=== PATIENT | female | born 1955 | race Caucasian/White ===

== ENCOUNTER → 2020-06-09 09:55 | Outpatient (CLI) | payer MEDICARE, OTHER, SELFPAY ==
--- NOTE | ~2020-06-09 | MR_ITS ---
EXAMINATION: MR cervical spine wo con DATE: 06/09/2020 10:36 INDICATION: Neck pain. TECHNIQUE: Magnetic resonance imaging (MRI) of the cervical spine was performed without intravenous c ontrast. Sequences included sagittal T2-weighted FSE, sagittal STIR FSE, sagittal T1-weighted FSE, ax ial MERGE, and axial T2-weighted FSE. COMPARISON: None FINDINGS: There is 6 degrees dextrocurvature of cervical spine. There is kyphosis of cervical spine. There is 2 mm anterolisthesis of C4 on C5. Vertebral body heights are normal. There is mildly decreas ed disc height at C4-C5, moderately decreased disc height at C5-C6, and severely decreased disc heigh t at C6-C7. The spinal cord signal intensity is normal. The following disc levels are specifically di scussed: C2-C3: The disc does not extend beyond the endplate margin. There is no uncovertebral joint osteoarth ritis. There is mild right and severe left facet joint osteoarthritis. There is mild left neural fora keyshawn stenosis. There is no central canal stenosis. C3-C4: The disc is bulging. There is mild right and moderate left uncovertebral joint osteoarthritis. There is severe bilateral facet joint osteoarthritis. There is mild right and moderate left neural f oraminal stenosis. There is mild central canal stenosis. C4-C5: The disc does not extend beyond the endplate margin. There is mild right and moderate left unc overtebral joint osteoarthritis. There is moderate right and severe left facet joint osteoarthritis. There is mild left neural foraminal stenosis. There is no central canal stenosis. C5-C6: The disc is bulging. There is severe bilateral uncovertebral joint osteoarthritis. There is mo derate right and mild left facet joint osteoarthritis. There is moderate right and mild left neural f oraminal stenosis. There is mild central canal stenosis with ventral indentation of the spinal cord. C6-C7: The disc is bulging. There is moderate right and severe left uncovertebral joint osteoarthriti s. There is severe bilateral facet joint osteoarthritis. There is mild right and moderate left neural foraminal stenosis. There is mild central canal stenosis. C7-T1: The disc does not extend beyond the endplate margin. There is no uncovertebral joint osteoarth ritis. There is moderate right and severe left facet joint osteoarthritis. There is mild left neural foraminal stenosis. There is no central canal stenosis. IMPRESSION: 1. Severe cervical spondylosis. Reviewed, dictated and finalized at location B.
== END ==
PROVIDERS: PCP Family Medicine; Visit Provider Nurse Practitioner Family
DX: M54.2 Cervicalgia (principal); G89.29 Other chronic pain; M47.812 Spondylosis without myelopathy or radiculopathy, cervical region
CPT/HCPCS: 72141

== ENCOUNTER → 2020-12-29 10:10 | Outpatient (CLI) | payer MEDICARE, OTHER, SELFPAY ==
--- NOTE | ~2020-12-29 | DEXA_ITS ---
Bone Density Report Name: Cheyanne Hicks Age: 65 Sex: Female Ethnicity: White Date of : 1955 Indication: postmenopausal; screening for osteoporosis; height loss; Referring Provider: Ruth Torres Study: Bone densitometry was performed. Exam Date: December 29, 2020 Accession number: [id number] Bone Density: Region BMD T-score Z-score Classification AP Spine (L1-L4) 1.205 1.4 3.4 Normal Femoral Neck (Left) 0.706 -1.3 0.4 Osteopenia Total Hip (Left) 0.944 0.0 1.4 Normal Femoral Neck (Right) 1.010 1.5 3.1 Normal Total Hip (Right) 0.950 0.1 1.4 Normal Total Hip Mean 0.947 0.1 1.4 Normal World Health Organization criteria for BMD impression classify patients as: Normal (T-score at or above -1.0), Osteopenia (T-score between -1.0 and -2.5), or Osteoporosis (T-score at or below -2.5). 10-year Fracture Risk(1): Major Osteoporotic Fracture 8.3% Hip Fracture 0.8% Reported Risk Factors: [place] (), Neck BMD=0.706, BMI=36.3 (1) FRAX(R) Version 3.08. Fracture probability calculated for an untreated patient. Fracture probability may be lower if the patient has received treatment. Previous Exams: Region Exam Age BMD T-score BMD Change BMD Change Date g/cm2 vs Baseline vs Previous AP Spine(L1-L4) 12/29/2020 65 1.205 1.4 0.010 0.010 10/11/2018 63 1.195 1.3 Total Hip(Left) 12/29/2020 65 0.944 0.0 -0.001 -0.001 10/11/2018 63 0.945 0.0 Total Hip(Right) 12/29/2020 65 0.950 0.1 -0.010 -0.010 10/11/2018 63 0.960 0.1 *Denotes significance at 95% confidence level, LSC for AP Spine = 0.022 g/cm2, LSC for Total Hip = 0.027 g/cm2 Clinical Information Provided by Patient: Has used the following medications: Calcium, MTV, calcium included vit D Patient maximum height was 67 Menopause Age: 49 No regular weight bearing exercise Does not regularly consume dairy products Drinks caffeinated beverages Onset of menses at age 8 Number of children 3 Impression: The patient has low bone mass, based on the Left Femoral Neck T-score. The patient has an estimated ten-year risk of hip fracture of 0.8% and an estimated ten-year risk of major fracture of 8.3%, based on the WHO FRAX algorithm. No significant bone loss was observed. Discussion: BONE DENSITY IS LOW AT ONE OR MORE SKELETAL SITES. This patient's lowest T-score is low at one or more skeletal sites. I
--- NOTE | ~2020-12-29 | MM_ITS ---
EXAMINATION: MM screening victor hugo BI w steffany HISTORY: Screening TECHNIQUE: Craniocaudal and mediolateral oblique 3-D tomosynthesis images were obtained and synthetic 2-D images were generated. CAD analysis was submitted and interpreted. COMPARISON: Comparison to multiple prior studies sequentially, with oldest reviewed study dated 01/19. BREAST PARENCHYMAL COMPOSITION: There are scattered areas of fibroglandular density. FINDINGS: There is no evidence of suspicious mass, calcification, or architectural distortion to sugg est malignancy in either breast. There has been no suspicious interval change. IMPRESSION: 1. No mammographic evidence of malignancy. 2. Recommend routine screening mammography in one year. BI-RADS Category 1: Negative Reviewed, dictated and finalized at location A. R'S TENDER
== END ==
PROVIDERS: PCP Nurse Practitioner Family; Visit Provider Nurse Practitioner Family
DX: Z12.31 Encounter for screening mammogram for malignant neoplasm of breast (principal); Z78.0 Asymptomatic menopausal state; M85.852 Other specified disorders of bone density and structure, left thigh
CPT/HCPCS: 77063; 77067; 77080

== ENCOUNTER → 2021-09-30 11:41 | Outpatient (CLI) | payer MEDICARE, OTHER, SELFPAY ==
--- NOTE | ~2021-09-30 | XR_ITS ---
EXAMINATION: XR hip RT min 3V w AP pelvis DATE: 09/30/2021 12:14 INDICATION: Right hip pain. TECHNIQUE: An anteroposterior view of the pelvis and 2 views of right hip were obtained. COMPARISON: Right hip radiographs 10/24/2016 FINDINGS: There is lumbar levocurvature and moderate spondylosis. No fracture. There is severe right hip osteoarthritis and moderate left hip osteoarthritis. IMPRESSION: 1. Severe right hip osteoarthritis and moderate left hip osteoarthritis. Reviewed, dictated and finalized at location A. TER SERVICE AND SETTER
== END ==
PROVIDERS: PCP Family Medicine; Visit Provider Family Medicine
DX: M25.551 Pain in right hip (principal); M16.0 Bilateral primary osteoarthritis of hip
CPT/HCPCS: 73502

== ENCOUNTER → 2021-11-25 10:41 | Outpatient (CLI) | payer MEDICARE, OTHER, SELFPAY ==
--- NOTE | ~2021-11-25 | XR_ITS ---
EXAMINATION: XR chest 2V 11/25/2021 11:18 INDICATION: Shortness of breath PROCEDURE: 2 view chest COMPARISON: 11/07/2008 FINDINGS: The lungs are clear. The cardiomediastinal silhouette is within normal limits. There are no pleural effusions. There is no pneumothorax suspected. IMPRESSION: 1: NO ACUTE CARDIOPULMONARY DISEASE. Reviewed, dictated and finalized at location B. OPOLITAN EDITOR
== END ==
PROVIDERS: Visit Provider Family Medicine
DX: R06.02 Shortness of breath (principal)
CPT/HCPCS: 71046

== ENCOUNTER 2021-12-13 08:09 | Outpatient (CLI) | payer MEDICARE, OTHER, SELFPAY ==
--- NOTE | 2021-12-13 | EST_ITS ---
Patient Info Name: Cheyanne Hicks Age: 66 years : 1955 Gender: Female Ht: 65 in Wt: 200 lbs BSA: 2.07 m2 HR: 85 bpm BP: 123 / 73 mmHg Heart Rhythm: Sinus Rhythm Exam Date: 12/13/2021 9:29 AM Exam Location: [facility] Stress Patient Status: Outpatient Admit Date: 12/13/2021 Staff Ordering Physician: Javier Marroquin MD Attending Provider: Javier Marroquin MD Exercise Technologist: Allison Lala CT Exercise Physician: Willard Parra DO Exam Type: CA stress dipika w NM Study Info Indications R06.00 - Dyspnea, unspecified A regadenoson stress test was performed. Summary 1. 1. Negative Lexiscan stress test for ischemic ST changes by ECG criteria. 2. 2. Stable hemodynamics throughout the test. 3. 3. Nuclear scan to follow and will be reported separately. Please correlate with it. 4. 4. Patient informed of the above results. Protocol: Lexiscan Stress ECG Details Stage: REST Duration (min): 1 min : 1 sec HR (bpm): 79 SBP (mmHg): 123 DBP (mmHg): 73 Stage: REST Duration (min): 4 min : 59 sec HR (bpm): 82 SBP (mmHg): 123 DBP (mmHg): 73 Stage: STAGE 1 Duration (min): 1 min : 0 sec HR (bpm): 94 SBP (mmHg): 129 DBP (mmHg): 72 Stage: RECOVERY Duration (min): 1 min : 0 sec HR (bpm): 96 SBP (mmHg): 129 DBP (mmHg): 72 Stage: RECOVERY Duration (min): 2 min : 0 sec HR (bpm): 95 SBP (mmHg): 129 DBP (mmHg): 72 Stage: RECOVERY Duration (min): 3 min : 0 sec HR (bpm): 91 SBP (mmHg): 131 DBP (mmHg): 72 Stage: RECOVERY Duration (min): 3 min : 0 sec HR (bpm): 91 SBP (mmHg): 131 DBP (mmHg): 72 Rest HR: 82 bpm Peak HR: 104 bpm Rest Sys BP: 123 mmHg Peak Sys BP: 131 mmHg Max Pred HR: 152 bpm % Max Pred HR: 68 % Target HR: 129 bpm Max RPP: 13,624 bpm*mmHg Termination Reason: Completed protocol Cardiac Symptoms: Stomach discomfort Total Time: 1 min : 0 sec Rest Abraham BP: 73 mmHg Peak Abraham BP: 72 mmHg Total Dose: 0.4 mg Resting ECG Sinus rhythm, RBBB. Stress ECG No ST changes. Arrhythmias None. Report Signatures
--- NOTE | ~2021-12-13 | NM_ITS ---
EXAMINATION: NM dipika stress w perfusion DATE: 12/13/2021 11:16 INDICATION: Dyspnea on exertion. TECHNIQUE: Rest images were obtained following intravenous administration of 11.22 mCi Tc99m tetrofos min (Myoview). The patient was infused intravenously with Lexiscan (regadenoson). Then, 33.9 mCi Tc99 m tetrofosmin (Myoview) was administered intravenously, and stress images were obtained. Data was rec onstructed into short axis and horizontal and vertical long axis SPECT images. Gated SPECT images wer e also obtained. COMPARISON: None. FINDINGS: There is no definite reversible or fixed perfusion abnormality to suggest ischemia or infar ction. There is no segmental wall motion abnormality. Left ventricular ejection fraction measures > 70%. IMPRESSION: 1. No definite ischemia or infarct. 2. Normal left ventricular ejection fraction measuring >70%. Reviewed, dictated and finalized at location A. CHMENT TEACHER
== END 2021-12-13 08:10 | disposition home or self-care (01) ==
LOC: ANHCARD 08:14
PROVIDERS: PCP Family Medicine; Visit Provider Family Medicine
DX: R06.00 Dyspnea, unspecified (principal)
CPT/HCPCS: 78452; 93017; A9502; J2785

== ENCOUNTER 2022-01-10 18:20 | Emergency (ER) | payer MEDICARE, OTHER, SELFPAY ==
[2022-01-10] VITALS (8 sets, daily range): BP systolic 102–155; BP diastolic 63–92; PULSE 78–111; RESP 17–35; TEMP 36.1–36.7; O2SAT 97–100
--- NOTE | ~2022-01-10 | XR_ITS ---
XR chest 2V DATE: 01/10/2022 18:49 INDICATION: Chest pain, shortness of breath, fever since 01/07/2022. Chills. Weakness. TECHNIQUE: AP and lateral views COMPARISON: 11/25/2021 2 view chest FINDINGS: Normal heart size. Aortic calcification and mild unfolding. No hilar or mediastinal enlarge ment. No pulmonary infiltrate or consolidation, pleural effusion or pulmonary vascular congestion or pneumo thorax is detected. Diffuse osteopenia. Degenerative spurring and mild dextro scoliosis of the thoracic spine. IMPRESSION: No active cardiopulmonary disease Aortic atherosclerosis Osteopenia Reviewed, dictated and finalized at location A.
--- NOTE | 2022-01-10 18:22 | ECG_ITS ---
Measurements Intervals [place] Rate: 113 P: VT: 0 QRS: 39 QRSD: 138 T: 22 QT: 326 QTc: 447 Interpretive Statements PROBABLE ATRIAL FIBRILLATION WITH RAPID VENTRICULAR RESPONSE RIGHT BUNDLE BRANCH BLOCK [120+ ms QRS DURATION, UPRIGHT V1, 40+ ms S IN I/aVL/V4/V5/V6] BASELINE ARTIFACT NO PREVIOUS ECG AVAILABLE FOR COMPARISON Electronically Signed On 01-11-2022 12:00:49 CDT by Lana Lagos M.D.
[2022-01-10 18:37] LABS: Basophils Percent Auto 0.1 % (0.2-1.2); Hematocrit 35.9 % (37.0-47.0); Hemoglobin 12.5 g/dL (12.0-15.0); Immature Granulocyte Absolute 0.03 K/mm3 (0.00-0.031); Immature Granulocyte Percent A 0.3 % (0-0.5); Lymphocytes Absolute Auto 1.53 K/mm3 (0.9-3.2); Lymphocytes Percent Auto 15.3 % (18.3-44.2); Mean Corpuscular HGB Conc 34.8 g/dl (32-36); Mean Corpuscular Hemoglobin 29.3 pg (26-34); Mean Corpuscular Volume 84.1 fl (80-100); Mean Platelet Volume 10.1 fl (7.4-10.4); Monocytes Percent Auto 9.9 % (2.6-8.5); Neutrophils Absolute Auto 7.4 K/mm3 (1.3-6.7); Neutrophils Percent Auto 74.4 % (45.5-73.1); Platelet Count Result 161 k/mm3 (150-375); Red Blood Count 4.27 M/mm3 (4.2-5.4); Red Cell Distribution Width 13.5 % (11.5-14.5)
[2022-01-10 18:55] LABS: Alanine Aminotransferase 27 U/L (4-35); Albumin Level 4.7 g/dL (3.5-5.1); Alkaline Phosphatase 73 U/L (38-126); Anion Gap 14 mmol/L (8-16); Aspartate Amino Transferase 37 U/L (14-36); Bilirubin,Total 0.9 mg/dL (0.2-1.3); Blood Urea Nitrogen 15 mg/dL (7-17); Calcium 8.9 mg/dL (8.4-10.2); Carbon Dioxide 20 mmol/L (22-30); Chloride 90 mmol/L (98-107); Estimated CRCL calculation 85 ml/min; Estimated Glomerular Filt Rate > 60; Glucose 128 mg/dL (65-110); Sodium 124 mmol/L (137-145)
--- NOTE | 2022-01-10 19:23 | ED.SOB ---
HPI - SOB/Dyspnea General Chief Complaint: Shortness of Breath/Dyspnea Stated Complaint: sob Time Seen by Provider: 01/10/22 19:02 Source: patient and family History of Present Illness HPI Narrative: Patient presents with shortness of breath. Reports has had nausea and vomiting since Monday associated with fever with a T-max of 102. This afternoon she was feeling short of breath and appeared to be shaking with a family member check on her so they brought to the ER for evaluation. Reports she just does not feel well and feels like she cannot get enough air she denies any focal areas of pain such as chest pain or abdominal pain. Denies any diarrhea or urinary symptoms. There have been other family members that have had nausea vomiting and fevers recently in the home. Related Data Home Medications Medication Instructions Recorded Confirmed acetaminophen 500 mg tablet 1,000 mg PO Q6H PRN tablet 09/20/21 12/28/21 celecoxib 200 mg capsule 200 mg PO BID cap 09/20/21 12/28/21 folic acid 1 mg tablet 1 mg PO DAILY 09/20/21 12/28/21 guaifenesin 600 mg tablet, 600 mg PO ONCE PRN tablet 09/20/21 12/28/21 extended release 12 hr tramadol 50 mg tablet 50 mg PO Q6H PRN 09/20/21 12/28/21 magnesium oxide 420 mg tablet 420 mg PO DAILY 11/24/21 12/28/21 cetirizine 10 mg tablet 10 mg PO DAILY tablet 12/28/21 12/28/21 clonazepam 0.5 mg tablet 1 mg PO QHS PRN tablet 12/28/21 12/28/21 fluticasone propionate 50 1 spray INTRANASAL DAILY PRN units 12/28/21 12/28/21 mcg/actuation nasal spray,suspension gabapentin 300 mg capsule 600 mg PO QHS cap 12/28/21 12/28/21 omeprazole 20 mg capsule,delayed 20 mg PO DAILY PRN 12/28/21 12/28/21 release pravastatin 20 mg tablet 20 mg PO QHS tablet 12/28/21 12/28/21 Allergies Allergy/AdvReac Type Severity Reaction Status Date / Time hydrocodone Allergy Unknown ITCHING Verified 01/10/22 18:40 Review of Systems Review of Systems: CONSTITUTIONAL: Reports fevers. EYES: Denies visual changes, redness, or discharge. ENT: Denies rhinorrhea, congestion, sore throat, or otalgia. CARDIOVASCULAR: Denies chest pain, palpitations, or edema. RESPIRATORY: Reports shortness of breath GASTROINTESTINAL: Reports nausea and vomiting GENITOURINARY: Denies dysuria or hematuria. SKIN: Denies rash or itching. MUSCULOSKELETAL: Denies back pain, joint pain, or myalgia. NEUROLOGIC: Denies headache, numbness, dizziness, or weakness. PSYCHIATRIC: Denies anxiety or depression. All systems reviewed & are unremarkable except as noted in HPI and below PMFSH Past Medical History Medical History Anxiety Depression Environmental allergies Essential (primary) hypertension GERD without esophagitis Hearing loss History of anesthesia problem HTN (hypertension) Hyperlipidemia, unspecified Insomnia Osteopenia Polyosteoarthritis, unspecified Rheumatoid arthritis Seronegative arthritis Follows with Dr Ochoa Skin cancer Sleep apnea in adult Type 2 diabetes mellitus without complications Surgical History Surgical History H/O shoulder surgery per patient questionnaire History of carpal tunnel release (~2019) History of cholecystectomy per patient questionnaire History of knee replacement x2 per patient questionnaire Family History Family History Mother Hypertension Family history of type 2 diabetes mellitus Diabetes mellitus Father Family history of lung cancer Family history of primary malignant neoplasm of liver Other Arthritis Depression Family history of alcoholism Family history of hearing loss Family history of malignant neoplasm Neuropathy Social History Social History Social History: , retired. She lives with her son, [id number] and 2 granddaughters. She has several sis
[2022-01-10] MEDS: SODIUM CHLORIDE 0.9% IV 1,000 ML 999 ML IV CONT ×2 (19:25→20:44)
[2022-01-10] MEDS: POTASSIUM CHLORIDE 20 MEQ PACKET (FOR LIQUID) 40 MEQ PO (19:26)
[2022-01-10 19:38] LABS: D Dimer 0.51 ug/mL (<0.48)
--- NOTE | 2022-01-10 20:00 | PC.NURSE ---
pt unable to provide urine sample at this time. pt refusing straight urinary catheter at this time, stating I'll try to go again in a little bit.
[2022-01-10 22:05] LABS: Add Urine Microscopic? NO; Appearance Urine Clear (Clear); Bilirubin Urine Negative (Negative); Blood Urine Negative (Negative); Color Urine Yellow (Yellow); Glucose Urine UA Negative (Negative); Ketones Urine Negative (Negative); Leukocyte Esterase Ur Negative LEU/UL (Negative); Nitrate Urine Negative (Negative); Protein Urine Negative (Negative); Specific Grav Ur 1.009 (1.001-1.035); Urobilinogen Urine Negative mg/dL (<2.0)
== END 2022-01-10 22:38 | disposition home or self-care (01) ==
PROVIDERS: Emergency Medicine; Emergency Provider Emergency Medicine; PCP Family Medicine
DX: B34.9 Viral infection, unspecified (principal); E86.0 Dehydration; I10 Essential (primary) hypertension; K21.9 Gastro-esophageal reflux disease without esophagitis; E78.5 Hyperlipidemia, unspecified; M85.80 Other specified disorders of bone density and structure, unspecified site; E11.9 Type 2 diabetes mellitus without complications; M06.00 Rheumatoid arthritis without rheumatoid factor, unspecified site; F41.9 Anxiety disorder, unspecified; F32.A Depression, unspecified; Z85.828 Personal history of other malignant neoplasm of skin; Z96.653 Presence of artificial knee joint, bilateral; Z79.84 Long term (current) use of oral hypoglycemic drugs
CPT/HCPCS: 36415; 71046; 80053; 81003; 85025; 85380; 93005; 96360; 96361; 99284; A9270; J7030

== ENCOUNTER → 2022-01-17 16:20 | Outpatient (CLI) | payer MEDICARE, OTHER, SELFPAY ==
--- NOTE | ~2022-01-17 | XR_ITS ---
EXAMINATION: XR chest 2V 01/17/2022 16:34 INDICATION: Cough with shortness of breath PROCEDURE: 2 view chest COMPARISON: Comparison to multiple prior studies sequentially, with oldest reviewed study dated 06/2009. FINDINGS: The lungs are clear. The cardiomediastinal silhouette is within normal limits. There are no pleural effusions. There is no pneumothorax suspected. IMPRESSION: 1: NO ACUTE CARDIOPULMONARY DISEASE. Reviewed, dictated and finalized at location A.
== END ==
PROVIDERS: PCP Nurse Practitioner Family; Visit Provider Nurse Practitioner Family
DX: R05.9 Cough, unspecified (principal)
CPT/HCPCS: 71046

== ENCOUNTER 2022-02-02 07:59 | Outpatient (CLI) | payer MEDICARE, OTHER, SELFPAY ==
--- NOTE | 2022-02-02 08:56 | ECG_ITS ---
Measurements Intervals [place] Rate: 77 P: 37 CO: 173 QRS: -24 QRSD: 142 T: 1 QT: 394 QTc: 447 Interpretive Statements SINUS RHYTHM BORDERLINE LEFT AXIS DEVIATION [QRS AXIS < -20] INTRAVENTRICULAR CONDUCTION DELAY [130+ ms QRS DURATION] MODERATE VOLTAGE CRITERIA FOR LVH, CONSIDER NORMAL VARIANT [MEETS CRITERIA IN ONE OF: R(aVL), S(V1), R(V5), R(V5/V6)+S(V1)] COMPARED TO ECG 01/10/2022 18:32:12 ATRIAL FIBRILLATION HAS RESOLVED Electronically Signed On 02-02-2022 14:23:14 CDT by Lana Lagos M.D.
[2022-02-02 09:25] LABS: White Blood Count 6.8 K/mm3 (4.5-10.0)
[2022-02-02 09:32] LABS: Add Urine Microscopic? YES; Appearance Urine Cloudy (Clear); Bacteria Urine Trace /hpf; Bilirubin Urine Negative (Negative); Blood Urine Negative (Negative); Color Urine Amber (Yellow); Glucose Urine UA Negative (Negative); Ketones Urine Negative (Negative); Leukocyte Esterase Ur Negative LEU/UL (Negative); Mucus Urine Rare /lpf; Nitrate Urine Negative (Negative); Protein Urine Negative (Negative); RBC Urine 0-2 /hpf (0-2); Specific Grav Ur 1.023 (1.001-1.035); Squamous Epithelial Cell Urine Occasional /hpf (Few); Urobilinogen Urine Negative mg/dL (<2.0); WBC Urine 0-3 /hpf
[2022-02-02 09:35] LABS: Prothrombin Time 12.5 Seconds (11.1-14.7)
[2022-02-02 09:36] LABS: Partial Thromboplastin Time 29.6 SECONDS (22.3-36.8)
[2022-02-02 09:41] LABS: Urine Cotinine NEGATIVE
== END 2022-02-02 08:00 | disposition home or self-care (01) ==
LOC: ANHSURGERY 08:03
PROVIDERS: PCP Family Medicine; Visit Provider Orthopaedic Surgery
DX: Z01.818 Encounter for other preprocedural examination (principal); M16.11 Unilateral primary osteoarthritis, right hip; I45.9 Conduction disorder, unspecified; Z51.81 Encounter for therapeutic drug level monitoring; Z79.899 Other long term (current) drug therapy
CPT/HCPCS: 80307; 81001; 85048; 85610; 85730; 86850; 86900; 86901; 87081; 93005

== ENCOUNTER 2022-02-15 00:03 | Day surgery (SDC) | payer MEDICARE, OTHER, SELFPAY ==
[2022-02-02 08:10] VITALS: BMI 32.8
--- NOTE | 2022-02-02 08:38 | PC.NURSE ---
Report to the Outpatient Waiting Room, entrance under the green pavilion located off [facility], at time ___0600____ on date __02/15/22 . OR Time: __729 . - You and your visitor will be asked a series of questions to screen for COVID 19 for your protection. - A mask is required within the hospital. Preoperative COVID Testing Requirements: No COVID Test needed if: (proof is required; if not received patient will have Rapid Test prior to entry) - Patient has received COVID Vaccine at least 14 days prior to procedure date or - Patient has positive COVID test result within last 90 days of surgery date. COVID Test needed if above criteria is not met If not COVID vaccinated a COVID test must be conducted within 72 hours of surgery and patient is asked to isolate self from time of testing until procedure. You will go to the [facility] for your COVID testing. The [facility] is located at the corner of [address] [facility]. You will only be called if COVID results are positive and your surgeon may reschedule your elective surgery date. Patients may have clear liquids (water, carbonated beverages, clear teas, apple juice) until 3 hours prior to surgery with a maximum of 20 ounces. - No food from midnight until time of surgery - Infants may have breast milk until 4 hours before surgery, formula 6 hours prior to surgery. - Children will be allowed to drink immediately following surgery. If applicable, please bring a bottle or sippy cup to assist with drinking. Juice, water, soda, and popsicles are readily available. For infants on formula, please bring formula the day of surgery. Pacifiers are allowed. Take the following medications with a SIP of water the morning of surgery: ___SERTRALINE Medications to discontinue per physician __ASPIRIN/CELECOXIB PER DR MILTON. ALL VITAMINS AND SUPPLEMENTS 3 DAYS PRE OP Date to take last dose__VIT/SUPP 02/11/22 Please no make-up, nail slovak, hairspray, perfume, deodorant, or body powder the day of surgery. No jewelry (including any body piercings) or valuables the day of surgery, leave them at home. Please take a shower or bath the night before, or the morning of, surgery with an antibacterial soap. Wear comfortable, loose fitting clothing. Children are encouraged to wear pajamas. - Jewelry must be removed prior to entering the operating room. Rings and piercings that are not removed may be cut off. - The hospital will not accept responsibility for valuables. - Please leave all valuables, including medications, at home the day of surgery. If you are going home after surgery, a licensed national flatbed truck driver must drive you home. - NO public transportation without another adult. - We recommend that an adult stay with you for 24 hours following discharge. - We also recommend that you do not drive, make important decision, drink alcoholic beverages, or take any drugs that were not prescribed by your health care provider for at least 24 hours after your discharge time. For Pediatric surgeries, we recommend two adults accompany the child home (only one inside the building at this time). One visitor will be allowed to accompany the patient into the hospital. Patients visitor will be instructed to remain with patient at all times or leave the building. We will allow the visitor to come back to the postoperative area when patient is ready. Follow any additional instructions given to you from your surgeon. VERBAL AND WRITTEN instructions given to _PATIENT and asked if any additional questions and then verbalized understanding. Patient advised to call surgeon office or pre surgery nurse liaison [phone] if any additional questions.
[2022-02-02 08:55] VITALS: BP 132/81; PULSE 81; RESP 18; TEMP 36.7; O2SAT 98
--- NOTE | 2022-02-14 12:54 | WPDANESEPPF ---
Anes - Initial Pre Proc Eval Procedure: Operation Date: 02/15/22 07:30 Proposed Procedures p Right Total Hip Arthroplasty - Roc Sethi MD Date/Time: 02/14/22 12:54 Surgeon: Roc Sethi MD Pre Op Diagnosis: Rt Hip DJD Patient Data Age: 66 Gender: F Height: 1.66 m Weight: 91 kg Last Vital Signs Temp 98.0 F 02/02/22 08:55 Pulse 81 02/02/22 08:55 Resp 18 02/02/22 08:55 BP 132/81 02/02/22 08:55 Pulse Ox 98 02/02/22 08:55 Allergies Allergy/AdvReac Type Severity Reaction Status Date / Time hydrocodone Allergy Mild ITCHING Verified 02/15/22 06:20 Home Medications Medication Instructions Recorded Confirmed Type cholecalciferol (vitamin D3) 25 1,000 unit PO DAILY #90 cap 03/12/20 02/07/22 Rx mcg (1,000 unit) capsule aspirin 81 mg tablet,delayed 81 mg PO DAILY #90 tablet 09/17/21 02/07/22 Rx release lisinopril 20 mg tablet 20 mg PO DAILY #90 tablet 09/17/21 02/07/22 Rx metformin 500 mg tablet 500 mg PO DAILY #90 tablet 09/17/21 02/07/22 Rx acetaminophen 500 mg tablet 1,000 mg PO Q6H PRN tablet 09/20/21 02/07/22 History celecoxib 200 mg capsule 200 mg PO BID cap 09/20/21 02/07/22 History guaifenesin 600 mg tablet, 600 mg PO DAILY tablet 09/20/21 02/07/22 History extended release 12 hr hydrochlorothiazide 25 mg tablet 25 mg PO DAILY #90 tablet 09/20/21 02/07/22 Rx sertraline 100 mg tablet 100 mg PO DAILY #90 tablet 09/20/21 02/15/22 Rx tramadol 50 mg tablet 50 mg PO Q6H PRN 09/20/21 02/07/22 History blood sugar diagnostic #50 ea 11/22/21 02/07/22 Rx blood-glucose meter #1 ea 11/22/21 02/07/22 Rx lancets #200 ea 11/22/21 02/07/22 Rx magnesium oxide 420 mg tablet 420 mg PO DAILY 11/24/21 02/07/22 History cetirizine 10 mg tablet 10 mg PO DAILY tablet 12/28/21 02/07/22 History fluticasone propionate 50 1 spray INTRANASAL DAILY PRN units 12/28/21 02/07/22 History mcg/actuation nasal spray,suspension gabapentin 300 mg capsule 600 mg PO QHS cap 12/28/21 02/07/22 History pravastatin 20 mg tablet 20 mg PO QHS tablet 12/28/21 02/07/22 History inhalational spacing device #1 ea 01/17/22 02/07/22 Rx clonazepam 0.5 mg tablet 1 mg PO QHS PRN #60 tablet 01/24/22 02/07/22 Rx sertraline 50 mg tablet 50 mg PO DAILY #60 tablet 01/24/22 02/15/22 Rx chlorhexidine gluconate 4 % 1 applic TOPICAL ONCE #237 ml 02/07/22 02/07/22 Rx topical liquid Patient hx anesthesia problems: post op nausea/vomiting Family hx anesthesia problems: none Results Review: All pre-operative results and documents have been reviewed as part of the pre-operative evaluation. [facility] Past Medical History Medical History Anxiety Depression Environmental allergies Essential (primary) hypertension GERD without esophagitis Hearing loss History of anesthesia problem HTN (hypertension) Hyperlipidemia, unspecified Insomnia Osteopenia Polyosteoarthritis, unspecified Rheumatoid arthritis Seronegative arthritis Follows with Dr Ochoa Skin cancer Sleep apnea in adult Type 2 diabetes mellitus without complications Surgical History Surgical History H/O shoulder surgery per patient questionnaire History of carpal tunnel release (~2019) History of cholecystectomy per patient questionnaire History of knee replacement x2 per patient questionnaire Family History Family History Mother Hypertension Family history of type 2 diabetes mellitus Diabetes mellitus Father Family history of lung cancer Family history of primary malignant neoplasm of liver Other Arthritis Depression Family history of alcoholism Family history of hearing loss Family history of malignant neoplasm Neuropathy Social History Social History Social History: , retired. She lives with her son, [id number] and 2 granddau
[2022-02-15] VITALS (15 sets, daily range): BP systolic 115–153; BP diastolic 52–87; PULSE 56–97; RESP 13–20; TEMP 36.3–37.6; O2SAT 95–100; BMI 35.4
--- NOTE | ~2022-02-15 | XR_ITS ---
EXAMINATION: XR hip RT 1V DATE: 02/15/2022 10:29 INDICATION: Postoperative evaluation following right total hip arthroplasty TECHNIQUE: Anteroposterior view of the right hip were obtained. COMPARISON: 11/22/2021 FINDINGS: Interval placement of a right total hip arthroplasty which appears well seated in near anatomic align ment. Expected subcutaneous gas in the postoperative bed. No fractures identified. IMPRESSION: 1. Right total hip arthroplasty, negative for postoperative purposes. Reviewed, dictated and finalized at location A.
[2022-02-15] MEDS: ACETAMINOPHEN 500 MG TABLET 1000 MG PO (06:22)
[2022-02-15] MEDS: TRANEXAMIC ACID 1,000MG/ISO100 1,000 MG/100 ML BAG 200 MG IVPB (07:00)
[2022-02-15] MEDS: LACTATED RINGERS 1,000 ML 30 ML IV CONT ×2 (07:00→10:10)
[2022-02-15 07:05] LABS: Glucose Point of Care 133 mg/dl (65-105)
--- NOTE | 2022-02-15 07:11 | WPDHPUPDATE1 ---
History and Physical Update Update Date/Time: 02/15/22 07:11 History and Physical has been reviewed, including an updated exam of the patient. There are NO changes in the patient's condition. Risks, benefits, and alternatives have been discussed and questions answered. Patient agrees to proceed with procedure.
[2022-02-15] MEDS: SCOPOLAMINE 1.5 MG PATCH TRANSDERM (07:25)
[2022-02-15] MEDS: ceFAZolin 2 GM/D5W 50 ML 2 GM/50 ML BAG IVPB ×3 (07:29→23:00)
[2022-02-15] MEDS: TRANEXAMIC ACID 1,000 MG/10 ML AMPUL 1000 MG IV PUSH (09:52)
--- NOTE | 2022-02-15 10:00 | W.PM.PROC2 ---
Procedure Note - Detailed Date of Procedure 02/15/22 Pre-op Diagnosis Rt Hip DJD Post-op Diagnosis Same Procedure Performed R YAEL Surgeon Roc Sethi MD Anesthesia General Description of Procedure THE PATIENT WAS TAKEN TO THE OPERATING ROOM IN STABLE CONDITION AND WAS PLACED IN THE LATERAL DECUBITUS AND THE RIGHT LOWER EXTREMITY WAS PREPPED AND DRAPED IN THE STERILE FASHION. INCISION WAS MADE IN THE POSTERIOR LATERAL SIDE OF THE HIP, DOWN TO THE FASCIA LAYER. THE FASCIA WAS INCISED. THE HIP WAS EXPOSED. THE SHORT EXTERNAL ROTATORS WERE EXPOSED. THE SCIATIC NERVE WAS IDENTIFIED. THERE WAS A HIGH BIFURCATION OF THE NERVE. INCISION WAS MADE THROUGH THE SHORT EXTERNAL ROTATORS AND THE CAPSULE OF THE HIP JOINT. THE HIP WAS DISLOCATED. AN OSTEOTOMY WAS MADE TO THE FEMORAL NECK ABOUT 1 CM PROXIMAL TO THE LESSER TROCHANTER. THE ACETABULUM WAS EXPOSED. THERE WAS SEVERE DJD SEEN. BEGINNING WITH A 44 REAMER THE ACETABULUM WAS REAMED TO 53 MM. A 53 MM TRIAL WAS PLACED IN 35 DEG OF ABDUCTION AND ANTEVERSION WAS IN ALIGNMENT WITH THE TRANS ACETABULAR LIGAMENT. THE FIT WAS EXCELLENT. THE TRIAL WAS REMOVED. A 54 MM BIOMET G7 COMPONENT WAS THEN TAPPED IN TO PLACE IN 35 DEG OF ABDUCTION AND ANTEVERSION IN ALIGNMENT WITH THE TRANSVERSE ACETABULAR LIGAMENT. THE FIT WAS EXCELLENT. THE ACETABULAR LINER WAS PLACED AND CHECKED FOR STABILITY. NEXT THE FEMUR WAS PREPARED WITH INITIAL CANAL FINDER THEN SEQUENTIAL BROACHING WITH A TAPERLOC HIP SYSTEM, UNTIL A 8 BROACH FIT WELL IN 15 OF ANTEVERSION. A -3 STANDARD OFFSET NECK WITH 36 MM HEAD TRIAL WAS PLACED. THE SHUCK TEST WAS EXCELLENT AND THE STABILITY IN FLEXION AND ROTATION WAS EXCELLENT. LEG LENGTHS WERE GROSSLY EQUAL. TRIALS WERE REMOVED. A BIOMET TAPERLOC 8 STEM WAS PLACED WITH A HIGH OFFSET NECK THE FIT WAS EXCELLENT IN 15 DEG OF ANTEVERSION. A -3 CERAMIC 36 MM FEMORAL HEAD WAS PLACED. THE HIP WAS TRIALED AND THE STABILITY WAS EXCELLENT WERE THE LEG LENGTHS AND THE SHUCK TEST. THE WOUND WAS IRRIGATED WITH STERILE BETADINE AND WATER FOR 3 MIN. THEN WASHED AGAIN. THE CAPSULE AND THE EXTERNAL ROTATORS WERE APPROXIMATED WITH NUMBER 1 VICRYL. THE FASCIA WITH No 2 QUIL AND THE SUB CUTANEOUS LAYER WITH 2-0 ABSORBABLE SUTURE WITH A RUNNING 3-0 SUBCUTICULAR LAYER WELL. DERMABOND WAS PLACED AND STERILE DRESSING WAS APPLIED. PATIENT WAS PLACED BACK ON TO THE SUPINE POSITION AND WAS EXTUBATED Estimated Blood Loss 400 Complications No immediate complications Condition Stable Disposition PACU
[2022-02-15 10:23] LABS: Glucose Point of Care 215 mg/dl (65-105)
--- NOTE | 2022-02-15 12:00 | ADMGEN ---
This patient, Cheyanne Hicks, was admitted to Medical Room 252-01. Patient/family oriented to hospital policies and general routines including ID bracelet, bed and alarms, visiting hours, pain management, procedures, bathroom and other care routines, personal items, smoking policy, room service/diet, and visiting hours. Information on how to activate the Rapid Response Team has been discussed. Patient/Family are encouraged to report perceived risks to care and to ask questions if they do not understand what they are told or what they should do.
[2022-02-15 12:57] LABS: Glucose Point of Care 153 mg/dl (65-105)
[2022-02-15] MEDS: HYDROcodone/acetaminophen (*CRX) 7.5-325 MG TABLET 1 TAB PO ×2 (13:59→19:09)
[2022-02-15 16:21] LABS: Glucose Point of Care 173 mg/dl (65-105)
[2022-02-15] MEDS: SENNA/DOCUSATE SODIUM TABLET 2 TAB PO (17:03)
[2022-02-15] MEDS: CELECOXIB 200 MG CAPSULE PO (17:05)
[2022-02-15] MEDS: diazePAM (*CRX) 5 MG TABLET PO (19:13)
[2022-02-15] MEDS: ONDANSETRON INJ 4 MG/2 ML VIAL IV PUSH (20:38)
[2022-02-15 20:43] LABS: Glucose Point of Care 150 mg/dl (65-105)
[2022-02-15] MEDS: GABAPENTIN 300 MG CAPSULE 600 MG PO (21:13)
[2022-02-15] MEDS: MORPHINE SULFATE (*CRX) 4 MG/ML INJ 3 MG IV PUSH (21:14)
[2022-02-15] MEDS: FAMOTIDINE 20 MG TABLET PO (21:14)
[2022-02-15] MEDS: PRAVASTATIN SODIUM 20 MG TABLET PO (21:14)
[2022-02-15] MEDS: clonazePAM (*CRX) 0.5 MG TABLET 1 MG PO (23:00)
[2022-02-16 00:11] VITALS: BP 91/47; PULSE 98; RESP 20; TEMP 37.5; O2SAT 95
[2022-02-16 03:42] VITALS: BP 105/49; PULSE 96; RESP 20; TEMP 37.1; O2SAT 95
[2022-02-16 04:53] LABS: Basophils Percent Auto 0.2 % (0.2-1.2); Hematocrit 26.6 % (37.0-47.0); Hemoglobin 8.9 g/dL (12.0-15.0); Immature Granulocyte Absolute 0.07 K/mm3 (0.00-0.031); Immature Granulocyte Percent A 0.6 % (0-0.5); Lymphocytes Absolute Auto 2.02 K/mm3 (0.9-3.2); Lymphocytes Percent Auto 18.1 % (18.3-44.2); Mean Corpuscular HGB Conc 33.5 g/dl (32-36); Mean Corpuscular Hemoglobin 28.8 pg (26-34); Mean Corpuscular Volume 86.1 fl (80-100); Mean Platelet Volume 9.7 fl (7.4-10.4); Monocytes Absolute Auto 1.3 K/mm3 (0.1-0.6); Monocytes Percent Auto 11.2 % (2.6-8.5); Neutrophils Absolute Auto 7.8 K/mm3 (1.3-6.7); Neutrophils Percent Auto 69.9 % (45.5-73.1); Platelet Count Result 190 k/mm3 (150-375); Red Blood Count 3.09 M/mm3 (4.2-5.4); Red Cell Distribution Width 14.3 % (11.5-14.5); White Blood Count 11.2 K/mm3 (4.5-10.0)
[2022-02-16 05:09] LABS: Anion Gap 6 mmol/L (8-16); Blood Urea Nitrogen 10 mg/dL (7-17); Calcium 8.1 mg/dL (8.4-10.2); Carbon Dioxide 27 mmol/L (22-30); Chloride 99 mmol/L (98-107); Estimated CRCL calculation 105 ml/min; Estimated Glomerular Filt Rate > 60; Glucose 132 mg/dL (65-110); Potassium 3.3 mmol/L (3.4-5.0); Sodium 132 mmol/L (137-145)
[2022-02-16] MEDS: HYDROcodone/acetaminophen (*CRX) 7.5-325 MG TABLET 1 TAB PO ×3 (05:58→17:16)
[2022-02-16] MEDS: ceFAZolin 2 GM/D5W 50 ML 2 GM/50 ML BAG IVPB (05:59)
[2022-02-16 07:32] LABS: Glucose Point of Care 137 mg/dl (65-105)
[2022-02-16 08:00] VITALS: RESP 20; O2SAT 95
[2022-02-16] MEDS: SENNA/DOCUSATE SODIUM TABLET 2 TAB PO ×2 (09:09→17:13)
[2022-02-16] MEDS: MAGNESIUM OXIDE 400 MG TABLET PO (09:10)
[2022-02-16] MEDS: CELECOXIB 200 MG CAPSULE PO ×2 (09:10→17:13)
[2022-02-16] MEDS: ASPIRIN 325 MG ENTERIC TABLET 650 MG PO (09:10)
[2022-02-16] MEDS: polyethylene glycoL 3350 17 GM POWD.PACK PO (09:11)
[2022-02-16] MEDS: LORATADINE 10 MG TABLET PO (09:11)
[2022-02-16] MEDS: FAMOTIDINE 20 MG TABLET PO (09:11)
[2022-02-16] MEDS: guaiFENesin 12 HR 600 MG TABCR PO (09:11)
[2022-02-16] MEDS: metFORMIN HCL 500 MG TABLET PO (09:11)
[2022-02-16] MEDS: SERTRALINE HCL 50 MG TABLET 150 MG PO (09:11)
[2022-02-16] MEDS: lisinopriL 20 MG TABLET PO (09:11)
[2022-02-16] MEDS: hydroCHLOROthiazide 25 MG TABLET PO (09:11)
[2022-02-16 10:30] VITALS: BP 114/57; PULSE 95; RESP 14; TEMP 36.6; O2SAT 98
--- NOTE | 2022-02-16 11:17 | PCCCNOTE ---
On 02/16/22, the student, [Yanely Monroy ], provided care and completed [facility] documentation on this patient. I have reviewed the student's documentation and agree with the findings.
[2022-02-16 11:49] LABS: Glucose Point of Care 110 mg/dl (65-105)
[2022-02-16 14:20] VITALS: BP 130/82; PULSE 95; RESP 16; TEMP 36.7; O2SAT 100
[2022-02-16 16:14] LABS: Glucose Point of Care 136 mg/dl (65-105)
--- NOTE | 2022-02-16 17:13 | PM.PNORT ---
Progress Note: A&P Additional Plan POD 1 DOING WELL AND HAS PASED PT. OK TO DC HOME F/U IN 3 WEEKS. Subjective Subjective Date/Time Seen: 02/16/22 17:13 pod 1 DOING WELL. PAIN CONTROLLED. NO CALF PAIN Exam Extrem: Other: VSS AFEBRILE DRESSING DRY NV INTACT NEG HOMANS SIGN Objective Data Vital Signs Vital Signs: Vital Signs - 24 hr 02/15/22 17:35 02/15/22 20:00 02/15/22 20:28 Temperature 36.7 C 37.6 C H Pulse Rate 81 97 97 Respiratory Rate 20 20 Blood Pressure 138/58 L 121/54 L Pulse Oximetry 98 99 99 02/16/22 00:11 02/16/22 03:42 02/16/22 08:00 Temperature 37.5 C 37.1 C Pulse Rate 98 96 Respiratory Rate 20 20 20 Blood Pressure 91/47 L 105/49 L Pulse Oximetry 95 95 95 02/16/22 10:30 02/16/22 14:20 Temperature 36.6 C 36.7 C Pulse Rate 95 95 Respiratory Rate 14 16 Blood Pressure 114/57 L 130/82 Pulse Oximetry 98 100 Intake/Output Intake/Output: Intake & Output 02/13/22 02/14/22 02/15/22 02/16/22 23:59 23:59 23:59 23:59 Intake Total 450 1480 Output Total 300 Balance 450 1180 Meds/Results Medications: Active Medications Generic Name Dose Route Start Last Admin Trade Name Freq PRN Reason Stop Dose Admin Acetaminophen 650 mg 02/15/22 11:50 Acetaminophen 325 Mg Tablet PO Q6H PRN Mild Pain (1-3) or Fever Hydrocodone Bitart/Acetaminophen 1 tab 02/15/22 11:50 02/16/22 10:15 Hydrocodone/Acetaminophen (*Crx) 7.5-325 Mg Tablet PO 1 tab Q3H PRN Administration Pain Rated 4-6 Aspirin 650 mg 02/16/22 09:00 02/16/22 09:10 Aspirin 325 Mg Enteric Tablet PO 650 mg DAILY TANNA Administration Celecoxib 200 mg 02/15/22 17:00 02/16/22 17:13 Celecoxib 200 Mg Capsule PO 200 mg BID TANNA Administration Clonazepam 1 mg 02/15/22 11:50 02/15/22 23:00 Clonazepam (*Crx) 0.5 Mg Tablet PO 1 mg HS PRN Administration sleep Diazepam 5 mg 02/15/22 11:50 02/15/22 19:13 Diazepam (*Crx) 5 Mg Tablet PO 5 mg Q6H PRN Administration Anxiety/Muscle Spasm Famotidine 20 mg 02/15/22 21:00 02/16/22 09:11 Famotidine 20 Mg Tablet PO 20 mg Q12HR TANNA Administration Gabapentin 600 mg 02/15/22 21:00 02/15/22 21:13 Gabapentin 300 Mg Capsule PO 600 mg HS TANNA Administration Guaifenesin 600 mg 02/16/22 09:00 02/16/22 09:11 Guaifenesin 12 Hr 600 Mg Tabcr PO 600 mg DAILY TANNA Administration Hydrochlorothiazide 25 mg 02/16/22 09:00 02/16/22 09:11 Hydrochlorothiazide 25 Mg Tablet PO 25 mg DAILY TANNA Administration Lisinopril 20 mg 02/16/22 09:00 02/16/22 09:11 Lisinopril 20 Mg Tablet PO 20 mg DAILY TANNA Administration Loratadine 10 mg 02/16/22 09:00 02/16/22 09:11 Loratadine 10 Mg Tablet PO 10 mg QAM TANNA Administration Magnesium Oxide 400 mg 02/16/22 09:00 02/16/22 09:10 Magnesium Oxide 400 Mg Tablet PO 400 mg DAILY TANNA Administration Metformin HCl 500 mg 02/16/22 08:00 02/16/22 09:11 Metformin Hcl 500 Mg Tablet PO 500 mg DAILY@0800 TANNA Administration Morphine Sulfate 3 mg 02/15/22 11:50 02/15/22 21:14 Morphine Sulfate (*Crx) 4 Mg/Ml Inj IV PUSH 3 mg Q3H PRN Administration Pain Rated 7-10 Naloxone HCl 0.1 mg 02/15/22 11:50 Naloxone Hcl 0.4 Mg/Ml Vial IV PUSH Q2M PRN Opiate Reversal Ondansetron HCl 4 mg 02/15/22 11:50 02/15/22 20:38 Ondansetron Inj 4 Mg/2 Ml Vial IV PUSH 4 mg Q4H PRN Administration Nausea And Vomiting Polyethylene Glycol 17 gm 02/16/22 09:00 02/16/22 09:11 Polyethylene Glycol 3350 17 Gm Powd.Pack PO 17 gm QAM TANNA Administration Pravastatin Sodium 20 mg 02/15/22 21:00 02/15/22 21:14 Pravastatin Sodium 20 Mg Tablet PO 20 mg HS TANNA Administration Senna/Docusate Sodium 2 tab 02/15/22 17:00 02/16/22 17:13 Senna/Docusate Sodium Tablet PO 2 tab BID TANNA Administration Sertraline HCl 150 mg 02/16/22 09:00 02/16/22 09:11 Sertraline Hcl 50 Mg Tablet PO 1
--- NOTE | 2022-02-16 17:16 | PM.DS ---
DS: Admitting Diagnosis Discharge Date 02/16/22 Admitting Diagnosis RIGHT HIP DJD DS: Discharge Diagnosis Discharge Diagnosis (1) S/P total hip arthroplasty: Code(s): Z96.649 - Presence of unspecified artificial hip joint Status: Acute DS: Summary Hospital Course Reason for hospitalization: R YAEL Hospital Course: PATIENT WAS ADMITTED S/P RIGHT TOTAL HIP ARTHROPLASTY FOR POSTOPERATIVE MEDICAL MANAGEMENT, PAIN CONTROL AND MOBILIZATION WITH PHYSICAL AND OCCUPATIONAL THERAPY. THE PATIENT PROGRESSED WELL WITH PT/OT. LABS AND VITALS REMAINED STABLE AND PAIN WELL CONTROLLED. THE PATIENT HAS BEEN CLEARED TO BE DISCHARGED HOME. FOLLOW UP APPOINTMENT SCHEDULED. DISCHARGE INSTRUCTIONS DISCUSSED AT LENGTH WITH THE PATIENT. MEDICATIONS REVIEWED. Time spent discussing smoking cessation with patient: 3 to 10 minutes Status at Discharge Cognitive/behavioral status at discharge: STABLE Functional status at discharge: uses cane/walker Overall status at discharge: patient is progressing back to baseline Time Spent with Patient Time attestation: Total time spent providing and/or coordinating discharge services: DS: Data Data Completed and Pending Labs on day of discharge: Labs from last 24 hours 02/16/22 02/16/22 02/16/22 16:10 11:43 07:29 WBC RBC Hgb Hct MCV MCH MCHC RDW Plt Count MPV Immature Gran % (Auto) Neut % (Auto) Lymph % (Auto) Dixon % (Auto) Eos % (Auto) Baso % (Auto) Lymph # (Auto) Dixon # (Auto) Eos # (Auto) Baso # (Auto) Abs Immat Gran (auto) Absolute Neuts (auto) Absolute Nucleated RBC Nucleated RBC % Sodium Potassium Chloride Carbon Dioxide Anion Gap BUN Creatinine Estim Creat Clear Calc Estimated GFR Glucose POC Capillary Glucose 136 H 110 H 137 H Calcium 02/16/22 02/16/22 02/15/22 04:38 04:38 20:32 WBC 11.2 H RBC 3.09 L Hgb 8.9 L D Hct 26.6 L MCV 86.1 MCH 28.8 MCHC 33.5 RDW 14.3 Plt Count 190 MPV 9.7 Immature Gran % (Auto) 0.6 H Neut % (Auto) 69.9 Lymph % (Auto) 18.1 L Dixon % (Auto) 11.2 H Eos % (Auto) 0.0 Baso % (Auto) 0.2 Lymph # (Auto) 2.02 Dixon # (Auto) 1.3 H Eos # (Auto) 0.0 Baso # (Auto) 0.0 Abs Immat Gran (auto) 0.07 H Absolute Neuts (auto) 7.8 H Absolute Nucleated RBC 0.0 Nucleated RBC % 0.0 Sodium 132 L Potassium 3.3 L Chloride 99 Carbon Dioxide 27 Anion Gap 6 L BUN 10 D Creatinine 0.50 L Estim Creat Clear Calc 105 Estimated GFR > 60 Glucose 132 H POC Capillary Glucose 150 H Calcium 8.1 L Discharge Plan Discharge Patient Disposition: Home Health Service Discharge Instructions: Remove the Scopolamine patch that was placed behind your ear in 72 hours or less. Wash your hands after touching. Post Op Total Hip Replacement Instructions Dr. Roc Sethi [phone] ? Your dressing will be changed prior to your discharge. You will be sent home with one additional dressing to be changed on post op day 7 by the home health RN. You may remove the dressing on post op day 14. Your incision was closed with dermabond, allow the dermabond to fall off naturally once your dressing is removed. Do not pull at the dermabond or disrupt incision healing. ? You may shower with your dressing but do not submerge in a bath tub. ? Do not drive or operate machinery until you are released by Dr. Sethi. ? Do not walk without a walker for any reason until you are released by Dr. Sethi. ? Continue to apply ice to the hip intermittently for additional pain relief. Protect your skin with a towel or pillow case. ? Continue to follow strict total hip replacement precautions. ? Your first post op appointment was sent to you via mail preoperatively. If you have any questions or are unable to make your appointment, please contact our office for scheduling questions. ?
== END 2022-02-16 18:00 | disposition home health service (06) ==
LOC: ANHSURGERY 07:47 → ANH2MED 12:07
PROVIDERS: PCP Family Medicine; Visit Provider Orthopaedic Surgery
PROC: (CPT 27130; principal; 2022-02-15 07:30)
DX: M16.11 Unilateral primary osteoarthritis, right hip (principal); I10 Essential (primary) hypertension; K21.9 Gastro-esophageal reflux disease without esophagitis; E78.5 Hyperlipidemia, unspecified; F41.8 Other specified anxiety disorders; M06.00 Rheumatoid arthritis without rheumatoid factor, unspecified site; G47.30 Sleep apnea, unspecified; E11.9 Type 2 diabetes mellitus without complications; M85.80 Other specified disorders of bone density and structure, unspecified site; E66.9 Obesity, unspecified; Z68.35 Body mass index [BMI] 35.0-35.9, adult; Z79.82 Long term (current) use of aspirin; Z79.84 Long term (current) use of oral hypoglycemic drugs
CPT/HCPCS: 27130; 36415; 73501; 80048; 82948; 85025; 97110; 97116; 97161; 97165; 97530; 97535; A9270; C1776; J0171; J0690; J1100; J1170; J1885; J2250; J2270; J2405; J2704; J2710; J2795; J3010; J7120

== ENCOUNTER 2022-07-05 10:28 | Outpatient (CLI) | payer MEDICARE, OTHER, SELFPAY ==
[2022-07-05 18:49] LABS: Basophils Absolute Auto 0.1 K/mm3 (0.0-0.1); Basophils Percent Auto 0.6 % (0.2-1.2); Eosinophils Absolute Auto 0.2 K/mm3 (0-0.3); Eosinophils Percent Auto 2.5 % (0-4.4); Hemoglobin 12.1 g/dL (12.0-15.0); Immature Granulocyte Absolute 0.01 K/mm3 (0.00-0.031); Immature Granulocyte Percent A 0.1 % (0-0.5); Lymphocytes Absolute Auto 3.18 K/mm3 (0.9-3.2); Lymphocytes Percent Auto 37.7 % (18.3-44.2); Mean Corpuscular HGB Conc 32.7 g/dl (32-36); Mean Corpuscular Hemoglobin 27.6 pg (26-34); Mean Corpuscular Volume 84.5 fl (80-100); Mean Platelet Volume 10.7 fl (7.4-10.4); Monocytes Absolute Auto 0.6 K/mm3 (0.1-0.6); Monocytes Percent Auto 7.6 % (2.6-8.5); Neutrophils Absolute Auto 4.4 K/mm3 (1.3-6.7); Neutrophils Percent Auto 51.5 % (45.5-73.1); Platelet Count Result 233 k/mm3 (150-375); Red Blood Count 4.38 M/mm3 (4.2-5.4); White Blood Count 8.4 K/mm3 (4.5-10.0)
[2022-07-05 19:07] LABS: Alanine Aminotransferase 14 U/L (6-35); Albumin Level 4.9 g/dL (3.5-5.1); Alkaline Phosphatase 103 U/L (38-126); Anion Gap 18 mmol/L (8-16); Aspartate Amino Transferase 37 U/L (14-36); Bilirubin,Total 0.5 mg/dL (0.2-1.3); Blood Urea Nitrogen 20 mg/dL (7-17); Calcium 9.4 mg/dL (8.4-10.2); Carbon Dioxide 26 mmol/L (22-30); Chloride 94 mmol/L (98-107); Cholesterol 156 mg/dL (0-200); Estimated Glomerular Filt Rate > 60; Glucose 110 mg/dL (65-110); HDL Direct 40 mg/dL; Potassium 4.5 mmol/L (3.4-5.0); Sodium 138 mmol/L (137-145); Triglycerides 251 mg/dL (<150)
[2022-07-05 19:19] LABS: LDL Cholesterol Direct 69 mg/dL
[2022-07-05 19:21] LABS: Creatinine Urine 256.2 mg/dL
[2022-07-05 19:25] LABS: MALB Creatinine Ratio 8.8 mg/g (0-30); Microalbumin Urine Random 22.6 mg/L (0-16.7)
[2022-07-05 19:49] LABS: Hemoglobin A1C 5.7 % (<5.7)
== END 2022-07-05 10:29 | disposition home or self-care (01) ==
LOC: ANHGOSHLAB 10:30
PROVIDERS: PCP Family Medicine; Visit Provider Nurse Practitioner
DX: E78.5 Hyperlipidemia, unspecified (principal); E11.9 Type 2 diabetes mellitus without complications; I10 Essential (primary) hypertension
CPT/HCPCS: 36415; 80053; 80061; 82043; 83036; 85025

== ENCOUNTER → 2022-12-27 10:07 | Outpatient (CLI) | payer MEDICARE, OTHER, SELFPAY ==
--- NOTE | ~2022-12-27 | MM_ITS ---
EXAMINATION: MM screening victor hugo BI w steffany HISTORY: Screening mammogram TECHNIQUE: Craniocaudal and mediolateral oblique 3-D tomosynthesis images were obtained and synthetic 2-D images were generated. CAD analysis was submitted and interpreted. COMPARISON: 12/29/2020 bilateral screening mammogram 07/18/2019 diagnostic bilateral mammogram and Limited bilateral breast ultrasound examination BREAST PARENCHYMAL COMPOSITION: There are scattered areas of fibroglandular density. FINDINGS: There is development of a linear array of grouped granular appearing microcalcifications in the upper outer left breast. Diagnostic right mammogram and right breast ultrasound examination are recommended. Otherwise there is no evidence of suspicious mass, calcification, or architectural distortion to sugg est malignancy in either breast. There has been no other suspicious interval change. IMPRESSION: 1. Developing linear array of indeterminate microcalcifications in the upper outer right breast. 2. Diagnostic right mammogram and right breast ultrasound examination are recommended. BI-RADS Category 0: Incomplete: Needs additional imaging evaluation. Reviewed, dictated and finalized at location A. E ASSISTANT IMPRESSION: 1. Developing linear array of indeterminate microcalcifications in the upper ou ter right breast. 2. Diagnostic right mammogram and right breast ultrasound examination are recom mended. BI-RADS Category 0: Incomplete: Needs additional imaging evaluation.
== END ==
PROVIDERS: PCP Family Medicine; Visit Provider Family Medicine
DX: Z12.31 Encounter for screening mammogram for malignant neoplasm of breast (principal); R92.8 Other abnormal and inconclusive findings on diagnostic imaging of breast
CPT/HCPCS: 77063; 77067

== ENCOUNTER → 2023-01-18 08:01 | Outpatient (CLI) | payer MEDICARE, OTHER, SELFPAY ==
--- NOTE | ~2023-01-18 | MM_ITS ---
EXAMINATION: MM diagnostic mammo unilat RT HISTORY: Follow-up right breast calcifications TECHNIQUE: Additional 3-D tomosynthesis images of the right breast were performed and synthetic 2-D i mages were generated. CAD analysis was submitted and interpreted. COMPARISON: Comparison to multiple prior studies sequentially, with oldest reviewed study dated 12/2016. BREAST PARENCHYMAL COMPOSITION: Breast composed of scattered areas of fibroglandular density FINDINGS: There is a cluster of indeterminate calcifications in the upper outer quadrant of the right breast, middle depth. IMPRESSION: 1. Clustered indeterminate right breast calcifications upper outer quadrant. 2. Stereotactic right breast biopsy recommended. BI-RADS category 4, suspicious findings. Reviewed, dictated and finalized at location A.
== END ==
PROVIDERS: PCP Family Medicine; Visit Provider Nurse Practitioner
DX: R92.8 Other abnormal and inconclusive findings on diagnostic imaging of breast (principal)
CPT/HCPCS: 77065

== ENCOUNTER 2023-01-30 09:55 | Outpatient (CLI) | payer MEDICARE, OTHER, SELFPAY ==
--- NOTE | ~2023-01-30 | MM_ITS ---
EXAMINATION: MM stereotactic bx RT, MM post biopsy diagnostic RT, MM stereotactic specimen RT, Specim en Radiograph, Tissue Marker Clip Placement, Unilateral Mammogram DATE: 01/30/2023 12:05 INDICATION: Abnormal mammogram: Clustered indeterminate right upper outer quadrant breast microcalcif ications. TECHNIQUE AND FINDINGS: The risks and potential benefits of the procedure were discussed with the patient and written informe d consent was obtained. Timeout procedure was performed. The patient was placed in the prone position on the dedicated stereotactic table with the right breast in lateral medial compression, and the are a of interest was localized and targeted utilizing digital imaging with stereotaxis. After sterile preparation of the skin, 1% lidocaine was utilized for local anesthesia at the skin pun cture site and 1% lidocaine with epinephrine was utilized for deeper local anesthesia/is about the bi opsy site. A 9G [employer] vacuum assisted biopsy needle was advanced to the level of the calcification o f interest from a lateral approach utilizing stereotactic guidance and a total of 12 tissue core biop sies were obtained. A specimen radiograph demonstrates that the calcifications of interest are included within the tissue cores. A tissue marker clip was then placed at the biopsy site. A digital mammographic exposure co nfirmed the successful deployment of the biopsy marker. The needle was removed and hemostasis was ac hieved. A sterile bandage was applied. The patient tolerated the procedure well and there is no rich dence of significant immediate complication. The patient was given verbal as well as written postpro cedural instructions prior to discharge from the department. Tissue cores were submitted to surgical pathology for histologic analysis. A 2-view right unilateral digital mammogram was obtained post procedure, demonstrating the tissue mar ker clip in expected position. IMPRESSION: 1. Successful stereotactic biopsy of upper outer quadrant right breast microcalcifications, followe d by tissue marker clip placement. Please refer to pathology report for histologic analysis. Reviewed, dictated and finalized at Location A. Reviewed, dictated and finalized at location A. IMPRESSION: 1. Successful stereotactic biopsy of upper outer quadrant right breast microc alcifications, followed by tissue marker clip placement. Please refer to patho logy report for histologic analysis. IMPRESSION: 1. Successful stereotactic biopsy of upper outer quadrant right breast microc alcifications, followed by tissue marker clip placement. Please refer to patho logy report for histologic analysis.
== END 2023-01-30 09:56 | disposition home or self-care (01) ==
PROVIDERS: PCP Family Medicine; Visit Provider Nurse Practitioner Family
DX: C50.411 Malignant neoplasm of upper-outer quadrant of right female breast (principal); N60.91 Unspecified benign mammary dysplasia of right breast
CPT/HCPCS: 19081; 77065; 88305; 88342; 88360; 88365; A4648

== ENCOUNTER 2023-03-06 17:15 | Outpatient (CLI) | payer MEDICARE, OTHER, SELFPAY ==
--- NOTE | ~2023-03-06 | XR_ITS ---
AP and lateral views of the right hip Clinical history: Pain COMPARISON: 03/07/2022 Findings: No acute fracture or dislocation is seen. Right hip arthroplasty in place. No hardware comp lication seen. There is mild degenerative change of the right SI joint. Soft tissues are unremarkable . Impression: No acute abnormality. Right hip arthroplasty in place. Mild degenerative change of the right SI joint. Reviewed, dictated and finalized at location . Impression: No acute abnormality. Right hip arthroplasty in place. Mild degenerative change of the right SI joint.
--- NOTE | ~2023-03-06 | XR_ITS ---
Right Knee Technique: AP, lateral, and sunrise views were obtained. Clinical History: Pain Findings: No fracture or dislocation is seen. Right hip arthroplasty hardware is in place. No hardwar e complication seen. Soft tissues are unremarkable. No joint effusion is seen. Impression: No acute abnormality. Right hip arthroplasty in place. Reviewed, dictated and finalized at location . Impression: No acute abnormality. Right hip arthroplasty in place.
--- NOTE | ~2023-03-06 | XR_ITS ---
Clinical Indication: Shortness of breath AP and lateral views of the chest: Comparison: 01/17/2022 Findings: The lungs are clear, without evidence of focal consolidation or pleural effusion. Cardiome diastinal silhouette is within normal limits. Bones and soft tissues are unremarkable. Impression: Normal chest. Reviewed, dictated and finalized at location . Impression: Normal chest.
== END 2023-03-06 17:16 | disposition home or self-care (01) ==
PROVIDERS: PCP Family Medicine; Referring Provider Nurse Practitioner; Visit Provider Nurse Practitioner Family
DX: R06.02 Shortness of breath (principal); R10.9 Unspecified abdominal pain; W19.XXXA Unspecified fall, initial encounter; Z13.0 Encounter for screening for diseases of the blood and blood-forming organs and certain disorders involving the immune mechanism; Z96.651 Presence of right artificial knee joint; Z96.641 Presence of right artificial hip joint
CPT/HCPCS: 71046; 73502; 73562

== ENCOUNTER 2023-03-07 14:12 | Outpatient (CLI) | payer MEDICARE, OTHER, SELFPAY ==
[2023-03-07 14:56] LABS: Basophils Percent Auto 0.2 % (0.2-1.2); Eosinophils Percent Auto 0.1 % (0-4.4); Hematocrit 32.2 % (37.0-47.0); Hemoglobin 11.1 g/dL (12.0-15.0); Immature Granulocyte Absolute 0.25 K/mm3 (0.00-0.031); Immature Granulocyte Percent A 1.3 % (0-0.5); Lymphocytes Absolute Auto 0.74 K/mm3 (0.9-3.2); Lymphocytes Percent Auto 3.8 % (18.3-44.2); Mean Corpuscular HGB Conc 34.5 g/dl (32-36); Mean Corpuscular Hemoglobin 30.2 pg (26-34); Mean Corpuscular Volume 87.7 fl (80-100); Mean Platelet Volume 9.3 fl (7.4-10.4); Monocytes Absolute Auto 1.4 K/mm3 (0.1-0.6); Neutrophils Percent Auto 87.6 % (45.5-73.1); Platelet Count Result 295 k/mm3 (150-375); Red Blood Count 3.67 M/mm3 (4.2-5.4); Red Cell Distribution Width 13.2 % (11.5-14.5); White Blood Count 19.4 K/mm3 (4.5-10.0)
[2023-03-07 15:06] LABS: Alanine Aminotransferase 45 U/L (6-35); Albumin Level 4.1 g/dL (3.5-5.1); Alkaline Phosphatase 205 U/L (38-126); Anion Gap 11 mmol/L (8-16); Aspartate Amino Transferase 30 U/L (14-36); Bilirubin,Total 0.8 mg/dL (0.2-1.3); Blood Urea Nitrogen 14 mg/dL (7-17); Calcium 8.7 mg/dL (8.4-10.2); Carbon Dioxide 26 mmol/L (22-30); Chloride 87 mmol/L (98-107); Cholesterol 133 mg/dL (0-200); Estimated Glomerular Filt Rate > 60; Glucose 159 mg/dL (65-110); HDL Direct 25 mg/dL; Potassium 4.5 mmol/L (3.4-5.0); Sodium 124 mmol/L (137-145); Triglycerides 156 mg/dL (<150)
[2023-03-07 15:17] LABS: LDL Cholesterol Direct 64 mg/dL
[2023-03-07 15:34] LABS: Hemoglobin A1C 5.5 % (<5.7)
[2023-03-07 15:42] LABS: Creatinine Urine 190.6 mg/dL
[2023-03-07 15:44] LABS: MALB Creatinine Ratio 7.9 mg/g (0-30); Microalbumin Urine Random 15.1 mg/L (0-16.7)
[2023-03-07 16:57] LABS: Iron 13 ug/dL (37-170)
[2023-03-07 17:06] LABS: Percent Iron Saturation 5 % (20-50); Vitamin D 25 Hydroxy 62.3 ng/mL
== END 2023-03-07 14:13 | disposition home or self-care (01) ==
PROVIDERS: PCP Family Medicine; Referring Provider Nurse Practitioner Family; Visit Provider Nurse Practitioner
DX: I10 Essential (primary) hypertension (principal); E78.5 Hyperlipidemia, unspecified; E03.9 Hypothyroidism, unspecified; E55.9 Vitamin D deficiency, unspecified; E11.9 Type 2 diabetes mellitus without complications
CPT/HCPCS: 36415; 80053; 80061; 82043; 82306; 83036; 83540; 83550; 84443; 85025

== ENCOUNTER 2023-03-08 12:04 | Inpatient (IN) | payer MEDICARE, OTHER, SELFPAY ==
[2023-03-08] VITALS (26 sets, daily range): BP systolic 106–141; BP diastolic 43–79; PULSE 74–91; RESP 13–20; TEMP 36.6–36.8; O2SAT 94–100
--- NOTE | ~2023-03-08 | CT_ITS ---
Noncontrast CT scan of the right knee CLINICAL HISTORY: Pain, status post fall. History of knee arthroplasty. TECHNIQUE: Axial noncontrast imaging of the right knee was performed. Sagittal and coronal reformatte d images were constructed. Dose reduction technique was used on this scan by utilizing automated expo sure control and iterative reconstruction technique. The dose-length product (DLP) was 411.55 mGy-cm. Findings: Total right knee arthroplasty hardware is in place, with associated streak artifact. No acu te fracture identified. No hardware complication is evident. Probable small joint effusion present. No other gross soft tissue abnormality seen. IMPRESSION: No fracture or hardware complication identified. Probable small joint effusion. Reviewed, dictated and finalized at location .
--- NOTE | ~2023-03-08 | US_ITS ---
US abdomen limited INDICATION: Elevated liver function tests PROCEDURE: Realtime right upper abdominal ultrasound. COMPARISON: No prior studies for comparison. FINDINGS: The pancreas is normal without focal mass or pancreatic ductal dilation. Liver echotexture is normal without focal mass or intrahepatic biliary dilatation. There is normal directional flow i n the portal vein. There is a cystic structure adjacent to the expected location of the gallbladder fossa. Per patient h istory she is had a cholecystectomy. This may represent an exophytic liver cyst which measures 4.3 cm . Common bile duct measures 7.6 mm. IMPRESSION: 1: Cystic structure measuring 4.3 cm near the expected location of the gallbladder fossa which is rep ortedly surgically absent. This likely represents a exophytic liver cyst. Clinically correlate. Reviewed, dictated and finalized at location A. IMPRESSION: 1: Cystic structure measuring 4.3 cm near the expected location of the gallblad kady fossa which is reportedly surgically absent. This likely represents a exoph ytic liver cyst. Clinically correlate.
--- NOTE | ~2023-03-08 | CT_ITS ---
EXAMINATION: CT chest abdomen pelvis w con DATE: 03/12/2023 10:44 CDT INDICATION: Bacteremia TECHNIQUE: Computed tomography (CT) of the chest, abdomen, and pelvis was performed with 100 cc Omnip aque 350 intravenous contrast. The dose-length product was 1199.84 mGy-cm. Automated exposure control and iterative reconstruction technique were employed. COMPARISON: None FINDINGS: CHEST CT: Heart size normal. No thoracic lymphadenopathy. No significant pleural or pericardial effusion. There is atherosclerosis of the aorta without aneurysm or dissection. There is a 2 mm right upper lobe nod ule, likely benign. No endobronchial lesions. There is bilateral lower lobe atelectasis. Mild emphyse ma. No pneumothorax. There is a 3.6 x 2 cm right breast mass with adjacent tissue marker. This result s reportedly invasive ductal carcinoma on prior report dated 01/30/2023. ABDOMEN/PELVIS CT: Gallbladder is present. There is mild biliary dilatation. CBD measures 10 mm. The liver, spleen, panc reas, adrenal glands are unremarkable. There are multiple cysts of both kidneys. No significant hydro nephrosis. Nonobstructive bowel pattern. Moderate colonic fecal loading. Colonic diverticulosis witho ut evidence for diverticulitis. No free air or free fluid. There is a right hip arthroplasty. There i s moderate thoracic and lumbar spondylosis. There is scoliosis. IMPRESSION: 1. Mild biliary dilatation with CBD measuring 10 mm. No obstructing stone or mass identified. 2: Right breast mass measuring up to 3.6 cm, compatible with known breast cancer. Reviewed, dictated and finalized at location A. IMPRESSION: 1. Mild biliary dilatation with CBD measuring 10 mm. No obstructing stone or ma ss identified. 2: Right breast mass measuring up to 3.6 cm, compatible with known breast canc er.
--- NOTE | ~2023-03-08 | XR_ITS ---
Portable chest x-ray Comparison: 03/06/2023 Clinical History: Shortness of breath, leukocytosis Findings: COPD pattern of the lungs present. No consolidation or pleural effusion. Cardiomediastina l silhouette is stable. Bones and soft tissues are unremarkable. Impression: COPD. Clear lungs. Reviewed, dictated and finalized at location . Impression: COPD. Clear lungs.
[2023-03-08 12:43] LABS: Basophils Percent Auto 0.2 % (0.2-1.2); Hematocrit 31.2 % (37.0-47.0); Hemoglobin 10.8 g/dL (12.0-15.0); Immature Granulocyte Absolute 0.44 K/mm3 (0.00-0.031); Lymphocytes Absolute Auto 1.03 K/mm3 (0.9-3.2); Lymphocytes Percent Auto 4.7 % (18.3-44.2); Mean Corpuscular HGB Conc 34.6 g/dl (32-36); Mean Corpuscular Hemoglobin 30.4 pg (26-34); Mean Corpuscular Volume 87.9 fl (80-100); Mean Platelet Volume 9.1 fl (7.4-10.4); Monocytes Absolute Auto 1.7 K/mm3 (0.1-0.6); Monocytes Percent Auto 7.7 % (2.6-8.5); Neutrophils Absolute Auto 18.6 K/mm3 (1.3-6.7); Neutrophils Percent Auto 85.4 % (45.5-73.1); Platelet Count Result 357 k/mm3 (150-375); Red Blood Count 3.55 M/mm3 (4.2-5.4); Red Cell Distribution Width 13.3 % (11.5-14.5); White Blood Count 21.8 K/mm3 (4.5-10.0)
[2023-03-08 12:52] LABS: Lactic Acid Reflex 1.7 mmol/L (0.7-2.0)
[2023-03-08 12:58] LABS: INR 1.1; Prothrombin Time 14.5 Seconds (11.1-14.7)
[2023-03-08 12:59] LABS: Partial Thromboplastin Time 41.1 SECONDS (22.3-36.8)
[2023-03-08 13:01] LABS: Alanine Aminotransferase 42 U/L (6-35); Albumin Level 3.9 g/dL (3.5-5.1); Alkaline Phosphatase 213 U/L (38-126); Anion Gap 11 mmol/L (8-16); Aspartate Amino Transferase 26 U/L (14-36); Bilirubin,Total 0.7 mg/dL (0.2-1.3); Blood Urea Nitrogen 18 mg/dL (7-17); Calcium 8.6 mg/dL (8.4-10.2); Carbon Dioxide 25 mmol/L (22-30); Chloride 87 mmol/L (98-107); Estimated CRCL calculation 65 ml/min; Estimated Glomerular Filt Rate > 60; Glucose 137 mg/dL (65-110); Potassium 4.4 mmol/L (3.4-5.0); Sodium 123 mmol/L (137-145)
[2023-03-08 13:46] LABS: Appearance Urine Clear (Clear); Bilirubin Urine Negative (Negative); Blood Urine Negative (Negative); Color Urine Yellow (Yellow); Glucose Urine UA Negative (Negative); Ketones Urine Trace mg/dL (Negative); Leukocyte Esterase Ur Negative LEU/UL (Negative); Nitrate Urine Negative (Negative); Protein Urine Negative (Negative); Specific Grav Ur 1.026 (1.001-1.035)
[2023-03-08 13:50] LABS: Add Urine Microscopic? NO
[2023-03-08 13:52] LABS: CRP 33.5 mg/dL (<1.0)
--- NOTE | 2023-03-08 14:25 | ED.GENADULT ---
HPI - General Adult General Chief complaint: Recheck/Abnormal Lab/Rx Stated complaint: sick, abnormal labs Time Seen by Provider: 03/08/23 12:28 History of Present Illness HPI narrative: Patient is a 67-year-old female who presents ER after referral from her PCP Dr. Marroquin. Patient was seen at [facility] in [place] over the weekend after having a episode of weakness and fall. She is currently being worked up for breast cancer and that is why she went to that facility. They told her she was dehydrated and that she should increase her fluid intake. She has done just that since returning home. Patient had outpatient x-rays performed 2 days ago on her right hip and knee due to pain after the fall. She then had outpatient blood work drawn yesterday. Blood work showed a white blood cell count of 19,000 and hyponatremia with a sodium of 124 prompting her PCP to refer her here. Patient also reports she had a fever this morning of 100.4 ?F. She reports she had a breast biopsy approximately 3 weeks ago and some dental work performed 4 weeks ago and had prophylactic antibiotics at that time. Related Data Home Medications Medication Instructions Recorded Confirmed acetaminophen 500 mg tablet 1,000 mg PO Q6H PRN Pain 09/20/21 03/08/23 (Tylenol Extra Strength) magnesium oxide 420 mg tablet 420 mg PO DAILY 11/24/21 03/08/23 gabapentin 300 mg capsule 600 mg PO QHS 12/28/21 03/08/23 golimumab 12.5 mg/mL intravenous IV .[id number] 07/05/22 01/05/23 solution (Simponi ARIA) Allergies Allergy/AdvReac Type Severity Reaction Status Date / Time hydrocodone Allergy Mild ITCHING Verified 03/06/23 15:47 Review of Systems Review of Systems: All systems reviewed & are unremarkable except as noted in HPI and below Constitutional: Constitutional: Reports fatigue and Reports fever(s) ENT: Denies nasal congestion and Denies sore throat Cardiovascular: Cardiovascular: Denies chest pain, Denies rapid heart rate and Denies radiating jaw, neck or arm pain Respiratory: Respiratory: Denies cough and Denies dyspnea Gastrointestinal: Gastrointestinal: Denies abdominal pain, Denies nausea and Denies vomiting Musculoskeletal: Musculoskeletal: Reports arthralgias and Reports joint swelling Integumentary/Breasts: Skin/Breast: Denies erythema, Denies rash and Denies skin ulcer Neurologic: Denies focal weakness and Denies numbness [facility] Past Medical History Medical History (Updated 03/08/23 @ 18:53 by John Lloyd MD) Anxiety Breast cancer Depression Environmental allergies Essential (primary) hypertension GERD without esophagitis Hearing loss Hyperlipidemia, unspecified Insomnia Osteopenia Polyosteoarthritis, unspecified Rheumatoid arthritis Seronegative arthritis Follows with Dr Ochoa . Skin cancer Sleep apnea in adult Type 2 diabetes mellitus without complications Surgical History Surgical History (Updated 03/08/23 @ 18:31 by Ny Chase PA-C) History of bilateral cataract extraction History of bilateral knee replacement History of carpal tunnel release (2019) History of cholecystectomy History of repair of left rotator cuff History of sinus surgery History of total right hip arthroplasty (01/2022) Family History Family History Mother Hypertension Family history of type 2 diabetes mellitus Diabetes mellitus Father Family history of lung cancer Family history of primary malignant neoplasm of liver Other Arthritis Depression Family history of alcoholism Family history of hearing loss Family history of malignant neoplasm Neuropathy Social History Social History Social History: , retired. She lives with her son, [id number] and 2 granddaughters. She has several sisters and family members who live close-by. Smoking status: Never smoker Additional smoking assessment comments: DENIES AN
[2023-03-08 14:51] LABS: Erythrocyte Sedimentation Rate 87 mm/hr (0-20)
[2023-03-08] MEDS: CEFEPIME 2 GM/NS 50 ML 2 GM/50 ML BAG IVPB (17:00)
--- NOTE | 2023-03-08 18:26 | PM.IMHP ---
H&P: HPI History of Present Illness Date/Time: 03/08/23 17:45 Chief Complaint: Abnormal labs. Narrative: This is a pleasant 67-year-old female with recent diagnosis of stage I breast cancer, rheumatoid arthritis, osteoarthritis, type 2 diabetes mellitus, hypertension, hyperlipidemia, and other comorbidities who presented to the emergency department via private vehicle from home for evaluation of abnormal labs. The patient provides the following history and her daughter in-law Courtney provides additional information, with the patient's permission. She has not been feeling well for going on 2 weeks with vague symptoms initially including poor appetite, nausea, and left upper quadrant discomfort. On Monday night she was at a family function and she developed sudden chills and overall she was just feeling poorly. She was seen at [facility] on Monday morning at which time she was found to have a sodium of 129 which was attributed to dehydration. She was given some IV fluids and discharged home with instructions to follow-up with her doctor. A CT of the chest, abdomen, and pelvis done at that time showed a right ovarian cyst, mild intra and extrahepatic biliary dilatation with a common bile duct measured at 0.9 cm (bilirubin 0.7, alkaline phosphatase 210, AST 37, ALT 55), cardiomegaly, trace pleural effusions, and mild pulmonary edema. With further questioning she was a bit short of breath on Monday as well but she denies cough, orthopnea, pleuritic pain, chest pain, paroxysmal nocturnal dyspnea, and lower extremity edema. She rested on Monday and really push the fluids, drinking 8 bottles of water, 1 cup of coffee, and a half a can of soda. On Monday evening she got up to use the bathroom and reports that she got tripped up which caused her to fall onto her right knee and then back onto her buttocks. She had immediate, severe pain in the right knee and was unable to get herself up. Her son helped her to bed and she was seen the following day at her doctor's office. She was started on a prednisone taper and amoxicillin for suspected underlying infection with an unknown source. Right knee and hip x-rays yesterday did not show any acute findings, soft tissue swelling, or effusions. Chest x-ray was read as normal with a normal cardiomediastinal silhouette. Outpatient labs drawn yesterday showed a white blood cell count of 19,000 she was directed to the ED today for evaluation. Her knee continues to hurt pretty significantly even with minimal to no movement. It has gotten increasingly swollen and is a bit warm. She had not run a fever until this morning with a temperature of 100.4?. Appetite continues to be poor. She denies vomiting, diarrhea, and dysuria. No headache, neck ache, or sore throat. She denies sick contacts. She has no open wounds. She had a dental cleaning done 4 weeks ago. She had a right breast biopsy done 3 weeks ago. She is not having any issues at either of those sites. In the ED: She was afebrile on arrival with stable vital signs. Labs were significant for a WBC count of 21.8, hemoglobin 10.8, ESR 87, sodium 123, potassium 4.4, BUN 18, creatinine 0.80, lactic acid 1.7, AST 26, ALT 42, alkaline phosphatase 213, CRP 33.5. Imaging of the knee and chest x-ray were not repeated as they had been done less than [address] Sethi evaluated the patient at bedside given her significant right knee swelling. He is not convinced that the knee is infected but she has been started on broad-spectrum antibiotics to include cefepime and vancomycin pending further evaluation. She has been admitted to the floor in this setting. Review of Systems Review of Systems: Twelve systems were reviewed and are negative except for as per HPI. [facility] Past Medical History Medical History (Updated 03/09/23 @ 00:03 by Ny Chase PA-C) Anxiety Cancer of right breast Depression Environmental allergies Essential (primary) hypertension GERD without esophagitis He
[2023-03-08] MEDS: traMADol HCL (*CRX) 50 MG TABLET PO (18:41)
--- NOTE | 2023-03-08 18:50 | ADMGEN ---
This patient, Cheyanne Hicks, was admitted to [facility] Surg Room 325-02 at 1800. Report received from KENISHA Go. Patient/family oriented to hospital policies and general routines including ID bracelet, bed and alarms, visiting hours, pain management, procedures, bathroom and other care routines, personal items, smoking policy, room service/diet, and visiting hours. Information on how to activate the Rapid Response Team has been discussed. Patient/Family are encouraged to report perceived risks to care and to ask questions if they do not understand what they are told or what they should do.
[2023-03-08 20:44] LABS: Anion Gap 12 mmol/L (8-16); Blood Urea Nitrogen 17 mg/dL (7-17); Calcium 8.9 mg/dL (8.4-10.2); Carbon Dioxide 25 mmol/L (22-30); Chloride 87 mmol/L (98-107); Estimated CRCL calculation 85 ml/min; Estimated Glomerular Filt Rate > 60; Glucose 116 mg/dL (65-110); Magnesium 2.2 mg/dL (1.6-2.3); Potassium 4.6 mmol/L (3.4-5.0); Sodium 124 mmol/L (137-145)
[2023-03-08 20:53] LABS: NT Pro B Type Natriuretic Pept 992 pg/mL (19.9-100)
--- NOTE | 2023-03-08 20:55 | PC.NURSE ---
Salvatore RODRIGUEZ called pt inquiring about sometime stronger for pain, MICHAEL Chase to place orders.
[2023-03-08 21:20] LABS: Procalcitonin 0.4 ng/mL
[2023-03-08] MEDS: oxyCODONE/ACETAMINOPHEN (*CRX) 5-325 MG TABLET 1 TABLET PO (21:37)
--- NOTE | 2023-03-09 01:38 | PC.NURSE ---
urine samples collected and sent to lab
[2023-03-09 01:59] LABS: Creatinine Urine 88.1 mg/dL; Urea Random Urine 711 MG/DL
[2023-03-09 02:11] LABS: Sodium Urine Random 116 meq/L
[2023-03-09] MEDS: oxyCODONE/ACETAMINOPHEN (*CRX) 5-325 MG TABLET 1 TABLET PO ×4 (02:48→21:22)
[2023-03-09 05:17] VITALS: BP 138/72; PULSE 81; RESP 16; TEMP 36.4; O2SAT 96
[2023-03-09] MEDS: CEFEPIME 2 GM/NS 50 ML 2 GM/50 ML BAG IVPB ×2 (05:18→21:49)
[2023-03-09 07:26] LABS: Estimated CRCL calculation 100 ml/min; Estimated Glomerular Filt Rate > 60
[2023-03-09 08:21] LABS: Glucose Point of Care 109 mg/dl (65-105)
[2023-03-09] MEDS: CHOLECALCIFEROL 1,000 UNITS TABLET 1000 UNITS PO (09:09)
[2023-03-09] MEDS: MAGNESIUM OXIDE 400 MG TABLET PO (09:10)
[2023-03-09] MEDS: oxyBUTYnin CHLORIDE 5 MG TABLET PO (09:10)
[2023-03-09] MEDS: LORATADINE 10 MG TABLET PO (09:10)
[2023-03-09] MEDS: SERTRALINE HCL 50 MG TABLET 100 MG PO (09:10)
[2023-03-09] MEDS: lisinopriL 20 MG TABLET PO (09:10)
[2023-03-09] MEDS: CELECOXIB 200 MG CAPSULE PO ×2 (09:10→17:36)
[2023-03-09] MEDS: VANCOMYCIN HCL 1,250 MG in SODIUM CHLORIDE 0.9% IV 250 ML 166.67 MG IVPB (09:17)
--- NOTE | 2023-03-09 09:29 | PM.CNOR ---
Assessment and Plan Assessment and plan (1) Fall: Qualifiers: Encounter type: initial encounter Qualified Code(s): W19.XXXA - Unspecified fall, initial encounter Code(s): W19.XXXA - Unspecified fall, initial encounter Status: Acute Assessment and Plan: History, exam and radiographs reviewed with the patient. Patient had a fall on Monday directly onto the right knee. Radiographs of the right knee reveal right TKA in good position, no evidence of fracture or dislocation. Patient had been feeling generally unwell for 2 weeks prior to fall onto the knee. On exam, mild right knee warmth. No redness. No appreciable joint effusion. Patient does have difficulty with active and passive range of motion of the right knee due to pain and guarding. Per Dr. Sethi, patient was seen yesterday and examined by himself and he did not feel that the knee was infected however patient has been started on broad-spectrum antibiotics due to leukocytosis. No indication for arthrocentesis of the right knee at this time. No evidence for need for nonweightbearing or further imaging of the right knee. Recommend ice and elevation and pain control. Continue medical workup for source of infection at this time. No surgical indication at this time. We will continue to monitor. (2) Right knee pain: Qualifiers: Chronicity: acute Qualified Code(s): M25.561 - Pain in right knee Code(s): M25.561 - Pain in right knee Status: Acute (3) S/P total hip arthroplasty: Onset Date: 02/15/22 Qualifiers: Laterality: right Qualified Code(s): Z96.641 - Presence of right artificial hip joint Code(s): Z96.649 - Presence of unspecified artificial hip joint Status: Acute Assessment and Plan: No complaints of right hip pain. Radiographs without abnormalities. (4) Leukocytosis: Code(s): D72.829 - Elevated white blood cell count, unspecified Status: Acute (5) Hyponatremia: Code(s): E87.1 - Hypo-osmolality and hyponatremia Status: Acute (6) Cancer of right breast: Code(s): C50.911 - Malignant neoplasm of unspecified site of right female breast Status: Acute Assessment and Plan: Following with [facility] (7) Ovarian cyst: Code(s): N83.209 - Unspecified ovarian cyst, unspecified side Status: Acute Assessment and Plan: Awaiting transvaginal US at [facility] per patient/family. (8) Ductal carcinoma of right breast: Code(s): C50.911 - Malignant neoplasm of unspecified site of right female breast Status: Acute Assessment and Plan: Surgery planned for 03/23 Plan Reviewed history, exam, radiographs and patient complaints/concerns with attending physician and patient's previous surgeon, Dr. Sethi. Dr. Sethi reports that he has evaluated the patient on 03/08. No further recommendations for further imaging or workup at this time. Agrees with current plan as indicated above. We will continue to monitor. History of Present Illness HPI Consult date: 03/09/23 Chief complaint: knee effusion,leukocytosis,hypnatremia Narrative: 67 year old female with a history of right YAEL and right TKA by Dr. Sethi admission for leukocytosis and fever with an unknown etiology of infection. Per patient, she is currently being treated for breast cancer, stage 1, at [facility] in [place] where she has surgery scheduled for a lumpectomy on 03/23. She will then start radiation and oral medications s/p surgery. She has been feeling generally unwell for the last week. Per the family and medical records, she was see at [facility] last Monday and found to be dehydrated. A CT of the chest, abdomen, and pelvis done at that time showed a right ovarian cyst, mild intra and extrahepatic biliary dilatation with a common bile duct measured at 0.9 cm (bilirubin 0.7, alkaline phosphatase 210, AST 37, ALT 55), cardiomegaly, trace ple
[2023-03-09 10:25] LABS: Basophils Percent Auto 0.2 % (0.2-1.2); Eosinophils Percent Auto 0.1 % (0-4.4); Hematocrit 30.8 % (37.0-47.0); Hemoglobin 10.4 g/dL (12.0-15.0); Immature Granulocyte Absolute 0.22 K/mm3 (0.00-0.031); Immature Granulocyte Percent A 1.2 % (0-0.5); Lymphocytes Absolute Auto 1.67 K/mm3 (0.9-3.2); Lymphocytes Percent Auto 8.8 % (18.3-44.2); Mean Corpuscular HGB Conc 33.8 g/dl (32-36); Mean Corpuscular Hemoglobin 30.1 pg (26-34); Mean Platelet Volume 9.6 fl (7.4-10.4); Monocytes Absolute Auto 1.8 K/mm3 (0.1-0.6); Monocytes Percent Auto 9.4 % (2.6-8.5); Neutrophils Absolute Auto 15.2 K/mm3 (1.3-6.7); Neutrophils Percent Auto 80.3 % (45.5-73.1); Platelet Count Result 388 k/mm3 (150-375); Red Blood Count 3.46 M/mm3 (4.2-5.4); Red Cell Distribution Width 13.8 % (11.5-14.5); White Blood Count 18.9 K/mm3 (4.5-10.0)
[2023-03-09 10:32] LABS: Alanine Aminotransferase 32 U/L (6-35); Albumin Level 3.5 g/dL (3.5-5.1); Alkaline Phosphatase 176 U/L (38-126); Anion Gap 8 mmol/L (8-16); Aspartate Amino Transferase 39 U/L (14-36); Bilirubin,Total 0.7 mg/dL (0.2-1.3); Blood Urea Nitrogen 15 mg/dL (7-17); Calcium 8.5 mg/dL (8.4-10.2); Carbon Dioxide 26 mmol/L (22-30); Chloride 88 mmol/L (98-107); Estimated CRCL calculation 100 ml/min; Estimated Glomerular Filt Rate > 60; Glucose 99 mg/dL (65-110); Potassium 4.6 mmol/L (3.4-5.0); Sodium 122 mmol/L (137-145)
[2023-03-09 11:36] LABS: Glucose Point of Care 117 mg/dl (65-105)
[2023-03-09 14:00] VITALS: BP 119/52; PULSE 82; RESP 14; TEMP 36.1; O2SAT 98
--- NOTE | 2023-03-09 15:28 | PM.IMPN ---
Progress Note: A&P Assessment and Plan (1) Effusion of right knee: Code(s): M25.461 - Effusion, right knee Status: Acute Assessment and Plan: She sustained a fall on Monday evening and reports that she landed on that knee however with further questioning she does report that the evening prior she was having some discomfort in the posterior right knee. At this time it is unclear whether or not the effusion is traumatic or may be infected which is certainly a consideration given her malaise, leukocytosis, and fever. She has been started on cefepime and vancomycin. Dr. Sethi has been consulted and his input is appreciated. Does not feel like the knee is infected. Per Ortho recommending ice and elevation. (2) Hyponatremia: Code(s): E87.1 - Hypo-osmolality and hyponatremia Status: Acute Assessment and Plan: It looks like her sodium does run a bit low at baseline, likely due to hydrochlorothiazide. Patient had a sodium of 129 when she was evaluated 4 days ago. She does not look overtly dehydrated or volume overloaded at this time. She may be intravascularly depleted given poor oral intake the last couple of weeks. At this time we will hold her hydrochlorothiazide. FENA at 0.5 indicating prerenal causes TSH Within normal limits. Will continue to trend sodium. 03/09 Sodium of 122. Nephrology consulted. Hold sertraline. I have discussed case with nephrology and they are recommending 500mL NS x1 and checking sodium levels. (3) Leukocytosis: Code(s): D72.829 - Elevated white blood cell count, unspecified Status: Acute Assessment and Plan: White blood cell count was normal on Monday at 7.7 is currently 21.8. Unlikely that this is due to steroids as she has only had 1 or 2 doses of prednisone. CRP elevated at 33.5. ESR elevated at 87. Trend CRP Source remains unclear but suspicions are possible infected right knee. Ortho is not sure about this. Chest x-ray yesterday was clear and her urinalysis is unremarkable. Blood cultures have been obtained to rule out bacteremia. 03/09 Repeat CXR negative. (4) Elevated brain natriuretic peptide (BNP) level: Code(s): R79.89 - Other specified abnormal findings of blood chemistry Status: Acute Assessment and Plan: ProBNP is elevated at 992. Radiographs yesterday showed a normal cardiac silhouette however cardiomegaly was noted on CT of the abdomen, pelvis, and chest at outside facility on Monday. Echocardiogram ordered for further evaluation. \ Avoid over-hydration and monitor volume status closely. (5) Essential (primary) hypertension: Code(s): I10 - Essential (primary) hypertension Status: Chronic Assessment and Plan: Blood pressures were reviewed and they have been stable. Monitor closely as hydrochlorothiazide is on hold. (6) Type 2 diabetes mellitus without complications: Qualifiers: Diabetes mellitus process control operator insulin use: without process control operator use Qualified Code(s): E11.9 - Type 2 diabetes mellitus without complications Code(s): E11.9 - Type 2 diabetes mellitus without complications Status: Chronic Assessment and Plan: Hold metformin while hospitalized. Initiate sliding scale insulin, Accu-Cheks, and hypoglycemic protocol. (7) Rheumatoid arthritis: Code(s): M06.9 - Rheumatoid arthritis, unspecified Status: Acute Assessment and Plan: No significant joint swelling aside from the right knee of course which may be related to recent trauma or infection. Golimumab is currently being held while she starts treatment for her newly diagnosed breast cancer. (8) Cancer of right breast: Code(s): C50.911 - Malignant neoplasm of unspecified site of right female breast Status: Acute Assessment and Plan: Recently diagnosed stage I adenocarcinoma. She is to have lumpectomy an
[2023-03-09 16:41] LABS: Glucose Point of Care 109 mg/dl (65-105)
[2023-03-09 16:41] LABS: Sodium 124 mmol/L (137-145)
[2023-03-09] MEDS: SODIUM CHLORIDE 0.9% IV 500 ML 100 ML IV CONT (17:35)
--- NOTE | 2023-03-09 19:50 | ECHO_ITS ---
Patient Info Name: Cheyanne Hicks Age: 67 years : 1955 Gender: Female Ht: 66 in Wt: 197 lbs BSA: 2.07 m2 HR: 77 bpm BP: 138 / 72 mmHg Heart Rhythm: Sinus Rhythm Technical Quality: Fair Exam Date: 03/09/2023 11:42 AM Exam Location: [facility] Pulmonary Exam Room: 325 Patient Status: Inpatient Admit Date: 03/08/2023 Staff Ordering Physician: Ny Chase PA-C [employer] Fountain Manager: Nicole Hutchinson RDCS Attending Provider: Kiko Reyes MD Referring Physician: Salvatore CELESTE; Exam Type: CA echo doppler color flow Study Info Indications - CARDIOMEGALY HTN Complete two-dimensional, color flow and Doppler transthoracic echocardiogram is performed. Summary 1. Complete two-dimensional, color flow and Doppler transthoracic echocardiogram is performed. 2. Left ventricular chamber dimension is normal. 3. Left ventricular systolic function is normal, estimated at 60-65%. 4. The left ventricular diastolic function is grade I diastolic dysfunction. 5. Right ventricular systolic function is normal. 6. There is mild tricuspid valve regurgitation. Left Ventricle Left ventricular chamber dimension is normal. Left ventricular systolic function is normal, estimated at 60-65%. There is no increased left ventricular wall thickness. The left ventricular diastolic function is grade I diastolic dysfunction. Right Ventricle Right ventricular chamber dimension is normal. Right ventricular systolic function is normal. Left Atria Left atrial chamber dimension is normal. Right Atria Right atrial chamber dimension is normal. Atrial Septum Intact interatrial septum visualized by color flow imaging. Aortic Valve The aortic valve is trileaflet. There is mild aortic valve sclerosis. There is no aortic valve stenosis. There is no aortic valve regurgitation. Pulmonic Valve The pulmonic valve is not well visualized. Mitral Valve There is trace mitral valve regurgitation. Tricuspid Valve There is mild tricuspid valve regurgitation. Pericardium/Pleural There is no pericardial effusion. Inferior Vena Cava Normal inferior vena cava with >50% collapse upon inspiration consistent with normal right atrial pressure, 3 mmHg. Aorta The aortic root size at the sinus of Valsalva is normal. Left Ventricular Outflow Tract Name Value Normal LVOT 2D LVOT Diameter 2.0 cm LVOT Doppler LVOT Peak Gradient 8 mmHg LVOT Mean Gradient 4 mmHg LVOT VTI 25 cm LVOT VTI/AV VTI Ratio 0.9 LVOT Stroke Volume 75 ml LVOT CO 16.7 l/min LVOT CI 8.1 l/min/m2 Pulmonic Valve Name Value Normal RVOT Doppler RVOT Peak Gradient 4 mmHg PV Doppler PV Peak Gradient
[2023-03-09 20:00] VITALS: PULSE 82; RESP 14; O2SAT 98
[2023-03-09] MEDS: PRAVASTATIN SODIUM 20 MG TABLET PO (20:21)
[2023-03-09] MEDS: GABAPENTIN 300 MG CAPSULE 600 MG PO (20:21)
[2023-03-09] MEDS: clonazePAM (*CRX) 0.5 MG TABLET 1 MG PO (21:22)
--- NOTE | 2023-03-09 21:40 | PC.NURSE ---
abt restarted per GHANSHYAM Maldonado, blood cx gram + cocci cluster anaerobic
[2023-03-09 22:00] VITALS: BP 152/69; PULSE 82; RESP 14; TEMP 36.2; O2SAT 98
[2023-03-09 22:46] LABS: Sodium 119 mmol/L (137-145)
[2023-03-09 23:37] LABS: Glucose Point of Care 133 mg/dl (65-105)
[2023-03-10 04:40] VITALS: BP 151/90; PULSE 99; RESP 16; TEMP 36.4; O2SAT 92
[2023-03-10] MEDS: oxyCODONE/ACETAMINOPHEN (*CRX) 5-325 MG TABLET 1 TABLET PO ×3 (05:19→17:35)
[2023-03-10 06:45] LABS: Basophils Percent Auto 0.3 % (0.2-1.2); Eosinophils Absolute Auto 0.1 K/mm3 (0-0.3); Eosinophils Percent Auto 0.8 % (0-4.4); Hematocrit 29.8 % (37.0-47.0); Hemoglobin 10.1 g/dL (12.0-15.0); Immature Granulocyte Absolute 0.36 K/mm3 (0.00-0.031); Immature Granulocyte Percent A 2.4 % (0-0.5); Lymphocytes Absolute Auto 1.15 K/mm3 (0.9-3.2); Lymphocytes Percent Auto 7.6 % (18.3-44.2); Mean Corpuscular HGB Conc 33.9 g/dl (32-36); Mean Corpuscular Hemoglobin 29.8 pg (26-34); Mean Corpuscular Volume 87.9 fl (80-100); Mean Platelet Volume 8.7 fl (7.4-10.4); Monocytes Absolute Auto 1.4 K/mm3 (0.1-0.6); Monocytes Percent Auto 9.5 % (2.6-8.5); Neutrophils Percent Auto 79.4 % (45.5-73.1); Platelet Count Result 376 k/mm3 (150-375); Red Blood Count 3.39 M/mm3 (4.2-5.4); Red Cell Distribution Width 13.6 % (11.5-14.5); White Blood Count 15.1 K/mm3 (4.5-10.0)
[2023-03-10 07:02] LABS: Alanine Aminotransferase 33 U/L (6-35); Albumin Level 3.3 g/dL (3.5-5.1); Alkaline Phosphatase 180 U/L (38-126); Anion Gap 8 mmol/L (8-16); Aspartate Amino Transferase 27 U/L (14-36); Bilirubin,Total 0.7 mg/dL (0.2-1.3); Blood Urea Nitrogen 11 mg/dL (7-17); Calcium 8.2 mg/dL (8.4-10.2); Carbon Dioxide 27 mmol/L (22-30); Chloride 89 mmol/L (98-107); Estimated CRCL calculation 121 ml/min; Estimated Glomerular Filt Rate > 60; Glucose 118 mg/dL (65-110); Magnesium 1.9 mg/dL (1.6-2.3); Sodium 124 mmol/L (137-145)
[2023-03-10 07:49] LABS: CRP 26.2 mg/dL (<1.0)
[2023-03-10 08:20] LABS: Glucose Point of Care 117 mg/dl (65-105)
--- NOTE | 2023-03-10 09:01 | PM.PNORT ---
Progress Note: A&P Assessment and Plan (1) Fall: Qualifiers: Encounter type: initial encounter Qualified Code(s): W19.XXXA - Unspecified fall, initial encounter Code(s): W19.XXXA - Unspecified fall, initial encounter Status: Acute Assessment and Plan: Exam of right knee reveals stable assessment. Still minimal joint effusion noted. New ecchymosis noted on the proximal lateral tibia. Difficulty with AROM/PROM due to pain. Given fall directly onto the right TKA with continued pain, would recommend CT of the right knee today for further evaluation. Leukocytosis improving. Unsure etiology of infection but knee does not appear to be acutely infected on exam. No indication for arthrocentesis at this time. Will obtain CRP. Will reevaluate WB status pending CT scan and begin mobility with PT/OT. Will continue to monitor. Continue pain control, ice. (2) Right knee pain: Qualifiers: Chronicity: acute Qualified Code(s): M25.561 - Pain in right knee Code(s): M25.561 - Pain in right knee Status: Acute (3) S/P total hip arthroplasty: Onset Date: 02/15/22 Qualifiers: Laterality: right Qualified Code(s): Z96.641 - Presence of right artificial hip joint Code(s): Z96.649 - Presence of unspecified artificial hip joint Status: Acute Assessment and Plan: No complaints of right hip pain. Radiographs without abnormalities. (4) Leukocytosis: Code(s): D72.829 - Elevated white blood cell count, unspecified Status: Acute (5) Hyponatremia: Code(s): E87.1 - Hypo-osmolality and hyponatremia Status: Acute (6) Cancer of right breast: Code(s): C50.911 - Malignant neoplasm of unspecified site of right female breast Status: Acute Assessment and Plan: Following with [facility] (7) Ovarian cyst: Code(s): N83.209 - Unspecified ovarian cyst, unspecified side Status: Acute Assessment and Plan: Awaiting transvaginal US at [facility] per patient/family. (8) Ductal carcinoma of right breast: Code(s): C50.911 - Malignant neoplasm of unspecified site of right female breast Status: Acute Assessment and Plan: Surgery planned for 03/23 Plan Reviewed history, exam, radiographs and patient complaints/concerns with attending physician and patient's previous surgeon, Dr. Sethi. Dr. Sethi reports that he has evaluated the patient on 03/08 and 03/09. Now agrees with further recommendations for imaging with CT. Agrees with current plan as indicated above. We will continue to monitor. Subjective Subjective Date/Time Seen: 03/10/23 09:01 Interval history: Patient awake, alert. Laying in bed. Hopeful to begin ambulation with PT/OT today. Concerns about overall medical condition and plans for mobility. Review of Systems Constitutional: Constitutional: Reports chills, Reports fever(s), Reports malaise and Reports weakness Eyes: Eyes: Reports no additional eye complaints and Denies change in vision ENT: Reports system reviewed and no additional complaints, except as documented and Reports Normal hearing present Cardiovascular: Cardiovascular: Denies chest pain, Denies diaphoresis, Denies leg ulcers and Denies dyspnea on exertion Respiratory: Respiratory: Reports no additional respiratory complaints, Denies cough and Denies dyspnea on exertion Musculoskeletal: Musculoskeletal: Reports as per HPI Neurologic: Reports Normal hearing present Exam Const: General: cooperative and average body habitus Nutritional Appearance: average body habitus Orientation/consciousness: patient oriented x3 Limitations: no limitations HENMT: Head: normal to inspection Ears: hearing grossly normal bilaterally Face/Nose/Sinus: Normal external nose present and normal facial exam Face and sinus: normal facial exam Mouth: Yes moist mucous membranes Teeth and gingiva: dentition normal Eyes: General: nehal
[2023-03-10] MEDS: CELECOXIB 200 MG CAPSULE PO ×2 (09:21→17:35)
[2023-03-10] MEDS: CHOLECALCIFEROL 1,000 UNITS TABLET 1000 UNITS PO (09:21)
[2023-03-10] MEDS: oxyBUTYnin CHLORIDE 5 MG TABLET PO (09:21)
[2023-03-10] MEDS: LORATADINE 10 MG TABLET PO (09:21)
[2023-03-10] MEDS: lisinopriL 20 MG TABLET PO (09:21)
[2023-03-10] MEDS: MAGNESIUM OXIDE 400 MG TABLET PO (09:22)
--- NOTE | 2023-03-10 11:15 | P.CONNP_ITS ---
Assessment and Plan Assessment and plan (1) Hyponatremia: Code(s): E87.1 - Hypo-osmolality and hyponatremia Status: Acute Assessment and Plan: * acute on chronic * patient has been informed of this issue in the past * seems to run ~ 124 - 132 since earlier this year * risk factors of low sodium: * HCTZ use * SSRI use * PPI use * excess free water intake * pain issues (with knee) * recent cancer diagnosis (breast cancer) * start fluid restriction * HCTZ and SSRI on hold * check cortisol, SPEP, and UPEP * follow-up on serum/urine osmo * consider salt tabs depending on trend of sodium * follow repeat sodium levels (2) Effusion of right knee: Code(s): M25.461 - Effusion, right knee Status: Acute Assessment and Plan: * Orthopedic recommendations noted * no evidence of infection at this time (3) Essential (primary) hypertension: Code(s): I10 - Essential (primary) hypertension Status: Chronic Assessment and Plan: * reasonable control * HCTZ on hold * follow trend of hemodynamics (4) Rheumatoid arthritis: Code(s): M06.9 - Rheumatoid arthritis, unspecified Status: Acute Assessment and Plan: * Golimumab being held until she starts treatment for her newly diagnosed breast cancer * follows with outpatient Rheumatology (5) Cancer of right breast: Code(s): C50.911 - Malignant neoplasm of unspecified site of right female breast Status: Acute Assessment and Plan: * recent diagnosis * scheduled for llumpectomy as an outpatient. (6) Type 2 diabetes mellitus without complications: Qualifiers: Diabetes mellitus half-way insulin use: without computer terminal operator use Qualified Code(s): E11.9 - Type 2 diabetes mellitus without complications Code(s): E11.9 - Type 2 diabetes mellitus without complications Status: Chronic Assessment and Plan: * follow accuchecks * glycemic control per hospitalists I will continue to follow the patient with you while she remains hospitalized and make further recommendations during her hospital course Thank you for allowing me to participate in the care of this patient. History of Present Illness Reason for Consult Consult date: 03/10/23 Reason for consult: hyponatremia Chief Complaint Chief complaint: knee effusion,leukocytosis,hypnatremia History of Present Illness Narrative: The patient is a 67-year-old female with a past medical history as outlined below who presented to [facility] Emergency room for further evaluation abnormal labs. The patient reports that she has not been feeling very well for last few weeks with symptoms including poor appetite, nausea, and abdominal pain. She went to an outside hospital emergency room due to the some of the symptoms and was reportedly told that she had a sodium of 129 which was attributed to dehydration. She was given IV fluids and subsequent discharge home. Given the diagnosis of dehydration, she has been pushing fluid intake to the point of almost eight bottles of water a day. Last Monday, all getting up to use the bathroom, she tripped and fell on her right knee and landed on her buttocks. She had immediate severe pain in the right knee and was unable to get herself up. With the assistance of family, she was able to stand up and she subsequently went to see her physician for further assessment. She was started on a steroid taper as well as amoxicillin due to concerns for possible infection. Outpatient labs were done which came ba
--- NOTE | 2023-03-10 11:15 | PM.CNNEP ---
Assessment and Plan Assessment and plan (1) Hyponatremia: Code(s): E87.1 - Hypo-osmolality and hyponatremia Status: Acute Assessment and Plan: acute on chronic patient has been informed of this issue in the past seems to run ~ 124 - 132 since earlier this year risk factors of low sodium: HCTZ use SSRI use PPI use excess free water intake pain issues (with knee) recent cancer diagnosis (breast cancer) start fluid restriction HCTZ and SSRI on hold check cortisol, SPEP, and UPEP follow-up on serum/urine osmo consider salt tabs depending on trend of sodium follow repeat sodium levels (2) Effusion of right knee: Code(s): M25.461 - Effusion, right knee Status: Acute Assessment and Plan: Orthopedic recommendations noted no evidence of infection at this time (3) Essential (primary) hypertension: Code(s): I10 - Essential (primary) hypertension Status: Chronic Assessment and Plan: reasonable control HCTZ on hold follow trend of hemodynamics (4) Rheumatoid arthritis: Code(s): M06.9 - Rheumatoid arthritis, unspecified Status: Acute Assessment and Plan: Golimumab being held until she starts treatment for her newly diagnosed breast cancer follows with outpatient Rheumatology (5) Cancer of right breast: Code(s): C50.911 - Malignant neoplasm of unspecified site of right female breast Status: Acute Assessment and Plan: recent diagnosis scheduled for llumpectomy as an outpatient. (6) Type 2 diabetes mellitus without complications: Qualifiers: Diabetes mellitus care home insulin use: without care home use Qualified Code(s): E11.9 - Type 2 diabetes mellitus without complications Code(s): E11.9 - Type 2 diabetes mellitus without complications Status: Chronic Assessment and Plan: follow accuchecks glycemic control per hospitalists I will continue to follow the patient with you while she remains hospitalized and make further recommendations during her hospital course Thank you for allowing me to participate in the care of this patient. History of Present Illness Reason for Consult Consult date: 03/10/23 Reason for consult: hyponatremia Chief Complaint Chief complaint: knee effusion,leukocytosis,hypnatremia History of Present Illness Narrative: The patient is a 67-year-old female with a past medical history as outlined below who presented to [facility] Emergency room for further evaluation abnormal labs. The patient reports that she has not been feeling very well for last few weeks with symptoms including poor appetite, nausea, and abdominal pain. She went to an outside hospital emergency room due to the some of the symptoms and was reportedly told that she had a sodium of 129 which was attributed to dehydration. She was given IV fluids and subsequent discharge home. Given the diagnosis of dehydration, she has been pushing fluid intake to the point of almost eight bottles of water a day. Last Monday, all getting up to use the bathroom, she tripped and fell on her right knee and landed on her buttocks. She had immediate severe pain in the right knee and was unable to get herself up. With the assistance of family, she was able to stand up and she subsequently went to see her physician for further assessment. She was started on a steroid taper as well as amoxicillin due to concerns for possible infection. Outpatient labs were done which came back abnormal with an elevated leukocytosis and she was instructed by her primary care physician to go to the ER for further assessment. Workup and evaluation in the emergency room demonstrated the patient be hemodynamically stable and repeat labs demonstrated persistence of alert leukocytosis with a white blood cell count of 21.8 relative anemia, normal kidney function, but a sodium of 123. after appropriate cultures w
[2023-03-10 11:58] LABS: Glucose Point of Care 114 mg/dl (65-105)
[2023-03-10 12:21] LABS: Sodium 124 mmol/L (137-145)
[2023-03-10 13:55] VITALS: BP 129/69; PULSE 110; RESP 18; TEMP 36.4; O2SAT 100
--- NOTE | 2023-03-10 15:05 | PM.IMPN ---
Progress Note: A&P Assessment and Plan (1) Effusion of right knee: Code(s): M25.461 - Effusion, right knee Status: Acute Assessment and Plan: She sustained a fall on Monday evening and reports that she landed on that knee however with further questioning she does report that the evening prior she was having some discomfort in the posterior right knee. At this time it is unclear whether or not the effusion is traumatic or may be infected which is certainly a consideration given her malaise, leukocytosis, and fever. She has been started on cefepime and vancomycin. Dr. Sethi has been consulted and his input is appreciated. Does not feel like the knee is infected. Per Ortho recommending ice and elevation. (2) Hyponatremia: Code(s): E87.1 - Hypo-osmolality and hyponatremia Status: Acute Assessment and Plan: It looks like her sodium does run a bit low at baseline, likely due to hydrochlorothiazide. Patient had a sodium of 129 when she was evaluated 4 days ago. She does not look overtly dehydrated or volume overloaded at this time. She may be intravascularly depleted given poor oral intake the last couple of weeks. At this time we will hold her hydrochlorothiazide. FENa at 0.5 indicating prerenal causes TSH Within normal limits. Will continue to trend sodium. 03/09 Sodium of 122. Nephrology consulted. Hold sertraline. I have discussed case with nephrology and they are recommending 500mL NS x1 and checking sodium levels. 03/10 Patient's sodium dropped to 119 after fluid was given. Patient put on fluid restriction and repeat sodium was 124. Nephrology following. (3) Leukocytosis: Code(s): D72.829 - Elevated white blood cell count, unspecified Status: Acute Assessment and Plan: White blood cell count was normal on Monday at 7.7 is currently 21.8. Unlikely that this is due to steroids as she has only had 1 or 2 doses of prednisone. CRP elevated at 33.5. ESR elevated at 87. Trend CRP Source remains unclear but suspicions are possible infected right knee. Ortho is not sure about this. Chest x-ray yesterday was clear and her urinalysis is unremarkable. Blood cultures have been obtained to rule out bacteremia. 03/09 Repeat CXR negative. (4) Elevated brain natriuretic peptide (BNP) level: Code(s): R79.89 - Other specified abnormal findings of blood chemistry Status: Acute Assessment and Plan: ProBNP is elevated at 992. Radiographs yesterday showed a normal cardiac silhouette however cardiomegaly was noted on CT of the abdomen, pelvis, and chest at outside facility on Monday. Echocardiogram ordered for further evaluation. Avoid over-hydration and monitor volume status closely. (5) Essential (primary) hypertension: Code(s): I10 - Essential (primary) hypertension Status: Chronic Assessment and Plan: Blood pressures were reviewed and they have been stable. Monitor closely as hydrochlorothiazide is on hold. (6) Type 2 diabetes mellitus without complications: Qualifiers: Diabetes mellitus parts counterman insulin use: without correction use Qualified Code(s): E11.9 - Type 2 diabetes mellitus without complications Code(s): E11.9 - Type 2 diabetes mellitus without complications Status: Chronic Assessment and Plan: Hold metformin while hospitalized. Initiate sliding scale insulin, Accu-Cheks, and hypoglycemic protocol. (7) Rheumatoid arthritis: Code(s): M06.9 - Rheumatoid arthritis, unspecified Status: Acute Assessment and Plan: No significant joint swelling aside from the right knee of course which may be related to recent trauma or infection. Golimumab is currently being held while she starts treatment for her newly diagnosed breast cancer. (8) Cancer of right breast: Code(s): C50.911 - Malignant neoplasm of unspecified site of
[2023-03-10 17:10] LABS: Glucose Point of Care 157 mg/dl (65-105)
--- NOTE | 2023-03-10 17:45 | PC.NURSE ---
Addendum entered by Martina Grant RN 03/10/23 17:48: Pt went for CT this morning and activity was changed to weight bearing as tolerated. Pt was evaluated by therapy. Pt had blood cultures come back Gram + cocci in clusters charge nurse took report on lab values. Provider notified by charge nurse. Antibiotics ordered. Repeat cultures drawn. Will continue to monitor pt. Original Note: Pt is an A&O4 female who has participated and contributed in plan of care. Pt has been compliant with care. Pt pain has affected mobility. Pt has had reported pain throughout shift that has been treated with pain medication. Will continue to monitor pt for any changes in status.
--- NOTE | 2023-03-10 17:53 | PDONCCN ---
HPI - Date of Consult Date/Time: 03/10/23 17:53 Requesting Physician: Kiko Reyes MD Primary Care Provider: Kirby Marroquin MD - Consult Narrative Reason for consult: Right-sided breast cancer, leukocytosis and anemia Narrative: Cheyanne Hicks is a 67 year old female with recent diagnosis of right-sided breast cancer, rheumatoid arthritis, type 2 diabetes and hyperlipidemia came into the hospital with complain of chills without any fever along with nausea and left upper quadrant discomfort. Labs on admission showed WBC count of 21,000 with hemoglobin of 10.8 and sodium of 123. She was complaining of right knee swelling. CT scan of the knee showed no fracture and probable small effusion. Patient denies any bleeding and bruising. She has some tiredness and fatigue. She has scheduled to see Dr. Holly Loving at [facility] later this month for her lumpectomy. Review of Systems - Review of Systems All systems reviewed & are unremarkable except as noted in HPI and bel - Neurologic Reports hearing normal, Reports weakness, Denies focal weakness, Denies numbness [facility] Medical History: Medical History (Last Updated 03/09/23 @ 12:27 by CONNIE Stone) Anxiety Cancer of right breast Depression Environmental allergies Essential (primary) hypertension Fall GERD without esophagitis Hearing loss Hyperlipidemia, unspecified Insomnia Osteopenia Polyosteoarthritis, unspecified Rheumatoid arthritis Right knee pain Seronegative arthritis Follows with Dr Ochoa . Skin cancer Sleep apnea in adult Type 2 diabetes mellitus without complications Surgical History: Surgical History (Last Reviewed 03/09/23 @ 12:25 by CONNIE Stone) History of bilateral cataract extraction History of bilateral knee replacement History of carpal tunnel release Onset Date: 2019 History of cholecystectomy History of repair of left rotator cuff History of sinus surgery History of total right hip arthroplasty Onset Date: 01/2022 Family History: Family History (Last Reviewed 03/09/23 @ 12:25 by CONNIE Stone) Mother Hypertension Family history of type 2 diabetes mellitus Diabetes mellitus Father Family history of lung cancer Family history of primary malignant neoplasm of liver Other Arthritis Depression Family history of alcoholism Family history of hearing loss Family history of malignant neoplasm Neuropathy - Social History Social History: Social History (Last Reviewed 03/09/23 @ 12:25 by CONNIE Stone) Alcohol Use: Alcohol intake: current Alcohol use details: Social alcohol use in moderation. Substance Use: Substance use: never Substance use type: does not use Others: Spiritual care concerns: No Living Arrangements: Living arrangements: with family Oppucation/Education: Occupation/Education: retired Smoking Status: Smoking status: Never smoker Social Determinants of Health: Has the Lack of Transportation Kept You From Medical Appointments or From Getting Medications?: No Within the Past 12 Months, Were You Worried Whether Your Food Would Run Out Before You Got Money to Buy More?: Never True What is Your Housing Situation Today?: I Have Housing Are You Worried That in the Next 2 Months, You May Not Have Your Own Housing to Live In?: No Do You Have Trouble Paying Your Heating Or Electricity Bill?: No Do You Have Trouble Paying For Medicines?: No Are You Currently Unemployed and Looking for Work?: No Highest Level of Education Completed: High School Diploma/GED Do You Have Trouble With Childcare or the Care of a Family Member?: No Exam - Vital Signs Vital Signs - 24 hr 03/09/23 20:00 03/09/23 22:00 03/10/23 04:40 Temperature 36.2 C L 36.4 C L Pulse Rate 82 82 99 Respiratory Rate 14 14 16 Blood Pressure 152/69 H 151/90 H Pulse Oximetry 98 98 92 Oxygen Delivery Isa
[2023-03-10 18:43] LABS: Iron 24 ug/dL (37-170)
[2023-03-10 18:44] LABS: Sodium 119 mmol/L (137-145)
[2023-03-10 18:53] LABS: Percent Iron Saturation 11 % (20-50)
[2023-03-10 19:53] LABS: Folic Acid > 20.0 ng/mL (2.76->20)
[2023-03-10 20:30] VITALS: BP 128/56; PULSE 91; RESP 20; TEMP 36.1; O2SAT 99
[2023-03-10 21:51] LABS: Glucose Point of Care 160 mg/dl (65-105)
[2023-03-10] MEDS: PRAVASTATIN SODIUM 20 MG TABLET PO (22:07)
[2023-03-10] MEDS: GABAPENTIN 300 MG CAPSULE 600 MG PO (22:07)
[2023-03-10] MEDS: clonazePAM (*CRX) 0.5 MG TABLET 1 MG PO (22:37)
[2023-03-10 22:38] LABS: Sodium 122 mmol/L (137-145)
[2023-03-11 06:00] VITALS: BP 137/65; PULSE 86; RESP 20; TEMP 35.5; O2SAT 95
[2023-03-11 06:39] LABS: Basophils Percent Auto 0.3 % (0.2-1.2); Eosinophils Absolute Auto 0.1 K/mm3 (0-0.3); Eosinophils Percent Auto 0.8 % (0-4.4); Hematocrit 30.8 % (37.0-47.0); Hemoglobin 10.1 g/dL (12.0-15.0); Immature Granulocyte Absolute 0.53 K/mm3 (0.00-0.031); Immature Granulocyte Percent A 3.5 % (0-0.5); Lymphocytes Absolute Auto 1.54 K/mm3 (0.9-3.2); Lymphocytes Percent Auto 10.2 % (18.3-44.2); Mean Corpuscular HGB Conc 32.8 g/dl (32-36); Mean Corpuscular Hemoglobin 29.4 pg (26-34); Mean Corpuscular Volume 89.8 fl (80-100); Mean Platelet Volume 8.5 fl (7.4-10.4); Monocytes Absolute Auto 1.2 K/mm3 (0.1-0.6); Monocytes Percent Auto 7.9 % (2.6-8.5); Neutrophils Absolute Auto 11.7 K/mm3 (1.3-6.7); Neutrophils Percent Auto 77.3 % (45.5-73.1); Platelet Count Result 434 k/mm3 (150-375); Red Blood Count 3.43 M/mm3 (4.2-5.4); Red Cell Distribution Width 13.8 % (11.5-14.5); White Blood Count 15.1 K/mm3 (4.5-10.0)
[2023-03-11 06:59] LABS: Alanine Aminotransferase 58 U/L (6-35); Albumin Level 3.3 g/dL (3.5-5.1); Alkaline Phosphatase 231 U/L (38-126); Anion Gap 6 mmol/L (8-16); Aspartate Amino Transferase 42 U/L (14-36); Bilirubin,Total 0.6 mg/dL (0.2-1.3); Blood Urea Nitrogen 11 mg/dL (7-17); Calcium 8.3 mg/dL (8.4-10.2); Carbon Dioxide 29 mmol/L (22-30); Chloride 89 mmol/L (98-107); Estimated CRCL calculation 122 ml/min; Estimated Glomerular Filt Rate > 60; Glucose 147 mg/dL (65-110); Magnesium 2.2 mg/dL (1.6-2.3); Sodium 124 mmol/L (137-145)
[2023-03-11 07:21] LABS: CRP 25.9 mg/dL (<1.0)
[2023-03-11 07:55] LABS: Glucose Point of Care 126 mg/dl (65-105)
[2023-03-11 08:00] VITALS: O2SAT 95
[2023-03-11] MEDS: CHOLECALCIFEROL 1,000 UNITS TABLET 1000 UNITS PO (08:32)
[2023-03-11] MEDS: LORATADINE 10 MG TABLET PO (08:32)
[2023-03-11] MEDS: MAGNESIUM OXIDE 400 MG TABLET PO (08:32)
[2023-03-11] MEDS: CELECOXIB 200 MG CAPSULE PO ×2 (08:32→17:01)
[2023-03-11] MEDS: oxyBUTYnin CHLORIDE 5 MG TABLET PO (08:32)
[2023-03-11] MEDS: FLUTICASONE PROPIONATE 0.05% NA SPR 16 GM BTL (*BKC) 1 SPRAY NASAL (08:33)
[2023-03-11] MEDS: lisinopriL 20 MG TABLET PO (08:33)
[2023-03-11 08:45] LABS: Procalcitonin 0.2 ng/mL
[2023-03-11 09:38] LABS: Hepatitis B Surface Antigen Negative (Negative)
[2023-03-11 09:44] LABS: HAV RESULT Negative (Negative); Hepatitis B Core IgM Result Negative (Negative)
[2023-03-11 09:55] LABS: Hepatitis C Virus Antibody Negative (Negative)
[2023-03-11] MEDS: FERROUS SULFATE 324 MG TABLET PO (10:00)
[2023-03-11] MEDS: oxyCODONE/ACETAMINOPHEN (*CRX) 5-325 MG TABLET 1 TABLET PO ×2 (10:02→17:05)
[2023-03-11 11:48] LABS: Glucose Point of Care 141 mg/dl (65-105)
--- NOTE | 2023-03-11 12:36 | PM.IMPN ---
Progress Note: A&P Assessment and Plan (1) Bacteremia: Code(s): R78.81 - Bacteremia Status: Acute Assessment and Plan: Patient's blood cultures positive for Staph aureus. Source of infection is unknown. Continue with vancomycin Repeat blood cultures drawn on 03/10/2023 Chest x-ray and urine are clear of infection There is no sign of skin infection. Patient has no complaints other than feeling fatigue and having right knee pain. Orthopedics have ruled out joint infection. (2) Effusion of right knee: Code(s): M25.461 - Effusion, right knee Status: Acute Assessment and Plan: She sustained a fall on Monday evening and reports that she landed on that knee however with further questioning she does report that the evening prior she was having some discomfort in the posterior right knee. At this time it is unclear whether or not the effusion is traumatic or may be infected which is certainly a consideration given her malaise, leukocytosis, and fever. Dr. Sethi has been consulted and his input is appreciated. Does not feel like the knee is infected. Per Ortho recommending ice and elevation. Patient working with PT and OT (3) Hyponatremia: Code(s): E87.1 - Hypo-osmolality and hyponatremia Status: Acute Assessment and Plan: It looks like her sodium does run a bit low at baseline, likely due to hydrochlorothiazide. Patient had a sodium of 129 when she was evaluated 4 days ago. She does not look overtly dehydrated or volume overloaded at this time. She may be intravascularly depleted given poor oral intake the last couple of weeks. At this time we will hold her hydrochlorothiazide. FENa at 0.5 indicating prerenal causes TSH Within normal limits. Will continue to trend sodium. 03/09 Sodium of 122. Nephrology consulted. Hold sertraline. I have discussed case with nephrology and they are recommending 500mL NS x1 and checking sodium levels. 03/10 Patient's sodium dropped to 119 after fluid was given. Patient put on fluid restriction and repeat sodium was 124. Nephrology following. (4) Leukocytosis: Code(s): D72.829 - Elevated white blood cell count, unspecified Status: Acute Assessment and Plan: White blood cell count was normal on Monday at 7.7 is currently 21.8. Unlikely that this is due to steroids as she has only had 1 or 2 doses of prednisone. CRP elevated at 33.5. ESR elevated at 87. Trend CRP Source remains unclear but suspicions are possible infected right knee. Ortho is not sure about this. Chest x-ray yesterday was clear and her urinalysis is unremarkable. 03/09 Repeat CXR negative. 03/11 blood culture positive for Staph aureus (5) Elevated brain natriuretic peptide (BNP) level: Code(s): R79.89 - Other specified abnormal findings of blood chemistry Status: Acute Assessment and Plan: ProBNP is elevated at 992. Radiographs yesterday showed a normal cardiac silhouette however cardiomegaly was noted on CT of the abdomen, pelvis, and chest at outside facility on Monday. Echocardiogram ordered for further evaluation. Avoid over-hydration and monitor volume status closely. (6) Essential (primary) hypertension: Code(s): I10 - Essential (primary) hypertension Status: Chronic Assessment and Plan: Blood pressures were reviewed and they have been stable. Monitor closely as hydrochlorothiazide is on hold. (7) Type 2 diabetes mellitus without complications: Qualifiers: Diabetes mellitus buttermaker insulin use: without buttermaker use Qualified Code(s): E11.9 - Type 2 diabetes mellitus without complications Code(s): E11.9 - Type 2 diabetes mellitus without complications Status: Chronic Assessment and Plan: Hold metformin while hospitalized. Initiate sliding scale insulin, Accu-Cheks, and hypoglycemic protocol. (8) Rheumat
[2023-03-11 13:35] VITALS: BP 128/59; PULSE 96; RESP 16; TEMP 35.9; O2SAT 98
--- NOTE | 2023-03-11 14:32 | P.PNNP_ITS ---
Progress Note: A&P Assessment and Plan (1) Hyponatremia: Code(s): E87.1 - Hypo-osmolality and hyponatremia Status: Acute Assessment and Plan: * acute on chronic * patient has been informed of this issue in the past. She thinks that it might have been going on for couple of years. * seems to run ~ 124 - 132 since earlier this year * Cholesterol, TSH, and cortisol are all okay. * Osmolalities are pending * chest x-ray shows COPD * no SCIENCE TECHNICIAN symptoms * risk factors of low sodium: * HCTZ this was discontinued * SSRI This is on hold. * PPI use this is on hold. We can use famotidine since she is on Celebrex. * excess free water intake * pain issues (with knee) * recent cancer diagnosis (breast cancer) * On fluid restriction * follow-up on serum/urine osmo * consider salt tabs depending on trend of sodium * sodium levels are slowly coming up. (2) Effusion of right knee: Code(s): M25.461 - Effusion, right knee Status: Acute Assessment and Plan: * Orthopedic recommendations noted * no evidence of infection at this time (3) Essential (primary) hypertension: Code(s): I10 - Essential (primary) hypertension Status: Chronic Assessment and Plan: * Systolic 128 today. * HCTZ on hold . She is still on KESHIA-inhibitor * follow trend of hemodynamics (4) Rheumatoid arthritis: Code(s): M06.9 - Rheumatoid arthritis, unspecified Status: Acute Assessment and Plan: * Golimumab being held until she starts treatment for her newly diagnosed breast cancer * follows with outpatient Rheumatology (5) Cancer of right breast: Code(s): C50.911 - Malignant neoplasm of unspecified site of right female breast Status: Acute Assessment and Plan: * recent diagnosis * scheduled for llumpectomy as an outpatient. (6) Type 2 diabetes mellitus without complications: Qualifiers: Diabetes mellitus meterman insulin use: without meterman use Qualified Code(s): E11.9 - Type 2 diabetes mellitus without complications Code(s): E11.9 - Type 2 diabetes mellitus without complications Status: Chronic Assessment and Plan: * follow accuchecks * glycemic control per hospitalists I will continue to follow the patient with you while she remains hospitalized and make further recommendations during her hospital course Thank you for allowing me to participate in the care of this patient. Subjective Date/time seen: 03/11/23 14:32 Interval history: Allison is feeling about the same today. No chest pain or shortness of breath Review of Systems Cardiovascular: Cardiovascular: Reports no additional cardiovascular complaints Respiratory: Respiratory: Reports no additional respiratory complaints Gastrointestinal: Gastrointestinal: Reports no additional gastrointestinal complaints Genitourinary: Genitourinary: Reports no additional female genitourinary complaints Exam Narrative: WDWN in NAD skin no rash or subcu nodules head ncat lungs clear cor reg no rub abd BS+ nontender and soft ext no edema. Objective Data Vital Signs Vital Signs: Vital Signs - 24 hr 03/10/23 20:30 03/10/23 20:00 03/11/23 06:00 Temperature 96.9 F L 96 F L Pulse Rate 91 86 Respiratory Rate 20 20 Blood Pressure 128
--- NOTE | 2023-03-11 14:32 | PM.PNNEP ---
Progress Note: A&P Assessment and Plan (1) Hyponatremia: Code(s): E87.1 - Hypo-osmolality and hyponatremia Status: Acute Assessment and Plan: acute on chronic patient has been informed of this issue in the past. She thinks that it might have been going on for couple of years. seems to run ~ 124 - 132 since earlier this year Cholesterol, TSH, and cortisol are all okay. Osmolalities are pending chest x-ray shows COPD no FLOOR GRINDER symptoms risk factors of low sodium: HCTZ this was discontinued SSRI This is on hold. PPI use this is on hold. We can use famotidine since she is on Celebrex. excess free water intake pain issues (with knee) recent cancer diagnosis (breast cancer) On fluid restriction follow-up on serum/urine osmo consider salt tabs depending on trend of sodium sodium levels are slowly coming up. (2) Effusion of right knee: Code(s): M25.461 - Effusion, right knee Status: Acute Assessment and Plan: Orthopedic recommendations noted no evidence of infection at this time (3) Essential (primary) hypertension: Code(s): I10 - Essential (primary) hypertension Status: Chronic Assessment and Plan: Systolic 128 today. HCTZ on hold . She is still on KESHIA-inhibitor follow trend of hemodynamics (4) Rheumatoid arthritis: Code(s): M06.9 - Rheumatoid arthritis, unspecified Status: Acute Assessment and Plan: Golimumab being held until she starts treatment for her newly diagnosed breast cancer follows with outpatient Rheumatology (5) Cancer of right breast: Code(s): C50.911 - Malignant neoplasm of unspecified site of right female breast Status: Acute Assessment and Plan: recent diagnosis scheduled for llumpectomy as an outpatient. (6) Type 2 diabetes mellitus without complications: Qualifiers: Diabetes mellitus clerical and administrative workers insulin use: without clerical and administrative workers use Qualified Code(s): E11.9 - Type 2 diabetes mellitus without complications Code(s): E11.9 - Type 2 diabetes mellitus without complications Status: Chronic Assessment and Plan: follow accuchecks glycemic control per hospitalists I will continue to follow the patient with you while she remains hospitalized and make further recommendations during her hospital course Thank you for allowing me to participate in the care of this patient. Subjective Date/time seen: 03/11/23 14:32 Interval history: Allison is feeling about the same today. No chest pain or shortness of breath Review of Systems Cardiovascular: Cardiovascular: Reports no additional cardiovascular complaints Respiratory: Respiratory: Reports no additional respiratory complaints Gastrointestinal: Gastrointestinal: Reports no additional gastrointestinal complaints Genitourinary: Genitourinary: Reports no additional female genitourinary complaints Exam Narrative: WDWN in NAD skin no rash or subcu nodules head ncat lungs clear cor reg no rub abd BS+ nontender and soft ext no edema. Objective Data Vital Signs Vital Signs: Vital Signs - 24 hr 03/10/23 20:30 03/10/23 20:00 03/11/23 06:00 Temperature 96.9 F L 96 F L Pulse Rate 91 86 Respiratory Rate 20 20 Blood Pressure 128/56 L 137/65 Pulse Oximetry 99 95 Oxygen Delivery Room Air 03/11/23 08:03 03/11/23 08:00 03/11/23 13:35 Temperature 96.6 F L Pulse Rate 96 Respiratory Rate 16 Blood Pressure 128/59 L Pulse Oximetry 95 98 Oxygen Delivery Room Air Room Air Intake/Output Intake/Output: Intake & Output 03/08/23 03/09/23 03/10/23 03/11/23 23:59 23:59 23:59 23:59 Intake Total 50 1382 2070 460 Balance 50 1382 2070 460 Meds/Results Medications: Active Medications Generic Name Dose Route Start Last Admin Trade Name Freq PRN Reason Stop Dose Admin Acetaminophen 650 mg 03/08/23 16:56 Acetaminophen 325 Mg Tablet
[2023-03-11 15:59] LABS: Sodium 125 mmol/L (137-145)
[2023-03-11 17:03] LABS: Glucose Point of Care 120 mg/dl (65-105)
[2023-03-11 20:21] LABS: Glucose Point of Care 140 mg/dl (65-105)
[2023-03-11 20:25] VITALS: BP 125/66; PULSE 92; RESP 16; TEMP 35.9; O2SAT 100
[2023-03-11] MEDS: FAMOTIDINE 20 MG TABLET PO (21:32)
[2023-03-11] MEDS: GABAPENTIN 300 MG CAPSULE 600 MG PO (21:32)
[2023-03-11] MEDS: clonazePAM (*CRX) 0.5 MG TABLET 1 MG PO (21:32)
[2023-03-11] MEDS: PRAVASTATIN SODIUM 20 MG TABLET PO (21:33)
[2023-03-12 04:03] VITALS: BP 113/42; PULSE 82; RESP 24; TEMP 35.7; O2SAT 95
[2023-03-12 06:27] LABS: Hematocrit 27.6 % (37.0-47.0); Hemoglobin 9.3 g/dL (12.0-15.0); Mean Corpuscular HGB Conc 33.7 g/dl (32-36); Mean Corpuscular Hemoglobin 29.9 pg (26-34); Mean Corpuscular Volume 88.7 fl (80-100); Mean Platelet Volume 8.3 fl (7.4-10.4); Platelet Count Result 470 k/mm3 (150-375); Red Blood Count 3.11 M/mm3 (4.2-5.4); Red Cell Distribution Width 14.1 % (11.5-14.5); White Blood Count 14.6 K/mm3 (4.5-10.0)
[2023-03-12 06:35] LABS: Alanine Aminotransferase 84 U/L (6-35); Albumin Level 3.1 g/dL (3.5-5.1); Alkaline Phosphatase 235 U/L (38-126); Anion Gap 7 mmol/L (8-16); Aspartate Amino Transferase 51 U/L (14-36); Bilirubin,Total 0.5 mg/dL (0.2-1.3); Blood Urea Nitrogen 15 mg/dL (7-17); Calcium 8.4 mg/dL (8.4-10.2); Carbon Dioxide 27 mmol/L (22-30); Chloride 93 mmol/L (98-107); Estimated CRCL calculation 121 ml/min; Estimated Glomerular Filt Rate > 60; Glucose 149 mg/dL (65-110); Sodium 127 mmol/L (137-145)
[2023-03-12 07:36] LABS: Band Neutrophils Percent 4 % (0-6); Lymphocytes Absolute Manual 1.16 K/mm3 (1.1-4.5); Metamyelocytes Percent 5 %; Monocytes Absolute Manual 0.58 K/mm3 (0.1-0.90); Monocytes Percent Manual 4 % (3-9); Neutrophils Absolute Manual 12.11 K/mm3 (1.7-7.2); Neutrophils Percent Manual 79 % (46-73); Platelet Estimate Increased (Adequate); Total Cells Counted 100
[2023-03-12 07:37] LABS: Large Platelets Present; Schistocytes None Seen (NORMAL)
[2023-03-12 07:43] LABS: Glucose Point of Care 136 mg/dl (65-105)
[2023-03-12] MEDS: MAGNESIUM OXIDE 400 MG TABLET PO (08:19)
[2023-03-12] MEDS: CELECOXIB 200 MG CAPSULE PO ×2 (08:19→17:38)
[2023-03-12] MEDS: oxyBUTYnin CHLORIDE 5 MG TABLET PO (08:19)
[2023-03-12] MEDS: FERROUS SULFATE 324 MG TABLET PO (08:19)
[2023-03-12] MEDS: lisinopriL 20 MG TABLET PO (08:19)
[2023-03-12] MEDS: LORATADINE 10 MG TABLET PO (08:19)
[2023-03-12] MEDS: CHOLECALCIFEROL 1,000 UNITS TABLET 1000 UNITS PO (08:19)
[2023-03-12] MEDS: FAMOTIDINE 20 MG TABLET PO ×2 (08:19→20:40)
[2023-03-12] MEDS: oxyCODONE/ACETAMINOPHEN (*CRX) 5-325 MG TABLET 1 TABLET PO ×2 (08:25→17:40)
[2023-03-12] MEDS: OXACILLIN SODIUM 2 GM in SODIUM CHLORIDE 0.9% IV 100 ML IVPB ×4 (09:00→20:40)
--- NOTE | 2023-03-12 10:44 | P.PNNP_ITS ---
Progress Note: A&P Assessment and Plan (1) Hyponatremia: Code(s): E87.1 - Hypo-osmolality and hyponatremia Status: Acute Assessment and Plan: * acute on chronic * patient has been informed of this issue in the past. She thinks that it might have been going on for couple of years. * seems to run ~ 124 - 132 since earlier this year * Cholesterol, TSH, and cortisol are all okay. * Osmolalities are pending * chest x-ray shows COPD. Patient isn't sure why that would be the case because she has never smoked. She has no family history of emphysema. * no AUTO SUSPENSION AND STEERING MECHANIC symptoms * risk factors of low sodium: * HCTZ this was discontinued * SSRI This is on hold. * PPI use this is on hold. We can use famotidine since she is on Celebrex. Interestingly, she had been off of PPI eyes until 3 days before admission when she went to an outside emergency room with left-sided abdomen/chest discomfort. CT scan showed something which made them put her on pantoprazole again. * excess free water intake * pain issues (with knee) * recent cancer diagnosis (breast cancer) * On fluid restriction * follow-up on serum/urine osmo * Sodium level is improved to 127 today. Continue current therapy (2) Effusion of right knee: Code(s): M25.461 - Effusion, right knee Status: Acute Assessment and Plan: * Orthopedic recommendations noted * no evidence of infection at this time (3) Essential (primary) hypertension: Code(s): I10 - Essential (primary) hypertension Status: Chronic Assessment and Plan: * Systolic ranging 113-137 in the last 24 hours. * HCTZ on hold . She is still on KESHIA-inhibitor * follow trend of hemodynamics (4) Rheumatoid arthritis: Code(s): M06.9 - Rheumatoid arthritis, unspecified Status: Acute Assessment and Plan: * Golimumab being held until she starts treatment for her newly diagnosed breast cancer * follows with outpatient Rheumatology (5) Cancer of right breast: Code(s): C50.911 - Malignant neoplasm of unspecified site of right female breast Status: Acute Assessment and Plan: * recent diagnosis * scheduled for llumpectomy as an outpatient. (6) Type 2 diabetes mellitus without complications: Qualifiers: Diabetes mellitus retirement insulin use: without retirement use Qualified Code(s): E11.9 - Type 2 diabetes mellitus without complications Code(s): E11.9 - Type 2 diabetes mellitus without complications Status: Chronic Assessment and Plan: * follow accuchecks * glycemic control per hospitalists * Dr. Jamil comes back tomorrow Subjective Date/time seen: 03/12/23 10:44 Interval history: Cheyanne is feeling about the same today. Resting comfortably in bed she slept very well last night No chest pain or shortness of breath Exam Narrative: WDWN in NAD skin no rash or subcu nodules head ncat lungs clear cor reg no rub abd BS+ nontender and soft ext no edema. Objective Data Vital Signs Vital Signs: Vital Signs - 24 hr 03/11/23 13:35 03/11/23 20:25 03/11/23 20:00 Temperature 96.6 F L 96.7 F L Pulse Rate 96 92 Respiratory Rate 16 16 Blood Pressure 128/59 L 125/66 Pulse Oximetry 98 100 Oxygen Delivery Room Air 03/12/23 04:03 03/12/23
--- NOTE | 2023-03-12 10:44 | PM.PNNEP ---
Progress Note: A&P Assessment and Plan (1) Hyponatremia: Code(s): E87.1 - Hypo-osmolality and hyponatremia Status: Acute Assessment and Plan: acute on chronic patient has been informed of this issue in the past. She thinks that it might have been going on for couple of years. seems to run ~ 124 - 132 since earlier this year Cholesterol, TSH, and cortisol are all okay. Osmolalities are pending chest x-ray shows COPD. Patient isn't sure why that would be the case because she has never smoked. She has no family history of emphysema. no WIND ENERGY MECHANIC symptoms risk factors of low sodium: HCTZ this was discontinued SSRI This is on hold. PPI use this is on hold. We can use famotidine since she is on Celebrex. Interestingly, she had been off of PPI eyes until 3 days before admission when she went to an outside emergency room with left-sided abdomen/chest discomfort. CT scan showed something which made them put her on pantoprazole again. excess free water intake pain issues (with knee) recent cancer diagnosis (breast cancer) On fluid restriction follow-up on serum/urine osmo Sodium level is improved to 127 today. Continue current therapy (2) Effusion of right knee: Code(s): M25.461 - Effusion, right knee Status: Acute Assessment and Plan: Orthopedic recommendations noted no evidence of infection at this time (3) Essential (primary) hypertension: Code(s): I10 - Essential (primary) hypertension Status: Chronic Assessment and Plan: Systolic ranging 113-137 in the last 24 hours. HCTZ on hold . She is still on KESHIA-inhibitor follow trend of hemodynamics (4) Rheumatoid arthritis: Code(s): M06.9 - Rheumatoid arthritis, unspecified Status: Acute Assessment and Plan: Golimumab being held until she starts treatment for her newly diagnosed breast cancer follows with outpatient Rheumatology (5) Cancer of right breast: Code(s): C50.911 - Malignant neoplasm of unspecified site of right female breast Status: Acute Assessment and Plan: recent diagnosis scheduled for llumpectomy as an outpatient. (6) Type 2 diabetes mellitus without complications: Qualifiers: Diabetes mellitus terminal operations manager insulin use: without terminal operations manager use Qualified Code(s): E11.9 - Type 2 diabetes mellitus without complications Code(s): E11.9 - Type 2 diabetes mellitus without complications Status: Chronic Assessment and Plan: follow accuchecks glycemic control per hospitalists Dr. Jamil comes back tomorrow Subjective Date/time seen: 03/12/23 10:44 Interval history: Cheyanne is feeling about the same today. Resting comfortably in bed she slept very well last night No chest pain or shortness of breath Exam Narrative: WDWN in NAD skin no rash or subcu nodules head ncat lungs clear cor reg no rub abd BS+ nontender and soft ext no edema. Objective Data Vital Signs Vital Signs: Vital Signs - 24 hr 03/11/23 13:35 03/11/23 20:25 03/11/23 20:00 Temperature 96.6 F L 96.7 F L Pulse Rate 96 92 Respiratory Rate 16 16 Blood Pressure 128/59 L 125/66 Pulse Oximetry 98 100 Oxygen Delivery Room Air 03/12/23 04:03 03/12/23 08:00 Temperature 96.2 F L Pulse Rate 82 Respiratory Rate 24 H Blood Pressure 113/42 L Pulse Oximetry 95 Oxygen Delivery Room Air Intake/Output Intake/Output: Intake & Output 03/09/23 03/10/23 03/11/23 03/12/23 23:59 23:59 23:59 23:59 Intake Total 1382 2070 1200 290 Output Total 650 Balance 1382 2070 1200 -360 Meds/Results Medications: Active Medications Generic Name Dose Route Start Last Admin Trade Name Freq PRN Reason Stop Dose Admin Acetaminophen 650 mg 03/08/23 16:56 Acetaminophen 325 Mg Tablet PO Q4H PRN Mild Pain (1-3) or Fever Albuterol 1 puff 03/09/23 00:15 Albuterol Sulfat
[2023-03-12 11:22] LABS: Glucose Point of Care 125 mg/dl (65-105)
--- NOTE | 2023-03-12 13:12 | P.PNIM_ITS ---
Progress Note: A&P Assessment and Plan (1) Bacteremia: Code(s): R78.81 - Bacteremia Status: Acute Assessment and Plan: Patient's blood cultures from 03/09/2023 positive for Staph aureus. Source of infection is unknown. * Repeat blood cultures drawn on 03/10/2023 * Cultures positive for gram-positive cocci in clusters on 03/12 * Repeat blood cultures ordered for 03/14. Patient transition from vancomycin to oxacillin. Discussed case with ID pharm. * Chest x-ray and urine are clear of infection * There is no sign of skin infection. * CT chest abdomen pelvis negative for source of infection * Patient has no complaints other than feeling fatigue and having right knee pain. Orthopedics have ruled out joint infection. * Patient has had recent dental infection will order STELLA to rule out endocarditis. TTE did not well visualize the valves. (2) Effusion of right knee: Code(s): M25.461 - Effusion, right knee Status: Acute Assessment and Plan: She sustained a fall on Monday evening and reports that she landed on that knee however with further questioning she does report that the evening prior she was having some discomfort in the posterior right knee. At this time it is unclear whether or not the effusion is traumatic or may be infected which is certainly a consideration given her malaise, leukocytosis, and fever. * Dr. Sethi has been consulted and his input is appreciated. Does not feel like the knee is infected. * Per Ortho recommending ice and elevation. * Patient working with PT and OT (3) Hyponatremia: Code(s): E87.1 - Hypo-osmolality and hyponatremia Status: Acute Assessment and Plan: It looks like her sodium does run a bit low at baseline, likely due to hydrochlorothiazide. Patient had a sodium of 129 when she was evaluated 4 days ago. She does not look overtly dehydrated or volume overloaded at this time. She may be intravascularly depleted given poor oral intake the last couple of weeks. * At this time we will hold her hydrochlorothiazide. * FENa at 0.5 indicating prerenal causes * TSH Within normal limits. * Will continue to trend sodium. * 03/09 Sodium of 122. Nephrology consulted. Hold sertraline. * I have discussed case with nephrology and they are recommending 500mL NS x1 and checking sodium levels. * 03/10 Patient's sodium dropped to 119 after fluid was given. Patient put on fluid restriction and repeat sodium was 124. Nephrology following. * 03/12 Sodium up to 127. (4) Leukocytosis: Code(s): D72.829 - Elevated white blood cell count, unspecified Status: Acute Assessment and Plan: White blood cell count was normal on Monday at 7.7 is currently 21.8. Unlikely that this is due to steroids as she has only had 1 or 2 doses of prednisone. * CRP elevated at 33.5. ESR elevated at 87. Trend CRP * Source remains unclear but suspicions are possible infected right knee. Ortho is not sure about this. * Chest x-ray yesterday was clear and her urinalysis is unremarkable. * 03/09 Repeat CXR negative. * 03/11 blood culture positive for Staph aureus (5) Elevated brain natriuretic peptide (BNP) level: Code(s): R79.89 - Other specified abnormal findings of blood chemistry Status: Acute Assessment and Plan: ProBNP is elevated at 992. Radiographs yesterday showed a normal cardiac silhouette however cardiomegaly was noted on CT of the abdomen, pelvis, and chest at outside facility on Monday. * Echocardiogram ordered for further evaluation. * Avoid over-hydration
--- NOTE | 2023-03-12 13:12 | PM.IMPN ---
Progress Note: A&P Assessment and Plan (1) Bacteremia: Code(s): R78.81 - Bacteremia Status: Acute Assessment and Plan: Patient's blood cultures from 03/09/2023 positive for Staph aureus. Source of infection is unknown. Repeat blood cultures drawn on 03/10/2023 Cultures positive for gram-positive cocci in clusters on 03/12 Repeat blood cultures ordered for 03/14. Patient transition from vancomycin to oxacillin. Discussed case with ID pharm. Chest x-ray and urine are clear of infection There is no sign of skin infection. CT chest abdomen pelvis negative for source of infection Patient has no complaints other than feeling fatigue and having right knee pain. Orthopedics have ruled out joint infection. Patient has had recent dental infection will order STELLA to rule out endocarditis. TTE did not well visualize the valves. (2) Effusion of right knee: Code(s): M25.461 - Effusion, right knee Status: Acute Assessment and Plan: She sustained a fall on Monday evening and reports that she landed on that knee however with further questioning she does report that the evening prior she was having some discomfort in the posterior right knee. At this time it is unclear whether or not the effusion is traumatic or may be infected which is certainly a consideration given her malaise, leukocytosis, and fever. Dr. Sethi has been consulted and his input is appreciated. Does not feel like the knee is infected. Per Ortho recommending ice and elevation. Patient working with PT and OT (3) Hyponatremia: Code(s): E87.1 - Hypo-osmolality and hyponatremia Status: Acute Assessment and Plan: It looks like her sodium does run a bit low at baseline, likely due to hydrochlorothiazide. Patient had a sodium of 129 when she was evaluated 4 days ago. She does not look overtly dehydrated or volume overloaded at this time. She may be intravascularly depleted given poor oral intake the last couple of weeks. At this time we will hold her hydrochlorothiazide. FENa at 0.5 indicating prerenal causes TSH Within normal limits. Will continue to trend sodium. 03/09 Sodium of 122. Nephrology consulted. Hold sertraline. I have discussed case with nephrology and they are recommending 500mL NS x1 and checking sodium levels. 03/10 Patient's sodium dropped to 119 after fluid was given. Patient put on fluid restriction and repeat sodium was 124. Nephrology following. 03/12 Sodium up to 127. (4) Leukocytosis: Code(s): D72.829 - Elevated white blood cell count, unspecified Status: Acute Assessment and Plan: White blood cell count was normal on Monday at 7.7 is currently 21.8. Unlikely that this is due to steroids as she has only had 1 or 2 doses of prednisone. CRP elevated at 33.5. ESR elevated at 87. Trend CRP Source remains unclear but suspicions are possible infected right knee. Ortho is not sure about this. Chest x-ray yesterday was clear and her urinalysis is unremarkable. 03/09 Repeat CXR negative. 03/11 blood culture positive for Staph aureus (5) Elevated brain natriuretic peptide (BNP) level: Code(s): R79.89 - Other specified abnormal findings of blood chemistry Status: Acute Assessment and Plan: ProBNP is elevated at 992. Radiographs yesterday showed a normal cardiac silhouette however cardiomegaly was noted on CT of the abdomen, pelvis, and chest at outside facility on Monday. Echocardiogram ordered for further evaluation. Avoid over-hydration and monitor volume status closely. (6) Essential (primary) hypertension: Code(s): I10 - Essential (primary) hypertension Status: Chronic Assessment and Plan: Blood pressures were reviewed and they have been stable. Monitor closely as hydrochlorothiazide is on hold. (7) Type 2 diabetes mellitus without complications: Qualifiers: Diabetes
[2023-03-12 14:00] VITALS: BP 133/62; PULSE 84; RESP 22; TEMP 35.8; O2SAT 100
[2023-03-12 16:31] LABS: Glucose Point of Care 118 mg/dl (65-105)
[2023-03-12 20:40] LABS: Glucose Point of Care 126 mg/dl (65-105)
[2023-03-12] MEDS: PRAVASTATIN SODIUM 20 MG TABLET PO (20:40)
[2023-03-12] MEDS: clonazePAM (*CRX) 0.5 MG TABLET 1 MG PO (20:40)
[2023-03-12] MEDS: GABAPENTIN 300 MG CAPSULE 600 MG PO (20:40)
[2023-03-12 21:47] VITALS: BP 163/47; PULSE 88; RESP 14; TEMP 36.4; O2SAT 100
[2023-03-13] MEDS: OXACILLIN SODIUM 2 GM in SODIUM CHLORIDE 0.9% IV 100 ML IVPB ×6 (00:48→20:48)
[2023-03-13 03:19] LABS: Basophils Absolute Auto 0.1 K/mm3 (0.0-0.1); Basophils Percent Auto 0.5 % (0.2-1.2); Eosinophils Absolute Auto 0.3 K/mm3 (0-0.3); Eosinophils Percent Auto 1.6 % (0-4.4); Hematocrit 27.6 % (37.0-47.0); Hemoglobin 9.2 g/dL (12.0-15.0); Immature Granulocyte Absolute 1.12 K/mm3 (0.00-0.031); Immature Granulocyte Percent A 6.8 % (0-0.5); Lymphocytes Absolute Auto 2.54 K/mm3 (0.9-3.2); Lymphocytes Percent Auto 15.4 % (18.3-44.2); Mean Corpuscular HGB Conc 33.3 g/dl (32-36); Mean Corpuscular Hemoglobin 30.2 pg (26-34); Mean Corpuscular Volume 90.5 fl (80-100); Mean Platelet Volume 8.4 fl (7.4-10.4); Monocytes Absolute Auto 1.6 K/mm3 (0.1-0.6); Monocytes Percent Auto 9.6 % (2.6-8.5); Neutrophils Absolute Auto 10.9 K/mm3 (1.3-6.7); Neutrophils Percent Auto 66.1 % (45.5-73.1); Platelet Count Result 501 k/mm3 (150-375); Red Blood Count 3.05 M/mm3 (4.2-5.4); Red Cell Distribution Width 14.3 % (11.5-14.5); White Blood Count 16.5 K/mm3 (4.5-10.0)
[2023-03-13 03:38] LABS: Alanine Aminotransferase 185 U/L (6-35); Albumin Level 2.9 g/dL (3.5-5.1); Alkaline Phosphatase 303 U/L (38-126); Anion Gap 8 mmol/L (8-16); Aspartate Amino Transferase 143 U/L (14-36); Bilirubin,Total 0.4 mg/dL (0.2-1.3); Blood Urea Nitrogen 16 mg/dL (7-17); Calcium 8.1 mg/dL (8.4-10.2); Carbon Dioxide 25 mmol/L (22-30); Chloride 96 mmol/L (98-107); Estimated CRCL calculation 100 ml/min; Estimated Glomerular Filt Rate > 60; Glucose 124 mg/dL (65-110); Magnesium 2.5 mg/dL (1.6-2.3); Potassium 4.1 mmol/L (3.4-5.0); Sodium 129 mmol/L (137-145)
[2023-03-13 03:43] LABS: Vancomycin Trough 6.7 ug/mL (10.0-20.0)
[2023-03-13 05:33] VITALS: BP 123/78; PULSE 83; RESP 14; TEMP 36.1; O2SAT 100
[2023-03-13 08:00] VITALS: PULSE 83; RESP 14; O2SAT 100
[2023-03-13 08:23] LABS: Glucose Point of Care 103 mg/dl (65-105)
[2023-03-13] MEDS: FLUTICASONE PROPIONATE 0.05% NA SPR 16 GM BTL (*BKC) 1 SPRAY NASAL (08:39)
[2023-03-13] MEDS: MAGNESIUM OXIDE 400 MG TABLET PO (08:40)
[2023-03-13] MEDS: oxyBUTYnin CHLORIDE 5 MG TABLET PO (08:40)
[2023-03-13] MEDS: CELECOXIB 200 MG CAPSULE PO ×2 (08:40→16:28)
[2023-03-13] MEDS: LORATADINE 10 MG TABLET PO (08:40)
[2023-03-13] MEDS: CHOLECALCIFEROL 1,000 UNITS TABLET 1000 UNITS PO (08:40)
[2023-03-13] MEDS: FAMOTIDINE 20 MG TABLET PO ×2 (08:40→20:49)
[2023-03-13] MEDS: FERROUS SULFATE 324 MG TABLET PO (08:40)
[2023-03-13] MEDS: lisinopriL 20 MG TABLET PO (08:40)
[2023-03-13] MEDS: ACETAMINOPHEN 325 MG TABLET 650 MG PO (11:18)
--- NOTE | 2023-03-13 11:23 | P.PNNP_ITS ---
Progress Note: A&P Assessment and Plan (1) Hyponatremia: Code(s): E87.1 - Hypo-osmolality and hyponatremia Status: Acute Assessment and Plan: * slow and steady improvement * acute on chronic * patient has been informed of this issue in the past. She thinks that it might have been going on for couple of years. * seems to run ~ 124 - 132 since earlier this year * TSH, and cortisol are all okay. * chest x-ray shows COPD * she has never smoked * she has no family history of emphysema * no CONTROL CHEMIST symptoms * risk factors of low sodium: * HCTZ - this was discontinued * SSRI - this is on hold. * PPI use - this is on hold * excess free water intake * pain issues (with knee) * recent cancer diagnosis (breast cancer) * on fluid restriction * follow-up on serum/urine osmo * follow repeat sodium levels (2) Effusion of right knee: Code(s): M25.461 - Effusion, right knee Status: Acute Assessment and Plan: * Orthopedic recommendations noted * no evidence of infection at this time (3) Essential (primary) hypertension: Code(s): I10 - Essential (primary) hypertension Status: Chronic Assessment and Plan: * reasonable control * HCTZ on hold; she is still on KESHIA-inhibitor * follow trend of hemodynamics (4) Rheumatoid arthritis: Code(s): M06.9 - Rheumatoid arthritis, unspecified Status: Acute Assessment and Plan: * Golimumab being held until she starts treatment for her newly diagnosed breast cancer * follows with outpatient Rheumatology (5) Cancer of right breast: Code(s): C50.911 - Malignant neoplasm of unspecified site of right female breast Status: Acute Assessment and Plan: * recent diagnosis * scheduled for llumpectomy as an outpatient. (6) Type 2 diabetes mellitus without complications: Qualifiers: Diabetes mellitus skilled nursing insulin use: without termite technician use Qualified Code(s): E11.9 - Type 2 diabetes mellitus without complications Code(s): E11.9 - Type 2 diabetes mellitus without complications Status: Chronic Assessment and Plan: * follow accuchecks * glycemic control per hospitalists Will continue to follow. Subjective Date/time seen: 03/13/23 11:23 Interval history: Follow-up for acute on chronic hyponatremia. Chart reviewed since last seen -- sodium level seems to be improving with fluid restriction and supportive therapy; noted to have persistently positive blood culture despite appropriate antibiotics; other that fatigue/weakness, no other acute issues to report; no apparent distress noted. Objective Data Vital Signs Vital Signs: Vital Signs Temp Pulse Resp BP Pulse Ox O2 Del Method 03/13/23 08:00 83 14 100 Room Air 03/13/23 05:33 96.9 F L 83 14 123/78 100 03/12/23 21:47 97.5 F L 88 14 163/47 H 100 03/12/23 19:51 Room Air 03/12/23 15:42 Room Air 03/12/23 14:00 96.5 F L 84 22 H 133/62 100 Intake/Output Intake/Output: Intake & Output 03/10/23 03/11/23 03/12/23 03/13/23 23:59 23:59 23:59 23:59 Intake Total 2069 1200 1152 1020 Output Total 950 Balance 2069 1589 565 7562 Meds/Results Medications: Active Medi
--- NOTE | 2023-03-13 11:23 | PM.PNNEP ---
Progress Note: A&P Assessment and Plan (1) Hyponatremia: Code(s): E87.1 - Hypo-osmolality and hyponatremia Status: Acute Assessment and Plan: slow and steady improvement acute on chronic patient has been informed of this issue in the past. She thinks that it might have been going on for couple of years. seems to run ~ 124 - 132 since earlier this year TSH, and cortisol are all okay. chest x-ray shows COPD she has never smoked she has no family history of emphysema no BREAD AND PA[employer]Y BAKER symptoms risk factors of low sodium: HCTZ - this was discontinued SSRI - this is on hold. PPI use - this is on hold excess free water intake pain issues (with knee) recent cancer diagnosis (breast cancer) on fluid restriction follow-up on serum/urine osmo follow repeat sodium levels (2) Effusion of right knee: Code(s): M25.461 - Effusion, right knee Status: Acute Assessment and Plan: Orthopedic recommendations noted no evidence of infection at this time (3) Essential (primary) hypertension: Code(s): I10 - Essential (primary) hypertension Status: Chronic Assessment and Plan: reasonable control HCTZ on hold; she is still on KESHIA-inhibitor follow trend of hemodynamics (4) Rheumatoid arthritis: Code(s): M06.9 - Rheumatoid arthritis, unspecified Status: Acute Assessment and Plan: Golimumab being held until she starts treatment for her newly diagnosed breast cancer follows with outpatient Rheumatology (5) Cancer of right breast: Code(s): C50.911 - Malignant neoplasm of unspecified site of right female breast Status: Acute Assessment and Plan: recent diagnosis scheduled for llumpectomy as an outpatient. 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 Subjective Date/time seen: 03/13/23 11:23 Interval history: Follow-up for acute on chronic hyponatremia. Chart reviewed since last seen -- sodium level seems to be improving with fluid restriction and supportive therapy; noted to have persistently positive blood culture despite appropriate antibiotics; other that fatigue/weakness, no other acute issues to report; no apparent distress noted. Objective Data Vital Signs Vital Signs: Vital Signs Temp Pulse Resp BP Pulse Ox O2 Del Method 03/13/23 08:00 83 14 100 Room Air 03/13/23 05:33 96.9 F L 83 14 123/78 100 03/12/23 21:47 97.5 F L 88 14 163/47 H 100 03/12/23 19:51 Room Air 03/12/23 15:42 Room Air 03/12/23 14:00 96.5 F L 84 22 H 133/62 100 Intake/Output Intake/Output: Intake & Output 03/10/23 03/11/23 03/12/23 03/13/23 23:59 23:59 23:59 23:59 Intake Total 2070 1200 1152 1020 Output Total 950 Balance 2070 7556 877 2010 Meds/Results Medications: Active Medications Generic Name Dose Route Start Last Admin Trade Name Freq PRN Reason Stop Dose Admin Acetaminophen 650 mg 03/08/23 16:56 03/13/23 11:18 Acetaminophen 325 Mg Tablet PO 650 mg Q4H PRN Administration Mild Pain (1-3) or Fever Albuterol 1 puff 03/09/23 00:15 Albuterol Sulfate (*Sp) Aerosol 1 Puff INHALATION Q4H PRN shortness of breath or wheezing Celecoxib 200 mg 03/09/23 09:00 03/13/23 08:40 Celecoxib 200 Mg Capsule PO 200 mg BID TANNA Administration Clonazepam 1 mg 03/09/23 00:15 03/12/23 20:40 Clonazepam (*Crx) 0.5 Mg Tablet PO 1 mg QHS PRN Administration sleep Dextrose 12.5 gm 03/09/23 00:15 Dextrose 50% 25 Gm/50 Ml Syringe IV PUSH PRN PRN Hy
[2023-03-13 12:01] LABS: Glucose Point of Care 134 mg/dl (65-105)
--- NOTE | 2023-03-13 12:02 | PM.PNORT ---
Progress Note: A&P Assessment and Plan (1) Effusion of right knee: Code(s): M25.461 - Effusion, right knee Status: Acute Assessment and Plan: Exam of right knee without redness, mild warmth. Mild knee joint effusion. Still with difficulty with AROM/PROM due to pain, mild improvement. Previous CT scan reveals no fracture or hardware complication and a probable knee joint effusion. Patient has been working with PT/OT. Some progress with mobility but still with swelling/pain of the right knee. Requested Dr. Sethi evaluate patient at bedside and determine need for aspiration given continued leukocytosis with no known etiology up to this point. Dr. Sethi aware. Will determine further plan of care pending his exam. (2) Bacteremia: Code(s): R78.81 - Bacteremia Status: Acute Assessment and Plan: Positive blood cultures on 03/10 with Staph. New cultures pending. Unknown etiology. Will determine need and appropriateness of aspiration of the right knee pending reevaluation by Dr. Sethi. (3) Cancer of right breast: Code(s): C50.911 - Malignant neoplasm of unspecified site of right female breast Status: Acute Assessment and Plan: Following with [facility] (4) Ovarian cyst: Code(s): N83.209 - Unspecified ovarian cyst, unspecified side Status: Acute Assessment and Plan: Awaiting transvaginal US at [facility] per patient/family. May need further evaluation during this stay. Patient expressing concerns that this is not noted in most recent abdominal CT. Medicine team notified. (5) Ductal carcinoma of right breast: Code(s): C50.911 - Malignant neoplasm of unspecified site of right female breast Status: Acute Assessment and Plan: Surgery planned for 03/23 at [facility]. (6) History of cholecystectomy: Code(s): Z90.49 - Acquired absence of other specified parts of digestive tract Status: Acute Assessment and Plan: Concered about differences in CT scan. Medicine team made aware. (7) Fall: Qualifiers: Encounter type: initial encounter Qualified Code(s): W19.XXXA - Unspecified fall, initial encounter Code(s): W19.XXXA - Unspecified fall, initial encounter Status: Acute (8) S/P total hip arthroplasty: Onset Date: 02/15/22 Qualifiers: Laterality: right Qualified Code(s): Z96.641 - Presence of right artificial hip joint Code(s): Z96.649 - Presence of unspecified artificial hip joint Status: Acute Assessment and Plan: No complaints of right hip pain. Radiographs without abnormalities. Plan Reviewed history, exam, previous radiographs/CT, blood cultures with attending MD. Requested Dr. Sethi further evaluate patient at bedside and provide recommendations on necessity of aspiration of the right knee. Subjective Subjective Date/Time Seen: 03/13/23 12:02 Interval history: Patient awake/alert. Sitting up in chair at bedside. Still with complaints of right knee pain/swelling. Also with concerns about discrepancies in CT scans between our hospital and previous CT scan at OSH. Concerned about overall care plan and continuity of care. Hesitant about STELLA. No other complaints. Review of Systems Review of Systems: All systems reviewed & are unremarkable except as noted in HPI and below Exam Const: General: cooperative and average body habitus Nutritional Appearance: average body habitus Orientation/consciousness: patient oriented x3 Limitations: no limitations HENMT: Head: normal to inspection Ears: hearing grossly normal bilaterally Face/Nose/Sinus: Normal external nose present and normal facial exam Face and sinus: normal facial exam Mouth: Yes moist mucous membranes Teeth and gingiva: dentition normal Eyes: General: appearance normal, both eyes and all related structures Pupils: Equal, round and reactive pupils present EOM: EOMs intact bilaterally Neck: Neck: norm
[2023-03-13 13:36] VITALS: BP 117/71; PULSE 91; RESP 17; TEMP 35.9; O2SAT 100
--- NOTE | 2023-03-13 13:36 | PM.CNCAR ---
Assessment and Plan Assessment and plan (1) Bacteremia: Code(s): R78.81 - Bacteremia Status: Acute Plan this is a 67-year-old lady with Staph aureus being noted in 4 blood cultures that have been sampled since last week. She has no peripheral stigmata to suggest bacterial endocarditis. Efren has been requested to rule out this diagnosis. She has a history of hypertension as well as history of recently diagnosed breast cancer S and anticipating a lumpectomy for that. We will arrange for esophageal ECHO to be done tomorrow by 1 of my partners. Further recommendations will be forthcoming those findings Jamin Knapp MD [facility] History of Present Illness History of Present Illness Consult date/time: 03/13/23 13:36 Reason For Visit: knee effusion,leukocytosis,hypnatremia Narrative: This is a 67-year-old lady I am seeing at the request of the hospitalist to arrange a transesophageal echocardiogram. She is unknown to me prior to this encounter. The patient was hospitalized here last week after sustaining a fall and having some pain at the site of a previous right hip prosthesis/ replacement. She has been in the hospital since then having a variety of symptoms evaluated and she has had some blood cultures done on several occasions which appear to be persistently positive for Staph aureus. An echocardiogram was done prior to this consult last week which did not demonstrate any significant valvular pathology but because of persistently positive blood cultures EFREN has been requested. She did have a temperature of 100.4? on admission to the hospital last week has not been persistently febrile. White count was elevated last week at over 21,000. she is feeling relatively well this afternoon and offers no other complaints there is no previous cardiac history. Review of Systems Constitutional: Constitutional: Reports chills Eyes: Eyes: Reports no additional eye complaints ENT: Reports system reviewed and no additional complaints, except as documented Cardiovascular: Cardiovascular: Reports no additional cardiovascular complaints Comments: No significant murmur or gallop Respiratory: Respiratory: Reports no additional respiratory complaints Gastrointestinal: Gastrointestinal: Reports no additional gastrointestinal complaints Musculoskeletal: Musculoskeletal: Reports no additional musculoskeletal complaints Integumentary/Breasts: Skin/Breast: Reports system reviewed and no additional complaints, except as docu Endocrine: Endocrine: Reports no additional endocrine complaints Hematologic/Lymphatic: Hematologic/Lymphatic: Reports no additional hematologic/lymphatic complaints Allergic/Immunologic: Allergic/Immunologic: Reports no additional allergic/immunologic complaints PMFSH Past Medical History Medical History (Updated 03/11/23 @ 12:40 by Maddi Higgins PA-C) Anxiety Cancer of right breast Depression Environmental allergies Essential (primary) hypertension Fall GERD without esophagitis Hearing loss Hyperlipidemia, unspecified Insomnia Osteopenia Polyosteoarthritis, unspecified Rheumatoid arthritis Right knee pain Seronegative arthritis Follows with Dr Ochoa . Skin cancer Sleep apnea in adult Type 2 diabetes mellitus without complications Surgical History Surgical History (Updated 03/13/23 @ 13:11 by CONNIE Stone) History of bilateral cataract extraction History of bilateral knee replacement History of carpal tunnel release (2019) History of cholecystectomy History of repair of left rotator cuff History of sinus surgery History of total right hip arthroplasty (01/2022) Family History Family History Mother Hypertension Family history of type 2 diabetes mellitus Diabetes mellitus Father Family history of lung cancer Family history of primary malignant neoplasm of liver Other Arthritis Depression Family history o
--- NOTE | 2023-03-13 16:59 | PM.IMPN ---
Progress Note: A&P Assessment and Plan (1) Bacteremia: Code(s): R78.81 - Bacteremia Status: Acute Assessment and Plan: Patient with 4/4 blood cultures positive for Staphylococcus aureus of unknown etiology at this time Repeat blood cultures collected today, results pending Joint infection considered given right knee effusion, however no obvious infection at this time. Appreciate orthopedic surgery evaluation. Aspiration being considered given persistent leukocytosis Patient reports recent dental cleaning for which she premedicated with penicillin due to right hip arthroplasty in February 18. No signs/symptoms of endocarditis. Consult to Cardiology, recommendations appreciated. Planning for STELLA to rule out vegetation tomorrow. UA without concerns for infection CXR with no acute finding CT of the chest/abdomen/pelvis reviewed with no acute findings. Does reveal presence gallbladder, however patient reports history of cholecystectomy. This may be exophytic liver cyst which was noted on abdominal ultrasound. Mild biliary dilation noted on CT but not evident on US. Will review findings with radiologist for further clarification No signs/symptoms of skin infection. No open wounds. No rash Patient reports was recently informed of an ovarian cyst on a CT scan at outside hospital 1 week ago for which she was to follow-up with [facility] Will request these records from outside hospital. No mention of ovarian cyst on pelvic CT, again will discuss findings with radiologist for further clarification (2) Effusion of right knee: Code(s): M25.461 - Effusion, right knee Status: Acute Assessment and Plan: She sustained a fall on Monday evening and reports that she landed on that knee however with further questioning she does report that the evening prior she was having some discomfort in the posterior right knee. At this time it is unclear whether or not the effusion is traumatic or may be infected which is certainly a consideration given her malaise, leukocytosis, and fever. Appreciate orthopedic surgery consultation Initially, not felt to be consistent with infection Given persistent leukocytosis, swelling/pain, and difficulty with range of motion, orthopedic surgery, Dr. Sethi, to reassess and consider joint aspiration Supportive care to include ice, elevation, analgesics Continue PT/OT (3) Hyponatremia: Code(s): E87.1 - Hypo-osmolality and hyponatremia Status: Acute Assessment and Plan: It looks like her sodium does run a bit low at baseline, likely due to hydrochlorothiazide. Patient had a sodium of 129 when she was evaluated 4 days ago. She appears euvolemic at this time. She may be intravascularly depleted given poor oral intake the last couple of weeks. hydrochlorothiazide on hold FENa at 0.5 indicating prerenal causes TSH Within normal limits. Sertraline on hold Appreciate nephrology recommendations Continue fluid restriction diet Sodium 129 today (4) Leukocytosis: Code(s): D72.829 - Elevated white blood cell count, unspecified Status: Acute Assessment and Plan: WBC 16.5 today CRP elevated at 33.5. ESR elevated at 87. Trend CRP Workup as above (5) Elevated brain natriuretic peptide (BNP) level: Code(s): R79.89 - Other specified abnormal findings of blood chemistry Status: Acute Assessment and Plan: ProBNP is elevated at 992. Radiographs showed a normal cardiac silhouette however cardiomegaly was noted on CT of the abdomen, pelvis, and chest at outside facility on Monday. TTE completed which showed normal EF 60-65% with grade 1 diastolic dysfunction Avoid over-hydration and monitor volume status closely. (6) Essential (primary) hypertension: Code(s): I10 - Essential (primary) hypertension Status: Chronic Assessment and Plan: Blood pressures were reviewed and they have been stable. HCT
[2023-03-13 17:02] LABS: Glucose Point of Care 118 mg/dl (65-105)
[2023-03-13 20:24] LABS: Osmolality, Urine 572 mOsm/kg (50-1200)
[2023-03-13] MEDS: clonazePAM (*CRX) 0.5 MG TABLET 1 MG PO (20:48)
[2023-03-13] MEDS: GABAPENTIN 300 MG CAPSULE 600 MG PO (20:49)
[2023-03-13] MEDS: PRAVASTATIN SODIUM 20 MG TABLET PO (20:49)
[2023-03-13 21:00] LABS: Glucose Point of Care 153 mg/dl (65-105)
[2023-03-13 21:38] VITALS: BP 127/57; PULSE 104; RESP 16; TEMP 36.4; O2SAT 100
[2023-03-14] VITALS (15 sets, daily range): BP systolic 105–180; BP diastolic 52–82; PULSE 78–97; RESP 14–20; TEMP 35.8–36.5; O2SAT 98–100
[2023-03-14] MEDS: OXACILLIN SODIUM 2 GM in SODIUM CHLORIDE 0.9% IV 100 ML IVPB ×6 (00:42→20:24)
[2023-03-14 06:31] LABS: Estimated CRCL calculation 100 ml/min; Estimated Glomerular Filt Rate > 60
[2023-03-14 07:29] LABS: Glucose Point of Care 103 mg/dl (65-105)
[2023-03-14 08:23] LABS: Anion Gap 10 mmol/L (8-16); Blood Urea Nitrogen 13 mg/dL (7-17); Calcium 8.5 mg/dL (8.4-10.2); Carbon Dioxide 21 mmol/L (22-30); Chloride 101 mmol/L (98-107); Estimated CRCL calculation 122 ml/min; Estimated Glomerular Filt Rate > 60; Glucose 111 mg/dL (65-110); Potassium 4.5 mmol/L (3.4-5.0); Sodium 132 mmol/L (137-145)
[2023-03-14 08:27] LABS: Hematocrit 30.4 % (37.0-47.0); Hemoglobin 9.8 g/dL (12.0-15.0); Mean Corpuscular HGB Conc 32.2 g/dl (32-36); Mean Corpuscular Hemoglobin 29.8 pg (26-34); Mean Corpuscular Volume 92.4 fl (80-100); Mean Platelet Volume 8.6 fl (7.4-10.4); Platelet Count Result 602 k/mm3 (150-375); Red Blood Count 3.29 M/mm3 (4.2-5.4); Red Cell Distribution Width 14.5 % (11.5-14.5); White Blood Count 17.2 K/mm3 (4.5-10.0)
[2023-03-14 09:08] LABS: Band Neutrophils Percent 3 % (0-6); Eosinophils Absolute Manual 0.51 K/mm3 (0.02-0.5); Eosinophils Percent Manual 3 % (0-4); Lymphocytes Absolute Manual 2.23 K/mm3 (1.1-4.5); Metamyelocytes Percent 1 %; Monocytes Absolute Manual 1.72 K/mm3 (0.1-0.90); Monocytes Percent Manual 10 % (3-9); Myelocytes Percent 1 %; Neutrophils Absolute Manual 12.38 K/mm3 (1.7-7.2); Neutrophils Percent Manual 69 % (46-73); Platelet Estimate Increased (Adequate); Schistocytes None Seen (NORMAL); Total Cells Counted 100
--- NOTE | 2023-03-14 11:02 | P.PNNP_ITS ---
Progress Note: A&P Assessment and Plan (1) Hyponatremia: Code(s): E87.1 - Hypo-osmolality and hyponatremia Status: Acute Assessment and Plan: * slow and steady improvement * acute on chronic * patient has been informed of this issue in the past. She thinks that it might have been going on for couple of years. * seems to run ~ 124 - 132 since earlier this year * TSH, and cortisol are all okay. 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 * PPI use - this is on hold * excess free water intake * pain issues (with knee) * recent cancer diagnosis (breast cancer) * on fluid restriction * follow-up on serum/urine osmo * follow repeat sodium levels (2) Effusion of right knee: Code(s): M25.461 - Effusion, right knee Status: Acute Assessment and Plan: * Orthopedic recommendations noted * no evidence of infection at this time (3) Essential (primary) hypertension: Code(s): I10 - Essential (primary) hypertension Status: Chronic Assessment and Plan: * reasonable control * HCTZ on hold; she is still on KESHIA-inhibitor * follow trend of hemodynamics (4) Rheumatoid arthritis: Code(s): M06.9 - Rheumatoid arthritis, unspecified Status: Acute Assessment and Plan: * Golimumab being held until she starts treatment for her newly diagnosed breast cancer * follows with outpatient Rheumatology (5) Cancer of right breast: Code(s): C50.911 - Malignant neoplasm of unspecified site of right female breast Status: Acute Assessment and Plan: * recent diagnosis * scheduled for llumpectomy as an outpatient. 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 Subjective Date/time seen: 03/14/23 11:02 Interval history: Follow-up for acute on chronic hyponatremia. Sodium level continues to improve with current interventions; no other acute issues/events overnight or earlier this morning. Exam Narrative: General: WD/WN female in NAD Heart: normal S1 and S2; no rub Lungs: clear to auscultation Abdomen: soft, nontender, nondistended, positive bowel sounds Extremities: no cyanosis or clubbing; no edema Skin: warm and dry Objective Data Vital Signs Vital Signs: Vital Signs Temp Pulse Resp BP Pulse Ox O2 Del Method 03/14/23 11:01 78 16 159/82 H 100 Room Air 03/14/23 05:53 97.7 F 97 15 105/63 98 03/13/23 21:38 97.5 F L 104 H 16 127/57 L 100 03/13/23 20:00 Room Air 03/13/23 13:36 96.6 F L 91 17 117/71 100 Intake/Output Intake/Output: Intake & Output 03/11/23 03/12/23 03/13/23 03/14/23 23:59 23:59 23:59 23:59 Intake Total 1200 1152 1760 200
--- NOTE | 2023-03-14 11:02 | PM.PNNEP ---
Progress Note: A&P Assessment and Plan (1) Hyponatremia: Code(s): E87.1 - Hypo-osmolality and hyponatremia Status: Acute Assessment and Plan: slow and steady improvement acute on chronic patient has been informed of this issue in the past. She thinks that it might have been going on for couple of years. seems to run ~ 124 - 132 since earlier this year TSH, and cortisol are all okay. 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 PPI use - this is on hold excess free water intake pain issues (with knee) recent cancer diagnosis (breast cancer) on fluid restriction follow-up on serum/urine osmo follow repeat sodium levels (2) Effusion of right knee: Code(s): M25.461 - Effusion, right knee Status: Acute Assessment and Plan: Orthopedic recommendations noted no evidence of infection at this time (3) Essential (primary) hypertension: Code(s): I10 - Essential (primary) hypertension Status: Chronic Assessment and Plan: reasonable control HCTZ on hold; she is still on KESHIA-inhibitor follow trend of hemodynamics (4) Rheumatoid arthritis: Code(s): M06.9 - Rheumatoid arthritis, unspecified Status: Acute Assessment and Plan: Golimumab being held until she starts treatment for her newly diagnosed breast cancer follows with outpatient Rheumatology (5) Cancer of right breast: Code(s): C50.911 - Malignant neoplasm of unspecified site of right female breast Status: Acute Assessment and Plan: recent diagnosis scheduled for llumpectomy as an outpatient. 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 Subjective Date/time seen: 03/14/23 11:02 Interval history: Follow-up for acute on chronic hyponatremia. Sodium level continues to improve with current interventions; no other acute issues/events overnight or earlier this morning. Exam Narrative: General: WD/WN female in NAD Heart: normal S1 and S2; no rub Lungs: clear to auscultation Abdomen: soft, nontender, nondistended, positive bowel sounds Extremities: no cyanosis or clubbing; no edema Skin: warm and dry Objective Data Vital Signs Vital Signs: Vital Signs Temp Pulse Resp BP Pulse Ox O2 Del Method 03/14/23 11:01 78 16 159/82 H 100 Room Air 03/14/23 05:53 97.7 F 97 15 105/63 98 03/13/23 21:38 97.5 F L 104 H 16 127/57 L 100 03/13/23 20:00 Room Air 03/13/23 13:36 96.6 F L 91 17 117/71 100 Intake/Output Intake/Output: Intake & Output 03/11/23 03/12/23 03/13/23 03/14/23 23:59 23:59 23:59 23:59 Intake Total 1200 1152 1760 200 Output Total 950 0 Balance 1924 395 9825 200 Meds/Results Medications: Active Medications Generic Name Dose Route Start Last Admin Trade Name Freq PRN Reason Stop Dose Admin Acetaminophen 650 mg 03/08/23 16:56 03/13/23 11:18 Acetaminophen 325 Mg Tablet PO 650 mg Q4H PRN Administration Mild Pain (1-3) or Fever Albuterol 1 puff 03/09/23 00:15 Albuterol Sulfate (*Sp) Aerosol 1 Puff INHALATION Q4H PRN shortness of breath or wheezing Celecoxib 200 mg 03/09/23 09:00 03/13/23 16:28 Celecoxib 200 Mg Capsule PO 200 mg BID TANNA Administration Clonazepam 1 mg 03/09/23 00:15 03/13/23 20:48 Clonazepam (*Crx) 0.5 Mg Tablet PO 1 mg QHS PRN Administra
--- NOTE | 2023-03-14 11:57 | PCOTNOTE ---
Attempted to see Patient at this time. Patient was out of the room, down having a STELLA done, Per RN, Patient will be back around 1:00 P.M.
[2023-03-14] MEDS: lisinopriL 20 MG TABLET PO (12:14)
--- NOTE | 2023-03-14 12:14 | SUR.OPER ---
Procedure rescheduled for 1400 per MD. Pt, family, echo and floor nurse aware. Pt to stay in FLOOR COVERING LAYER #1 until procedure.
--- NOTE | 2023-03-14 12:38 | PM.PNORT ---
Progress Note: A&P Assessment and Plan (1) Right knee pain: Qualifiers: Chronicity: acute Qualified Code(s): M25.561 - Pain in right knee Code(s): M25.561 - Pain in right knee Status: Acute Assessment and Plan: POST HOSPITALIZATION WITH RIGHT KNEE PAIN WHICH IS RESOLVING. SHE CURRENTLY HAS NO SIGN OF SEPTIC KNEE. CT SCAN SHOWS MINIMAL EFFUSION. NO INDICATION FOR ASPIRATION AT THIS TIME. HER ELEVATED WBC COUNT IS MOST LIKELY NOT DUE TO ANY KNEE PATHOLOGY. RECOMMEND CONTINUE PT TOLERATED HISTORY, EXAM AND RADIOGRAPHS REVIEWED WITH THE PATIENT. REFERRING PHYSICIAN RECORDS AND IMAGES REVIEWED. CONDITION, NATURE, ETIOLOGY AND COURSE OF NATURAL HISTORY REVIEWED. CONSERVATIVE AND OPERATIVE TREATMENT OPTIONS REVIEWED WELL THE RISKS AND BENEFITS OF EACH. WE WILL CONTINUE TO OBSERVE HER FOR ANY CHANGE IN HER RIGHT KNEE. Subjective Subjective Date/Time Seen: 03/14/23 12:38 JOSÉ MIGUEL IS DOING VERY WELL TODAY FAR HER KNEE IS CONCERNED. SHE HAS MINIMAL PAIN AND SHE HAS BEEN WALKING WELL WITH PT. SHE HAS NO CALF PAIN OR THIGH PAIN Exam Extrem: Other: VSS AFEBRILE SCAR HEALED, NO SIGN OF INFECTION, MINIMAL EFFUSION, NO WARMTH OT ERYTHEMA PROM WITH MINIMAL PAIN, AROM WITH MINIMAL PAIN, NV INTACT CALF SOFT NON TENDER, THIGH SOFT NON TENDER, NEG HOMANS SIGN, NO SIGN OF SEPSIS Objective Data Vital Signs Vital Signs: Vital Signs - 24 hr 03/13/23 13:36 03/13/23 20:00 03/13/23 21:38 Temperature 35.9 C L 36.4 C L Pulse Rate 91 104 H Respiratory Rate 17 16 Blood Pressure 117/71 127/57 L Pulse Oximetry 100 100 Oxygen Delivery Room Air 03/14/23 05:53 03/14/23 11:10 03/14/23 07:30 Temperature 36.5 C Pulse Rate 97 78 Respiratory Rate 15 16 Blood Pressure 105/63 159/82 H Pulse Oximetry 98 100 Oxygen Delivery Room Air Room Air Intake/Output Intake/Output: Intake & Output 03/11/23 03/12/23 03/13/23 03/14/23 23:59 23:59 23:59 23:59 Intake Total 1200 1152 1760 300 Output Total 950 0 Balance 2672 136 9911 300 Meds/Results Medications: Active Medications Generic Name Dose Route Start Last Admin Trade Name Freq PRN Reason Stop Dose Admin Acetaminophen 650 mg 03/08/23 16:56 03/13/23 11:18 Acetaminophen 325 Mg Tablet PO 650 mg Q4H PRN Administration Mild Pain (1-3) or Fever Albuterol 1 puff 03/09/23 00:15 Albuterol Sulfate (*Sp) Aerosol 1 Puff INHALATION Q4H PRN shortness of breath or wheezing Celecoxib 200 mg 03/09/23 09:00 03/13/23 16:28 Celecoxib 200 Mg Capsule PO 200 mg BID TANNA Administration Clonazepam 1 mg 03/09/23 00:15 03/13/23 20:48 Clonazepam (*Crx) 0.5 Mg Tablet PO 1 mg QHS PRN Administration sleep Dextrose 12.5 gm 03/09/23 00:15 Dextrose 50% 25 Gm/50 Ml Syringe IV PUSH PRN PRN Hypoglycemia Protocol Famotidine 20 mg 03/11/23 21:00 03/13/23 20:49 Famotidine 20 Mg Tablet PO 20 mg Q12HR TANNA Administration Ferrous Sulfate 324 mg 03/11/23 08:00 03/13/23 08:40 Ferrous Sulfate 324 Mg Tablet PO 324 mg DAILY@0800 TANNA Administration Fluticasone Propionate 1 spray 03/09/23 00:15 03/13/23 08:39 Fluticasone Propionate 0.05% Na Spr 16 Gm Btl (*Bkc) NASAL 1 spray DAILY PRN Administration allergy symptoms Gabapentin 600 mg 03/09/23 21:00 03/13/23 20:49 Gabapentin 300 Mg Capsule PO 600 mg QHS TANNA Administration Glucagon 1 mg 03/09/23 00:15 Glucagon For Inj 1 Mg Vial IM PRN PRN Hypoglycemia Protocol Glucose 15 gm 03/09/23 00:15 Glucose Oral Gel 15 Gm Of Glucse In 37.5 Gm Tube PO PRN PRN Hypoglycemia Protocol Dextrose 1,000 mls @ 100 mls/hr 03/09/23 00:15 Dextrose 5% 1,000 Ml IVPB PRN PRN Hypoglycemia Protocol Oxacillin Sodium 2 gm/ Sodium 100 mls @ 200 mls/hr 03/12/23 09:00 03/14/23 12:13 Chloride IVPB 200 mls/hr Q4HR TANNA Administration Insulin Aspar
--- NOTE | 2023-03-14 13:09 | PC.NURSE ---
To photofinishing laboratory worker @ 1053 per wheelchair, son @ bedside.
--- NOTE | 2023-03-14 13:30 | PCOTNOTE ---
Attempted to see Patient for P.M. treatment session. Patient has not returned to her room as of this time. Per RN, Patient has not completed the STELLA as of 10 minutes ago, she states she will have to be tried again tomorrow.
--- NOTE | 2023-03-14 14:59 | PM.PNCARD ---
Progress Note: A&P Assessment and Plan (1) Bacteremia: Code(s): R78.81 - Bacteremia Status: Acute Assessment and Plan: STELLA done today without valvular vegetations. See STELLA report for full findings/details. Cardiology will sign off. Subjective Date/time seen: 03/14/23 14:59 Interval history: Reason for visit: Bacteremia HPI: This is a 67-year-old lady I am seeing at the request of the hospitalist to arrange a transesophageal echocardiogram.? She is unknown to me prior to this encounter.? The patient was hospitalized here last week after sustaining a fall and having some pain at the site of a previous right hip prosthesis/ replacement.? She has been in the hospital since then having a variety of symptoms evaluated and she has had some blood cultures done on several occasions which appear to be persistently positive for Staph aureus.? An echocardiogram was done prior to this consult last week which did not demonstrate any significant valvular pathology but because of persistently positive blood cultures STELLA has been requested.? She did have a temperature of 100.4? on admission to the hospital last week has not been persistently febrile.? White count was elevated last week at over 21,000. she is feeling relatively well this afternoon and offers no other complaints there is no previous cardiac history. Date of service 03/14/2023: STELLA today. Patient without chest pain or shortness of breath. Review of Systems Review of Systems: All systems reviewed & are unremarkable except as noted in HPI and below (HPI) Exam Const: General: comfortable and no acute distress Other: Well-developed well-nourished white female pleasant and cooperative no distress HENMT: Mouth: Yes moist mucous membranes Eyes: Sclera: sclerae normal Neck: Neck: supple and no JVD Resp: Effort & Inspection: normal respiratory effort Auscultation: clear to auscultation bilaterally Cardio: Rate: regular rate Rhythm: regular rhythm GI: GI Palp: Yes Soft to palpation Skin: General skin exam: normal color Neuro: Speech: normal speech Other: alert and oriented x3 Psych: Mental Status: mental status grossly normal Affect: normal affect Objective Data Vital Signs Vital Signs: Vital Signs - 24 hr 03/13/23 20:00 03/13/23 21:38 03/14/23 05:53 Temperature 36.4 C L 36.5 C Pulse Rate 104 H 97 Respiratory Rate 16 15 Blood Pressure 127/57 L 105/63 Pulse Oximetry 100 98 Oxygen Delivery Room Air Oxygen Flow Rate 03/14/23 11:10 03/14/23 07:30 03/14/23 14:35 Temperature Pulse Rate 78 97 Respiratory Rate 16 19 Blood Pressure 159/82 H 180/79 H Pulse Oximetry 100 100 Oxygen Delivery Room Air Room Air Nasal Cannula Oxygen Flow Rate 3 03/14/23 14:40 03/14/23 14:45 03/14/23 14:50 Temperature Pulse Rate 89 89 90 Respiratory Rate Blood Pressure 174/81 H 169/79 H 173/81 H Pulse Oximetry 100 100 100 Oxygen Delivery Nasal Cannula Nasal Cannula Nasal Cannula Oxygen Flow Rate 3 3 3 03/14/23 14:55 Temperature Pulse Rate 90 Respiratory Rate Blood Pressure 147/78 H Pulse Oximetry Oxygen Delivery Nasal Cannula Oxygen Flow Rate 3 Intake/Output Intake/Output: Intake & Output 03/11/23 03/12/23 03/13/23 03/14/23 23:59 23:59 23:59 23:59 Intake Total 1200 1152 1760 300 Output Total 950 0 Balance 4784 507 6736 300 Meds/Results Medications: Active Medications Generic Name Dose Route Start Last Admin Trade Name Freq PRN Reason Stop Dose Admin Acetaminophen 650 mg 03/08/23 16:56 03/13/23 11:18 Acetaminophen 325 Mg Tablet PO 650 mg Q4H PRN Administration Mild Pain (1-3) or Fever Albuterol 1 puff 03/09/23 00:15 Albuterol Sulfate (*Sp) Aerosol 1 Puff INHALATION Q4H PRN shortness of breath or wheezing Celecoxib 200 mg 03/09/23 09:00 03/13/23 16:28 Celecoxib 200 Mg Capsule PO 200 mg BID TANNA Administration Clonazepam 1 mg 03/09/23
--- NOTE | 2023-03-14 15:03 | WPDMODSED ---
Moderate Sedation Note-Pt Data Patient Data Diagnosis: Bacteremia Present Complaint: Bacteremia Procedure to be performed/Plan: Transesophageal echocardiogram Allergies Allergy/AdvReac Type Severity Reaction Status Date / Time hydrocodone Allergy Mild ITCHING Verified 03/06/23 15:47 Home Medications Medication Instructions Recorded Confirmed Type cholecalciferol (vitamin D3) 25 1,000 unit PO DAILY #90 caps 03/12/20 03/08/23 Rx mcg (1,000 unit) capsule aspirin 81 mg tablet,delayed 81 mg PO DAILY #90 tabs 09/17/21 03/08/23 Rx release acetaminophen 500 mg tablet 1,000 mg PO Q6H PRN Pain 09/20/21 03/08/23 History (Tylenol Extra Strength) blood sugar diagnostic (Blood #50 ea 11/22/21 01/05/23 Rx Glucose Test strips) blood-glucose meter (Blood Glucose #1 ea 11/22/21 01/05/23 Rx Monitoring kit) lancets #200 ea 11/22/21 01/05/23 Rx magnesium oxide 420 mg tablet 420 mg PO DAILY 11/24/21 03/08/23 History gabapentin 300 mg capsule 600 mg PO QHS 12/28/21 03/08/23 History fluticasone propionate 50 1 spray intranasal DAILY PRN 04/18/22 03/08/23 Rx mcg/actuation nasal allergy symptoms #3 multiple units spray,suspension (Flonase Allergy Relief) golimumab 12.5 mg/mL intravenous IV .[id number] 07/05/22 01/05/23 History solution (Simponi ARIA) hydrochlorothiazide 25 mg tablet 25 mg PO DAILY #90 tabs 09/30/22 03/08/23 Rx pravastatin 20 mg tablet 20 mg PO QHS #90 tabs 11/15/22 03/08/23 Rx oxybutynin chloride 5 mg tablet 5 mg PO DAILY #30 tabs 01/03/23 03/08/23 Rx celecoxib 200 mg capsule (Celebrex) 200 mg PO BID #180 caps 01/27/23 03/08/23 Rx cetirizine 10 mg tablet (Zyrtec) 10 mg PO DAILY allergy symptoms 01/27/23 03/08/23 Rx #90 tabs metformin 500 mg tablet 500 mg PO DAILY #90 tabs 01/27/23 03/08/23 Rx sertraline 100 mg tablet 100 mg PO DAILY #90 tabs 01/27/23 03/08/23 Rx lisinopril 20 mg tablet 20 mg PO DAILY #90 tabs 02/13/23 03/08/23 Rx clonazepam 0.5 mg tablet 1 mg PO QHS PRN sleep #90 tabs 02/27/23 03/08/23 Rx albuterol sulfate 90 mcg/actuation 1 puff inhalation Q4H PRN 03/06/23 03/08/23 Rx aerosol inhaler shortness of breath or wheezing #8.5 grams amoxicillin 500 mg capsule 500 mg PO Q12H #7 caps 03/06/23 03/08/23 Rx methylprednisolone 4 mg tablets in See Rx Instructions PO PER PKG DIR 03/06/23 03/08/23 Rx a dose pack (Medrol (Shashank)) #21 ea ondansetron HCl 8 mg tablet 8 mg PO BID 1 month #60 tabs 03/06/23 03/08/23 Rx omeprazole 20 mg PO DAILY acid reflux 03/09/23 03/09/23 History Current Medications: Active Medications Acetaminophen (Acetaminophen 325 Mg Tablet) 650 mg PO Q4H PRN PRN Reason: Mild Pain (1-3) or Fever Last Admin: 03/13/23 11:18 Dose: 650 mg Albuterol (Albuterol Sulfate (*Sp) Aerosol 1 Puff) 1 puff INHALATION Q4H PRN PRN Reason: shortness of breath or wheezing Celecoxib (Celecoxib 200 Mg Capsule) 200 mg PO BID [facility] Last Admin: 03/13/23 16:28 Dose: 200 mg Clonazepam (Clonazepam (*Crx) 0.5 Mg Tablet) 1 mg PO QHS PRN PRN Reason: sleep Last Admin: 03/13/23 20:48 Dose: 1 mg Dextrose (Dextrose 50% 25 Gm/50 Ml Syringe) 12.5 gm IV PUSH PRN PRN; Protocol PRN Reason: Hypoglycemia Famotidine (Famotidine 20 Mg Tablet) 20 mg PO Q12HR [facility] Last Admin: 03/13/23 20:49 Dose: 20 mg Ferrous Sulfate (Ferrous Sulfate 324 Mg Tablet) 324 mg PO DAILY@0800 [facility] Last Admin: 03/13/23 08:40 Dose: 324 mg Fluticasone Propionate (Fluticasone Propionate 0.05% Na Spr 16 Gm Btl (*Bkc)) 1 spray NASAL DAILY PRN PRN Reason: allergy symptoms Last Admin: 03/13/23 08:39 Dose: 1 spray Gabapentin (Gabapentin 300 Mg Capsule) 600 mg PO QHS TANNA Last Admin: 03/13/23 20:49 Dose: 600 mg Glucagon (Glucagon For Inj 1 Mg Vial) 1 mg IM PRN PRN; Protocol PRN Reason: Hypoglycemia Glucose (Glucose Oral Gel 15 Gm Of Glucse In 37.5 Gm Tube) 15 gm PO PRN PRN; Protocol PRN Reason: Hypoglycemia Dextrose (Dextrose 5% 1,000 Ml) 1,000 mls @ 100 mls/hr IVPB PRN PRN; Protocol PRN Reason: Hypogl
--- NOTE | 2023-03-14 15:04 | WPDTEECHO ---
STELLA TransEsophageal Echocardiogram Date of procedure: 03/14/23 Procedure Type: Date of Procedure: 03/14/2023 Brief History Of Present Illness: Patient is referred for STELLA for bacteremia. Procedure In Detail: After verbal and written informed consent was obtained, the patient risks, benefits, and alternatives explained in detail. The patient agreed to proceed with the plan of care as outlined above.?The patient was evaluated at bedside in the [facility].?The posterior oropharynx, neck, and jaw angle all within normal limits on examination. Lungs were clear to auscultation. See pre-sedation note for further details. The patient was then placed in the appropriate 30 to 45 degree angle supine position at a slight left lateral decubitus position.?Patient was monitored throughout the study with telemetry, oxygen saturation, end-tidal CO2 monitoring, blood pressure, heart rate, and respirations.? The posterior hypopharynx was then locally anesthetized using repeated administration of Hurricaine spray as well as gargled viscous lidocaine.? After local anesthetic of the posterior hypopharynx was achieved and the oral bite block placed, moderate sedation was administered.? After confirmation of adequate moderate sedation, the transesophageal echocardiogram probe was advanced through the oral bite block into the posterior hypopharynx and into the esophagus easily and without complication.? Multiple, multiplanar echocardiographic images were obtained in multiple standard re- projections.? At the conclusion of the study, the transesophageal echocardiogram probe was removed easily and without complication.? The patient tolerated the procedure well without difficulty.? Patient was in sinus rhythm throughout the study. Moderate Sedation/Anesthesia administration: Patient reports no prior problems with sedation/anesthesia. Please see pre-sedation noted for physical examination documentation. As noted above, after adequate local anesthesia of the posterior hypopharynx was achieved, a total of 3 mg intravenous Versed and a total of 75 mcg intravenous Fentanyl in multiple divided doses was administered for moderate sedation.? Sedation start time was 14:38 and end time was 14:53 for a total intra-service/procedure face-face time of?15 minutes.? Sedation was administered by a qualified/certified observer?Myrna Hendrix RN under my supervision with intra-procedure [id number] observation and management throughout the entirety of the procedure.? There were no other issues or complications and patient tolerated the procedure well. See post-anesthesia documentation. FINDINGS: LEFT VENTRICLE: Size and systolic function were within normal limits without wall motion abnormalities with ejection fraction of 60-65%. RIGHT VENTRICLE:? Size and systolic function within normal limits. LEFT ATRIUM: Normal size. RIGHT ATRIUM: Right atrium appeared mildly enlarged. Prominent eustachian valve noted. INTERATRIAL SEPTUM: ? Interatrial septum is anatomically normal without evidence of shunt with color-flow Doppler. MITRAL VALVE: ? Mitral valve is anatomically normal with preserved leaflet excursion and trivial regurgitation. No valvular vegetations. AORTIC VALVE: The aortic valve was an anatomically normal 3 leaflet structure with mild sclerosis of the leaflets. No aortic regurgitation. No valvular vegetations. TRICUSPID VALVE: The tricuspid valve is anatomically normal with normal leaflet excursion with trivial regurgitation identified.? No mobile elements identified. PULMONIC VALVE: Pulmonic valve grossly normal. No valvular vegetations. PERICARDIUM: The pericardium was anatomically normal without significant pericardial effusion. ? AORTA: Mid esophageal views of the aorta show mild atherosclerotic disease. Complications: None CONCLUSION: NO EVIDENCE OF INFECTIVE ENDOCARDITIS This dictation may have been done utilizing a voice recognition system.? Attempts have
--- NOTE | 2023-03-14 15:14 | SUR.PHASEII ---
Zulema ice chips without distress. Family present
--- NOTE | 2023-03-14 16:25 | PC.NURSE ---
Return from liaison inspection laboratory assistant @ [phone].
[2023-03-14 16:29] LABS: Glucose Point of Care 84 mg/dl (65-105)
--- NOTE | 2023-03-14 16:48 | PM.IMPN ---
Progress Note: A&P Assessment and Plan (1) Bacteremia: Code(s): R78.81 - Bacteremia Status: Acute Assessment and Plan: Patient with 4/4 blood cultures positive for Staphylococcus aureus of unknown etiology at this time Repeat blood cultures collected today, results pending Joint infection considered given right knee effusion, however no obvious infection at this time. Appreciate orthopedic surgery evaluation. Discussed case with orthopedic surgery today, no concerns for joint space infection at this time Patient reports recent dental cleaning for which she premedicated with penicillin due to right hip arthroplasty in February 18. No signs/symptoms of endocarditis. Consult to Cardiology, recommendations appreciated. Underwent STELLA today which did not show any evidence of infective endocarditis UA without concerns for infection CXR with no acute findings CT of the chest/abdomen/pelvis reviewed with no acute findings. Does reveal presence gallbladder, however patient reports history of cholecystectomy. This may be exophytic liver cyst which was noted on abdominal ultrasound. Mild biliary dilation noted on CT but not evident on US. discussed these results with radiologist x2, General surgery, and GI. Cystic structure in gallbladder fossa may represent gallbladder remnant or small exophytic liver cyst, no inflammatory changes or wall thickening to suggest acute infection. Per GI, abdominal source would be unlikely given Gram-positive bacteremia. Per Radiology, could consider follow-up with MRCP for further classification of cystic structure, however not felt to be of any benefit No signs/symptoms of skin infection. No open wounds. No rash Patient reports was recently informed of an ovarian cyst on a CT scan at outside hospital 1 week ago for which she was to follow-up with [facility]. Records have been requested from outside hospital, awaiting results No mention of ovarian cyst on pelvic CT. discussed these results with radiologist, very tiny left ovarian cyst noted, however based on size, no recommendation for further imaging Source of infection remains unclear and WBC with increased again today to 17.2. Continue IV oxacillin. Repeat blood cultures collected on 03/13 are negative to date. May need to consider transfer to tertiary care center for infectious disease evaluation if no clinical improvement (2) Effusion of right knee: Code(s): M25.461 - Effusion, right knee Status: Acute Assessment and Plan: She sustained a fall on Monday evening and reports that she landed on that knee however with further questioning she does report that the evening prior she was having some discomfort in the posterior right knee. At this time it is unclear whether or not the effusion is traumatic or may be infected which is certainly a consideration given her malaise, leukocytosis, and fever. Appreciate orthopedic surgery consultation Not felt to be consistent with infection Supportive care to include ice, elevation, analgesics Continue PT/OT (3) Hyponatremia: Code(s): E87.1 - Hypo-osmolality and hyponatremia Status: Acute Assessment and Plan: It looks like her sodium does run a bit low at baseline, likely due to hydrochlorothiazide. Patient had a sodium of 129 when she was evaluated 4 days ago. She appears euvolemic at this time. She may be intravascularly depleted given poor oral intake the last couple of weeks. hydrochlorothiazide on hold FENa at 0.5 indicating prerenal causes TSH Within normal limits. Sertraline on hold Appreciate nephrology recommendations Continue fluid restriction diet Sodium 1329 today (4) Leukocytosis: Code(s): D72.829 - Elevated white blood cell count, unspecified Status: Acute Assessment and Plan: WBC 17.2 today CRP elevated up to 33.5. ESR elevated at 87. Trend CRP Workup as above (5) Elevated brain natriuretic peptide
[2023-03-14] MEDS: CELECOXIB 200 MG CAPSULE PO (16:51)
[2023-03-14 17:41] LABS: Alanine Aminotransferase 177 U/L (6-35); Albumin Level 3.2 g/dL (3.5-5.1); Alkaline Phosphatase 315 U/L (38-126); Aspartate Amino Transferase 69 U/L (14-36); Bilirubin,Total 0.5 mg/dL (0.2-1.3)
[2023-03-14 20:03] LABS: Glucose Point of Care 97 mg/dl (65-105)
[2023-03-14] MEDS: clonazePAM (*CRX) 0.5 MG TABLET 1 MG PO (20:24)
[2023-03-14] MEDS: GABAPENTIN 300 MG CAPSULE 600 MG PO (20:25)
[2023-03-14] MEDS: FAMOTIDINE 20 MG TABLET PO (20:25)
[2023-03-14] MEDS: PRAVASTATIN SODIUM 20 MG TABLET PO (20:25)
[2023-03-15] MEDS: OXACILLIN SODIUM 2 GM in SODIUM CHLORIDE 0.9% IV 100 ML IVPB ×6 (00:14→20:45)
[2023-03-15 05:17] VITALS: BP 125/58; PULSE 83; RESP 14; TEMP 35.8; O2SAT 100
[2023-03-15 06:11] LABS: Basophils Absolute Auto 0.1 K/mm3 (0.0-0.1); Basophils Percent Auto 0.4 % (0.2-1.2); Eosinophils Absolute Auto 0.3 K/mm3 (0-0.3); Hematocrit 28.1 % (37.0-47.0); Hemoglobin 8.9 g/dL (12.0-15.0); Immature Granulocyte Absolute 0.76 K/mm3 (0.00-0.031); Immature Granulocyte Percent A 5.8 % (0-0.5); Lymphocytes Absolute Auto 1.87 K/mm3 (0.9-3.2); Lymphocytes Percent Auto 14.4 % (18.3-44.2); Mean Corpuscular HGB Conc 31.7 g/dl (32-36); Mean Corpuscular Hemoglobin 28.9 pg (26-34); Mean Corpuscular Volume 91.2 fl (80-100); Mean Platelet Volume 8.3 fl (7.4-10.4); Monocytes Absolute Auto 0.9 K/mm3 (0.1-0.6); Monocytes Percent Auto 7.1 % (2.6-8.5); Neutrophils Absolute Auto 9.2 K/mm3 (1.3-6.7); Neutrophils Percent Auto 70.3 % (45.5-73.1); Platelet Count Result 543 k/mm3 (150-375); Red Blood Count 3.08 M/mm3 (4.2-5.4); Red Cell Distribution Width 14.5 % (11.5-14.5)
[2023-03-15 06:23] LABS: Alanine Aminotransferase 148 U/L (6-35); Albumin Level 3.1 g/dL (3.5-5.1); Alkaline Phosphatase 296 U/L (38-126); Anion Gap 5 mmol/L (8-16); Aspartate Amino Transferase 49 U/L (14-36); Bilirubin,Total 0.4 mg/dL (0.2-1.3); Blood Urea Nitrogen 12 mg/dL (7-17); Calcium 8.4 mg/dL (8.4-10.2); Carbon Dioxide 26 mmol/L (22-30); Chloride 101 mmol/L (98-107); Estimated CRCL calculation 100 ml/min; Estimated Glomerular Filt Rate > 60; Glucose 113 mg/dL (65-110); Potassium 4.2 mmol/L (3.4-5.0); Sodium 132 mmol/L (137-145)
[2023-03-15 07:53] LABS: Glucose Point of Care 101 mg/dl (65-105)
[2023-03-15] MEDS: ACETAMINOPHEN 325 MG TABLET 650 MG PO (08:35)
[2023-03-15] MEDS: LORATADINE 10 MG TABLET PO (08:36)
[2023-03-15] MEDS: CHOLECALCIFEROL 1,000 UNITS TABLET 1000 UNITS PO (08:36)
[2023-03-15] MEDS: FERROUS SULFATE 324 MG TABLET PO (08:36)
[2023-03-15] MEDS: lisinopriL 20 MG TABLET PO (08:36)
[2023-03-15] MEDS: CELECOXIB 200 MG CAPSULE PO ×2 (08:36→17:26)
[2023-03-15] MEDS: oxyBUTYnin CHLORIDE 5 MG TABLET PO (08:36)
[2023-03-15] MEDS: MAGNESIUM OXIDE 400 MG TABLET PO (08:36)
[2023-03-15] MEDS: FAMOTIDINE 20 MG TABLET PO ×2 (08:36→20:26)
[2023-03-15 08:51] VITALS: O2SAT 92
--- NOTE | 2023-03-15 11:38 | PCOTNOTE ---
Attempted to see pt for Occupational Therapy treatment. Pt is currently with nursing to discuss PICC line education. Will attempt at a later time.
[2023-03-15 11:39] LABS: Glucose Point of Care 124 mg/dl (65-105)
[2023-03-15 14:00] VITALS: BP 149/81; PULSE 80; RESP 16; TEMP 35.8; O2SAT 100
--- NOTE | 2023-03-15 16:19 | PM.IMPN ---
Progress Note: A&P Assessment and Plan (1) Bacteremia: Code(s): R78.81 - Bacteremia Status: Acute Assessment and Plan: Patient with 4/4 blood cultures positive for Staphylococcus aureus of unknown etiology at this time Repeat blood cultures collected today, results pending Joint infection considered given right knee effusion, however no obvious infection at this time. Appreciate orthopedic surgery evaluation. Discussed case with orthopedic surgery today, no concerns for joint space infection at this time Patient reports recent dental cleaning for which she premedicated with penicillin due to right hip arthroplasty in February 18. No signs/symptoms of endocarditis. Consult to Cardiology, recommendations appreciated. Underwent STELLA today which did not show any evidence of infective endocarditis UA without concerns for infection CXR with no acute findings CT of the chest/abdomen/pelvis reviewed with no acute findings. Does reveal presence gallbladder, however patient reports history of cholecystectomy. This may be exophytic liver cyst which was noted on abdominal ultrasound. Mild biliary dilation noted on CT but not evident on US. discussed these results with radiologist x2, General surgery, and GI. Cystic structure in gallbladder fossa may represent gallbladder remnant or small exophytic liver cyst, no inflammatory changes or wall thickening to suggest acute infection. Per GI, abdominal source would be unlikely given Gram-positive bacteremia. Per Radiology, could consider follow-up with MRCP for further classification of cystic structure, however not felt to be of any benefit No signs/symptoms of skin infection. No open wounds. No rash Patient reports was recently informed of an ovarian cyst on a CT scan at outside hospital 1 week ago for which she was to follow-up with [facility]. Records have been requested from outside hospital, awaiting results No mention of ovarian cyst on pelvic CT. discussed these results with radiologist, very tiny left ovarian cyst noted, however based on size, no recommendation for further imaging Source of infection remains unclear and WBC with increased again today to 17.2. Continue IV oxacillin. Repeat blood cultures collected on 03/13 are negative to date. May need to consider transfer to tertiary care center for infectious disease evaluation if no clinical improvement (2) Effusion of right knee: Code(s): M25.461 - Effusion, right knee Status: Acute Assessment and Plan: She sustained a fall on Monday evening and reports that she landed on that knee however with further questioning she does report that the evening prior she was having some discomfort in the posterior right knee. At this time it is unclear whether or not the effusion is traumatic or may be infected which is certainly a consideration given her malaise, leukocytosis, and fever. Appreciate orthopedic surgery consultation Not felt to be consistent with infection Supportive care to include ice, elevation, analgesics Continue PT/OT (3) Hyponatremia: Code(s): E87.1 - Hypo-osmolality and hyponatremia Status: Acute Assessment and Plan: It looks like her sodium does run a bit low at baseline, likely due to hydrochlorothiazide. Patient had a sodium of 129 when she was evaluated 4 days ago. She appears euvolemic at this time. She may be intravascularly depleted given poor oral intake the last couple of weeks. hydrochlorothiazide on hold FENa at 0.5 indicating prerenal causes TSH Within normal limits. Sertraline on hold Appreciate nephrology recommendations Continue fluid restriction diet Sodium 132 today (4) Leukocytosis: Code(s): D72.829 - Elevated white blood cell count, unspecified Status: Acute Assessment and Plan: WBC down to 13 today See above Recheck CRP 03/16 (5) Elevated brain natriuretic peptide (BNP) level: Code(s): R79.89 - O
[2023-03-15 16:28] LABS: Glucose Point of Care 134 mg/dl (65-105)
[2023-03-15] MEDS: GABAPENTIN 300 MG CAPSULE 600 MG PO (20:26)
[2023-03-15] MEDS: PRAVASTATIN SODIUM 20 MG TABLET PO (20:26)
[2023-03-15] MEDS: clonazePAM (*CRX) 0.5 MG TABLET 1 MG PO (20:31)
[2023-03-15 21:01] LABS: Glucose Point of Care 134 mg/dl (65-105)
[2023-03-15 21:26] VITALS: BP 128/59; PULSE 75; RESP 14; TEMP 36.1; O2SAT 100
[2023-03-15 22:27] LABS: Albumin 2.4 g/dL (3.8-4.8); Alpha 1 Globulin 0.8 g/dL (0.2-0.3); Beta 1 Globulin 0.5 g/dL (0.4-0.6)
[2023-03-16] MEDS: OXACILLIN SODIUM 2 GM in SODIUM CHLORIDE 0.9% IV 100 ML IVPB ×5 (02:09→16:58)
[2023-03-16 05:15] VITALS: BP 120/66; PULSE 77; RESP 14; TEMP 36.1; O2SAT 100
[2023-03-16 06:52] LABS: CRP 5.2 mg/dL (<1.0)
[2023-03-16] MEDS: CELECOXIB 200 MG CAPSULE PO ×2 (08:35→16:57)
[2023-03-16] MEDS: lisinopriL 20 MG TABLET PO (08:35)
[2023-03-16] MEDS: FAMOTIDINE 20 MG TABLET PO (08:35)
[2023-03-16] MEDS: MAGNESIUM OXIDE 400 MG TABLET PO (08:35)
[2023-03-16] MEDS: FERROUS SULFATE 324 MG TABLET PO (08:35)
[2023-03-16] MEDS: CHOLECALCIFEROL 1,000 UNITS TABLET 1000 UNITS PO (08:35)
[2023-03-16] MEDS: LORATADINE 10 MG TABLET PO (08:35)
[2023-03-16 08:43] LABS: Glucose Point of Care 92 mg/dl (65-105)
--- NOTE | 2023-03-16 09:48 | PCNWS ---
Weekly nutritional screen. Patient is tolerating current regular diet with adequate intake 75-100% most all meals. No weight loss reported. No nutritional needs at this time.
--- NOTE | 2023-03-16 11:02 | P.PNIM_ITS ---
Progress Note: A&P Assessment and Plan (1) Bacteremia: Code(s): R78.81 - Bacteremia Status: Acute Assessment and Plan: Patient with 4/4 blood cultures positive for Staphylococcus aureus of unknown etiology at this time, repeat bld cx 03/13 NGTD * discussed case with orthopedic surgery, no infection suspected in knee despite effusion * patient reports recent dental cleaning for which she premedicated with penic illin due to right hip arthroplasty in February 18, hip hardware could be source * no signs/symptoms of endocarditis, STELLA did not show any evidence of infective endocarditis * CXR/UA/CT of the chest/abdomen/pelvis reviewed with no acute findings. Discussed these results with radiologist x2, general surgery, and GI. * no signs/symptoms of skin infection. No open wounds. * noted ovarian cyst on a CT scan, discussed these results with radiologist, very tiny left ovarian cyst noted, however based on size, no recommendation for further imaging nor signs of infection * source of infection remains unclear, most likely source is possible biofilm in hardware in right hip from prior arthroplasty, continue IV oxacillin, repeat blood cultures collected on 03/13 are NGTD * PICC line being placed 03/16, anticipate discharge home tomorrow, follow-up repeat blood cultures to confirm negative, would likely repeat blood cultures after completion of antibiotics to confirm they remain negative (2) Effusion of right knee: Code(s): M25.461 - Effusion, right knee Status: Acute Assessment and Plan: She sustained a fall on Monday evening and reports that she landed on that knee however with further questioning she does report that the evening prior she was having some discomfort in the posterior right knee. At this time it is unclear whether or not the effusion is traumatic or may be infected which is certainly a consideration given her malaise, leukocytosis, and fever. * Appreciate orthopedic surgery consultation * Not felt to be consistent with infection * Supportive care to include ice, elevation, analgesics * Continue PT/OT (3) Hyponatremia: Code(s): E87.1 - Hypo-osmolality and hyponatremia Status: Acute Assessment and Plan: It looks like her sodium does run a bit low at baseline, likely due to hydrochlorothiazide. Patient had a sodium of 129 when she was evaluated 4 days ago. She appears euvolemic at this time. She may be intravascularly depleted given poor oral intake the last couple of weeks. * hydrochlorothiazide on hold * FENa at 0.5 indicating prerenal causes * TSH Within normal limits. * Sertraline on hold * Appreciate nephrology recommendations * D/c fluid restriction, start NaCl tabs BID, suspect SIADH component, recheck sodium tomorrow 03/17 (4) Leukocytosis: Code(s): D72.829 - Elevated white blood cell count, unspecified Status: Acute Assessment and Plan: WBC 03/16 pending, 13 03/15 See above Recheck CRP 03/16 trending down significantly (5) Elevated brain natriuretic peptide (BNP) level: Code(s): R79.89 - Other specified abnormal findings of blood chemistry Status: Acute Assessment and Plan: ProBNP is elevated at 992. Radiographs showed a normal cardiac silhouette however cardiomegaly was noted on CT of the abdomen, pelvis, and chest at outside facility on Monday. * TTE completed which showed normal EF 60-65% with grade 1 diastolic dysfunction * Avoid over-hydration and monitor volume status closely. (6) Essential (primary) hypertension: Code(s): I10 - Essential (primary) hypertension
[2023-03-16 11:11] LABS: Basophils Absolute Auto 0.1 K/mm3 (0.0-0.1); Basophils Percent Auto 0.5 % (0.2-1.2); Eosinophils Absolute Auto 0.2 K/mm3 (0-0.3); Eosinophils Percent Auto 2.1 % (0-4.4); Hematocrit 29.4 % (37.0-47.0); Hemoglobin 9.2 g/dL (12.0-15.0); Immature Granulocyte Absolute 0.52 K/mm3 (0.00-0.031); Immature Granulocyte Percent A 4.5 % (0-0.5); Lymphocytes Absolute Auto 1.88 K/mm3 (0.9-3.2); Lymphocytes Percent Auto 16.2 % (18.3-44.2); Mean Corpuscular HGB Conc 31.3 g/dl (32-36); Mean Corpuscular Hemoglobin 29.9 pg (26-34); Mean Corpuscular Volume 95.5 fl (80-100); Mean Platelet Volume 8.6 fl (7.4-10.4); Monocytes Absolute Auto 0.8 K/mm3 (0.1-0.6); Monocytes Percent Auto 6.5 % (2.6-8.5); Neutrophils Absolute Auto 8.2 K/mm3 (1.3-6.7); Neutrophils Percent Auto 70.2 % (45.5-73.1); Platelet Count Result 540 k/mm3 (150-375); Red Blood Count 3.08 M/mm3 (4.2-5.4); Red Cell Distribution Width 14.6 % (11.5-14.5); White Blood Count 11.6 K/mm3 (4.5-10.0)
[2023-03-16 11:15] LABS: Alanine Aminotransferase 117 U/L (6-35); Albumin Level 2.7 g/dL (3.5-5.1); Alkaline Phosphatase 256 U/L (38-126); Anion Gap 7 mmol/L (8-16); Aspartate Amino Transferase 37 U/L (14-36); Bilirubin,Total 0.4 mg/dL (0.2-1.3); Blood Urea Nitrogen 11 mg/dL (7-17); Calcium 8.4 mg/dL (8.4-10.2); Carbon Dioxide 22 mmol/L (22-30); Chloride 105 mmol/L (98-107); Estimated CRCL calculation 100 ml/min; Estimated Glomerular Filt Rate > 60; Glucose 99 mg/dL (65-110); Potassium 4.8 mmol/L (3.4-5.0); Sodium 134 mmol/L (137-145)
[2023-03-16 11:47] LABS: Glucose Point of Care 111 mg/dl (65-105)
[2023-03-16] MEDS: SODIUM CHLORIDE 1 GM TABLET PO ×2 (12:06→16:57)
[2023-03-16 14:00] VITALS: BP 143/76; PULSE 81; RESP 14; TEMP 36; O2SAT 100
[2023-03-16] MEDS: LIDOCAINE HCL 1% PF INJ 5 ML VIAL INFILTRATE (14:30)
[2023-03-16 16:50] LABS: Glucose Point of Care 92 mg/dl (65-105)
--- NOTE | 2023-03-18 17:25 | PM.DS ---
DS: Admitting Diagnosis Discharge Date 03/16/23 Admitting Diagnosis abnormal labs DS: Discharge Diagnosis Discharge Diagnosis (1) Bacteremia: Code(s): R78.81 - Bacteremia Status: Acute Assessment and Plan: Patient with 4/4 blood cultures positive for Staphylococcus aureus of unknown etiology at this time, repeat bld cx 03/13 NGTD discussed case with orthopedic surgery, no infection suspected in knee despite effusion patient reports recent dental cleaning for which she premedicated with penicillin due to right hip arthroplasty in February 18, hip hardware could be source no signs/symptoms of endocarditis, STELLA did not show any evidence of infective endocarditis CXR/UA/CT of the chest/abdomen/pelvis reviewed with no acute findings. Discussed these results with radiologist x2, general surgery, and GI. no signs/symptoms of skin infection. No open wounds. noted ovarian cyst on a CT scan, discussed these results with radiologist, very tiny left ovarian cyst noted, however based on size, no recommendation for further imaging nor signs of infection source of infection remains unclear, most likely source is possible biofilm in hardware in right hip from prior arthroplasty, continue IV oxacillin, repeat blood cultures collected on 03/13 are NGTD PICC line being placed 03/16, anticipate discharge home tomorrow, follow-up repeat blood cultures to confirm negative, would likely repeat blood cultures after completion of antibiotics to confirm they remain negative (2) Effusion of right knee: Code(s): M25.461 - Effusion, right knee Status: Acute Assessment and Plan: She sustained a fall on Monday evening and reports that she landed on that knee however with further questioning she does report that the evening prior she was having some discomfort in the posterior right knee. At this time it is unclear whether or not the effusion is traumatic or may be infected which is certainly a consideration given her malaise, leukocytosis, and fever. Appreciate orthopedic surgery consultation Not felt to be consistent with infection Supportive care to include ice, elevation, analgesics Continue PT/OT (3) Hyponatremia: Code(s): E87.1 - Hypo-osmolality and hyponatremia Status: Acute Assessment and Plan: It looks like her sodium does run a bit low at baseline, likely due to hydrochlorothiazide. Patient had a sodium of 129 when she was evaluated 4 days ago. She appears euvolemic at this time. She may be intravascularly depleted given poor oral intake the last couple of weeks. hydrochlorothiazide on hold FENa at 0.5 indicating prerenal causes TSH Within normal limits. Sertraline on hold Appreciate nephrology recommendations D/c fluid restriction, start NaCl tabs BID, suspect SIADH component, recheck sodium tomorrow 03/17 (4) Leukocytosis: Code(s): D72.829 - Elevated white blood cell count, unspecified Status: Acute Assessment and Plan: WBC 03/16 pending, 13 03/15 See above Recheck CRP 03/16 trending down significantly (5) Elevated brain natriuretic peptide (BNP) level: Code(s): R79.89 - Other specified abnormal findings of blood chemistry Status: Acute Assessment and Plan: ProBNP is elevated at 992. Radiographs showed a normal cardiac silhouette however cardiomegaly was noted on CT of the abdomen, pelvis, and chest at outside facility on Monday. TTE completed which showed normal EF 60-65% with grade 1 diastolic dysfunction Avoid over-hydration and monitor volume status closely. (6) Essential (primary) hypertension: Code(s): I10 - Essential (primary) hypertension Status: Chronic Assessment and Plan: Blood pressures were reviewed 03/16 and they have been stable. 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
== END 2023-03-16 18:40 | disposition home health service (06) | DRG 872 ==
LOC: ANHED 13:23 → ANH3MEDSUR 17:15
PROVIDERS: Internal Medicine; Internal Medicine Critical Care Medicine; Internal Medicine Hematology & Oncology; Internal Medicine Nephrology; Nurse Practitioner; Physician Assistant; Admitting Provider Hospitalist; Emergency Provider Emergency Medicine; PCP Family Medicine; Visit Provider Student in an Organized Health Care Education/Training Program
PROC: B24BZZ4 Ultrasonography of Heart with Aorta, Transesophageal (ICD-10-PCS; CPT 93312; principal; 2023-03-14 14:30)
DX: R78.81 Bacteremia (principal); E87.1 Hypo-osmolality and hyponatremia; M25.461 Effusion, right knee; A49.01 Methicillin susceptible Staphylococcus aureus infection, unspecified site; T50.2X5A Adverse effect of carbonic-anhydrase inhibitors, benzothiadiazides and other diuretics, initial encounter; W19.XXXA Unspecified fall, initial encounter; D72.829 Elevated white blood cell count, unspecified; E11.9 Type 2 diabetes mellitus without complications; M06.9 Rheumatoid arthritis, unspecified; C50.911 Malignant neoplasm of unspecified site of right female breast; N83.202 Unspecified ovarian cyst, left side; I10 Essential (primary) hypertension; E78.5 Hyperlipidemia, unspecified; M19.90 Unspecified osteoarthritis, unspecified site; F32.A Depression, unspecified; K21.9 Gastro-esophageal reflux disease without esophagitis; F41.9 Anxiety disorder, unspecified; D64.9 Anemia, unspecified; E86.0 Dehydration; M85.80 Other specified disorders of bone density and structure, unspecified site; Z96.641 Presence of right artificial hip joint; Z96.653 Presence of artificial knee joint, bilateral; Z85.828 Personal history of other malignant neoplasm of skin; Z98.42 Cataract extraction status, left eye; Z98.41 Cataract extraction status, right eye; Z90.49 Acquired absence of other specified parts of digestive tract; Z79.82 Long term (current) use of aspirin
CPT/HCPCS: 36415; 36569; 71045; 71046; 71260; 73502; 73562; 73700; 74177; 76705; 80048; 80053; 80061; 80074; 80076; 80202; 81003; 82043; 82306; 82533; 82565; 82570; 82607; 82728; 82746; 82948; 83036; 83540; 83550; 83605; 83735; 83880; 83930; 83935; 84100; 84145; 84155; 84165; 84295; 84300; 84443; 84540; 85025; 85610; 85652; 85730; 86140; 87040; 87147; 87181; 87186; 93306; 93312; 93320; 93325; 96365; 96366; 96375; 96376; 97110; 97116; 97161; 97165; 97530; 97535; 99285; A9270; C1751; G0378; J0692; J2250; J2310; J2700; J3010; J3370; J7040; J7050; Q9967

== ENCOUNTER 2023-04-10 11:06 | Outpatient (CLI) | payer MEDICARE, OTHER, SELFPAY ==
[2023-04-10 11:33] LABS: Basophils Percent Auto 0.5 % (0.2-1.2); Eosinophils Absolute Auto 0.1 K/mm3 (0-0.3); Eosinophils Percent Auto 0.9 % (0-4.4); Hematocrit 30.8 % (37.0-47.0); Immature Granulocyte Absolute 0.04 K/mm3 (0.00-0.031); Immature Granulocyte Percent A 0.5 % (0-0.5); Lymphocytes Absolute Auto 1.48 K/mm3 (0.9-3.2); Lymphocytes Percent Auto 16.7 % (18.3-44.2); Mean Corpuscular HGB Conc 32.5 g/dl (32-36); Mean Corpuscular Hemoglobin 28.1 pg (26-34); Mean Corpuscular Volume 86.5 fl (80-100); Mean Platelet Volume 8.9 fl (7.4-10.4); Monocytes Absolute Auto 0.8 K/mm3 (0.1-0.6); Monocytes Percent Auto 9.5 % (2.6-8.5); Neutrophils Absolute Auto 6.4 K/mm3 (1.3-6.7); Neutrophils Percent Auto 71.9 % (45.5-73.1); Platelet Count Result 321 k/mm3 (150-375); Red Blood Count 3.56 M/mm3 (4.2-5.4); White Blood Count 8.9 K/mm3 (4.5-10.0)
[2023-04-10 11:48] LABS: Alanine Aminotransferase 21 U/L (6-35); Albumin Level 3.9 g/dL (3.5-5.1); Alkaline Phosphatase 140 U/L (38-126); Anion Gap 8 mmol/L (8-16); Aspartate Amino Transferase 31 U/L (14-36); Bilirubin,Total 0.5 mg/dL (0.2-1.3); Blood Urea Nitrogen 13 mg/dL (7-17); CRP 8.8 mg/dL (<1.0); Carbon Dioxide 28 mmol/L (22-30); Chloride 98 mmol/L (98-107); Estimated Glomerular Filt Rate > 60; Glucose 107 mg/dL (65-110); Potassium 4.3 mmol/L (3.4-5.0); Sodium 134 mmol/L (137-145)
[2023-04-10 11:58] LABS: Appearance Urine Cloudy (Clear); Bacteria Urine 2+ /hpf; Bilirubin Urine 1+ (Negative); Blood Urine Negative (Negative); Color Urine Dark Yellow (Yellow); Glucose Urine UA Negative (Negative); Ketones Urine Trace mg/dL (Negative); Leukocyte Esterase Ur 2+ LEU/UL (Negative); Nitrate Urine Negative (Negative); Non Pathogenic Casts 0-2; Protein Urine 1+ mg/dL (Negative); RBC Urine 0-2 /hpf (0-2); Specific Grav Ur 1.029 (1.001-1.035); Squamous Epithelial Cell Urine Many /hpf (Few); WBC Urine 21-50 /hpf
[2023-04-10 12:15] LABS: Add Urine Microscopic? YES
[2023-04-10 13:30] LABS: Erythrocyte Sedimentation Rate 111 mm/hr (0-20)
== END 2023-04-10 11:07 | disposition home or self-care (01) ==
PROVIDERS: PCP Family Medicine; Visit Provider Orthopaedic Surgery
DX: R78.81 Bacteremia (principal); M17.11 Unilateral primary osteoarthritis, right knee; M25.561 Pain in right knee; M25.461 Effusion, right knee
CPT/HCPCS: 36415; 80048; 80076; 81001; 85025; 85652; 86140; 87070; 87075; 87086; 87088; 87147; 87181; 87186; 87205

== ENCOUNTER 2023-07-04 12:28 | Outpatient (CLI) | payer MEDICARE, OTHER, SELFPAY ==
[2023-07-04 19:05] LABS: Basophils Absolute Auto 0.1 K/mm3 (0.0-0.1); Basophils Percent Auto 0.8 % (0.2-1.2); Eosinophils Absolute Auto 0.2 K/mm3 (0-0.3); Eosinophils Percent Auto 2.5 % (0-4.4); Hematocrit 41.1 % (37.0-47.0); Hemoglobin 12.6 g/dL (12.0-15.0); Immature Granulocyte Absolute 0.02 K/mm3 (0.00-0.031); Immature Granulocyte Percent A 0.3 % (0-0.5); Lymphocytes Absolute Auto 2.21 K/mm3 (0.9-3.2); Lymphocytes Percent Auto 29.2 % (18.3-44.2); Mean Corpuscular HGB Conc 30.7 g/dl (32-36); Mean Corpuscular Hemoglobin 26.1 pg (26-34); Mean Corpuscular Volume 85.3 fl (80-100); Mean Platelet Volume 10.9 fl (7.4-10.4); Monocytes Absolute Auto 0.5 K/mm3 (0.1-0.6); Monocytes Percent Auto 6.9 % (2.6-8.5); Neutrophils Absolute Auto 4.6 K/mm3 (1.3-6.7); Neutrophils Percent Auto 60.3 % (45.5-73.1); Platelet Count Result 250 k/mm3 (150-375); Red Blood Count 4.82 M/mm3 (4.2-5.4); Red Cell Distribution Width 15.1 % (11.5-14.5); White Blood Count 7.6 K/mm3 (4.5-10.0)
[2023-07-04 19:34] LABS: Vitamin D 25 Hydroxy 68.1 ng/mL
[2023-07-04 19:40] LABS: Creatinine Urine 277.6 mg/dL
[2023-07-04 19:43] LABS: Microalbumin Urine Random 61.2 mg/L (0-16.7)
[2023-07-04 20:05] LABS: Alanine Aminotransferase 18 U/L (6-35); Albumin Level 4.6 g/dL (3.5-5.1); Alkaline Phosphatase 99 U/L (38-126); Anion Gap 11 mmol/L (8-16); Aspartate Amino Transferase 25 U/L (14-36); Bilirubin,Total 0.4 mg/dL (0.2-1.3); Blood Urea Nitrogen 16 mg/dL (7-17); Calcium 9.9 mg/dL (8.4-10.2); Carbon Dioxide 27 mmol/L (22-30); Chloride 102 mmol/L (98-107); Cholesterol 206 mg/dL (0-200); Estimated Glomerular Filt Rate > 60; Glucose 102 mg/dL (65-110); HDL Direct 40 mg/dL; Potassium 4.3 mmol/L (3.4-5.0); Sodium 140 mmol/L (137-145); Triglycerides 248 mg/dL (<150)
[2023-07-04 20:16] LABS: LDL Cholesterol Direct 108 mg/dL
[2023-07-04 21:32] LABS: Hemoglobin A1C 5.5 % (<5.7)
== END 2023-07-04 12:29 | disposition home or self-care (01) ==
PROVIDERS: PCP Family Medicine; Visit Provider Nurse Practitioner Family
DX: E11.9 Type 2 diabetes mellitus without complications (principal); E03.9 Hypothyroidism, unspecified; E78.5 Hyperlipidemia, unspecified; E55.9 Vitamin D deficiency, unspecified; I10 Essential (primary) hypertension
CPT/HCPCS: 36415; 80053; 80061; 82043; 82306; 83036; 84443; 85025

== ENCOUNTER 2024-11-21 13:28 | Outpatient (CLI) | payer MEDICARE, OTHER, SELFPAY ==
[2024-11-21 14:59] LABS: Strep Group A RT-PCR NOT DETECTED (Negative)
[2024-11-21 15:10] LABS: Influenza A QL RT-PCR Negative (Negative); Influenza B QL RT-PCR Negative (Negative); RSV RNA, RT-PCR Negative (Negative); SARS-CoV-2 RNA PCR Positive (Negative)
--- OUTSIDE RECORDS SUMMARY | 2024-11-22 05:13 | XMS_ITS | Clinical Summary ---
Author Organization [facility] Address [address] [place] [address]. [place] [address] Care Team Providers Care Pump Technician Name Role Phone None, Provider MD Primary Care Provider Unavaila ble Social History Tobacco Use Types Packs/Day Years Used Date Smoking Tobacco: Never Assessed Comments Unknown Sex and Gender Information Value Date Recorded Sex Assigned at Not on file Legal Sex Female 4:06 PM CDT Gender Identity Not on file Sexual Orientation Not on file Plan of Treatment Health Maintenance Due Date Last Done Comments Colorectal Cancer Screening Colonoscopy (10 Years) 1953 Hepatitis C 1971 Mammogram Screening 1993 Annual Medicare Wellness Visit 2018 Dexa Scan (General) 2018 Zoster Vaccines (3 of 3) 05/08/2019 03/13/2019, 0410/2018 COVID-19 Vaccine (3 - 2023- season) 2024 08/19/2021, 07/22/2021 Influenza Adult (#1) 2024 10/19/2020, 09/18/20 18 RSV Immunization or 60+ Years (1 - 1-dose 75+ series) 2028 DTaP, Tdap and Td Vaccines (3 - Td or Tdap) 09/18/2028 09/18/2018, 08/30/2018 Pneumococcal Vaccine: 65+ Years Completed 10/19/2020, 09/18/2018, 08/30/2018, Additional history exists Meningococcal Vaccine Aged Out No estrada juno eligible based on patient's age to complete this topic RSV Immunizations Under 20 Months Aged Out No longer eligible based on patient's age to complete this topic Insurance MEDICARE [facility] Care Teams Pump Technician Relationship Specialty Start Date End Date None, Provider, PCP - General UNKNOWN PHYSICIAN SPECIALTY 10/09/23
--- OUTSIDE RECORDS SUMMARY | 2024-11-22 05:13 | XMS_ITS | Encounter Summary ---
Author Organization [facility] Address [address] [place] [address] Care Team Providers Care Voip Technician Name Role Phone Kostas Ralph MD Primary Care Provider [phone] Kirby Marroquin MD Primary Care Provider Encounter Details Date Type Department Care Team (Late st Contact Info) Description 02/08/2021 Lab Requisition [facility] Care DermPath Lab [address] [place] [id number] Conner Hernandez MD [address] [place] [address] Social History Tobacco Use Types Packs/Day Years Used Date Smoking Tobacco: Never Alcohol Use Standard Drinks/Week Comments Yes 0.8 (1 standard drink = 0.6 oz p ure alcohol) Sex and Gender Information Value Date Recorded Sex Assigned at Not on file Gender Identity Not on file Sexual Orientation Not on file documented as of this encounter Plan of Treatment Not on file documented as of this encounter Procedures Procedure Name Priority Date/Time Associated Diagnosis Comments DERMATOPATHOLOGY Routine 02/04/2021 12:0 0 AM CDT documented in this encounter Results * DERMATOPATHOLOGY (02/04/2021 12:00 AM CDT) Case Report Dermatopathology Report ? Case: [id number] ? Authorizing Provider: ??Conner Hernandez MD ?Collected: ? 02/04/2021 12:00 AM ? Ordering Location: ? [facility] DermPath Lab ?Received: ?02/08/2021 08:12 AM ? Pathologist: ? Meliton Alaniz MD ? Specimen: ?Skin, mid chest ? 1 1:42 PM CDT DERMATOPATHOLOGY LABORATORY Final Diagnosis Specimen A. SKIN, mid chest: LICHEN PLANUS-LIKE KERATOSIS (BENIGN LICHENOID KERATOSIS) (L82.1) POST-INFLAMMATORY PIGMENT ALTERATION (L81.9) 1 1:42 PM CDT DERMATOPATHOLOGY LABORATORY Clinical History SK vs MM.Path#[id number] 1 1:42 PM CDT DERMATOPATHOLOGY LABORATORY Gross Description Specimen A: Received is one formalin filled container labeled with the patient's name and designated mid chest. The specimen consists of a shave biopsy measuring 5x5x1 mm. Jar 0. 1 1:42 PM CDT DERMATOPATHOLOGY LABORATORY Microscopic Description Specimen A. SKIN, mid chest: The epidermis is mildly acanthotic. There is a lichenoid infiltrate with vacuolar changes of basilar keratinocytes and scattered necrotic keratinocytes. Sections show abundant melanin within melanophages around the superficial vascular plexus. 1 1:42 PM CDT DERMATOPATHOLOGY LABORATORY Disclaimer An external and internal positive and negative controls are appropriate for the histochemical, immunohistochemical and immunofluorescence stain(s) in this case (if any), except where stated explicitly. The performance characteristics of the stain(s) cited in this report were developed and its performance characteristic determined by the Dermatopathology Laboratory at [facility], directed by Dr. Farhan Alaniz. These tests need not be, and therefore are not, approved by the [place] Food and Drug Administration. The tests are used for clinical purposes. Billing Codes Specimen Charges Stain Charges 20536 1 1 1:42 PM CDT DERMATOPATHOLOGY LABORATORY Embedded Images 1 1:42 PM CDT DERMATOPATHOLOGY LABORATORY Pathology/Cytolog y TISSUE SPECIMEN FROM SKIN / Unknown 02/04/2021 02/08/2021 8:12 AM CDT Conner Hernandez MD LAB - PATHOLOGY/CYTO LOGY ORDERABLES DERMATOPATHOLOGY LABORATORY [facility] Department of Dermatology [facility] [address] [place] [address], [address] [phone] documented in this encounter Visit Diagnoses Not on filedocumented in this encounter Care Teams Voip Technician Relationship Specialty Start Date End Date Kostas Ralph MD [address] [place] [id number] PCP - General 01/20/11 02/19/23 Kirby Marroquin MD [address] [place] [address] PCP - General 02/20/23 documented as of this encounter
--- OUTSIDE RECORDS SUMMARY | 2024-11-22 05:13 | XMS_ITS | Patient Health Summary ---
Author Organization [facility] Address [address] [place] [address] Care Team Providers Care Records Administrator Name Role Phone Kirby Marroquin MD Primary Care Provider Note from [facility],non-owned Affiliates and Associated Physician Practices is amultiple site organization consisting of ambulatory clinics and hospital sitesin [place], [place], [place] and [place]. This disclosure is being madepursuant to the Care Everywhere program and may not contain all information available regarding this patient. Last updated 18.[facility] Social History Tobacco Use Types Packs/Day Years Used Date Smoking Tobacco: Never Alcohol Use Standard Drinks/Week Comments Yes 0.8 (1 standard drink = 0.6 oz p ure alcohol) Sex and Gender Information Value Date Recorded Sex Assigned at Not on file Gender Identity Not on file Sexual Orientation Not on file Procedures * DERMATOPATHOLOGY(Performed 11/30/2022) * DERMATOPATHOLOGY(Performed 02/04/2021) * CULTURE URINE(Performed 07/26/2014) * DERMATOPATHOLOGY(Performed 12/20/2010) Results * DERMATOPATHOLOGY (11/30/2022 12:00 AM ASSISTANT TENNIS COACH) Only the most recent of3 resultswithin the time period is included. Case Report Dermatopathology Report ? Case: [id number] ? Authorizing Provider: ??Conner Hernandez MD ?Collected: ? 11/30/2022 12:00 AM ? Ordering Location: ? [facility] DermPath Lab ?Received: ?12/01/2022 04:41 PM ? Pathologist: ? Connie Hinojosa MD ? Specimen: ?Skin, left mid back ? 3 1:22 PM [facility] DERMATOPATHOLOGY LABORATORY Final Diagnosis Specimen A. SKIN, left mid back: BASAL CELL CARCINOMA, SUPERFICIAL MULTIFOCAL (C44.519) 3 1:22 PM [facility] DERMATOPATHOLOGY LABORATORY Clinical History AK vs SK vs BCC Path#[id number] 3 1:22 PM [facility] DERMATOPATHOLOGY LABORATORY Gross Description Specimen A: Received is one formalin filled container labeled with the patient's name and designated left mid back. The specimen consists of a shave biopsy measuring 8x5x1 mm. Jar 0. 3 1:22 PM [facility] DERMATOPATHOLOGY LABORATORY Microscopic Description Specimen A. SKIN, left mid back: Attached to the undersurface of the epidermis, there are small aggregates of basaloid cells with a high nuclear to cytoplasmic ratio and peripheral palisading. 3 1:22 PM [facility] DERMATOPATHOLOGY LABORATORY Disclaimer An external and internal positive and negative controls are appropriate for the histochemical, immunohistochemical and immunofluorescence stain(s) in this case (if any), except where stated explicitly. The performance characteristics of the stain(s) cited in this report were developed and its performance characteristic determined by the Dermatopathology Laboratory at [facility], directed by Dr. Farhan Alaniz. These tests need not be, and therefore are not, approved by the [place] Food and Drug Administration. The tests are used for clinical purposes. Billing Codes Specimen Charges Stain Charges 54287 1 3 1:22 PM ASSISTANT TENNIS COACH DERMATOPATHOLOGY LABORATORY Embedded Images 3 1:22 PM ASSISTANT TENNIS COACH DERMATOPATHOLOGY LABORATORY Pathology/Cytolog y TISSUE SPECIMEN FROM SKIN / Unknown 11/30/2022 12/01/2022 4:41 PM ASSISTANT TENNIS COACH Conner Hernandez MD LAB - PATHOLOGY/CYTO LOGY ORDERABLES DERMATOPATHOLOGY LABORATORY [facility] Department of Dermatology [address], [address] [phone] * (ABNORMAL) CULTURE URINE (07/26/2014 3:23 PM CDT) Culture Urine KLEBSIELLA PNEUMONIAE SSP PNEUMONIAE(A) [facility] Comment:Greater than 1,000,0 00 CFU/ML Klebsiella Pneumoniae Ssp Pneumoniae Urine specimen (specimen) URINE SPECIMEN OBTAINED BY CLEAN CATCH PROCEDURE / Unknown 07/26/2014 3:23 PM CDT 07/26/2014 8:38 PM CDT [facility] - 07/29/2014 1:03 PM CDT Patricio#[id number] Matteo Loc/Rm/Bed: EXPCARE C// CLN CATCH U Organism Antibiotic Method Susceptibility Klebsiella pneumoniae ssp pneumoniae Amikacin SUSCEPTIBILITY <=2: Sensitive Klebsiella pneumoniae ssp pneumoniae Ampicillin SUSCEPTIBILITY >=32: Resistant Klebsiella pneumoniae ssp pneumoniae Ampicillin-sulbactam SUSCEPTIBILITY 4: Sensitive Klebsiella pneumoniae ssp pneumoniae Cefazolin SUSCEPTIBILITY <=4: Sensitive Klebsiella pneumoniae ssp pneumoniae Cefepime SUSCEPTIBILITY <=1: Sensitive Klebsiella pneumoniae ssp pneumoniae Ceftazidime SUSCEPTIBILITY <=1: Sensitive Klebsiella pneumoniae ssp pneumoniae Ceftriaxone SUSCEPTIBILITY <=1: Sensitive Klebsiella pneumoniae ssp pneumoniae Gentamicin SUSCEPTIBILITY <=1: Sensitive Klebsiella pneumoniae ssp pneumoniae Imipenem SUSCEPTIBILITY <=0.25: Sensitive Klebsiella pneumoniae ssp pneumoniae Levofloxacin SUSCEPTIBILITY <=0.12: Sensitive Klebsiella pneumoniae ssp pneumoniae Nitrofurantoin SUSCEPTIBILITY 64: Intermediate Klebsiella pneumoniae ssp pneumoniae Piperacillin-tazobactam SUSCEPTIBILITY <=4: Sensitive Klebsiella pneumoniae ssp pneumoniae Tobramycin SUSCEPTIBILITY <=1: Sensitive Klebsiella pneumoniae ssp pneumoniae Trimethoprim-sulfamethoxazo le SUSCEPTIBILITY <=20: Sensitive Klebsiella pneumoniae ssp pneumoniae Extended-Spectrum Beta-Lactamase SUSCEPTIBILITY Neg: - Historical Provider LAB - MICROBIOLOG Y ORDERABLES Performing Organization Address City/State[facility] Co de Phone Number [address] [phone] Care Teams Records Administrator Relationship Specialty Start Date End Date Kirby Marroquin MD [address] [place] [address] PCP - General 02/20/23
--- OUTSIDE RECORDS SUMMARY | 2024-11-22 05:13 | XMS_ITS | Clinical Summary ---
Author Organization [facility] [employer] Address [address] [place] [address] Care Team Providers Care Brusher Hand Name Role Phone Kirby Marroquin MD Primary Care Provider Source Comments [facility],non-[facility] Affiliates and Associated Physician Practices is amultiple site organization consisting of ambulatory clinics and hospital sitesin [place], [place], [place] and [place]. This disclosure is being madepursuant to the Care Everywhere program and may not contain all information available regarding this patient. Last updated 18.[facility] [employer] Family History Medical History Relation Name Comments Cancer Father lung ca Status: d Cancer - Skin, Melanoma Other 1 cousin Stat us: Cancer - Skin, Non Melanoma Other 2 nephew Status: Alive Allergy (Severe) Neg Hx CVA Neg Hx Eczema Neg Hx Hemophilia Neg Hx Psoriasis Neg Hx Rashes/Skin Problems Neg Hx Relation Name Status Comments Father lung ca Other 1 cousin Other 2 nephew Social History Tobacco Use Types Packs/Day Years Used Date Smoking Tobacco: Never Alcohol Use Standard Drinks/Week Comments Yes 0.8 (1 standard drink = 0.6 oz p ure alcohol) Sex and Gender Information Value Date Recorded Sex Assigned at Not on file Gender Identity Not on file Sexual Orientation Not on file Plan of Treatment Health Maintenance Due Date Last Done Comments BONE DENSITY TESTING 1955 COLOGUARD (AGES 45-75) - COL ON CA SCREENING 1955 COLON MONITORING 1955 COLONOSCOPY - COLON CA SCREENING 1953 CT COLONOGRAPHY - COLON CA SCREENING 1955 Colorectal Cancer Screening 1955 FIT - COLON CA SCREENING 1953 FLEX SIG - COLON CA SCREENING 1955 LIPID TESTING 1955 MAMMOGRAM 1955 MEDICARE AWV ? 12 MONTHS 1955 HEPATITIS C SCREENING 03/28/1971 DTAP/TDAP/TD VACCINES (1 - Tdap) 1972 PNEUMOCOCCAL VACCINE 50+ (1 of 1 - PCV) 2003 ZOSTER VACCINE (1 of 2) 2003 COVID-19 VACCINE (1 - 2023-2 5 season) 2024 INFLUENZA VACCINE (#1) 2024 DEPRESSION SCREENING 10/30/2024 Respiratory Syncytial Virus (RSV) Vaccine Pt: or over 60 yrs (1 - 1-dose 75+ series) 2028 HEPATITIS B VACCINE Aged Out No longe r eligible based on patient's age to complete this topic HIB VACCINE Aged Out No longer eligi ble based on patient's age to complete this topic HPV VACCINE Aged Out No longer eligi ble based on patient's age to complete this topic MENINGOCOCCAL (Group B) VACCINE Aged Out No longer eligible based on patient's age to complete this topic MENINGOCOCCAL VACCINE Aged Out No estrada juno eligible based on patient's age to complete this topic Care Teams Brusher Hand Relationship Specialty Start Date End Date Kirby Marroquin MD [address] [place] [address] PCP - General 02/20/23
--- OUTSIDE RECORDS SUMMARY | 2024-11-22 05:13 | XMS_ITS | Encounter Summary ---
Author Organization [facility] Address [address] [place] [address] Care Team Providers Care Sugar Coating Hand Name Role Phone Kostas Ralph MD Primary Care Provider [phone] Kirby Marroquin MD Primary Care Provider Encounter Details Date Type Department Care Team (Late st Contact Info) Description 12/01/2022 Lab Requisition [facility] [address] [place] [phone] Conner Hernandez MD [address] [place] [place] [address] Social History Tobacco Use Types Packs/Day [...] Priority Date/Time Associated Diagnosis Comments DERMATOPATHOLOGY Routine 11/30/2022 12:0 0 AM [employer] documented in this encounter Results * DERMATOPATHOLOGY (11/30/2022 12:00 AM [employer]) Case Report Dermatopathology Report ? Case: [id number] ? Authorizing Provider: ??Conner Hernandez MD ?Collected: ? 11/30/2022 12:00 AM ? Ordering Location: ? [facility] ?Received: ?12/01/2022 04:41 PM ? Pathologist: ? Connie Hinojosa MD ? Specimen: ?Skin, left mid back ? 3 1:22 PM [facility]ER[facility] Final Diagnosis Specimen A. SKIN, left mid back: BASAL CELL CARCINOMA, SUPERFICIAL MULTIFOCAL (C44.519) 3 1:22 PM [facility]ERMATOPATH[facility] Clinical History AK vs SK vs BCC Path#[id number] 3 1:22 PM [facility]MAT[facility] Gross Description Specimen A: Received is one formalin filled container labeled with the patient's name and designated left mid back. The specimen consists of a shave biopsy measuring 8x5x1 mm. Jar 0. 3 1:22 PM [facility]ER[facility] Microscopic Description Specimen A. SKIN, left mid back: Attached to the undersurface of the epidermis, there are small aggregates of basaloid cells with a high nuclear to cytoplasmic ratio and peripheral palisading. 3 1:22 PM [facility]ERMAT[facility]ATH[facility] Disclaimer An external and internal positive and negative controls are appropriate for the histochemical, immunohistochemical and immunofluorescence stain(s) in this case (if any), except where stated explicitly. The performance characteristics of the stain(s) cited in this report were developed and its performance characteristic determined by the Dermatopathology Laboratory at [facility], directed by Dr. Farhan Alaniz. These tests need not be, and therefore are not, approved by the [place] Food and Drug Administration. The tests are used for clinical purposes. Billing Codes Specimen Charges Stain Charges 43163 1 3 1:22 PM [employer] [facility] DER[facility] Embedded Images 3 1:22 PM [employer]MAT[facility]ORY Pathology/Cytolog y TISSUE SPECIMEN FROM SKIN / Unknown 11/30/2022 12/01/2022 4:41 PM [employer] Conner Hernandez MD LAB - PATHOLOGY/[facility] DERMATOPATHOLOGY LABORATORY [facility] - Department of Dermatology [address] [phone] documented in this encounter Visit Diagnoses Not on filedocumented in this encounter Care Teams Sugar Coating Hand Relationship Specialty Start Date End Date Kostas Ralph MD [address] [place] [phone] PCP - General 01/20/11 02/19/23 Kirby Marroquin MD [address] [place] [phone] PCP - General 02/20/23 documented as of this encounter
--- OUTSIDE RECORDS SUMMARY | 2024-11-22 05:13 | XMS_ITS | Referral Summary ---
Author Organization [facility] Address [address] [place] [address] Care Team Providers Care Materials Supervisor Name Role Phone Kibry Marroquin MD Primary Care Provider Source Comments [facility],non-owned Affiliates and Associated Physician Practices is amultiple site organization consisting of ambulatory clinics and hospital sitesin [place], [place], [place] and [place]. This disclosure is being madepursuant to the Care Everywhere program and may not contain all information available regarding this patient. Last updated 18.[facility] [employer] Social History Tobacco Use Types Packs/Day Years Used Date Smoking Tobacco: Never Alcohol Use Standard Drinks/Week Comments Yes 0.8 (1 standard drink = 0.6 oz p ure alcohol) Sex and Gender Information Value Date Recorded Sex Assigned at Not on file Gender Identity Not on file Sexual Orientation Not on file Plan of Treatment Not on file Care Teams Materials Supervisor Relationship Specialty Start Date End Date Kirby Marroquin MD [address] [place] [phone] PCP - General 02/20/23
--- OUTSIDE RECORDS SUMMARY | 2024-11-22 05:14 | XMS_ITS | Clinical Summary ---
Author Organization [facility] Address [address] [place] [id number] Care Team Providers Care Clinic Nurse Name Role Phone Rajat Reyes MD Unavailable [phone] Kirby Marroquin MD Primary Care Provider Aft, Holly Vitale MD PhD Unavailable [phone] Virgil Akhtar MD Unavailable [phone] Allergies Active Allergy Reactions Criticality Noted Date Comments Hydrocodone-Acetaminophen Itching Low 02/16/2023 Medications cetirizine (ZyrTEC) 10 mg tabletIndications: Seasonal Allergic Rhinitis Take 1 tablet (10 mg total) by mouth every morning Active sertraline (ZOLOFT) 100 mg tabletIndications: Anxiety with Depression Take 1 tablet (100 mg total) by mouth every morning Active pravastatin (PRAVACHOL) 20 mg tabletIndications: hyperlipidemia Take 1 tablet (20 mg total) by mouth every morning Active calcium carbonate-vitamin D3 500 mg(1,250mg) -125 unit per tabletIndications: Prevention of Vitamin D Deficiency Take 1 tablet by mouth every morning Active fluticasone propionate (FLONASE) 50 mcg/actuation nasal sprayIndications:A llergic Rhinitis Administer 1 spray into each nostril daily as needed for allergies Active lisinopriL (PRINIVIL,ZESTRIL) 20 mg tabletIndications: hypertension Take 1 tablet (20 mg total) by mouth every morning 02/14/20 23 Active magnesium oxide 500 mg capsuleIndications :hypomagnesemia Take 1 tablet by mouth every morning Active ondansetron ODT (ZOFRAN-ODT) 8 mg disintegrating tablet Take 1 tablet (8 mg total) by mouth as needed for nausea 04/27/20 23 Active predniSONE (DELTASONE) 5 mg tablet Take 3 tablets (15 mg) by mouth daily 08/14/20 23 Active gabapentin (NEURONTIN) 300 mg capsuleIndications :Neuropathic Pain,sleep Take 1 capsule (300 mg total) by mouth nightly 08/14/20 23 Active cyclobenzaprine (FLEXERIL) 5 mg tabletIndications: Muscle Spasm Take 1 tablet (5 mg total) by mouth 2 (two) times a day as needed for muscle spasms 08/14/20 23 Active clindamycin (CLEOCIN T) 1 % external solution APPLY A THIN LAYER TO THE AFFECTED AREA TWICE DAILY AFTER WASHING 09/07/20 23 Active senna-docusate (Senna-S) 8.6-50 mg Take 2 tablets by mouth 2 (two) times a day 80 tablet 1 11/30/19 24 Active Additional Information Patient not taking.Informant: Self, Reported on 03/08/2024 clonazePAM (KlonoPIN) 0.5 mg tabletIndications: sleep, anxiety Take 1 tablet (0.5 mg total) by mouth nightly 11/29/19 24 Active celecoxib (CeleBREX) 100 mg capsuleIndications :Rheumatoid Arthritis Take 1 capsule (100 mg total) by mouth 2 (two) times a day Active calcium carbonate (TUMS) 500 mg (200 mg elemental calcium) chewable tabletIndications: Heartburn Take 1 tablet/chew tab (500 mg total) by mouth daily as needed for indigestion or heartburn Active traMADoL (ULTRAM) 50 mg tablet Take 1 tablet (50 mg total) by mouth every 6 (six) hours as needed for pain 42 tablet 03/15/20 24 Active oxyCODONE (ROXICODONE) 5 mg immediate release tabletIndications: Pain Take 1 tablet (5 mg total) by mouth every 4 (four) hours as needed for pain 30 tablet 03/15/20 24 Active doxycycline (VIBRAMYCIN) 100 mg capsuleIndications :Prophylaxis, Surgical Take 1 tablet/capsule (100 mg total) by mouth 2 (two) times a day 180 tablet/capsu le 3 03/16/20 24 025 Active aspirin 81 mg enteric coated tabletIndications: prevention of thrombosis Take 1 tablet (81 mg total) by mouth 2 (two) times a day 60 tablet 03/16/[address] (PROTONIX) 40 mg EC tablet Take 1 tablet (40 mg total) by mouth daily 30 tablet 03/16/20 24 Active docusate sodium (COLACE) 100 mg capsuleIndications :constipation Take 1 capsule (100 mg total) by mouth 2 (two) times a day for 7 days 14 capsule 03/16/20 24 Active acetaminophen (TYLENOL) 500 mg tablet Take 2 tablets (1,000 mg total) by mouth every 8 (eight) hours 90 tablet 03/16/20 24 Active meloxicam (MOBIC) 15 mg tablet Take 1 tablet (15 mg total) by mouth daily for 15 days 15 tablet 03/16/20 24 Active Active Problems Problem Noted Date Diagnosed Date History of arthroplasty of right knee 03/15/2024 Diastolic dysfunction 03/14/2024 History of partial mastectomy of right breast Failed total knee arthroplasty ([facility]) 024 Knee pain, right 11/29/2023 Infection 11/17/2023 Personal history of radiation therapy 09/27/2023 Infection of prosthetic right knee joint ([facility]) 05/29/2023 Assessment & Plan (01/11/2024 1:46 PM CDT): - Clinically doing well on exam today with no concern for acute infection at this time. She remains on IV cefazolin and is tolerating well without adverse effects. Labs reviewed and inflammatory markers normal. - Ok to d/c IV cefazolin today as she has completed planned 6 weeks of therapy. PICC line removed in ID clinic today - Discussed with patient the rational for antibiotics holiday of at least 3-4 weeks and the importance of monitoring closely for signs or symptoms of recurrent infection during that time. She will follow up with Dr. Duff in 4-5 weeks for aspiration and if no concerns for infection will plan for reimplantation. All questions were answered and she verbalized understanding - Discussed with patient the rational for treatment, culture results, risk of recurrent infection, signs/symptoms of recurrent infection, and to contact ID clinic with any questions or concerns Assessment & Plan (12/28/2023 2:15 PM [facility] [employer] [facility]): - Patient reports doing well since surgery with no acute complaints today. Pain is improving, no fevers, chills, or night sweats. OR cultures from [facility] reviewed and are now showing MRSA, which is strange given all previous cultures have showed MSSA and she is doing well on cefazolin. Previous MSSA isolate on aspiration just prior to surgery was oxacillin resistant but not cephalosporin resistant. Will plan to switch to daptomycin for MRSA coverage for 6 weeks. - Message sent to [facility] pharmacy to check insurance coverage for daptomycin - Will check with her PCP if she can hold her statin while on IV daptomycin - Continue weekly CBC and CMP. Add on CK with next set of labs to be drawn weekly while on daptomycin. Assessment & Plan (11/23/2023 1:37 PM [facility] CONTINUOUS PROCESS): - Remains on cefadroxil and unfortunately seems to be having worsening pain and swelling. Aspiration +MSSA so she will now undergo 2-stage exchange with Dr. Duff - Recommend continuing cefadroxil until time of surgery - Please obtain deep cultures during surgery - Consult ID during admission to [facility] so we can review cultures and arrange for IV antibiotics if appropriate. - Will schedule her to see us around 3-4 weeks post-op - Discussed with patient the rational for treatment, culture results, risk of recurrent infection, signs/symptoms of recurrent infection, and to contact ID clinic with any questions or concerns Assessment & Plan (07/20/2023 3:21 PM CDT): - Doing well on exam today with no concern for recurrent infection. R knee surgical site is well healed without issues. She remains on cefadroxil suppression and is tolerating well without adverse effects. - Continue cefadroxil 500 mg PO BID for chronic suppression due to MSSA infection to R knee in the setting of retained hardware. Plan to continue for minimum of 1-2 years but likely indefinitely - Ok from an ID standpoint for her to restart biologics for her RA as she is not currently being treated for an active infection. Her antibiotics are now suppressive antibiotics to reduce risk of recurrent infection. We discussed how biologics can increase risk of recurrent infection but she should stay on suppressive antibiotics to significantly decrease this risk. Will forward note to her information assoc. - Will call PCP office to obtain recent lab work - Discussed with patient the rational for treatment, culture results, risk of recurrent infection, signs/symptoms of recurrent infection, and to contact ID clinic with any questions or concerns Assessment & Plan (05/29/2023 10:18 AM CDT): Cheyanne Hicks is a 68 y.o. female with PMH of RA off immunosupression, R breast cancer not currently on therapy, LEESA, obesity, depression, HTN, DM, bilateral TKA (R TKA in 2008) and R YAEL was diagnosed with R knee PJI secondary to MSSA. She is s/p I/D with liner exchange on 04/14. She received almost 6 weeks of IV oxacillin and rifampin. Recommendations: Stop IV oxacillin and rifampin PICC line removed in clinic without any issues Will start on doxycyline oil heaterman suppression due to retained hardware and will be receiving chemotherapy for breast cancer and potentially start immunosuppression for RA in the future. Will f/u in 6 weeks. Type 2 diabetes mellitus 04/14/2023 Assessment & Plan (04/16/2023 1:08 PM CDT): On metformin monotherapy - A1C 5.7 - SSI Hypertension 04/14/2023 Assessment & Plan (04/14/2023 1:51 AM CDT): Cont lisinopril Hyperlipidemia 04/14/2023 Assessment & Plan (04/14/2023 1:51 AM CDT): Cont statin Seronegative rheumatoid arthritis ([facility]) 03/30 Assessment & Plan (04/14/2023 1:52 AM CDT): Per patient, azathioprine and golimumab on hold pending breast cancer surgery -F/u with rheumatology outpatient. R knee inflammation is more likely infectious etiology Anemia 04/14/2023 Assessment & Plan (04/14/2023 1:53 AM CDT): No signs of bleeding; suspect AOCD. -Cont home iron tab -Monitor CBC Obesity (BMI 30-39.9) 04/14/2023 Assessment & Plan (04/14/2023 1:53 AM CDT): Risk factor for decompensation -Defer management to outpatient given acute issues LEESA (obstructive sleep apnea) 04/14/2023 Assessment & Plan (04/14/2023 1:54 AM CDT): Patient reports poor compliance at home -Order nightly CPAP Depression 04/14/2023 Assessment & Plan (04/14/2023 1:54 AM CDT): Cont home sertraline and clonazepam PRN Septic arthritis 04/13/2023 Assessment & Plan (04/18/2023 11:50 AM CDT): Cheyanne Hicks is a 68 y.o. female with PMH of RA off IS, R breast cancer not currently on therapy, LEESA, obesity, depression, HTN, DM, bilateral TKA (R TKA in 2008) and R YAEL, recent hospitalization for MSSA BSI with unclear source treated with oxacillin x 4 weeks (end date 04/03/23) who presented for R knee pain. Local orthopedic surgeon on 04/10 performed a knee aspiration with cultures that grew MSSA. She was admitted for further evaluation. Labs with ESR 95, CRP 147. R knee XR with small effusion and soft tissue swelling. Repeat knee aspiration performed 04/13 with purulent fluid, 23k nuc cells and 82% martha, cultures positive for MSSA. She was taken to OR 04/14 for I&D with liner exchange. OR cultures growing MSSA. Blood cultures 04/13 NGTD. She was started on oxacillin, rifampin was added on 04/17. We are recommending to treat right knee MSSA PJI with 6 weeks of IV oxacillin and 6 weeks of PO rifampin, followed by PO suppression given that she has retained hardware. Recommendations: - Continue oxacillin 2g q4h for six weeks - Continue rifampin 300mg po bid for six weeks -Rifampin may decrease the serum levels of the following drugs: sertraline, pravastatin, and celecoxib. None of these are considered contraindications - monitor for reduced efficacy and consider dose adjustments as needed. Check CBC w/ diff and CMP minimum once weekly while - ID is formally signing off but will continue to monitor patient periphally while in house. Please see sign off note from 04/18 for complete recommendations. Assessment & Plan (04/19/2023 11:44 AM CDT): P/w worsening R knee pain/swelling/warmth and T-100.3 at home (on tylenol/celecoxib). XR with small effusion, ESR 95, CRP 147.3. Hx of R TKA in 2008. Of note, recent MSSA bacteremia s/p 4 weeks of oxacillin (finished 04/03) with reported unknown source. Knee aspirate cultures of irwin-sensitive MSSA 04/10 - BCX NGTD - s/p I&D, poly exchange R TKA with orthopedics 04/14. Maintain prevena and full extension in knee immobilizer x 14 days. WBAT. Confirmed with ortho, KESHIA wrap can be removed POD7, Prevena to be removed POD14. Continue ASA 81mg BID for 30 days. Ortho will contact her for follow up. - Synovial fluid and OR cultures with staph aureus, irwin sensitive MSSA. - ID final recs : Oxacillin 2 grams (Or the 24 hour total dose given as a continuous infusion) IV every 4 hours Duration 6 weeks (04/13-05/26) and Rifampin 300 mg by mouth every 12 hours Duration 6 weeks (04/17-05/29). Then will need PO suppression. CBC w/ diff once a week, CMP once a week, ESR/CRP 3 weeks after starting antibiotics, and ESR/CRP 6 weeks after starting antibiotics. Fax results to [phone]. - PICC placed 04/17; will d/c with home infusion. Referral sent 04/18 - PT/OT rec IPR initially; now rec home with . PT/OT orders sent. Malignant neoplasm of right female breast 2022 Cancer Staging:Pathologic stage from 08/02/2023:Stage IA(pT1c, pN0(sn), cM0, G2, ER+, OR+, HER2-) - Signed by Virgil Akhtar MD on 08/02/2023 Assessment & Plan (04/14/2023 1:50 AM CDT): Planned surgery and radiation -Treatment has been deferred given infection -F/u with her breast surgeon outpatient Carpal tunnel syndrome of right wrist 10/07/2019 Overview (10/07/2019): Added automatically from request for surgery [id number] Osteoarthritis of hand 01/25/2012 Cervicalgia 05/31/2011 Arthralgia of shoulder 05/31/2011 Encounters Date Type Department Care Team Description 09/23/2024 Documentation [facility] Surgery [address] [place] [address] Gertrudis Valencia 09/05/2024 1:00 PM [facility] [employer] [employer] [facility] Office Visit [facility] [address] Radiation Oncology [address] [place] [id number] Cesia Beyer, PA Malignant neoplasm of right breast in female, estrogen receptor positive, unspecified site of breast (HCC) (Primary Dx); Personal history of radiation therapy from Last 3 Months Surgical History Surgery Date Site/Laterality Comments SHOULDER SURGERY 10/30/2006 - 10/29/2007 Right Shoulder Surgery - (Added by TW Conv) OR CHOLECYSTECTOMY 10/30/2008 - 10/29/2009 Cholecystectomy - (Added by TW Conv) OR ARTHROPLASTY KNEE TIBIAL PLATEAU 10/30/2008 - 10/29/2009 Left Knee Replacement - (Added by TW Conv) REPLACEMENT TOTAL KNEE 10/30/2015 - 10/29/2016 Right CARPAL TUNNEL RELEASE 10/30/1999 - 10/29/20002015, 2017 SKIN CANCER EXCISION 10/30/2010 - 10/29/2011 SINUS SURGERY 10/30/2018 - 10/29/2019 CARPAL TUNNEL RELEASE 10/30/2018 - 10/29/2019 Right BASAL CELL CARCINOMA EXCISION 11/30/2021 - 12/27/2021 off back; multiple surgeries TOTAL HIP ARTHROPLASTY 10/30/2021 - 10/29/2022 Right CATARACT EXTRACTION W/ INTRAOCULAR LENS IMPLANT Bilateral KNEE SURGERY 03/30/2023 - 04/28/2023 Right COLONOSCOPY IR PICC LINE PLACEMENT > 5 YEARS 11/30/2023 N/A Medical History Medical History Date Comments Personal history of other en docrine, nutritional and metabolic disease History of diabetes mellitus - (Added by TW Conv) Personal history of other me ntal and behavioral disorders History of depression - (Add ed by TW Conv) Personal history of other di seases of the circulatory system History of hypertension - (A dded by TW Conv) GERD (gastroesophageal reflux disease) Arthritis LEESA (obstructive sleep apnea) ca n't tolerate cpap machine PONV (postoperative nausea a nd vomiting) IV medicaitons help Hyperlipidemia 04/14/2023 Kidney stone 2002 Type 2 diabetes mellitus (HCC) Breast cancer (HCC) right Depression Cataracts, bilateral Family History Medical History Relation Name Comments Heart disease Father Heart disease Mother Transient ischemic attack Mother Diabetes Other 1 Diabetes Mellit us - (Added by TW Conv) Hypertension Other 2 Hypertension - (Added by TW Conv) Stroke Other 3 Stroke Syndrome - (Added by TW Conv) Cancer Other 4 Cancer - (Added by TW Conv) Heart disease Sister Anesthesia problems Neg Hx Relation Name Status Comments Father Mother Other 1 Other 2 Other 3 Other 4 Sister Social History Tobacco Use Types Packs/Day Years Used Date Smoking Tobacco: Never Passive Smoke Exposure: Current Smokeless Tobacco: Never Tobacco Cessation:Counseling Given: Not Answered Alcohol Use Standard Drinks/Week Comments Yes 0 (1 standard drink = 0.6 oz pur e alcohol) rare [employer] Answer Date Recorded In the past 12 months has [employer], gas, oil, or water [employer] threatened to shut off services in your home? No 11/30/2023 Social Connection and Isolat ion Panel [NHANES] Answer Date Recorded In a typical week, how many times do you talk on the phone with family, friends, or neighbors? More than three times a week 11/30/2023 How often do you get togethe r with friends or relatives? More than three times a week 11/30/2023 How often do you attend chur ch or confucianism services? Never 11/30/2023 Do you belong to any clubs o r organizations such as advent groups, unions, fraternal or athletic groups, or school groups? No 11/30/2023 How often do you attend meet ings of the clubs or organizations you belong to? Never 11/30/2023 Are you , , di vorced, , never , or living with a partner? 11/30/2023 AUDIT-C Answer Date Recorded Q1: How often do you have a drink containing alc ohol? Monthly or less 03/08/2024 Q2: How many drinks containi ng alcohol do you have on a typical day when you are drinking? 1 or 2 03/08/2024 Q3: How often do you have si x or more drinks on one occasion? Never 03/08/2024 Overall Financial Resource Strain (CARDIA) Answe r Date Recorded How hard is it for you to pa y for the very basics like food, housing, medical care, and heating? Not hard at all 11/30/2023 PHQ-2 Answer Date Recorded PHQ-2 Total Score (If total score is 3 or more points, staff should administer the PHQ-9) 0 04/14/2023 Hunger Vital Sign Answer Date Recorded Within the past 12 months, y ou worried that your food would run out before you got the money to buy more. Never true 11/30/19 24 Within the past 12 months, t he food you bought just didn't last and you didn't have money to get more. Never true 11/30/2023 PRAPARE - Transportation Answer Date Re corded In the past 12 months, has l ack of transportation kept you from medical appointments or from getting medications? No 10/2023 In the past 12 months, has l ack of transportation kept you from meetings, work, or from getting things needed for daily living? No 11/30/2023 Housing Stability Vital Sign Answer Volodymyr e Recorded In the last 12 months, was t here a time when you were not able to pay the mortgage or rent on time? No 11/30/2023 In the last 12 months, how many places have you lived? 1 11/30/2023 In the last 12 months, was t here a time when you did not have a steady place to sleep or slept in a alf (including now)? No 11/30/2023 Personal Safety Answer Date Recorded Have you ever been in or are you currently in a harmful physical or emotional relationship or is someone making you feel afraid or unsafe? Denies 03/15/2024 Comments No Sex and Gender Information Value Date Recorded Sex Assigned at Not on file Legal Sex Female 9:32 AM [facility] [employer] [employer] [facility] Gender Identity Not on file Sexual Orientation Not on file Obstetrics History Last Filed Vital Signs Vital Sign Reading Time Taken Comments Blood Pressure 141/72 09/05/2024 1:14 PM [facility] [employer] [employer] CONTINUOUS PROCESS Pulse 102 09/05/2024 1:14 PM [facility] [employer] [employer] CONTINUOUS PROCESS Temperature 36.4 ??C (97.6 ??F) 03/16/2024 8:19 AM CD T Respiratory Rate 18 03/16/2024 8:19 AM CDT Oxygen Saturation 98% 09/05/2024 1:14 PM [facility] CONTINUOUS PROCESS Inhaled Oxygen Concentration - - Weight 98.4 kg (217 lb) 09/05/2024 1:14 PM [facility] CONTINUOUS PROCESS Height 167.6 cm (5' 6 ) 03/15/2024 6:35 PM CDT Body Mass Index 35.02 03/15/2024 6:35 PM CDT Plan of Treatment Health Maintenance Due Date Last Done Comments Albumin Creatinine Ratio, Urine 1953 Colon Cancer Screening-Colonoscopy 1953 Hepatitis C Screening 1955 Osteoporosis Screening-Bone Density Scan 1953 Dilated Eye Exam 1953 Foot Exam 1953 Hepatitis B Screening 1971 Well Visit 65+ 2018 Zoster Vaccine (3 of 3) 05/08/2019 03/13/2019, 01/28 Depression Screening 04/13/2024 04/13/2023, 04/13/20 Lipid Panel 04/14/2024 04/14/2023 Covid-19 Vaccine (3 - 2023-2 5 season) 2024 08/19/2021, 07/22/2021 Influenza Vaccine (#1) 2024 , 10/19/2020, 09/18/2018 Hemoglobin A1C 09/08/2024 03/08/2024, 03/30, 04/13/2023 Breast Cancer Screening-Mammogram 02/28/2025 024 Fall Risk Assessment 03/16/2025 03/16/2024 eGFR 03/16/2025 03/16/2024, 02/27, 01/25/2024, Additional history exists DTaP/Tdap/Td Vaccine (3 - Td or Tdap) 09/18/2028 09/18/2018, 08/30/2018 Pneumococcal vaccine 65+ Completed 020, 09/18/2018, 08/30/2018, Additional history exists Medical Devices Implanted Type Area Human Resources Benefits Administrator Device Identifier Shelf Expiration Date Model / Serial / Lot [employer] [place] R High Viscosity Cement 40gm Bone Green [id number] - Sn/A - [id number] Implanted:Qty: 1 on 11/29/2023 by Rajat Duff MD at [facility] Bone Cement Right: Knee [employer] 11/29/2027 [id number] / N/A / [id number] [employer] [id number] Seprafilm 6x5in Barrier Adhesion Sterile Disposable Latex Free - [id number] Implanted:Qty: 1 on 10/16/2019 by Zuly Brenner MD at [facility] Other - see comments [employer] [id number] 04/28/2022 [id number] / / [id number] Description:Seprafilm [employer] Remedy Stem Knee Medium Component Femoral Rskfmd - Sn/A - [id number] Implanted:Qty: 1 on 11/29/2023 by Rajat Duff MD at [facility] Other - see comments Right: Knee [employer] [id number] / N/A / Depuy Orth[employer] Inc Attune Revision Full Coated Knee 37mm Sleeve Tibial Porocoat Latex Free [id number] - [id number] Implanted:Qty: 1 on 03/15/2024 by Rajat Duff MD at [facility] Other - see comments Right: Knee [employer] [id number] 12/27/2033 [id number] / / [id number] Description:Implant pause pe rformed Wire Implanted:Qty: 3 on 03/15/2024 at [facility] Other - see comments Right: Knee 18 GAUGE WIRE / / Total Joint Bilate ral: Knee Total Joint Right: Hip [employer] Advance Ii 12mm Medial Pivot Knee Right 3 Insert Tibial Cdpt389u - [id number] Implanted:Qty: 1 on 04/14/2023 by Joaquin Ralph MD at [facility] Right: Knee [employer] 11/05/2029 [id number] / / [employer] Ghiatas 20ga 15cm 5cm Beaded Needle Breast Wire Localization 62707 - [id number] Implanted:Qty: 1 on 06/20/2023 at [facility] [employer] [id number] / / [employer] [place] R High Viscosity Cement 40gm Bone Green [id number] - [id number] Implanted:Qty: 1 on 11/29/2023 by Rajat Duff MD at [facility] [employer] 11/29/2027 [id number] / / [id number] [email or web address] Rapid Cure Kit Paste Clinical Psychiatrist 20cc 50cc Bone Void 620-020 - [id number] Implanted:Qty: 1 on 11/29/2023 by Rajat Duff MD at [facility] [employer] 02/26/2026 620-020 / / [id number] [employer] Remedy 175mm Stem Extension Knee Component Femoral [id number] - [id number] Implanted:Qty: 1 on 11/29/2023 by Rajat Duff MD at [facility] Right: Knee [employer] [id number] / / [employer] Remedy 100mm Stem Extension Knee Component Femoral Hcm631 - [id number] Implanted:Qty: 1 on 11/29/2023 by Rajat Duff MD at [facility] Right: Knee [employer] [id number] / / [employer] Remedy Stem Knee Medium Component Tibial Rsktmd - Sn/A - [id number] Implanted:Qty: 1 on 11/29/2023 by Rajat Duff MD at [facility] Right: Knee [employer] [id number] / N/A / [employer] Palacos R High Viscosity Cement 40gm Bone Green [id number] - [id number] Implanted:Qty: 1 on 11/29/2023 by Rajat Duff MD at [facility] [employer] 11/29/2027 [id number] / / [id number] Depuy [employer] Inc Attune 4mm Revision Cement Knee Posterior 6 Augment Femoral Latex Free [id number] - [id number] Implanted:Qty: 1 on 03/15/2024 at [facility] Right: Knee [employer] 12/27/2033 [id number] / / [id number] [employer] Attune H4 Mm Revision Cement Knee Distal 6 Augment Femoral Sterile Latex Free [id number] - [id number] Implanted:Qty: 1 on 03/15/2024 at [facility] Right: Knee [employer] 12/27/2033 [id number] / / [id number] [employer] Attune H4 Mm Revision Cement Knee Distal 6 Augment Femoral Sterile Latex Free [id number] - [id number] Implanted:Qty: 1 on 03/15/2024 at [facility] Right: Knee [employer] 12/27/2033 [id number] / / [id number] [employer] Attune 18mm 60mm Revision Press Fit Knee Stem Femoral Sterile Latex Free [id number] - [id number] Implanted:Qty: 1 on 03/15/2024 at [facility] Right: Knee [employer] 12/27/2033 [id number] / / [id number] [employer] Attune H6 Mm Revision Constrain Rotate Platform Knee 6 Insert Tibial Aox Sterile [id number] - [id number] Implanted:Qty: 1 on 03/15/2024 at [facility] Right: Knee [employer] 06/29/2028 [id number] / / [id number] [employer] Attune Cement Revision Rotate Platform Knee 5 Baseplate Tibial [id number] - [id number] Implanted:Qty: 1 on 03/15/2024 at [facility] Right: Knee [employer] 01/27/2034 [id number] / / [id number] [employer] Attune Revision Full Coated Knee 40 Mm Sleeve Femoral Porocoat Sterile Latex Free [id number] - [id number] Implanted:Qty: 1 on 03/15/2024 at [facility] Right: Knee [employer] 01/27/2030 [id number] / / [id number] [employer] Attune 16mm 60mm Revision Press Fit Knee Stem Femoral Sterile Latex Free [id number] - [id number] Implanted:Qty: 1 on 03/15/2024 at [facility] Right: Knee [employer] 10/29/2033 [id number] / / [id number] [employer] Stimulan Rapid Cure Kit Paste Clinical Psychiatrist 10cc 20cc Bone Void 620-010 - [id number] Implanted:Qty: 1 on 03/15/2024 at [facility] Right: Knee [employer] 08/29/2026 620-010 / / [id number] [employer] Smartset Medium Viscosity Cement 40gm Bone Gentamicin [id number] - [id number] Implanted:Qty: 1 on 03/15/2024 at [facility] Right: Knee [employer] 07/29/2025 [id number] / / [id number] [employer] Revision Cement Constrain Knee Right 6 Component Femoral Attune Sterile [id number] - [id number] Implanted:Qty: 1 on 03/15/2024 at [facility] Right: Knee [employer] 01/27/2034 [id number] / / [id number] [employer] Smartset Medium Viscosity Cement 40gm Bone Gentamicin [id number] - [id number] Implanted:Qty: 1 on 03/15/2024 at [facility] Right: Knee [employer] 07/29/2025 [id number] / / [id number] [employer] Attune 4mm Revision Cement Knee Posterior 6 Augment Femoral Latex Free [id number] - [id number] Implanted:Qty: 1 on 03/15/2024 at [facility] Right: Knee [employer] 12/27/2033 [id number] / / [id number] [employer] Smartset Medium Viscosity Cement 40gm Bone Sterile 3122-040 - [id number] Implanted:Qty: 1 on 03/15/2024 at [facility] Right: Knee [employer] 05/29/2025 3122-040 / / [id number] Procedures Procedure Name Priority Date/Time Associated Diagnosis Comments EGFR Routine 03/16/2024 3:44 AM CDT HEMOGLOBIN A1C Routine 03/08/2024 9:19 AM CDT Preoperative testing Type 2 diabetes mellitus with other specified complication, without long-term current use of insulin (HCC) DIAGNOSTIC MAMMOGRAM BILATERAL W OSCAR Schedule Routine, Read Routine (OP Routine) 02/29/2024 10:55 AM CDT Malignant neoplasm of right female breast, unspecified estrogen receptor status, unspecified site of breast (HCC) Malignant neoplasm of upper-outer quadrant of right female breast, unspecified estrogen receptor status (HCC) LIPID PANEL Routine 04/14/2023 8:37 PM CDT from Last 3 Months or Most Recently Relevant to Health Maintenance Results * eGFR (03/16/2024 3:44 AM CDT) eGFR >90 >=60 mL/min/1. 73 m2 Comment: Interpretive Data Reference Interval Normal ?>/= 90 mL/min/1.73m2 Mildly decreased* ? 60 - 89 mL/min/1.73m2 Mildly to moderately decreased ?45 - 59 mL/min/1.73m2 Moderately to severely decreased ??30 - 44 mL/min/1.73m2 Severely decreased ?15 - 29 mL/min/1.73m2 Kidney Failure ?< 15 ??mL/min/1.73m2 *Relative to young adult level Estimated glomerular filtration rate is determined by the 2020 CKD-EPI equation recommended by the National Kidney Foundation (A Unifying Approach to GFR Estimation: Recommendations of the NKF-ASK Task Force on Reassessing the Inclusion of Race in Diagnosing Kidney Disease, JASN 2020). The CKD-EPI equation should not be used for patients with unstable renal function and has not been validated in children and those over 70. Current interpretive data was last reviewed 2021. Blood 03/16/2024 3:44 AM CDT 03/16/2024 3:47 AM CDT Rajat Duff MD LAB BLOOD ORDERABLES Karrie l Result Performing Organization Address [facility] Phone Number [facility] [address] [facility] [place] [address] * Hemoglobin A1c (03/08/2024 9:19 AM CDT) Hgb A1C 5.4 4.0 - 5.6 % Estimated Average Glucose 108 mg/dL [facility] Comment: The ADA recommends reporting an estimated Average Glucose (eAG) with all Hemoglobin A1c results using the equation derived from a study of 507 normal and diabetic adults. ??Minority populations were underrepresented and children were not included. ?? (Diabetes Care 31:1530-6611, 2008). ??The eAG is not equivalent to a fasting glucose. Blood 03/08/2024 9:19 AM CDT 03/08/2024 9:59 AM CDT Arleen Curiel NP LAB BLOOD ORDERABLES Final R esult Performing Organization Address [facility] Phone Number [facility] [address] [facility] [place] [address] * Diagnostic Mammogram Bilateral W Oscar (02/29/2024 10:55 AM CDT) Anatomical Region Laterality Modality Breast Bilateral Mammography 02/29/2024 11:1 3 AM CDT Impressions 02/29/2024 11:16 AM CDT Postprocedural changes of prior breast conservation therapy without suspicious finding in either breast. OVERALL FINAL ASSESSMENT: BI-RADS Category 2: Benign. RECOMMENDATION: Annual diagnostic mammography is recommended. Dictated by: Rk Goncalves MD The radiology attending physician has personally reviewed this study, and had reviewed and/or edited this written report and agrees with it. Electronically signed by: Maribel Thapa M.D. 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 COMPARISON: Mammogram 06/18/2023 and multiple mammograms dating back to 2019. TECHNIQUE: ??Full field digital mammographic views of BOTH breasts were performed, including computer aided detection (CAD) and BILATERAL digital breast tomosynthesis (DBT). BREAST PARENCHYMAL COMPOSITION: There are scattered areas of fibroglandular density. MAMMOGRAM FINDINGS: There are postprocedure changes of right breast conservation therapy. No suspicious finding in either breast. ?? 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 COMPARISON: Mammogram 06/18/2023 and multiple mammograms dating back to 2019. TECHNIQUE: Full field digital mammographic views of BOTH breasts were performed, including computer aided detection (CAD) and BILATERAL digital breast tomosynthesis (DBT). BREAST PARENCHYMAL COMPOSITION: There are scattered areas of fibroglandular density. MAMMOGRAM FINDINGS: There are postprocedure changes of right breast conservation therapy. No suspicious finding in either breast. IMPRESSION: Postprocedural changes of prior breast conservation therapy without suspicious finding in either breast. OVERALL FINAL ASSESSMENT: BI-RADS Category 2: Benign. RECOMMENDATION: Annual diagnostic mammography is recommended. Dictated by: Rk Goncalves MD The radiology attending physician has personally reviewed this study, and had reviewed and/or edited this written report and agrees with it. Electronically signed by: Maribel Thapa M.D. Holly Loving MD PhD IMG MAMMO PROCEDURES Final Result * (ABNORMAL) Lipid panel (04/14/2023 8:37 PM CDT) Cholesterol 101 30 - 199 mg/dL [facility] Comment: Interpretive Data Ages < or = 19 years ??Acceptable: ? <170 mg/dL ??Borderline high: ??170-199 mg/dL ??High: ? >or= 200 mg/dL Ages > or = 20 years ??Desirable: ?<200 mg/dL ??Borderline high: ??200-239 mg/dL ??High: ? >or= 240 mg/dL Literature References: 1. Expert Panel on Integrated Guidelines for Cardiovascular Health and Risk Reduction in Children and Adolescents. Pediatrics 2011;128:S213 2. NCEP Expert Panel. Circulation 2004;110:227 Current Interpretive Data was last revised on 2018. Triglycerides 73 <=149 mg/dL [facility] Comment: Interpretive Data Ages < or = 9 years ??Acceptable: ? <75 mg/dL ??Borderline high: ??75-99 mg/dL ??High: ? >or= 100 mg/dL Ages 10 to 20 years ??Acceptable: ? <90 mg/dL ??Borderline high: ??90-129 mg/dL ??High: ? >or= 130 mg/dL Ages > or = 20 years ??Desirable: ?<150 mg/dL ??Borderline high: ??150-199 mg/dL ??High: ? 200-499 mg/dL ?Very high: ?? >or= 499 mg/dL Literature References: 1. Expert Panel on Integrated Guidelines for Cardiovascular Health and Risk Reduction in Children and Adolescents. Pediatrics 2011;128:S213 2. NCEP Expert Panel. Circulation 2004;110:227 Current Interpretive Data was last revised on 2018. HDL 35(L) >=40 mg/dL [facility] Comment: Interpretive Data Ages < or = 19 years ??Acceptable: ? >45 mg/dL ??Borderline low: ?? 40-45 mg/dL ??Low: ? <40 mg/dL Ages > or = 20 years ??Desirable: ?>or= 60 mg/dL ??Low: ? <40 mg/dL Literature References: 1. Expert Panel on Integrated Guidelines for Cardiovascular Health and Risk Reduction in Children and Adolescents. Pediatrics 2011;128:S213 2. NCEP Expert Panel. Circulation 2004;110:227 Current Interpretive Data was last revised on 2018. LDL, calculated 51 <=129 mg/dL [facility] Comment: Interpretive Data Ages < or = 19 years ??Acceptable: ? <110 mg/dL ??Borderline high: ??110-129 mg/dL ??High: ?>or= 130 mg/dL Ages > or = 20 years ??Optimal: ? <100 mg/dL ??Near optimal: ?100-129 mg/dL ??Borderline high: ?? 130-159 mg/dL ??High: ?>160 mg/dL Literature References: 1. Expert Panel on Integrated Guidelines for Cardiovascular Health and Risk Reduction in Children and Adolescents. Pediatrics 2011;128:S213 2. NCEP Expert Panel. Circulation 2004;110:227 Current Interpretive Data was last revised on 2018. Non-HDL Cholesterol 66 mg/dL [facility] Comment: Interpretive Data Ages < or = 19 years ??Acceptable: ?<120 mg/dL ??Borderline high: ??120-144 mg/dL ??High: ?>145 mg/dL Ages > or = 20 years ??When triglycerides are >200 mg/dL, Non-HDL cholesterol is a secondary target of ? therapy with treatment goals that are 30 mg/dL greater than the LDL cholesterol target. ? Literature References: 1. Expert Panel on Integrated Guidelines for Cardiovascular Health and Risk Reduction in Children and Adolescents. Pediatrics 2011;128:S213 2. NCEP Expert Panel. Circulation 2004;110:227 Current Interpretive Data was last revised on 2018. Chol/HDL ratio 3 [facility] Blood 04/14/2023 8:37 PM CDT 04/14/2023 10:26 PM CDT Narrative [facility] - 04/15/2023 3:37 AM CDT Reflex Joanna Martins MD LAB BLOOD ORDERABLES Final Result [facility] Department [place] [address] from Last 3 Months or Most Recently Relevant to Health Maintenance Insurance MEDICARE [employer] KIDS MEDICARE FOR LIFE MEDICARE FOR LIFE MEDICARE FOR LIFE Advance Directives For more information, please contact: [phone] Documents on File Type Date Recorded Patient Powderer Expl anation ADVANCE DIRECTIVE 10/20/2019 2:22 PM [employer] SUPERINTENDENT-MEDICAL ADVANCE DIRECTIVE 10/16/2019 7:39 AM [employer] SUPERINTENDENT-MEDICAL * Full Code (Latest Code Status on File) Date Activated Date Inactivated Comments 03/15/2024 6:34 PM 03/16/2024 3:44 PM * Full Code Date Activated Date Inactivated Comments 11/29/2023 9:31 AM 12/01/2023 7:24 PM * Full Code Date Activated Date Inactivated Comments 04/14/2023 3:10 AM 04/19/2023 6:51 PM Care Teams Clinic Nurse Relationship Specialty Start Date End Date Kirby Marroquin MD [address] [place] [address] [place] [address] PCP - General Family Practice 04/15/23 Rajat Reyes MD [address] [place] [address] [place] [address] Referring Physician Plastic Surgery 09/03/19 AftHolly MD PhD [address] [place] [address] Surgeon Surgical Oncology 07/20/23 Virgil Akhtar MD [address] [address] Radiation Oncologist Radiation Oncology 12/25/23
--- OUTSIDE RECORDS SUMMARY | 2024-11-22 05:14 | XMS_ITS | Referral Summary ---
Author Organization [facility] Address [address] [place] [phone] Care Team Providers Care Tiltrotor Crew Chief Name Role Phone Rajat Reyes MD Unavailable [phone] Kirby Marroquin MD Primary Care Provider Aft, Holly Vitale MD PhD Unavailable [phone] Virigl Akhtar MD Unavailable [phone] Encounters Date Type Department Care Team Description 09/23/2024 Documentation [facility] Floor [address] [place] [address] Gertrudis Valencia 09/05/2024 1:00 PM SHOW WORKER Office Visit [facility] Medical Office Building 2 Radiation Oncology [address] [place] [address] Cesia Beyer PA Malignant neoplasm of right breast in female, estrogen receptor positive, unspecified site of breast (HCC) (Primary Dx); Personal history of radiation therapy from Last 3 Months Allergies Active Allergy Reactions Criticality Noted Date [...] of right breast Failed total knee arthroplasty (CMS/[facility]) 024 Knee pain, right 11/29/2023 Infection 11/17/2023 Personal history of radiation therapy 09/27/2023 Infection of prosthetic right knee joint ([facility]/ C) 05/29/2023 Assessment & Plan (01/11/2024 1:46 [...] concerns Assessment & Plan (12/28/2023 2:15 PM SHOW WORKER): - Patient reports doing well since surgery with no acute complaints today. Pain is improving, no fevers, chills, or night sweats. OR cultures from [facility] reviewed and are now showing MRSA, which is strange given all previous cultures have showed MSSA and she is doing well on cefazolin. Previous MSSA isolate on aspiration just prior to surgery was oxacillin resistant but not cephalosporin resistant. Will plan to switch to daptomycin for MRSA coverage for 6 weeks. - Message sent to [facility] pharmacy to check insurance coverage for daptomycin - Will check with her PCP if she can hold her statin while on IV daptomycin - Continue weekly CBC and CMP. Add on CK with next set of labs to be drawn weekly while on daptomycin. Assessment & Plan (11/23/2023 1:37 PM SHOW WORKER): - Remains on cefadroxil and unfortunately seems to be having worsening pain and swelling. Aspiration +MSSA so she will now undergo 2-stage exchange with Dr. Duff - Recommend continuing cefadroxil until time of surgery - Please obtain deep cultures during surgery - Consult ID during admission to [facility] so we can review cultures and [...] this risk. Will forward note to her mail distribution clerk. - Will call PCP office to obtain [...] without any issues Will start on doxycyline group home suppression due to retained hardware and will [...] AM CDT): Cont statin Seronegative rheumatoid arthritis (CMS/HCC) 03/30 Assessment & Plan (04/14/2023 1:52 AM [...] weeks after starting antibiotics. Fax results to [phone]. - PICC placed 04/17; will d/c with home infusion. Referral sent 04/18 - PT/OT rec IPR initially; now rec home with HH. PT/OT orders sent. Malignant neoplasm of right female breast 2022 Cancer Staging:Pathologic stage from 08/02/2023:Stage IA(pT1c, pN0(sn), cM0, G2, ER+, WY+, HER2-) - Signed by Virgil Akhtar MD on 08/02/2023 Assessment & Plan (04/14/2023 1:50 AM CDT): Planned surgery and radiation -Treatment has been deferred given infection -F/u with her breast surgeon outpatient Carpal tunnel syndrome of right wrist 10/07/2019 Overview (10/07/2019): Added automatically from request for surgery [id number] Osteoarthritis of hand 01/25/2012 Cervicalgia 05/31/2011 Arthralgia of shoulder 05/31/2011 Social History Tobacco Use Types Packs/Day Years Used Date Smoking Tobacco: Never Passive Smoke Exposure: Current Smokeless Tobacco: Never Tobacco Cessation:Counseling Given: Not Answered Alcohol Use Standard Drinks/Week Comments Yes 0 (1 standard drink = 0.6 oz pur e alcohol) rare [facility] Utilities Answer Date Recorded In the past 12 months has e [employer], gas, oil, or water [employer] threatened to shut off services in your [...] any clubs o r organizations such as denominational groups, unions, fraternal or athletic groups, or [...] place to sleep or slept in a mcfp (including now)? No 11/30/2023 Personal Safety Answer Date Recorded Have you ever been in or are you currently in a harmful physical or emotional relationship or is someone making you feel afraid or unsafe? Denies 03/15/2024 Comments No Sex and Gender Information Value Date Recorded Sex Assigned at Not on file Legal Sex Female 9:32 AM SHOW WORKER Gender Identity Not on file Sexual Orientation Not on file Last Filed Vital Signs Vital Sign Reading Time Taken Comments Blood Pressure 141/72 09/05/2024 1:14 PM SHOW WORKER Pulse 102 09/05/2024 1:14 PM SHOW WORKER Temperature 36.4 ??C (97.6 ??F) 03/16/2024 8:19 AM CD T Respiratory Rate 18 03/16/2024 8:19 AM CDT Oxygen Saturation 98% 09/05/2024 1:14 PM SHOW WORKER Inhaled Oxygen Concentration - - Weight 98.4 kg (217 lb) 09/05/2024 1:14 PM SHOW WORKER Height 167.6 cm (5' 6 ) 03/15/2024 6:35 PM CDT Body Mass Index 35.02 03/15/2024 6:35 PM CDT Plan of Treatment Not on file Medical Devices Implanted Type Area Plumbing Assembler Installer Device Identifier Shelf Expiration Date Model / Serial / Lot [employer] Palacos R High Viscosity Cement 40gm Bone Green [id number] - Sn/A - [id number] Implanted:Qty: 1 on 11/29/2023 by Rajat Duff MD at [facility] Bone Cement Right: Knee [employer] 11/29/2027 [id number] / N/A / [id number] [employer] [id number] Seprafilm 6x5in Barrier Adhesion Sterile Disposable Latex Free - [id number] Implanted:Qty: 1 on 10/16/2019 by Zuly Brenner MD at [facility] Other - see comments [employer] [id number] 04/28/2022 [id number] / / [id number] Description:Seprafilm [employer] Remedy Stem Knee Medium Component Femoral Rskfmd - Sn/A - [id number] Implanted:Qty: 1 on 11/29/2023 by Rajat Duff MD at [facility] Other - see comments Right: Knee [employer] [id number] / N/A / Depuy Orthopaedics Inc Attune Revision Full Coated Knee 37mm Sleeve Tibial Porocoat Latex Free [id number] - [id number] Implanted:Qty: 1 on 03/15/2024 by Rajat Duff MD at [facility] Other - see comments Right: Knee [employer] Inc [id number] 12/27/2033 [id number] / / [id number] Description:Implant pause pe rformed Wire Implanted:Qty: 3 on 03/15/2024 at [facility] Other - see comments Right: Knee 18 GAUGE WIRE / / Total Joint Bilate ral: Knee Total Joint Right: Hip [employer] Advance Ii 12mm Medial Pivot Knee Right 3 Insert Tibial [id number] - [id number] Implanted:Qty: 1 on 04/14/2023 by Joaquin Ralph MD at [facility] Right: Knee [employer] 11/05/2029 [id number] / / Bard [employer] Ghiatas 20ga 15cm 5cm Beaded Needle Breast Wire Localization 55828 - [id number] Implanted:Qty: 1 on 06/20/2023 at [facility] [employer] [id number] / / [employer] Palacos R High Viscosity Cement 40gm Bone Green [id number] - [id number] Implanted:Qty: 1 on 11/29/2023 by Rajat Duff MD at [facility] [employer] 11/29/2027 [id number] / / [id number] Biocom[employer]ites Stimulan Rapid Cure Kit Paste Correctional Nurse 20cc 50cc Bone Void 620-020 - [id number] Implanted:Qty: 1 on 11/29/2023 by Rajat Duff MD at [facility] [employer] 02/26/2026 620-020 / / [id number] [employer] Remedy 175mm Stem Extension Knee Component Femoral Dhy217 - [id number] Implanted:Qty: 1 on 11/29/2023 by Rajat Duff MD at [facility] Right: Knee [employer] [id number] / / [employer] Remedy 100mm Stem Extension Knee Component Femoral [id number] - [id number] Implanted:Qty: 1 on 11/29/2023 by Rajat Duff MD at [facility] Right: Knee [employer] [id number] / / [employer] Remedy Stem Knee Medium Component Tibial Rsktmd - Sn/A - [id number] Implanted:Qty: 1 on 11/29/2023 by Rajat Duff MD at [facility] Right: Knee [employer] [id number] / N/A / [employer] Palacos R High Viscosity Cement 40gm Bone Green [id number] - [id number] Implanted:Qty: 1 on 11/29/2023 by Rajat Duff MD at [facility] [employer] 11/29/2027 [id number] / / [id number] Depuy Orthopaed[employer] Inc Attune 4mm Revision Cement Knee Posterior 6 Augment Femoral Latex Free [id number] - [id number] Implanted:Qty: 1 on 03/15/2024 at [facility] Right: Knee [employer] Inc 12/27/2033 [id number] / / [id number] [employer] Attune H4 Mm Revision Cement Knee Distal 6 Augment Femoral Sterile Latex Free 886656783 - [id number] Implanted:Qty: 1 on 03/15/2024 at [facility] Right: Knee [employer] 12/27/2033 [id number] / / [id number] [employer] Attune H4 Mm Revision Cement Knee Distal 6 Augment Femoral Sterile Latex Free [id number] - [id number] Implanted:Qty: 1 on 03/15/2024 at [facility] Right: Knee [employer] 12/27/2033 [id number] / / [id number] [employer] Attune 18mm 60mm Revision Press Fit Knee Stem Femoral Sterile Latex Free [id number] - [id number] Implanted:Qty: 1 on 03/15/2024 at [facility] Right: Knee [employer] 12/27/2033 [id number] / / [id number] [employer] Attune H6 Mm Revision Constrain Rotate Platform Knee 6 Insert Tibial Aox Sterile [id number] - [id number] Implanted:Qty: 1 on 03/15/2024 at [facility] Right: Knee [employer] 06/29/2028 [id number] / / [id number] [employer] Attune Cement Revision Rotate Platform Knee 5 Baseplate Tibial [id number] - [id number] Implanted:Qty: 1 on 03/15/2024 at [facility] Right: Knee [employer] 01/27/2034 [id number] / / [id number] [employer] Attune Revision Full Coated Knee 40 Mm Sleeve Femoral Porocoat Sterile Latex Free 142509292 - [id number] Implanted:Qty: 1 on 03/15/2024 at [facility] Right: Knee [employer] 01/27/2030 [id number] / / [id number] [employer] Attune 16mm 60mm Revision Press Fit Knee Stem Femoral Sterile Latex Free 904701668 - [id number] Implanted:Qty: 1 on 03/15/2024 at [facility] Right: Knee [employer] 10/29/2033 [id number] / / [id number] Bi[employer] Stimulan Rapid Cure Kit Paste Correctional Nurse 10cc 20cc Bone Void 620-010 - [id number] Implanted:Qty: 1 on 03/15/2024 at [facility] Right: Knee [employer] 08/29/2026 620-010 / / [id number] Depuy Orthopa[employer] Inc Smartset Medium Viscosity Cement 40gm Bone Gentamicin 796670033 - [id number] Implanted:Qty: 1 on 03/15/2024 at [facility] Right: Knee [employer] Inc 07/29/2025 [id number] / / [id number] Dep[employer] Revision Cement Constrain Knee Right 6 Component Femoral Attune Sterile [id number] - [id number] Implanted:Qty: 1 on 03/15/2024 at [facility] Right: Knee [employer] Inc 01/27/2034 [id number] / / [id number] [employer] Smartset Medium Viscosity Cement 40gm Bone Gentamicin 992793005 - [id number] Implanted:Qty: 1 on 03/15/2024 at [facility] Right: Knee [employer] Inc 07/29/2025 [id number] / / [id number] Dep[employer] Inc Attune 4mm Revision Cement Knee Posterior 6 Augment Femoral Latex Free [id number] - [id number] Implanted:Qty: 1 on 03/15/2024 at [facility] Right: Knee [employer] Inc 12/27/2033 [id number] / / [id number] Dep[employer] Smartset Medium Viscosity Cement 40gm Bone Sterile 3122-040 - [id number] Implanted:Qty: 1 on 03/15/2024 at [facility] Right: Knee [employer] Inc 05/29/2025 3122-040 / / [id number] Procedures Procedure Name Priority Date/Time Associated Diagnosis [...] 3:44 AM CDT 03/16/2024 3:47 AM CDT us Rajat Duff MD LAB BLOOD ORDERABLES Karrie l Result Performing Organization Address City/State/[facility] Co de Phone Number [facility] [address] [facility]. Department [place] [address] * Hemoglobin A1c (03/08/2024 9:19 AM CDT) [facility] Hgb A1C 5.4 4.0 - 5.6 % Estimated Average Glucose 108 mg/dL [facility] Comment: The ADA recommends reporting an estimated Average Glucose (eAG) with all Hemoglobin A1c results using the equation derived from a study of 507 normal and diabetic adults. ??Minority populations were underrepresented and children were not included. ?? (Diabetes Care 31:9522-9373, 2008). ??The eAG is not equivalent to a fasting glucose. Blood 03/08/2024 9:19 AM CDT 03/08/2024 9:59 AM CDT Arleen Curiel NP LAB BLOOD ORDERABLES Final R esult [facility] [address] [facility]. Department [place] [address] * Diagnostic Mammogram Bilateral W Oscar (02/29/2024 [...] it. Electronically signed by: Maribel Thapa M.D. us Holly Loving MD PhD IMG MAMMO PROCEDURES Final Result * (ABNORMAL) Lipid panel (04/14/2023 8:37 PM CDT) Cholesterol 101 30 - 199 mg/dL [facility] Comment: Interpretive Data Ages < or = [...] on 2018. Triglycerides 73 <=149 mg/dL [facility] Comment: Interpretive Data Ages < or = [...] revised on 2018. HDL 35(L) >=40 mg/dL [facility] Comment: Interpretive Data Ages < or = [...] on 2018. LDL, calculated 51 <=129 mg/dL [facility] Comment: Interpretive Data Ages < or [...] revised on 2018. Non-HDL Cholesterol 66 mg/dL [facility] Comment: Interpretive Data Ages < or = [...] last revised on 2018. Chol/HDL ratio 3 [facility] Blood 04/14/2023 8:37 PM CDT 04/14/2023 10:26 PM CDT Narrative [facility] - 04/15/2023 3:37 AM CDT Reflex us Joanna Martins MD LAB BLOOD ORDERABLES Final Result [facility] Department [place] [address] from Last 3 Months or Most Recently Relevant to Health Maintenance Insurance MEDICARE [employer] MEDICARE [facility] Address: [id number] [place] [phone] FOR [facility] MEDICARE FOR LIFE MEDICARE [facility] Address: [id number] [place] [address] FOR LIFE Advance Directives For more information, please contact: [phone] Documents on File Type Date Recorded Patient Spanish Teacher Expl anation ADVANCE DIRECTIVE 10/20/2019 2:22 PM LUCERO R OF RESEARCH INTERVIEWER-MEDICAL ADVANCE DIRECTIVE 10/16/2019 7:39 AM LUCERO R OF RESEARCH INTERVIEWER-MEDICAL * Full Code (Latest Code Status on File) Date Activated Date Inactivated Comments 03/15/2024 6:34 PM 03/16/2024 3:44 PM * Full Code Date Activated Date Inactivated Comments 11/29/2023 9:31 AM 12/01/2023 7:24 PM * Full Code Date Activated Date Inactivated Comments 04/14/2023 3:10 AM 04/19/2023 6:51 PM Care Teams Tiltrotor Crew Chief Relationship Specialty Start Date End Date Kirby Marroquin MD [address] [place] [address] PCP - General Family Practice 04/15/23 Rajat Reyes MD [address] [place] [address] Referring Physician Plastic Surgery 09/03/19 Aft, Holly Vitale MD PhD [address] [place] [address] Surgeon Surgical Oncology 07/20/23 Virgil Akhtar MD [address] [address] Radiation Oncologist Radiation Oncology 12/25/23
--- OUTSIDE RECORDS SUMMARY | 2024-11-22 05:14 | XMS_ITS | Clinical Summary ---
Author Organization [facility] [address] [facility] Address [address] [place] [address] Care Team Providers Care Heading Up Machine Operator Name Role Phone Sky Saha MD Primary Care Provider [phone] Allergies No known active allergies Medications LOW-DOSE ASPIRIN ORAL Take by mouth. Ac tive calcium-choleca lciferol (OS-CISCO 500+D) 500 mg(1,250mg) -200 unit tablet Take 1 Tablet by mouth daily. Active cetirizine (ZyrTEC) 10 mg tablet Take 10 mg by mouth daily. Active esomeprazole (NexIUM) 20 mg Capsule, Delayed Release(E.C.) Take 20 mg by mouth daily before breakfast. Active fluticasone propionate (FLONASE) 50 mcg/spray [place], Suspension nasal inhaler Administer 2 Sprays in each nostril daily. Active lisinopril-hydr oCHLOROthiazide (ZESTORETIC) 20-25 mg tablet Take 1 Tablet by mouth daily. Active metFORMIN (GLUCOPHAGE) 500 mg tablet Take 500 mg by mouth 2 times daily with meals. Active montelukast (SINGULAIR) 10 mg tablet Take 10 mg by mouth daily at bedtime. Active naproxen (NAPROSYN) 500 mg tablet Take 500 mg by mouth 2 times daily with meals. Active meloxicam (MOBIC) 7.5 mg tablet Take 7.5 mg by mouth daily. Active pravastatin (PRAVACHOL) 20 mg tablet Take 20 mg by mouth daily with supper. Active sertraline (ZOLOFT) 100 mg tablet Take 100 mg by mouth daily. Active traMADoL (ULTRAM) 50 mg tablet Take 100 mg by mouth every 6 hours as needed for Pain. Active hydrOXYzine HCL (ATARAX) 25 mg tablet Take 25 mg by mouth 3 times daily as needed for Itching. Active Active Problems Problem Noted Date Diagnosed Date Bilateral occipital neuralgia 07/14/2020 Cervical spondylosis without myelopathy 07/14/20 Family History Relation Name Status Comments Father Mother Social History Tobacco Use Types Packs/Day Years Used Date Smoking Tobacco: Never Alcohol Use Standard Drinks/Week Comments Yes 0 (1 standard drink = 0.6 oz pur e alcohol) Comments Unknown Sex and Gender Information Value Date Recorded Sex Assigned at Not on file Legal Sex Female 3:31 PM CDT Gender Identity Not on file Sexual Orientation Not on file Last Filed Vital Signs Vital Sign Reading Time Taken Comments Blood Pressure - - Pulse - - Temperature 36.4 ??C (97.6 ??F) 07/14/2020 11:13 AM C DT Respiratory Rate - - Oxygen Saturation - - Inhaled Oxygen Concentration - - Weight 99.8 kg (220 lb) 07/14/2020 11:13 AM CDT Height 170.2 cm (5' 7 ) 07/14/2020 11:13 AM CDT Body Mass Index 34.46 07/14/2020 11:13 AM CDT Plan of Treatment Health Maintenance Due Date Last Done Comments DIABETES ANNUAL FOOT EXAM 1971 DIABETES ANNUAL RETINAL EXAM 1971 DIABETES HBA1C Q 6 MONTHS 1971 DIABETES MICROALBUMIN ANNUAL SCREEN 1971 LDL CHOLESTEROL ANNUAL 1971 BREAST CANCER SCREENING 1993 COLORECTAL SCREENING 1998 Colorectal Cancer Screening 1998 FIT-DNA Q 3 years 1998 FIT/FOBT Q 1 year 1998 Flex Sig/CT Colonography Q 5 years 1998 ZOSTER VACCINE (1 of 2) 2003 OSTEOPOROSIS SCREENING 2018 PNEUMOCOCCAL VACCINE 65+ YEA RS (3 of 3 - PCV20 or PCV21) 09/18/2023 09/18/2018, 12/31/2013 INFLUENZA VACCINE (#1) 2024 09/18/2018 RSV VACCINE (60+ or ) (1 - 1-dose 75+ series) 2028 DTAP/TDAP/TD VACCINES (2 - Td or Tdap) 09/18/2028 Insurance MEDICARE PART A AND B FOR LIFE MEDICARE PART A AND B FOR LIFE Care Teams Heading Up Machine Operator Relationship Specialty Start Date End Date Sky Saha MD [address] [place], [place] [id number] PCP - General Internal Medicine 06/11/20
--- OUTSIDE RECORDS SUMMARY | 2024-11-22 05:14 | XMS_ITS | Encounter Summary ---
Author Organization [facility] Address [address] [place] [address] Care Team Providers Care Inspector Machine Parts Name Role Phone Unavailable Primary Care Provider Unavailabl e Reason for Visit * Diagnostic Imaging (Routine) - Closed Specialty Diagnoses / Procedures Referred By Contac t Referred To Contact Procedures Breast Imaging US Outside Reference Aft, Holly Vitale MD PhD [address] [place] [address] Phone: tel: fax: Referral ID Status Reason Start Date Expiration Date Visits Re quested Visits Authorized [id number] Closed 02/08/2023 03/09/2024 1 1 Encounter Details Date Type Department Care Team (Late st Contact Info) Description 07/18/2019 12:05 AM CDT Hospital Encounter [facility] [address] [place] [id number] Social History Tobacco Use Types Packs/Day Years Used Date Smoking Tobacco: Never Passive Smoke Exposure: Current Smokeless Tobacco: Never Alcohol Use Standard Drinks/Week Comments Yes 0 (1 standard drink = 0.6 oz pur e alcohol) rare [facility] Utilities Answer Date Recorded In the past 12 months has [employer] electric, gas, oil, or water company threatened to shut off services in your [...] often do you attend chur ch or uatsdin services? Never 11/30/2023 Do you belong to any clubs o r organizations such as restorationism groups, unions, fraternal or athletic groups, or [...] place to sleep or slept in a usp (including now)? No 11/30/2023 Personal Safety Answer Date Recorded Have you ever been in or are you currently in a harmful physical or emotional relationship or is someone making you feel afraid or unsafe? Denies 03/15/2024 Comments No Sex and Gender Information Value Date Recorded Sex Assigned at Not on file Legal Sex Female 9:32 AM NOTCH MACHINE OPERATOR Gender Identity Not on file Sexual Orientation Not on file documented as of this encounter Plan of Treatment Not on file documented as of this encounter Procedures Procedure Name Priority Date/Time Associated Diagnosis Comments BREAST IMAGING US OUTSIDE REFERENCE Routine 07/18/2019 12:05 AM CDT documented in this encounter Results * Breast Imaging US Outside Reference (07/18/2019 12:05 AM CDT) Impressions [facility] - 02/08/2023 3:52 PM CDT These images are for Reference purposes only and have not been reviewed by [facility] Radiology. ??There will be no report generated by a [facility] Radiologist. Narrative [facility] - 02/08/2023 3:52 PM CDT EXAMINATION: ??Images For Reference Purposes Only us Holly Loving MD PhD IMG MAMMO PROCEDURES Final Result [facility] documented in this encounter Visit Diagnoses Not on filedocumented in this encounter Additional Health Concerns Infection Onset Date Last Indicated Resolved Time MRSA 11/29/2023 11/29/2023 05/27/2024 3:05 AM CDT documented as of this encounter
--- OUTSIDE RECORDS SUMMARY | 2024-11-22 05:14 | XMS_ITS ---
Author Organization [facility] Address [address] [place] [id number] Care Team Providers Care Organ Pipe Voicer Name Role Phone Rajat Reyes MD Unavailable [phone] Kirby Marroquin MD Primary Care Provider Aft, Holly Vitale MD PhD Unavailable [phone] Virgil Akhtar MD Unavailable [phone] Active Problems Problem Noted Date Diagnosed Date History of arthroplasty of right knee 03/15/2024 Diastolic dysfunction 03/14/2024 History of partial mastectomy of right breast Failed total knee arthroplasty ([facility]) 024 Knee pain, right 11/29/2023 Infection 11/17/2023 Personal history of radiation therapy 09/27/2023 Infection of prosthetic right knee joint ([facility]) 05/29/2023 Assessment & Plan (01/11/2024 1:46 [...] concerns Assessment & Plan (12/28/2023 2:15 PM HEAD WOOD GRINDER): - Patient reports doing well since surgery with no acute complaints today. Pain is improving, no fevers, chills, or night sweats. OR cultures from [facility] reviewed and are now showing MRSA, which is strange given all previous cultures have showed MSSA and she is doing well on cefazolin. Previous MSSA isolate on aspiration just prior to surgery was oxacillin resistant but not cephalosporin resistant. Will plan to switch to daptomycin for MRSA coverage for 6 weeks. - Message sent to [facility] pharmacy to check insurance coverage for daptomycin - Will check with her PCP if she can hold her statin while on IV daptomycin - Continue weekly CBC and CMP. Add on CK with next set of labs to be drawn weekly while on daptomycin. Assessment & Plan (11/23/2023 1:37 PM HEAD WOOD GRINDER): - Remains on cefadroxil and unfortunately seems to be having worsening pain and swelling. Aspiration +MSSA so she will now undergo 2-stage exchange with Dr. Duff - Recommend continuing cefadroxil until time of surgery - Please obtain deep cultures during surgery - Consult ID during admission to [facility] so we can review cultures and arrange [...] this risk. Will forward note to her portfolio strategist. - Will call PCP office to obtain [...] without any issues Will start on doxycyline correction suppression due to retained hardware and will [...] weeks after starting antibiotics. Fax results to [phone]. - PICC placed 04/17; will d/c with home infusion. Referral sent 04/18 - PT/OT rec IPR initially; now rec home with . PT/OT orders sent. Malignant neoplasm of right female breast 2022 Cancer Staging:Pathologic stage from 08/02/2023:Stage IA(pT1c, pN0(sn), cM0, G2, ER+, NM+, HER2-) - Signed by Virgil Akhtar MD on 08/02/2023 Assessment & Plan (04/14/2023 1:50 AM CDT): Planned surgery and radiation -Treatment has been deferred given infection -F/u with her breast surgeon outpatient Carpal tunnel syndrome of right wrist 10/07/2019 Overview (10/07/2019): Added automatically from request for surgery [id number] Osteoarthritis of hand 01/25/2012 Cervicalgia 05/31/2011 Arthralgia of shoulder 05/31/2011 Current Oncology Plans No current plan information found. Past Plans No past plan information found. Radiation Treatments * Plan Last Treated On Elapsed Days Fractions Treated Prescribed Fraction Dose Prescribed Total Dose R BREAST 08/21/2023 6 5 520 cGy 2,600 cGy Reference Point Last Treated On Elapsed Days Session Dose Total Dose THACKER DPV 08/21/2023 6 520 cGy 2,600 cGy Lifetime Dose Tracking * Chemical Lifetime Dose Automatic Entry Manual Entr y Fluoro Time 0.1 minutes 0.1 minutes 0 minutes
--- OUTSIDE RECORDS SUMMARY | 2024-11-22 05:14 | XMS_ITS | Encounter Summary ---
Author Organization [facility] Healthcare Address [address] [place] [address] Care Team Providers Care Residential Tech Name Role Phone Lissa Anton MD Primary Care Provider Rajat Reyes MD Unavailable [phone] Reason for Visit * Diagnostic Imaging (Routine) - Closed Specialty Diagnoses / Procedures Referred By Komal malin Referred To Contact Procedures Breast Imaging Screening Outside Reference Aft, Holly Vitale MD PhD [address] [place] [address] Phone: tel: fax: Referral ID Status Reason Start Date Expiration Date Visits Re quested Visits Authorized [id number] Closed 02/08/2023 03/09/2024 1 1 Encounter Details Date Type Department Care Team (Late st Contact Info) Description 12/29/2020 Hospital Encounter [facility] [address] [place] [address] [phone] Social History Tobacco Use Types Packs/Day Years Used Date Smoking Tobacco: Never Passive Smoke Exposure: Current Smokeless Tobacco: Never Alcohol Use Standard Drinks/Week Comments Yes 0 (1 standard drink = 0.6 oz pur e alcohol) rare [facility] Utilities Answer Date Recorded In the past 12 months has e electric, gas, oil, or water company threatened [...] often do you attend chur ch or sikh services? Never 11/30/2023 Do you belong to any clubs o r organizations such as oriental orthodox groups, unions, fraternal or athletic groups, or [...] place to sleep or slept in a senior living (including now)? No 11/30/2023 Personal Safety Answer Date Recorded Have you ever been in or are you currently in a harmful physical or emotional relationship or is someone making you feel afraid or unsafe? 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 Radiology. ??There will be no report generated by a [facility] Radiologist. Narrative [facility] - 02/08/2023 3:49 PM CDT EXAMINATION: ??Images For Reference Purposes Only us Holly Loving MD PhD IMG MAMMO PROCEDURES Final Result [facility] documented in this encounter Visit Diagnoses Not on filedocumented in this encounter Additional Health Concerns Infection Onset Date Last Indicated Resolved Time MRSA 11/29/2023 11/29/2023 05/27/2024 3:05 AM CDT documented as of this encounter Care Teams Residential Tech Relationship Specialty Start Date End Date Lissa Anton MD PCP - General Family Medicine 09/03/19 04/14/23 Rajat Reyes MD [address] [place] [address] Referring Physician Plastic Surgery 09/03/19 documented as of this encounter
--- OUTSIDE RECORDS SUMMARY | 2024-11-22 05:14 | XMS_ITS | Encounter Summary ---
Author Organization [facility] Healthcare Address [address] [place] [address] Care Team Providers Care Children'S Entertainer Name Role Phone Unavailable Primary Care Provider Unavailabl e Reason for Visit * Diagnostic Imaging (Routine) - Closed Specialty Diagnoses / Procedures Referred By Contac t Referred To Contact Procedures Breast Imaging Diagnostic Outside Reference Aft, Holly Vitale MD PhD [address] [place] [id number] Phone: tel: fax: Referral ID Status Reason Start Date Expiration Date Visits Re quested Visits Authorized [id number] Closed 02/08/2023 03/09/2024 1 1 Encounter Details Date Type Department Care Team (Late st Contact Info) Description 07/18/2019 Hospital Encounter [facility] [address] [place] [address] [phone] Social History Tobacco Use Types Packs/Day Years Used Date Smoking Tobacco: Never Passive Smoke Exposure: Current Smokeless Tobacco: Never Alcohol Use Standard Drinks/Week Comments Yes 0 (1 standard drink = 0.6 oz pur e alcohol) rare [facility] Utilities Answer Date Recorded In the past 12 months has [employer] electric, gas, oil, or water company threatened [...] often do you attend chur ch or gnosticist services? Never 11/30/2023 Do you belong to any clubs o r organizations such as evangelical groups, unions, fraternal or athletic groups, or [...] place to sleep or slept in a retirement (including now)? No 11/30/2023 Personal Safety Answer Date Recorded Have you ever been in or are you currently in a harmful physical or emotional relationship or is someone making you feel afraid or unsafe? 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 ??There will be no report generated by a [facility] Radiologist. Narrative [facility] - 02/08/2023 3:50 PM CDT EXAMINATION: ??Images For Reference Purposes Only us Holly Loving MD PhD IMG MAMMO PROCEDURES Final Result [facility] documented in this encounter Visit Diagnoses Not on filedocumented in this encounter Additional Health Concerns Infection Onset Date Last Indicated Resolved Time MRSA 11/29/2023 11/29/2023 05/27/2024 3:05 AM CDT documented as of this encounter
== END 2024-11-21 13:29 | disposition home or self-care (01) ==
LOC: ANHLAB 13:30
PROVIDERS: PCP Family Medicine; Visit Provider Family Medicine
DX: U07.1 COVID-19 (principal)
CPT/HCPCS: 87637; 87651

== ENCOUNTER 2025-04-21 10:06 | Emergency (ER) | payer MEDICARE, OTHER, SELFPAY ==
--- NOTE | ~2025-04-21 | XR_ITS ---
XR foot RT min 3V Ordering provider: Samantha Heaton APRN History: . fall, pain across toes . Comparison: None. FINDINGS: BONES: Fracture at the base of the proximal phalanx of the medial toe. JOINT SPACES: Soft tissue swelling on the dorsum and plantar aspects of the foot. No tarsal coalition . SOFT TISSUES: Normal. Calcaneal spur. IMPRESSION: Fracture at the base of the proximal phalanx of the middle toe extending to the joint space. Reviewed, dictated and finalized at location A.
[2025-04-21 10:15] VITALS: BP 147/86; PULSE 97; RESP 16; TEMP 36.3; O2SAT 96
--- NOTE | 2025-04-21 10:30 | ED_ITS ---
HPI - Fall General Chief Complaint: Fall Stated Complaint: fall Time Seen by Provider: 04/21/25 10:10 Source: patient Mode of arrival: ambulatory Limitations: no limitations History of Present Illness HPI Narrative: Patient is a 70-year-old female who presents with multiple complaints after fall 3 days ago and a fall the previous Monday. Patient states the 1st fall ended with pain in knees and feet after landing on stairs. Reports 2nd fall she her her face and has 2 black eyes, bruise nose, bruised right toes and bruised right hand. Patient states she has no pain in hand. Also having full body aches from falls. Patient has been taking tramadol and Flexeril. Denies any headache, did not lose consciousness with fall, and denies any vision changes or vomiting. Related Data Home Medications ?Medication ?Instructions ?Recorded ?Confirmed ?Last Taken ?Type acetaminophen 500 mg tablet 1,000 mg PO Q6H PRN Pain 09/20/21 06/20/24 02/14/22 History (Tylenol Extra Strength) magnesium oxide 420 mg tablet 420 mg PO DAILY 11/24/21 06/20/24 02/08/22 History cyclobenzaprine 5 mg tablet 5 mg PO TID PRN 10/11/24 Unknown History doxycycline hyclate 100 mg capsule 100 mg PO DAILY 10/11/24 Unknown History Allergies Allergy/AdvReac Type Severity Reaction Status Date / Time hydrocodone Allergy Mild ITCHING Verified 10/11/24 08:20 Review of Systems Review of Systems: All systems reviewed & are unremarkable except as noted in HPI and below Constitutional: Constitutional: Denies body ache(s), Denies chills, Denies fatigue, Denies fever(s), Denies headache(s), Denies malaise and Denies weakness Eyes: Eyes: Denies blurry vision, Denies irritation and Denies loss of vision ENT: Denies otalgia, Denies headache(s), Denies nasal discharge, Denies sinus pain and Denies sore throat Cardiovascular: Cardiovascular: Denies chest pain, Denies irregular heart rhythm and Denies dyspnea Respiratory: Respiratory: Denies dyspnea Gastrointestinal: Gastrointestinal: Denies abdominal pain, Denies melena, Denies hematochezia, Denies diarrhea, Denies nausea and Denies vomiting Musculoskeletal: Musculoskeletal: Reports back pain, Reports myalgias and Reports arthralgias Integumentary/Breasts: Skin/Breast: Denies pruritus and Denies rash Neurologic: Denies headache(s), Denies loss of vision and Denies weakness Psychiatric: Psychiatric: Reports no additional psychiatric complaints Endocrine: Endocrine: Denies fatigue PMFSH Past Medical History Medical History Fall Right knee pain Cancer of right breast Acute hyponatremia (~02/2023) Osteopenia Environmental allergies GERD without esophagitis Anxiety Skin cancer Hearing loss Rheumatoid arthritis Seronegative arthritis Follows with Dr Ochoa . Insomnia Depression Essential (primary) hypertension Hyperlipidemia, unspecified Polyosteoarthritis, unspecified Sleep apnea in adult Type 2 diabetes mellitus without complications Surgical History Surgical History History of total right knee replacement History of lumpectomy of right breast [facility] 05/2023 History of total right hip arthroplasty (01/2022) History of bilateral knee replacement History of sinus surgery History of bilateral cataract extraction History of repair of left rotator cuff History of cholecystectomy History of carpal tunnel release (2019) Family History Family History Mother Hypertension Family history of type 2 diabetes mellitus Diabetes mellitus Father Family history of lung cancer Family history of primary malignant neoplasm of liver Other Arthritis Depression Family history of alcoholism Family history of hearing loss Family history of malignant neoplasm Neuropathy Social History Social History Social History: Surrogate medical decision maker: Courtney Hicks, daughter in-law. Code status: Full code. Smoking status: Never smoker Alcohol intake: current Alcohol use details: Social alcohol use in moderation. Substance use: never Substance use type: does not use Lack of Transportation: No Lack of Food: Never True Current Housing: I Have Housing Concerned About Future Housing: No Difficulty Paying Gas/Electric Bills: No Difficulty Paying for Meds: No Currently Unemployed: No Education: High School Diploma/GED Difficulty w/ Childcare or Family Care: No Living arrangements: with family Additional living arrangements comments: . lives with son, [id number], and 2 granddaughters. Occupation/Education: retired Spiritual care concerns: No Comments At time of signature, agree with nursing past medical, surgical, social and family history. There is no relevant family history pertinent to the presenting complaint. Exam Const: General: cooperative, healthy appearing, comfortable, no acute distress and well nourished Nutritional Appearance: well nourished Orientation/consciousness: patient oriented x3 Limitations: no limitations HENMT: Head: normal to inspection and normocephalic Ears: hearing grossly normal bilaterally and external ears normal Face/Nose/Sinus: Normal external nose present, normal facial exam, face symmetric, abrasion (bridge of nose), ecchymosis and No Facial tenderness on exam of face and sinuses Face and sinus: normal facial exam, face symmetric, ecchymosis bilaterally (upper cheeks, nasal bone), no maxillary instability and no tenderness Mouth: Yes lip normal Eyes: General: appearance normal, both eyes and all related structures Alignment and Position: alignment normal and position normal Periorbital: periorbital findings normal Eyelids: eyelids normal Pupils: Equal, round and reactive pupils present EOM: EOMs intact bilaterally Neck: Neck: normal visual inspection, full ROM and supple Chest: Chest palpation & inspection: normal inspection of the chest Resp: Effort & Inspection: normal respiratory effort and able to speak in complete sentences Auscultation: clear to auscultation bilaterally Cardio: Rate: regular rate Rhythm: regular rhythm Heart sounds: S1 normal heart sound present and S2 normal heart sound present GI: Inspection: normal to inspection Back/Spine/Pelvis: Cervical Spine: normal cervical lordosis, cervical ROM normal, No cervical muscular tenderness and No Cervical spine tenderness Thoracic/Lumbar Spine: thoracic and lumbar spine normal to inspection, thoraco- lumbar ROM normal, paraspinal muscle tenderness bilaterally in the mid lumbar and in the lower lumbar, No thoracic spinal tenderness and No lumbar spinal tenderness Skin: General skin exam: normal color and no rashes or lesions noted Neuro: General: patient oriented x3 and moves all extremities Cranial ne rves: Yes Equal, round and reactive pupils present Speech: normal speech Gait exam (Neuro): Normal gait present Extrem: General: normal to inspection, full ROM and no edema Left upper extremity: wrist normal to inspection, normal ROM and radial pulse present; no tenderness and no ecchymosis and hand normal to inspection, normal capillary refill, neuromotor exam normal, neurosensory exam normal, tendon exam normal, normal ROM of fingers, no swelling and ecchymosis of the dorsal hand over the radial aspect; no tenderness Right lower extremity: normal capillary refill, knee Details: normal to inspection, normal ROM and knee ligament exam normal; no tenderness and no swelling, lower leg Details: normal to inspection, ankle Details: normal to inspection and normal ROM; no tenderness, no swelling, no ecchymosis and achilles tendon exam normal and foot Details: normal capillary refill, tenderness Location: of another digit Location: the 3rd digit and the 4th digit, toes with normal ROM, ecchymosis dorsal 3rd toe Details: single, vascular exam Details: dorsalis pedis pulse present and normal capillary refill and tendon exam Details: active flexion normal and active extension normal; no abrasion Left lower extremity: knee Details: normal to inspection, normal ROM and knee ligament exam normal; no tenderness and no swelling Psych: Appearance: grossly normal and well kempt Mental Status: mental status grossly normal Speech and movement: Normal speech and movement present Affect: normal affect Attitude: cooperative Thought process: Normal thought process present Course Course Emergency Course: Patient is aware of diagnosis, understands and agrees to treatment plan. Anticipatory guidance given. Patient agrees to follow-up as directed and is aware of reasons to seek care at the emergency department. Portions of this record may have been created with voice recognition software Level of Care: Express Care Visit Vital Signs Vital signs: Vital Signs Temperature 36.3 C L 04/21/25 10:15 Pulse Rate 97 04/21/25 10:15 Respiratory Rate 16 04/21/25 10:15 Blood Pressure 147/86 H 04/21/25 10:15 Pulse Oximetry 96 04/21/25 10:15 Temperature 36.3 C L 04/21/25 10:15 Pulse Rate 97 04/21/25 10:15 Respiratory Rate 16 04/21/25 10:15 Blood Pressure 147/86 H 04/21/25 10:15 Pulse Oximetry 96 04/21/25 10:15 Reviewed MDM - Fall MDM Narrative Medical decision making narrative: X-ray report shows fracture of right 3rd toe. Mauri tape and postop shoe applied. Follow-up given for Podiatry. Discussed continuing muscle relaxers and tramadol as needed for pain and spasms and back. Offered nasal bone x-ray, patient declined since nasal bone appears straight and intact. Pt well hydrated appearing, in no respiratory distress, hemodynamically stable. Recommend supportive care. The patient is stable at time of discharge the clinical impression was discussed and the patient was given the opportunity to ask questions, which were addressed as completely as possible given the information available at present. Anticipatory guidance and return to care precautions were discussed and the importance of primary care follow-up was stressed and encouraged. The patient voiced understanding of the plan, indicat ions to return, and the need for follow-up. Exam findings show no acute concerns or changes Patient is appropriate for outpatient treatment and follow-up. Differential Diagnosis Differential diagnosis: Likely concussion without loss of consciousness and other (Fall, muscle strain, toe fracture, toe sprain, contusion) Medical Records Attestation: I reviewed the patient's medical records. Imaging Data Radiologist's impression: XR foot RT min 3V Ordering provider: Samantha Heaton APRN History: . fall, pain across toes . Comparison: None. FINDINGS: BONES: Fracture at the base of the proximal phalanx of the medial toe. JOINT SPACES: Soft tissue swelling on the dorsum and plantar aspects of the foot. No tarsal coalition. SOFT TISSUES: Normal. Calcaneal spur. IMPRESSION: Fracture at the base of the proximal phalanx of the middle toe extending to the joint space. Discharge Plan Discharge Clinical Impression: Fracture of toe of right foot, Fall, Back pain Patient Disposition: Home Condition: Stable Instructions: Toe Fracture (ED) Additional Instructions: Please rest, ice and elevate the affected extremity. Please take Motrin 600mg every 8 hours, as needed, for pain (take with food). Follow up with Orthopedic Surgery in 1-2 days for further evaluation - please call for an appointment. Keep splint/cast clean, dry and on. Please use garbage bag while showering to keep splint/cast dry. Use sling/crutches. Please go to ER immediately for increased pain, tingling/numbness, swelling, redness, and fever You reported you fell.After any fall we expect you to be very sore over the next several days to 1 week. This is because your body was moved in different directions. Also sometimes people tense up during a fall. Either way, the muscles were strained after a fall and can be expected to be sore. This soreness is usually worse on the 2nd, 3rd and 4th days following a fall. Take the Tylenol as directed to help with pain and to decrease inflammation.Using Topicals such as biofreeze, bengay or aspercream will also help. Take the Baclofen as directed for muscle spasms. Do not drink, drive, operate machinery or do anything dangerous while taking this medication. It can make you sleepy.Drink plenty of fluids and get plenty of rest to help your body heal.Follow up with PCP in 7-10 days.Return to ER for problems. Your blood pressure was elevated above 120/80 today at Urgent Care. This puts you above the threshold for follow up visit with a primary care provider. High blood pressure does not usually cause any symptoms, however it may lead to kidney failure, stroke, heart disease just to name a few if untreated . Many people are anxious when seeing a provider or nurse. As a result, you are not diagnosed with hypertension at this time unless your blood pressure is persistently high at two office visits at least one week apart. Some things that can help lower blood pressure are lifestyle modifications, such as light exercise, decreased salt in diet, and weight loss. It is important to follow up with a PCP about this within 1 week. Patient Language: Guyanese Prescriptions: New cyclobenzaprine 5 mg tablet 5 mg PO TID PRN (Reason: muscle spasm) Qty: 15 0RF No Action acetaminophen [Tylenol Extra Strength] 500 mg tablet 1,000 mg PO Q6H PRN (Reason: Pain) magnesium oxide 420 mg tablet 420 mg PO DAILY cyclobenzaprine 5 mg tablet 5 mg PO TID PRN doxycycline hyclate 100 mg capsule 100 mg PO DAILY celecoxib [Celebrex] 200 mg capsule 200 mg PO BID Qty: 180 1RF prednisone 20 mg tablet 20 mg PO DAILY Qty: 5 0RF lisinopril 20 mg tablet 20 mg PO DAILY Qty: 90 2RF cholecalciferol (vitamin D3) 25 mcg (1,000 unit) capsule 1,000 unit PO DAILY Qty: 90 1RF (DME) blood-glucose meter [Blood Glucose Monitoring] Kit See Rx Instructions .Route Qty: 1 0RF Rx Instructions: Use to check blood sugar BID (DME) Blood Glucose Test Strip See Rx Instructions .Route Qty: 50 3RF Rx Instructions: Use to check blood sugar BID (DME) lancets Misc See Rx Instructions .Route Qty: 200 0RF Rx Instructions: Use to check blood sugar BID clonazepam 0.5 mg tablet 0.5 mg PO QHS PRN (Reason: sleep) Qty: 90 1RF tramadol 50 mg tablet 50 mg PO BID PRN (Reason: pain) Qty: 60 0RF pravastatin 20 mg tablet 20 mg PO QHS Qty: 90 1RF fluticasone propionate [Flonase Allergy Relief] 50 mcg/actuation spray,suspension 1 spray INTRANASAL DAILY PRN (Reason: allergy symptoms) Qty: 3 1RF sertraline 100 mg tablet 100 mg PO DAILY Qty: 90 1RF Rx Instructions: take with sertraline 50 mg daily cetirizine [Zyrtec] 10 mg tablet 10 mg PO DAILY Qty: 90 2RF Follow-up/Referrals: Javier Marroquin MD [Primary Care Provider] - 3 Days Darvin Mason DPM [Physician] - 3 Days Time of Disposition: 11:35
== END 2025-04-21 11:41 | disposition home or self-care (01) ==
PROVIDERS: Emergency Provider Nurse Practitioner Family; PCP Family Medicine
DX: S92.511A Displaced fracture of proximal phalanx of right lesser toe(s), initial encounter for closed fracture (principal); W19.XXXA Unspecified fall, initial encounter; M54.50 Low back pain, unspecified; I10 Essential (primary) hypertension; E78.5 Hyperlipidemia, unspecified; E11.9 Type 2 diabetes mellitus without complications; M06.9 Rheumatoid arthritis, unspecified; K21.9 Gastro-esophageal reflux disease without esophagitis; M85.80 Other specified disorders of bone density and structure, unspecified site; Z85.828 Personal history of other malignant neoplasm of skin; F41.9 Anxiety disorder, unspecified; F32.A Depression, unspecified; Z96.653 Presence of artificial knee joint, bilateral; Z85.3 Personal history of malignant neoplasm of breast; Z90.11 Acquired absence of right breast and nipple; Z96.641 Presence of right artificial hip joint; Z98.42 Cataract extraction status, left eye; Z98.41 Cataract extraction status, right eye
CPT/HCPCS: 73630; 99214; G0463

== ENCOUNTER 2025-04-28 11:03 | Outpatient (CLI) | payer MEDICARE, OTHER, SELFPAY ==
--- OUTSIDE RECORDS SUMMARY | 2025-04-28 11:41 | XMS_ITS | Clinical Summary ---
Author Organization [facility] Address [address] [place] [id number] Care Team Providers Care Family Services Assistant Name Role Phone None, Provider MD Primary [...] (3 - 2023- season) 2024 08/19/2021, 07/22/2021 RSV Immunization or 60+ Years (1 - 1-dose 75+ series) 2028 DTaP, Tdap and Td Vaccines (3 - Td or Tdap) 09/18/2028 09/18/2018, 08/30/2018 Pneumococcal Vaccine: 50+ Years Completed 10/19/2020, 09/18/2018, 08/30/2018, Additional history exists Meningococcal B Vaccine Aged Out No l onger eligible based on patient's age to complete this topic Meningococcal Vaccine Aged Out No estrada juno eligible based on patient's age to complete this topic RSV Immunizations Under 20 Months Aged Out No longer eligible based on patient's age to complete this topic Insurance MEDICARE [facility] Care Teams Family Services Assistant Relationship Specialty Start Date End Date None, Provider, PCP - General UNKNOWN PHYSICIAN SPECIALTY 10/09/23
--- OUTSIDE RECORDS SUMMARY | 2025-04-28 11:41 | XMS_ITS | Encounter Summary ---
Author Organization [facility] Address [address] [place] [address] Care Team Providers Care Special Order Jeweler Name Role Phone Kostas Ralph MD Primary Care Provider [phone] Kirby Marroquin MD Primary Care Provider Encounter Details Date Type Department Care Team (Late st Contact Info) Description 12/01/2022 Lab Requisition [facility] [address] [place] [id number] Conner Hernandez MD [address] [place] [address] Social History Tobacco Use Types Packs/Day Years Used Date Smoking Tobacco: Never Alcohol Use Standard Drinks/Week Comments Yes 0.8 (1 standard drink = 0.6 oz p ure alcohol) Comments Unknown Sex and Gender Information Value Date Recorded Sex Assigned at Not on file Legal 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 Female 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 Gender Identity Not on file Sexual Orientation Not on file documented as of this encounter Plan of Treatment Not on file documented as of this encounter Procedures Procedure Name Priority Date/Time Associated Diagnosis Comments DERMATOPATHOLOGY Routine 11/30/2022 12:0 0 AM THEATRE ARTS PROFESSOR documented in this encounter Results * DERMATOPATHOLOGY (11/30/2022 12:00 AM THEATRE ARTS PROFESSOR) Case Report Dermatopathology Report Case: [id number] Authorizing Provider: Conner Hernandez MD Collected: 11/30/2022 12:00 AM Ordering Location: [facility] Received: 12/01/2022 04:41 PM Pathologist: Connie Hinojosa MD Specimen: Skin, left mid back 3 1:22 PM [facility] Final Diagnosis Specimen A. SKIN, left mid back: BASAL CELL CARCINOMA, SUPERFICIAL MULTIFOCAL (C44.519) 3 1:22 PM [facility] DERMATOPATHOLOGY [facility]ORATORY at [address] THEATRE ARTS PROFESSOR Clinical History AK vs SK vs BCC Path#[id number] 3 1:22 PM [facility] Gross Description Specimen A: Received is one formalin filled container labeled with the patient's name and designated left mid back. The specimen consists of a shave biopsy measuring 8x5x1 mm. Jar 0. 1:22 PM [facility] Microscopic Description Specimen A. SKIN, left mid back: Attached to the undersurface of the epidermis, there are small aggregates of basaloid cells with a high nuclear to cytoplasmic ratio and peripheral palisading. 3 1:22 PM [facility]ER[facility] Disclaimer An external and internal positive and negative controls are appropriate for the histochemical, immunohistochemical and immunofluorescence stain(s) in this case (if any), except where stated explicitly. The performance characteristics of the stain(s) cited in this report were developed and its performance characteristic determined by the Dermatopathology Laboratory at [facility], directed by Dr. Farhan Alaniz. These tests need not be, and therefore are not, approved by the [place] Food and Drug Administration. The tests are used for clinical purposes. Billing Codes Specimen Charges Stain Charges 86015 1 3 1:22 PM [facility] Embedded Images 3 1:22 PM [facility] Pathology/Cytolog y TISSUE SPECIMEN FROM SKIN / Unknown 11/30/2022 12/01/2022 4:41 PM THEATRE ARTS PROFESSOR us Conner Hernandez MD LAB - PATHOLOGY/CYTOLOGY ORDER GAMAL Final Result DERMATOPATHOLOGY LABORATORY [facility] - Department of Dermatology [address] [place], [place] [id number] [place] [address] documented in this encounter Visit Diagnoses Not on filedocumented in this encounter Care Teams Special Order Jeweler Relationship Specialty Start Date End Date Kostas Ralph MD [address] [place] [id number] PCP - General 01/20/11 02/19/23 Kirby Marroquin MD [address] [place] [address] PCP - General 02/20/23 documented as of this encounter
--- OUTSIDE RECORDS SUMMARY | 2025-04-28 11:41 | XMS_ITS | Clinical Summary ---
Author Organization [facility] Address [address] [place] [address] Care Team Providers Care Mattress And Boxsprings Supervisor Name Role Phone Kirby Marroquin MD Primary Care Provider Source Comments [facility] Affiliates and Associated Physician Practices is amultiple site organization consisting of ambulatory clinics and hospital sitesin [place], [place], [place] and [place]. This disclosure is being madepursuant to the Care Everywhere program and may not contain all information available regarding this patient. 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 Gender Identity Not on file Sexual Orientation [...] LIPID TESTING 1955 MAMMOGRAM 1955 MEDICARE AWV 12 MONTHS 1953 HEPATITIS C SCREENING 03/28/1971 DTAP/TDAP/TD VACCINES (1 - Tdap) 1972 PNEUMOCOCCAL VACCINE 50+ (1 of 1 - PCV) 2003 ZOSTER VACCINE (1 of 2) 2003 COVID-19 VACCINE (1 - 2023-2 5 season) 2024 DEPRESSION SCREENING 10/30/2024 INFLUENZA VACCINE (Season Ended) 2025 Respiratory Syncytial Virus (RSV) Vaccine Pt: or [...] to complete this topic MENINGOCOCCAL (Group B) VACC INE SHARED DECISION-MAKING Aged Out No longer eligibl e based on patient's age to complete this topic MENINGOCOCCAL GROUPS A/C/Y/W VACCINE Aged Out No longer eligible b ased on patient's age to complete this topic Insurance MEDICARE [facility] Care Teams Mattress And Boxsprings Supervisor Relationship Specialty Start Date End Date Kirby Marroquin MD [address] [place] [address] PCP - General 02/20/23
--- OUTSIDE RECORDS SUMMARY | 2025-04-28 11:41 | XMS_ITS | Clinical Summary ---
Author Organization [facility] [id number] [facility] Address [address] [place] [address] Care Team Providers Care Job Forwarder Name Role Phone Sky Saha MD Primary Care Provider [phone] Allergies No known active allergies Medications LOW-DOSE ASPIRIN ORAL Take by mouth. Ac tive calcium-choleca lciferol (OS-CISCO 500+D) 500 mg(1,250mg) -200 unit tablet Take 1 Tablet by mouth daily. Active cetirizine (ZyrTEC) 10 mg tablet Take 10 mg by mouth daily. Active esomeprazole (NexIUM) 20 mg Capsule, Delayed Release(E.C.) Take 20 mg by mouth daily before breakfast. Active fluticasone propionate (FLONASE) 50 mcg/spray [place], Suspension nasal inhaler Administer 2 Sprays in [...] - - Pulse - - Temperature 36.4 C (97.6 F) 07/14/2020 11:13 AM CDT Respiratory Rate - - Oxygen Saturation - - Inhaled Oxygen Concentration - - Weight 99.8 kg (220 lb) 07/14/2020 11:13 AM CDT Height 170.2 cm (5' 7) 07/14/2020 11:13 AM CDT Body Mass Index [...] 2) 2003 OSTEOPOROSIS SCREENING 2018 PNEUMOCOCCAL VACCINE 50+ YEA RS (3 of 3 - PCV20 or PCV21) 09/18/2023 09/18/2018, 12/31/2013 INFLUENZA VACCINE (#1) 2024 09/18/2018 RSV VACCINE (60+ or ) (1 - 1-dose 75+ series) 2028 DTAP/TDAP/TD VACCINES (2 - Td or Tdap) 09/18/2028 Insurance MEDICARE PART A AND B FOR LIFE MEDICARE PART A AND B FOR LIFE Care Teams Job Forwarder Relationship Specialty Start Date End Date Sky Saha MD [address] [place] [id number] PCP - General Internal Medicine 06/11/20
--- OUTSIDE RECORDS SUMMARY | 2025-04-28 11:41 | XMS_ITS | Encounter Summary ---
Author Organization [facility] Address [address] [facility] [place] [address] Care Team Providers Care Grain Elevator Clerk Name Role Phone Kostas Ralph MD Primary Care Provider [phone] Kirby Marroquin MD Primary Care Provider Encounter Details Date Type Department Care Team (Late st Contact Info) Description 02/08/2021 Lab Requisition [facility] Care DermPath Lab [address] [facility], [place] [id number] Conner Hernandez MD [address] [facility] [place] [address] Social History Tobacco Use Types Packs/Day Years Used Date Smoking Tobacco: Never Alcohol Use Standard Drinks/Week Comments Yes 0.8 (1 standard drink = 0.6 oz p ure alcohol) Comments Unknown Sex and Gender Information Value Date Recorded Sex Assigned at Not on file Legal Sex Female 6:27 PM LINK TRAINER Gender Identity Not on file Sexual Orientation Not on file documented as of this encounter Plan of Treatment Not on file documented as of this encounter Procedures Procedure Name Priority Date/Time Associated Diagnosis Comments DERMATOPATHOLOGY Routine 02/04/2021 12:0 0 AM CDT documented in this encounter Results * DERMATOPATHOLOGY (02/04/2021 12:00 AM CDT) Case Report Dermatopathology Report Case: [id number] Authorizing Provider: Conner Hernandez MD Collected: 02/04/2021 12:00 AM Ordering Location: [facility] DermPath Lab Received: 02/08/2021 08:12 AM Pathologist: Meliton Alaniz MD Specimen: Skin, mid chest 1:42 PM CDT DERMATOPATHOLOGY LABORATORY Final Diagnosis Specimen A. SKIN, mid chest: LICHEN PLANUS-LIKE KERATOSIS (BENIGN LICHENOID KERATOSIS) (L82.1) POST-INFLAMMATORY PIGMENT ALTERATION (L81.9) 1:42 PM CDT DERMATOPATHOLOGY LABORATORY at 1342 CDT Clinical History SK vs MM.Path#[id number] 1:42 PM CDT DERMATOPATHOLOGY LABORATORY Gross Description Specimen A: Received is one formalin filled container labeled with the patient's name and designated mid chest. The specimen consists of a shave biopsy measuring 5x5x1 mm. Jar 0. 1:42 PM CDT DERMATOPATHOLOGY LABORATORY Microscopic Description Specimen A. SKIN, mid chest: The epidermis is mildly acanthotic. There is a lichenoid infiltrate with vacuolar changes of basilar keratinocytes and scattered necrotic keratinocytes. Sections show abundant melanin within melanophages around the superficial vascular plexus. 1:42 PM CDT DERMATOPATHOLOGY LABORATORY Disclaimer An external and internal positive and negative controls are appropriate for the histochemical, immunohistochemical and immunofluorescence stain(s) in this case (if any), except where stated explicitly. The performance characteristics of the stain(s) cited in this report were developed and its performance characteristic determined by the Dermatopathology Laboratory at [facility], directed by Dr. Farhan Alaniz. These tests need not be, and therefore are not, approved by the [place] Food and Drug Administration. The tests are used for clinical purposes. Billing Codes Specimen Charges Stain Charges 66841 1 1:42 PM CDT DERMATOPATHOLOGY LABORATORY Embedded Images 1:42 PM CDT DERMATOPATHOLOGY LABORATORY Pathology/Cytolog y TISSUE SPECIMEN FROM SKIN / Unknown 02/04/2021 02/08/2021 8:12 AM CDT us Conner Hernandez MD LAB - PATHOLOGY/CYTOLOGY ORDER GAMAL Final Result DERMATOPATHOLOGY LABORATORY [facility] - Department of Dermatology [facility] [address] [place] [address], [address] [phone] documented in this encounter Visit Diagnoses Not on filedocumented in this encounter Care Teams Grain Elevator Clerk Relationship Specialty Start Date End Date Kostas Ralph MD [address] [place] [id number] PCP - General 01/20/11 02/19/23 Kirby Marroquin MD [address] [place] [address] PCP - General 02/20/23 documented as of this encounter
[2025-04-28 12:14] LABS: Basophils Absolute Auto 0.1 K/mm3 (0.0-0.1); Basophils Percent Auto 0.6 % (0.2-1.2); Eosinophils Absolute Auto 0.2 K/mm3 (0-0.3); Eosinophils Percent Auto 1.8 % (0-4.4); Hematocrit 44.9 % (37.0-47.0); Immature Granulocyte Absolute 0.04 K/mm3 (0.00-0.031); Immature Granulocyte Percent A 0.4 % (0-0.5); Lymphocytes Absolute Auto 2.28 K/mm3 (0.9-3.2); Lymphocytes Percent Auto 24.3 % (18.3-44.2); Mean Corpuscular HGB Conc 31.2 g/dl (32-36); Mean Corpuscular Hemoglobin 28.1 pg (26-34); Mean Platelet Volume 10.7 fl (7.4-10.4); Monocytes Absolute Auto 0.9 K/mm3 (0.1-0.6); Monocytes Percent Auto 9.6 % (2.6-8.5); Neutrophils Absolute Auto 5.9 K/mm3 (1.3-6.7); Neutrophils Percent Auto 63.3 % (45.5-73.1); Platelet Count Result 230 k/mm3 (150-375); Red Blood Count 4.99 M/mm3 (4.2-5.4); Red Cell Distribution Width 14.7 % (11.5-14.5); White Blood Count 9.4 K/mm3 (4.5-10.0)
[2025-04-28 12:27] LABS: Alanine Aminotransferase 24 U/L (6-35); Albumin Level 4.4 g/dL (3.5-5.1); Alkaline Phosphatase 139 U/L (38-126); Anion Gap 11 mmol/L (4-12); Aspartate Amino Transferase 31 U/L (14-36); Bilirubin,Total 0.6 mg/dL (0.2-1.3); Blood Urea Nitrogen 19 mg/dL (7-17); Calcium 9.7 mg/dL (8.4-10.2); Carbon Dioxide 23 mmol/L (22-30); Chloride 101 mmol/L (98-107); Cholesterol 166 mg/dL (0-200); Estimated Glomerular Filt Rate > 60; Glucose 109 mg/dL (65-110); HDL Direct 43 mg/dL; Potassium 4.2 mmol/L (3.4-5.0); Sodium 135 mmol/L (137-145); Total Protein 7.8 g/dL (6.3-8.2); Triglycerides 300 mg/dL (<150)
[2025-04-28 12:37] LABS: LDL Cholesterol Direct 65 mg/dL
[2025-04-28 13:53] LABS: Vitamin D 25 Hydroxy 41.5 ng/mL
== END 2025-04-28 11:04 | disposition home or self-care (01) ==
LOC: ANHGOSHLAB 11:04
PROVIDERS: PCP Family Medicine; Visit Provider Family Medicine
DX: M13.80 Other specified arthritis, unspecified site (principal); I10 Essential (primary) hypertension; R73.03 Prediabetes; E78.5 Hyperlipidemia, unspecified; E53.8 Deficiency of other specified B group vitamins; E55.9 Vitamin D deficiency, unspecified
CPT/HCPCS: 36415; 80053; 80061; 82306; 82607; 83036; 84443; 85025

== ENCOUNTER 2025-04-28 15:35 | Outpatient (CLI) | payer MEDICARE, OTHER, SELFPAY ==
--- NOTE | ~2025-04-28 | XR_ITS ---
EXAMINATION: [id number] DATE: 04/28/2025 15:56 INDICATION: Pleurodynia with right-sided rib pain post fall 2010 days prior TECHNIQUE: PA view of the chest and 3 views of the right ribs were obtained. COMPARISON: None FINDINGS: No rib fractures identified. No pneumothorax. No focal infiltrates, pleural effusion or pulmonary matilde ma. Cardiomediastinal silhouette is normal. Mild thoracic dextrocurvature with mild to moderate spon dylosis. IMPRESSION: 1. No rib fracture or acute cardiopulmonary disease. Reviewed, dictated and finalized at location B.
--- OUTSIDE RECORDS SUMMARY | 2025-04-28 15:40 | XMS_ITS | Clinical Summary ---
Author Organization [id number] [facility] Address [address] [place] [address] Care Team Providers Care School Crossing Guard Name Role Phone Sky Saha MD Primary Care Provider [phone] Allergies No known active allergies Medications LOW-DOSE ASPIRIN ORAL Take by mouth. Ac tive calcium-choleca lciferol (OS-CISCO 500+D) 500 mg(1,250mg) -200 unit tablet Take 1 Tablet by mouth daily. Active cetirizine (ZyrTEC) 10 mg tablet Take 10 mg by mouth daily. Active esomeprazole (NexIUM) 20 mg Capsule, Delayed Release(E.C.) Take 20 mg by mouth daily before breakfast. Active fluticasone propionate (FLONASE) 50 mcg/spray [place], Suspension nasal inhaler Administer 2 Sprays in [...] A AND B FOR LIFE Care Teams School Crossing Guard Relationship Specialty Start Date End Date Sky Saha MD [address] [facility] [place] [address] PCP - General Internal Medicine 06/11/20
--- OUTSIDE RECORDS SUMMARY | 2025-04-28 15:40 | XMS_ITS | Encounter Summary ---
Author Organization [facility] Address [address] [place] [address] Care Team Providers Care Prototype Technician Name Role Phone Lissa Anton MD Primary Care Provider Rajat Reyes MD Unavailable [phone] Reason for Visit * Diagnostic Imaging (Routine) - Closed Specialty Diagnoses / Procedures Referred By Komal malin Referred To Contact Procedures Breast Imaging Screening Outside Reference Aft, Holly Vitale MD PhD [address] [place] [address] Phone: tel: fax: Referral ID Status Reason Start Date Expiration Date Visits Re quested Visits Authorized [id number] Closed 02/08/2023 03/09/2024 1 1 Encounter Details Date Type Department Care Team (Late st Contact Info) Description 12/29/2020 Hospital Encounter [facility] [address] [place] [id number] Social History Tobacco Use Types Packs/Day Years Used Date Smoking Tobacco: Never Passive Smoke Exposure: Current Smokeless Tobacco: Never Alcohol Use Standard Drinks/Week Comments Yes 0 (1 standard drink = 0.6 oz pur e alcohol) rare [facility] Utilities Answer Date Recorded In the [...] often do you attend chur ch or temple services? Never 11/30/2023 Do you belong to any clubs o r organizations such as mandaen groups, unions, fraternal or athletic groups, or [...] place to sleep or slept in a intermediate (including now)? No 11/30/2023 Personal Safety Answer Date Recorded Have you ever been in or are you currently in a harmful physical or emotional relationship or is someone making you feel afraid or unsafe? Denies 03/15/2024 Comments No Sex and Gender Information Value Date Recorded Sex Assigned at Not on file Legal Sex Female 9:32 AM DIVISION SUPERVISOR Gender Identity Not on file Sexual Orientation Not on file documented as of this encounter Functional Status * Audit-C Score Answer Date of Assessment Author 1 03/08/2024 8:25 AM Raffi Horowitz RN * Question Answer Date of Assessment Author Q1: How often do you have a drink containing alcohol? Monthly or less 03/08/2024 8:25 AM Nick Horowitz RN Q2: How many drinks containing alcohol do you have on a typical day when you are drinking? 1 or 2 03/08/2024 8:25 AM Lary Horowitz R N Q3: How often do you have six or more drinks on one occasion? Never 03/08/2024 8:25 AM Lary Horowitz R N documented as of this encounter Plan of Treatment Not on file documented as of this encounter Procedures Procedure Name Priority Date/Time Associated Diagnosis Comments BREAST IMAGING MG SCREENING OUTSIDE REFERENCE Routine 12/29/2020 12:00 AM DIVISION SUPERVISOR documented in this encounter Results * Breast Imaging Screening Outside Reference (12/29/2020 12:00 AM DIVISION SUPERVISOR) Impressions [facility]MO[facility] - 02/08/2023 3:49 PM CDT These images are for Reference purposes only and have not been reviewed by [facility]iology. There will be no report generated by a [facility] Radiologist. Narrative [facility] - 02/08/2023 3:49 PM CDT EXAMINATION: Images For Reference Purposes Only us Holly Loving MD PhD IMG MAMMO PROCEDURES Final Result [facility] documented in this encounter Visit Diagnoses Not on filedocumented in this encounter Additional Health Concerns Infection Onset Date Last Indicated Resolved Time MRSA 11/29/2023 11/29/2023 05/27/2024 3:05 AM CDT documented as of this encounter Care Teams Prototype Technician Relationship Specialty Start Date End Date Lissa Anton MD PCP - General Family Medicine 09/03/19 [facility] [address] [place] [address] Referring Physician Plastic Surgery 09/03/19 documented as of this encounter
--- OUTSIDE RECORDS SUMMARY | 2025-04-28 15:40 | XMS_ITS | Clinical Summary ---
Author Organization [facility] Address [address] [facility] [place] [address] Care Team Providers Care Telephone Order Clerk Room Service Name Role Phone Kirby Marroquin MD Primary Care Provider Source Comments [facility] Affiliates and Associated Physician Practices is amultiple site organization consisting of ambulatory clinics and hospital sitesin [place], [place], [place] and [place]. This disclosure is being madepursuant to the Care Everywhere program and may not contain all information available regarding this patient. Last updated 18.[facility] Family History Medical History Relation Name Comments [...] on file Legal Sex Female 6:27 PM CLOTH HAND Gender Identity Not on file Sexual Orientation [...] to complete this topic Insurance MEDICARE [facility] Care Teams Telephone Order Clerk Room Service Relationship Specialty Start Date End Date Kirby Marroquin MD [address] [place] [address] PCP - General 02/20/23
--- OUTSIDE RECORDS SUMMARY | 2025-04-28 15:40 | XMS_ITS | Encounter Summary ---
Author Organization [facility] Address [address] [place] [address] Care Team Providers Care Mat Roller Name Role Phone Unavailable Primary Care Provider Unavailabl e Reason for Visit * Diagnostic Imaging (Routine) - Closed Specialty Diagnoses / Procedures Referred By Contac t Referred To Contact Procedures Breast Imaging US Outside Reference Aft, Holly Vitale MD PhD [address] [place] [address] Phone: tel: fax: Referral ID Status Reason Start Date Expiration Date Visits Re quested Visits Authorized [id number] Closed 02/08/2023 03/09/2024 1 1 Encounter Details Date Type Department Care Team (Late st Contact Info) Description 07/18/2019 12:05 AM CDT Hospital Encounter [facility] [address] [place] [id number] Social History Tobacco Use Types Packs/Day Years Used Date Smoking Tobacco: Never Passive Smoke Exposure: Current Smokeless Tobacco: Never Alcohol Use Standard Drinks/Week Comments Yes 0 (1 standard drink = 0.6 oz pur e alcohol) rare [facility] Utilities Answer Date Recorded In the past 12 months has [employer] electric, gas, oil, or water company threatened [...] often do you attend chur ch or pentecostal services? Never 11/30/2023 Do you belong to any clubs o r organizations such as adventism groups, unions, fraternal or athletic groups, or [...] place to sleep or slept in a care home (including now)? No 11/30/2023 Personal Safety Answer Date Recorded Have you ever been in or are you currently in a harmful physical or emotional relationship or is someone making you feel afraid or unsafe? Denies 03/15/2024 Comments No Sex and Gender Information Value Date Recorded Sex Assigned at Not on file Legal Sex Female 9:32 AM BELLY DUMP DRIVER Gender Identity Not on file Sexual Orientation Not on file documented as of this encounter Functional Status * Audit-C Score Answer Date of Assessment Author 1 03/08/2024 8:25 AM CINTHYAT Raffi Jack RN * Question Answer Date of Assessment Author Q1: How often do you have a drink containing alcohol? Monthly or less 03/08/2024 8:25 AM CINTHYAT Nick Jack RN Q2: How many drinks containing alcohol do you have on a typical day when you are drinking? 1 or 2 03/08/2024 8:25 AM CINTHYAT Lary Jack R N Q3: How often do you [...] only and have not been reviewed by [facility] Radiology. There will be no report generated by a [facility] Radiologist. Narrative [facility]MO[facility] - 02/08/2023 3:52 PM CDT EXAMINATION: Images For Reference Purposes Only us Holly Loving MD PhD IMG MAMMO PROCEDURES Final Result [facility] documented in this encounter Visit Diagnoses Not on filedocumented in this encounter Additional Health Concerns Infection Onset Date Last Indicated Resolved Time MRSA 11/29/2023 11/29/2023 05/27/2024 3:05 AM CDT documented as of this encounter
--- OUTSIDE RECORDS SUMMARY | 2025-04-28 15:40 | XMS_ITS ---
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 Pain is improving, no fevers, chills, or night sweats. OR cultures from [facility] reviewed and are now showing MRSA, which is strange given all previous cultures have showed MSSA and she is doing well on cefazolin. Previous MSSA isolate on aspiration just prior to surgery was oxacillin resistant but not cephalosporin resistant. Will plan to switch to daptomycin for MRSA coverage for 6 weeks. - Message sent to [facility] pharmacy to check insurance coverage for daptomycin - Will check with her PCP if she can hold her statin while on IV daptomycin - Continue weekly CBC and CMP. Add on CK with next set of labs to be drawn weekly while on daptomycin. Assessment & Plan (11/23/2023 1:37 PM MILL TENDER SECOND OPERATOR): - Remains on cefadroxil and unfortunately seems to be having worsening pain and swelling. Aspiration +MSSA so she will now undergo 2-stage exchange with Dr. Duff - Recommend continuing cefadroxil until time of surgery - Please obtain deep cultures during surgery - Consult ID during admission to [facility] so we can review cultures and [...] this risk. Will forward note to her ophthalmic medical assistant. - Will call PCP office to obtain [...] without any issues Will start on doxycyline manager intermediate suppression due to retained hardware and will [...] AM CDT): Cont statin Seronegative rheumatoid arthritis 04/14/2023 Assessment & Plan (04/14/2023 1:52 AM CDT): [...] weeks after starting antibiotics. Fax results to [phone]. - PICC placed 04/17; will d/c with home infusion. Referral sent 04/18 - PT/OT rec IPR initially; now rec home with . PT/OT orders sent. Malignant neoplasm of right female breast 2022 Cancer Staging:Pathologic stage from 08/02/2023:Stage IA(pT1c, pN0(sn), cM0, G2, ER+, OK+, HER2-) - Signed by Virgil Akhtar MD on 08/02/2023 Assessment & Plan (04/14/2023 1:50 AM CDT): Planned surgery and radiation -Treatment has been deferred given infection -F/u with her breast surgeon outpatient Carpal tunnel syndrome of right wrist 10/07/2019 Overview (10/07/2019): Added automatically from request for surgery [id number] Osteoarthritis of hand 01/25/2012 Cervicalgia 05/31/2011 Arthralgia of shoulder 05/31/2011 Current Treatment and Therapy Plans No current plan information found. Past Treatment and Therapy Plans No past plan information found. Radiation Treatments * Course C1 R BREAST 202208/15/2023 - 08/21/2023 Treatment Period Energy Fraction Dose Fractions Total Dose Plans Planned R BREAST 08/15/2023 - 08/21/2023 520 5 / 2,600 Reference Points Delivered THACKER DPV 08/15/2023 - 08/21/2023 2,600 Lifetime Dose Tracking * Chemical Lifetime Dose Automatic Entry Manual Entr y Fluoro Time 0.1 minutes 0.1 minutes 0 minutes
--- OUTSIDE RECORDS SUMMARY | 2025-04-28 15:40 | XMS_ITS | Encounter Summary ---
Author Organization [facility] Address [address] [facility] [place] [address] Care Team Providers Care Film Vault Supervisor Name Role Phone Kostas Ralph MD Primary Care Provider [phone] Kirby Marroquin MD Primary Care Provider Encounter Details Date Type Department Care Team (Late st Contact Info) Description 02/08/2021 Lab Requisition [facility] Care DermPath Lab [address] [facility], [place] [phone] Conner Hernandez MD [address] [facility] [place] [address] Social History Tobacco Use Types Packs/Day Years Used Date Smoking Tobacco: Never Alcohol Use Standard Drinks/Week Comments Yes 0.8 (1 standard drink = 0.6 oz p ure alcohol) Comments Unknown Sex and Gender Information Value Date Recorded Sex Assigned at Not on file 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 Gender Identity Not on file Sexual Orientation Not on file documented as of this encounter Plan of Treatment Not on file documented as of this encounter Procedures Procedure Name Priority Date/Time Associated Diagnosis Comments DERMATOPATHOLOGY Routine 02/04/2021 12:0 0 AM CDT documented in this encounter Results * DERMATOPATHOLOGY (02/04/2021 12:00 AM CDT) Case Report Dermatopathology Report Case: [id number] Authorizing Provider: Conner Hernandez MD Collected: 02/04/2021 12:00 AM Ordering Location: [facility] DermPath Lab Received: 02/08/2021 08:12 AM Pathologist: Meliton Alaniz MD Specimen: Skin, mid chest 1:42 PM CDT DERMATOPATHOLOGY LABORATORY Final Diagnosis Specimen A. SKIN, mid chest: LICHEN PLANUS-LIKE KERATOSIS (BENIGN LICHENOID KERATOSIS) (L82.1) POST-INFLAMMATORY PIGMENT ALTERATION (L81.9) 1:42 PM CDT DERMATOPATHOLOGY LABORATORY at 1342 CDT Clinical History SK vs MM.Path#[id number] 1:42 PM CDT DERMATOPATHOLOGY LABORATORY Gross Description [...] characteristic determined by the Dermatopathology Laboratory at [facility], directed by Dr. Farhan Alaniz. These tests need not be, and therefore are not, approved by the [place] Food and Drug Administration. The tests are used for clinical purposes. Billing Codes Specimen Charges Stain Charges 91842 1 1:42 PM CDT DERMATOPATHOLOGY LABORATORY Embedded Images 1:42 PM CDT DERMATOPATHOLOGY LABORATORY Pathology/Cytolog y TISSUE SPECIMEN FROM SKIN / Unknown 02/04/2021 02/08/2021 8:12 AM CDT us Conner Hernandez MD LAB - PATHOLOGY/CYTOLOGY ORDER GAMAL Final Result DERMATOPATHOLOGY LABORATORY [facility] - Department of Dermatology [facility] Medicine [address] [place] [address], [address] [phone] documented in this encounter Visit Diagnoses Not on filedocumented in this encounter Care Teams Film Vault Supervisor Relationship Specialty Start Date End Date Kostas Ralph MD [address] [place] [phone] PCP - General 01/20/11 02/19/23 Kirby Marroquin MD [address] [place] [address] PCP - General 02/20/23 documented as of this encounter
--- OUTSIDE RECORDS SUMMARY | 2025-04-28 15:40 | XMS_ITS | Referral Summary ---
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 Name Role Phone Rajat Reyes MD Unavailable [phone] Kirby Marroquin MD Primary Care Provider Aft, Holly Vitale MD PhD Unavailable [phone] Virgil Akhtar MD Unavailable [phone] Encounters Date Type Department Care Team Description 03/04/2025 11:16 AM CDT - 03/04/2025 11:59 PM CDT Hospital Encounter [facility] - Breast Imaging [address] [place] [address] 8 [place] [address] Malignant neoplasm of right female breast, unspecified estrogen receptor status, unspecified site of breast (HCC); History of partial mastectomy of right breast; Invasive ductal carcinoma of right breast (HCC); Abscess of the breast and nipple Discharge Disposition: Discharge to home or self care 03/04/2025 11:15 AM CDT Office Visit [facility] Surgery [address] [place] [address] [address] [place] [id number] Janelle Vang NP Ductal carcinoma in situ (DCIS) of right breast (Primary Dx); History of breast cancer; Encounter for screening mammogram for malignant neoplasm of breast; History of partial mastectomy of right breast 02/05/2025 12:15 PM CDT - 02/05/2025 11:59 PM CDT Hospital Encounter [facility] Radiology [address] [place] [id number] Bilateral hip pain; Left knee pain, unspecified chronicity; Aftercare following right knee joint replacement surgery; Right knee pain, unspecified chronicity Discharge Disposition: Discharge to home or self care 02/05/2025 1:00 PM CDT Office Visit [facility] Orthopaedic Surgery [address] Medical Office Building [address] [place] [address] Rajat Duff MD Aftercare following right knee joint replacement surgery (Primary Dx); Right knee pain, unspecified chronicity; Bilateral hip pain; Left knee pain, unspecified chronicity; Lumbar spine pain from Last 3 Months Allergies Active Allergy [...] clindamycin (CLEOCIN T) 1 % external solution 09/07/20 23 Active senna-docusate (Senna-S) 8.6-50 mg Take 2 tablets by mouth 2 (two) times a day 80 tablet 1 11/30/19 24 Active clonazePAM (KlonoPIN) 0.5 mg tabletIndications: sleep, anxiety Take 1 tablet (0.5 mg total) by mouth nightly 11/29/19 24 Active calcium carbonate (TUMS) 500 mg (200 [...] for pain 30 tablet 03/15/[address] (PROTONIX) 40 mg [...] 15 days 15 tablet 03/16/20 24 Active celecoxib (CeleBREX) 200 mg capsule Take 1 capsule (200 mg total) by mouth 2 (two) times a day 01/05/20 25 Active Active Problems Problem Noted Date Diagnosed [...] concerns Assessment & Plan (12/28/2023 2:15 PM TAX INTERN): - Patient reports doing well since surgery with no acute complaints today. Pain is improving, no fevers, chills, or night sweats. [facility] and are now showing [facility], which is strange given all previous cultures have showed MSSA and she is doing well on cefazolin. Previous MSSA isolate on aspiration just prior to surgery was oxacillin resistant but not cephalosporin resistant. Will plan to switch to daptomycin for MRSA coverage for 6 weeks. - Message sent to [facility] pharmacy to check insurance coverage for daptomycin - Will check with her PCP if she can hold her statin while on IV daptomycin - Continue weekly CBC and CMP. Add on CK with next set of labs to be drawn weekly while on daptomycin. Assessment & Plan (11/23/2023 1:37 PM TAX INTERN): - Remains on cefadroxil and unfortunately seems to be having worsening pain and swelling. Aspiration +MSSA so she will now undergo 2-stage exchange with Dr. Duff - Recommend continuing cefadroxil until time of surgery - Please obtain deep cultures during surgery - Consult ID during admission to [facility] so we can review cultures and arrange [...] this risk. 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 - Will call PCP office to obtain [...] without any issues Will start on doxycyline terminal block assembler suppression due to retained hardware and will [...] weeks after starting antibiotics. Fax results to [phone]. - PICC placed 04/17; will d/c with home infusion. Referral sent 04/18 - PT/OT rec IPR initially; now rec home with . PT/OT orders sent. Malignant neoplasm of right female breast 2022 Cancer Staging:Pathologic stage from 08/02/2023:Stage IA(pT1c, pN0(sn), cM0, G2, ER+, AK+, HER2-) - Signed by Virgil Akhtar MD on 08/02/2023 Assessment & Plan (04/14/2023 1:50 AM CDT): Planned surgery and radiation -Treatment has been deferred given infection -F/u with her breast surgeon outpatient Carpal tunnel syndrome of right wrist 10/07/2019 Overview (10/07/2019): Added automatically from request for surgery [id number] Osteoarthritis of hand 01/25/2012 Cervicalgia 05/31/2011 Arthralgia of shoulder 05/31/2011 Immunizations Immunization Administration Dates Next Due Influenza, Quadrivalent, Hig h Dose, Preservative Free, Intrr 07/22/2021 Influenza, Quadrivalent, Spl it, Preservative Free, Intramuscular 10/19/2020,09/18/2018 Pneumococcal Conjugate PCV 13 10/19/2020, 018 Pneumococcal Polysaccharide PPV23 08/30/2018,01/2014 Tdap 09/18/2018,08/30/2018 ZOSTER LIVE 01/28/2019 ZOSTER Recombinant 03/13/2019 Social History Tobacco Use Types Packs/Day Years Used Date Smoking Tobacco: Never Passive Smoke Exposure: Current Smokeless Tobacco: Never Tobacco Cessation:Counseling Given: Not Answered Alcohol Use Standard Drinks/Week Comments Yes 0 (1 standard drink = 0.6 oz pur e alcohol) rare [facility] Utilities Answer Date Recorded In the past 12 months has th e electric, gas, oil, or water company [...] often do you attend chur ch or sabianist services? Never 11/30/2023 Do you belong to any clubs o r organizations such as yazidism groups, unions, fraternal or athletic groups, or [...] place to sleep or slept in a assisted (including now)? No 11/30/2023 Personal Safety Answer Date Recorded Have you ever been in or are you currently in a harmful physical or emotional relationship or is someone making you feel afraid or unsafe? Denies 03/15/2024 Comments No Sex and Gender Information Value Date Recorded Sex Assigned at Not on file Legal Sex Female 9:32 AM TAX INTERN Gender Identity Not on file Sexual Orientation Not on file Last Filed Vital Signs Vital Sign Reading Time Taken Comments Blood Pressure 141/72 09/05/2024 1:14 PM TAX INTERN Pulse 102 09/05/2024 1:14 PM TAX INTERN Temperature 36.4 C (97.6 F) 03/16/2024 8:19 AM CDT Respiratory Rate 18 03/16/2024 8:19 AM CDT Oxygen Saturation 98% 09/05/2024 1:14 PM TAX INTERN Inhaled Oxygen Concentration - - Weight 98.4 kg (217 lb) 03/04/2025 11:02 AM CDT Height 167.5 cm (5' 5.95) 03/04/2025 11:02 AM C DT Body Mass Index 35.08 03/04/2025 11:02 AM CDT Plan of Treatment Not on file Medical Devices Implanted Type Area Banquet Stewardess Device Identifier Shelf Expiration Date Model / Serial / Lot [employer] Palacos R High Viscosity Cement 40gm Bone Green [id number] - Sn/A - [id number] Implanted:Qty: 1 on 11/29/2023 by Rajat Duff MD at [facility] Bone Cement Right: Knee [employer] 11/29/2027 [id number] / N/A / [id number] [employer] 657920 Seprafilm 6x5in Barrier Adhesion Sterile Disposable Latex Free - [id number] Implanted:Qty: 1 on 10/16/2019 by Zuly Brenner MD at [facility] Other - see comments [employer] [id number] 04/28/2022 [id number] / / [id number] Description:Seprafilm [employer] Remedy Stem Knee Medium Component Femoral Rskfmd - Sn/A - [id number] Implanted:Qty: 1 on 11/29/2023 by Rajat Duff MD at [facility] Other - see comments Right: Knee [employer] RSKFMD / N/A / Depuy Orthopaedics Inc Attune Revision Full Coated Knee 37mm Sleeve Tibial Porocoat Latex Free [id number] - [id number] Implanted:Qty: 1 on 03/15/2024 by Rajat Duff MD at [facility] Other - see comments Right: Knee [employer] Orth[employer] Inc [id number] 12/27/2033 [id number] / / [id number] Description:Implant pause pe rformed Wire Implanted:Qty: 3 on 03/15/2024 at [facility] Other - see comments Right: Knee 18 GAUGE WIRE / / Total Joint Bilate ral: Knee Total Joint Right: Hip [employer] Advance Ii 12mm Medial Pivot Knee Right 3 Insert Tibial [id number] - [id number] Implanted:Qty: 1 on 04/14/2023 by Joaquin Ralph MD at [facility] Right: Knee [employer] 11/05/2029 [id number] / / Bard [employer] Ghiatas 20ga 15cm 5cm Beaded Needle Breast Wire Localization [id number] - [id number] Implanted:Qty: 1 on 06/20/2023 at [facility] [employer] [id number] / / [employer] Palacos R High Viscosity Cement 40gm Bone Green [id number] - [id number] Implanted:Qty: 1 on 11/29/2023 by Rajat Duff MD at [facility] [employer] 11/29/2027 [id number] / / [id number] Biocom[employer]ites Stimulan Rapid Cure Kit Paste Kinesiology Internship 20cc 50cc Bone Void 620-020 - [id number] Implanted:Qty: 1 on 11/29/2023 by Rajat Duff MD at [facility] [employer] 02/26/2026 620-020 / / [id number] [employer] Remedy 175mm Stem Extension Knee Component Femoral [id number] - [id number] Implanted:Qty: 1 on 11/29/2023 by Rajat Duff MD at [facility] Right: Knee [employer] [id number] / / [employer] Remedy 100mm Stem Extension Knee Component Femoral Sst198 - [id number] Implanted:Qty: 1 on 11/29/2023 by Rajat Duff MD at [facility] Right: Knee [employer] ZLL020 / / [employer] Remedy Stem Knee Medium Component Tibial Rsktmd - Sn/A - [id number] Implanted:Qty: 1 on 11/29/2023 by Rajat Duff MD at [facility] Right: Knee [employer] RSKTMD / N/A / [employer] Palacos R High Viscosity Cement 40gm Bone Green 9670086 - [id number] Implanted:Qty: 1 on 11/29/2023 by Rajat Duff MD at [facility] [employer] 11/29/2027 [id number] / / [id number] Depuy Orthopaed[employer] Inc Attune 4mm Revision Cement Knee Posterior 6 Augment Femoral Latex Free [id number] - [id number] Implanted:Qty: 1 on 03/15/2024 at [facility] Right: Knee [employer] Inc 12/27/2033 [id number] / / [id number] [employer] Attune H4 Mm Revision Cement Knee Distal 6 Augment Femoral Sterile Latex Free 853177639 - [id number] Implanted:Qty: 1 on 03/15/2024 at [facility] Right: Knee [employer] 12/27/2033 [id number] / / [id number] [employer] Attune H4 Mm Revision Cement Knee Distal 6 Augment Femoral Sterile Latex Free 486556054 - [id number] Implanted:Qty: 1 on 03/15/2024 at [facility] Right: Knee [employer] 12/27/2033 [id number] / / [id number] [employer] Attune 18mm 60mm Revision Press Fit Knee Stem Femoral Sterile Latex Free [id number] - [id number] Implanted:Qty: 1 on 03/15/2024 at [facility] Right: Knee [employer] 12/27/2033 [id number] / / [id number] [employer] Attune H6 Mm Revision Constrain Rotate Platform Knee 6 Insert Tibial Aox Sterile [id number] - [id number] Implanted:Qty: 1 on 03/15/2024 at [facility] Right: Knee [employer] 06/29/2028 [id number] / / [id number] [employer] Attune Cement Revision Rotate Platform Knee 5 Baseplate Tibial [id number] - [id number] Implanted:Qty: 1 on 03/15/2024 at [facility] Right: Knee [employer] 01/27/2034 [id number] / / [id number] [employer] Attune Revision Full Coated Knee 40 Mm Sleeve Femoral Porocoat Sterile Latex Free [id number] - [id number] Implanted:Qty: 1 on 03/15/2024 at [facility] Right: Knee [employer] 01/27/2030 [id number] / / [id number] [employer] Attune 16mm 60mm Revision Press Fit Knee Stem Femoral Sterile Latex Free [id number] - [id number] Implanted:Qty: 1 on 03/15/2024 at [facility] Right: Knee [employer] 10/29/2033 [id number] / / [id number] Biocom[employer] Stimulan Rapid Cure Kit Paste Kinesiology Internship 10cc 20cc Bone Void 620-010 - [id number] Implanted:Qty: 1 on 03/15/2024 at [facility] Right: Knee [employer] 08/29/2026 620-010 / / [id number] Dep[employer] Orthopaed[employer] Inc Smartset Medium Viscosity Cement 40gm Bone Gentamicin [id number] - [id number] Implanted:Qty: 1 on 03/15/2024 at [facility] Right: Knee [employer] Inc 07/29/2025 [id number] / / [id number] Dep[employer] Orth[employer] Inc Revision Cement Constrain Knee Right 6 Component Femoral Attune Sterile [id number] - [id number] Implanted:Qty: 1 on 03/15/2024 at [facility] Right: Knee [employer] Inc 01/27/2034 [id number] / / [id number] [employer] Smartset Medium Viscosity Cement 40gm Bone Gentamicin 959449182 - [id number] Implanted:Qty: 1 on 03/15/2024 at [facility] Right: Knee [employer] 07/29/2025 [id number] / / [id number] Dep[employer] Orth[employer] Attune 4mm Revision Cement Knee Posterior 6 Augment Femoral Latex Free [id number] - [id number] Implanted:Qty: 1 on 03/15/2024 at [facility] Right: Knee [employer] Inc 12/27/2033 [id number] / / [id number] Dep[employer] Orth[employer] Smartset Medium Viscosity Cement 40gm Bone Sterile 3122-040 - [id number] Implanted:Qty: 1 on 03/15/2024 at [facility] Right: Knee [employer] Inc 05/29/2025 3122-040 / / [id number] Procedures Procedure Name Priority Date/Time Associated Diagnosis Comments DIAGNOSTIC MAMMOGRAM BILATERAL W OSCAR Schedule Routine, Read Routine (OP Routine) 03/04/2025 11:48 AM CDT Malignant neoplasm of right female breast, unspecified estrogen receptor status, unspecified site of breast (HCC) History of partial mastectomy of right breast Invasive ductal carcinoma of right breast (HCC) Abscess of the breast and nipple XR KNEE LEFT 3 VIEWS Schedule Routine, Read Routine (OP Routine) 02/05/2025 12:41 PM CDT Left knee pain, unspecified chronicity XR KNEE RIGHT 3 VIEWS Schedule Routine, Read Routine (OP Routine) 02/05/2025 12:41 PM CDT Aftercare following right knee joint replacement surgery Right knee pain, unspecified chronicity XR HIPS BILATERAL 3 OR 4 VW Schedule Routine, Read Routine (OP Routine) 02/05/2025 12:41 PM CDT Bilateral hip pain EGFR Routine 03/16/2024 3:44 AM CDT HEMOGLOBIN A1C Routine 03/08/2024 9:19 AM CDT Preoperative testing Type 2 diabetes mellitus with other specified complication, without long-term current use of insulin (HCC) LIPID PANEL Routine 04/14/2023 8:37 PM CDT from Last 3 Months or Most Recently Relevant to Health Maintenance Results * Diagnostic Mammogram Bilateral W Oscar (03/04/2025 11:48 AM CDT) Anatomical Region Laterality Modality Breast Bilateral Mammography 03/04/2025 12:1 4 PM CDT Impressions 03/04/2025 12:14 PM CDT 1. Stable right breast conservation therapy changes. 2. No mammographic evidence of malignancy in either breast. OVERALL FINAL ASSESSMENT: BI-RADS Category 2: Benign. RECOMMENDATION: Annual diagnostic mammography is recommended. Dr. Azul discussed the above findings and recommendations with the patient, who expressed her understanding of the management plan. Electronically signed by: Amanda Azul M.D. Narrative 03/04/2025 12:14 PM CDT EXAMINATION: BILATERAL DIGITAL DIAGNOSTIC MAMMOGRAM INCLUDING CAD AND BILATERAL DIGITAL BREAST TOMOSYNTHESIS HISTORY: 69-year-old woman with history of the right breast ductal carcinoma in situ status post breast conservation therapy in 2022. COMPARISON: 02/29/2024 bilateral mammogram and additional prior studies dating back to 2019. TECHNIQUE: Full field digital mammographic views of BOTH breasts were performed, including computer aided detection (CAD) and BILATERAL digital breast tomosynthesis (DBT). BREAST PARENCHYMAL COMPOSITION: There are scattered areas of fibroglandular density. MAMMOGRAM FINDINGS: There are stable changes of right breast conservation therapy. There are no new suspicious findings within either breast. Procedure Note Amanda Azul MD - 03/04/2025 EXAMINATION: BILATERAL DIGITAL DIAGNOSTIC MAMMOGRAM INCLUDING CAD AND BILATERAL DIGITAL BREAST TOMOSYNTHESIS HISTORY: 69-year-old woman with history of the right breast ductal carcinoma in situ status post breast conservation therapy in 2022. COMPARISON: 02/29/2024 bilateral mammogram and additional prior studies dating back to 2019. TECHNIQUE: Full field digital mammographic views of BOTH breasts were performed, including computer aided detection (CAD) and BILATERAL digital breast tomosynthesis (DBT). BREAST PARENCHYMAL COMPOSITION: There are scattered areas of fibroglandular density. MAMMOGRAM FINDINGS: There are stable changes of right breast conservation therapy. There are no new suspicious findings within either breast. IMPRESSION: 1. Stable right breast conservation therapy changes. 2. No mammographic evidence of malignancy in either breast. OVERALL FINAL ASSESSMENT: BI-RADS Category 2: Benign. RECOMMENDATION: Annual diagnostic mammography is recommended. Dr. Azul discussed the above findings and recommendations with the patient, who expressed her understanding of the management plan. Electronically signed by: Amanda Azul M.D. John Benítez NP IMG MAMMO PROCEDURES Final Result * XR Hips Bilateral 3 or 4 Views (02/05/2025 12:41 PM CDT) Anatomical Region Laterality Modality Lower Extremities, Hip, Pelvis Bilateral C omputed Radiography 02/05/2025 12:4 4 PM CDT Impressions 02/05/2025 12:44 PM CDT 1. Right total hip arthroplasty in near-anatomic alignment. 2. Mild to moderate left hip osteoarthritis. 3. Revision semiconstrained right knee arthroplasty in near-anatomic alignment with healing periprosthetic fracture. 4. Unchanged left knee arthroplasty in near-anatomic alignment. Electronically signed by: Kellie Costello MD Narrative 02/05/2025 12:44 PM CDT EXAMINATION: XR HIPS BILATERAL 3 OR 4 VW, XR KNEE RIGHT 3 VIEWS, XR KNEE LEFT 3 VIEWS HISTORY: Bilateral hip, bilateral knee pain. FINDINGS: Comparison to 04/15/2024. Bilateral hips: Right total hip arthroplasty in near-anatomic alignment. No asymmetrical and where, periprosthetic fracture, or component migration. Mild to moderate left hip osteoarthritis. No acute fracture. Alignment is normal. Bilateral knees: There is a semiconstrained revision right knee arthroplasty in near-anatomic alignment with healing periprosthetic fracture transfixed by cerclage wires. No dislocation. Small joint effusion/synovial hypertrophy. Unchanged 2 component left knee arthroplasty in near-anatomic alignment. No periprosthetic fracture or component migration. Small left knee effusion/synovial hypertrophy. Procedure Note Kellie Costello MD - 02/05/2025 EXAMINATION: XR HIPS BILATERAL 3 OR 4 VW, XR KNEE RIGHT 3 VIEWS, XR KNEE LEFT 3 VIEWS HISTORY: Bilateral hip, bilateral knee pain. FINDINGS: Comparison to 04/15/2024. Bilateral hips: Right total hip arthroplasty in near-anatomic alignment. No asymmetrical and where, periprosthetic fracture, or component migration. Mild to moderate left hip osteoarthritis. No acute fracture. Alignment is normal. Bilateral knees: There is a semiconstrained revision right knee arthroplasty in near-anatomic alignment with healing periprosthetic fracture transfixed by cerclage wires. No dislocation. Small joint effusion/synovial hypertrophy. Unchanged 2 component left knee arthroplasty in near-anatomic alignment. No periprosthetic fracture or component migration. Small left knee effusion/synovial hypertrophy. IMPRESSION: 1. Right total hip arthroplasty in near-anatomic alignment. 2. Mild to moderate left hip osteoarthritis. 3. Revision semiconstrained right knee arthroplasty in near-anatomic alignment with healing periprosthetic fracture. 4. Unchanged left knee arthroplasty in near-anatomic alignment. Electronically signed by: Kellie Costello MD Rajat Duff MD IMKelly XR PROCEDURES Final R esult * XR Knee Right 3 Views (02/05/2025 12:41 PM CDT) Anatomical Region Laterality Modality Lower Extremities, Knee Right Computed Radiography 02/05/2025 12:4 4 PM CDT Impressions 02/05/2025 12:44 PM CDT 1. Right total hip arthroplasty in near-anatomic alignment. 2. Mild to moderate left hip osteoarthritis. 3. Revision semiconstrained right knee arthroplasty in near-anatomic alignment with healing periprosthetic fracture. 4. Unchanged left knee arthroplasty in near-anatomic alignment. Electronically signed by: Kellie Costello MD Narrative 02/05/2025 12:44 PM CDT EXAMINATION: XR HIPS BILATERAL 3 OR 4 VW, XR KNEE RIGHT 3 VIEWS, XR KNEE LEFT 3 VIEWS HISTORY: Bilateral hip, bilateral knee pain. FINDINGS: Comparison to 04/15/2024. Bilateral hips: Right total hip arthroplasty in near-anatomic alignment. No asymmetrical and where, periprosthetic fracture, or component migration. Mild to moderate left hip osteoarthritis. No acute fracture. Alignment is normal. Bilateral knees: There is a semiconstrained revision right knee arthroplasty in near-anatomic alignment with healing periprosthetic fracture transfixed by cerclage wires. No dislocation. Small joint effusion/synovial hypertrophy. Unchanged 2 component left knee arthroplasty in near-anatomic alignment. No periprosthetic fracture or component migration. Small left knee effusion/synovial hypertrophy. Procedure Note Kellie Costello MD - 02/05/2025 EXAMINATION: XR HIPS BILATERAL 3 OR 4 VW, XR KNEE RIGHT 3 VIEWS, XR KNEE LEFT 3 VIEWS HISTORY: Bilateral hip, bilateral knee pain. FINDINGS: Comparison to 04/15/2024. Bilateral hips: Right total hip arthroplasty in near-anatomic alignment. No asymmetrical and where, periprosthetic fracture, or component migration. Mild to moderate left hip osteoarthritis. No acute fracture. Alignment is normal. Bilateral knees: There is a semiconstrained revision right knee arthroplasty in near-anatomic alignment with healing periprosthetic fracture transfixed by cerclage wires. No dislocation. Small joint effusion/synovial hypertrophy. Unchanged 2 component left knee arthroplasty in near-anatomic alignment. No periprosthetic fracture or component migration. Small left knee effusion/synovial hypertrophy. IMPRESSION: 1. Right total hip arthroplasty in near-anatomic alignment. 2. Mild to moderate left hip osteoarthritis. 3. Revision semiconstrained right knee arthroplasty in near-anatomic alignment with healing periprosthetic fracture. 4. Unchanged left knee arthroplasty in near-anatomic alignment. Electronically signed by: Kellie Costello MD Rajat Duff MD IMG XR PROCEDURES Final R esult * XR Knee Left 3 Views (02/05/2025 12:41 PM CDT) Anatomical Region Laterality Modality Lower Extremities, Knee Left Computed Radiography 02/05/2025 12:4 4 PM CDT Impressions 02/05/2025 12:44 PM CDT 1. Right total hip arthroplasty in near-anatomic alignment. 2. Mild to moderate left hip osteoarthritis. 3. Revision semiconstrained right knee arthroplasty in near-anatomic alignment with healing periprosthetic fracture. 4. Unchanged left knee arthroplasty in near-anatomic alignment. Electronically signed by: Kellie Costello MD Narrative 02/05/2025 12:44 PM CDT EXAMINATION: XR HIPS BILATERAL 3 OR 4 VW, XR KNEE RIGHT 3 VIEWS, XR KNEE LEFT 3 VIEWS HISTORY: Bilateral hip, bilateral knee pain. FINDINGS: Comparison to 04/15/2024. Bilateral hips: Right total hip arthroplasty in near-anatomic alignment. No asymmetrical and where, periprosthetic fracture, or component migration. Mild to moderate left hip osteoarthritis. No acute fracture. Alignment is normal. Bilateral knees: There is a semiconstrained revision right knee arthroplasty in near-anatomic alignment with healing periprosthetic fracture transfixed by cerclage wires. No dislocation. Small joint effusion/synovial hypertrophy. Unchanged 2 component left knee arthroplasty in near-anatomic alignment. No periprosthetic fracture or component migration. Small left knee effusion/synovial hypertrophy. Procedure Note Kellie Costello MD - 02/05/2025 EXAMINATION: XR HIPS BILATERAL 3 OR 4 VW, XR KNEE RIGHT 3 VIEWS, XR KNEE LEFT 3 VIEWS HISTORY: Bilateral hip, bilateral knee pain. FINDINGS: Comparison to 04/15/2024. Bilateral hips: Right total hip arthroplasty in near-anatomic alignment. No asymmetrical and where, periprosthetic fracture, or component migration. Mild to moderate left hip osteoarthritis. No acute fracture. Alignment is normal. Bilateral knees: There is a semiconstrained revision right knee arthroplasty in near-anatomic alignment with healing periprosthetic fracture transfixed by cerclage wires. No dislocation. Small joint effusion/synovial hypertrophy. Unchanged 2 component left knee arthroplasty in near-anatomic alignment. No periprosthetic fracture or component migration. Small left knee effusion/synovial hypertrophy. IMPRESSION: 1. Right total hip arthroplasty in near-anatomic alignment. 2. Mild to moderate left hip osteoarthritis. 3. Revision semiconstrained right knee arthroplasty in near-anatomic alignment with healing periprosthetic fracture. 4. Unchanged left knee arthroplasty in near-anatomic alignment. Electronically signed by: Kellie Costello MD us Rajat Duff MD IMG XR PROCEDURES Final R esult * eGFR (03/16/2024 3:44 AM CDT) eGFR >90 >=60 mL/min/1. 73 m2 Comment: Interpretive Data Reference Interval Normal >/= 90 mL/min/1.73m2 Mildly decreased* 60 - 89 mL/min/1.73m2 Mildly to moderately decreased 45 - 59 mL/min/1.73m2 Moderately to severely decreased 30 - 44 mL/min/1.73m2 Severely decreased 15 - 29 mL/min/1.73m2 Kidney Failure < 15 mL/min/1.73m2 *Relative to young adult level Estimated glomerular [...] Rajat Duff MD LAB BLOOD ORDERABLES [facility] [address] [facility]. [facility] [place] [address] * Hemoglobin A1c (03/08/2024 9:19 AM CDT) Hgb A1C 5.4 4.0 - 5.6 % Estimated Average Glucose 108 mg/dL [facility] Comment: The ADA recommends reporting an estimated Average Glucose (eAG) with all Hemoglobin A1c results using the equation derived from a study of 507 normal and diabetic adults. Minority populations were underrepresented and children were not included. (Diabetes Care 31:3636-9277, 2008). The eAG is not equivalent to a fasting glucose. Blood 03/08/2024 9:19 AM CDT 03/08/2024 9:59 AM CDT us Arleen Curiel NP LAB BLOOD ORDERABLES Final R esult [facility] [address] [facility]. Department of [place] [address] * (ABNORMAL) Lipid panel (04/14/2023 8:37 PM CDT) Cholesterol 101 30 - 199 mg/dL [facility] Comment: Interpretive Data Ages < or = 19 years Acceptable: <170 mg/dL Borderline high: 170-199 mg/dL High: >or= 200 mg/dL Ages > or = 20 years Desirable: <200 mg/dL Borderline high: 200-239 mg/dL High: >or= 240 mg/dL Literature References: 1. Expert Panel on Integrated Guidelines for Cardiovascular Health and Risk Reduction in Children and Adolescents. Pediatrics 2011;128:S213 2. NCEP Expert Panel. Circulation 2004;110:227 Current Interpretive Data was last revised on 2018. Triglycerides 73 <=149 mg/dL [facility] Comment: Interpretive Data Ages < or = 9 years Acceptable: <75 mg/dL Borderline high: 75-99 mg/dL High: >or= 100 mg/dL Ages 10 to 20 years Acceptable: <90 mg/dL Borderline high: 90-129 mg/dL High: >or= 130 mg/dL Ages > or = 20 years Desirable: <150 mg/dL Borderline high: 150-199 mg/dL High: 200-499 mg/dL Very high: >or= 499 mg/dL Literature References: 1. Expert Panel on Integrated Guidelines for Cardiovascular Health and Risk Reduction in Children and Adolescents. Pediatrics 2011;128:S213 2. NCEP Expert Panel. Circulation 2004;110:227 Current Interpretive Data was last revised on 2018. HDL 35(L) >=40 mg/dL [facility] Comment: Interpretive Data Ages < or = 19 years Acceptable: >45 mg/dL Borderline low: 40-45 mg/dL Low: <40 mg/dL Ages > or = 20 years Desirable: >or= 60 mg/dL Low: <40 mg/dL Literature References: 1. Expert Panel on Integrated Guidelines for Cardiovascular Health and Risk Reduction in Children and Adolescents. Pediatrics 2011;128:S213 2. NCEP Expert Panel. Circulation 2004;110:227 Current Interpretive Data was last revised on 2018. LDL, calculated 51 <=129 mg/dL [facility] Comment: Interpretive Data Ages < or = 19 years Acceptable: <110 mg/dL Borderline high: 110-129 mg/dL High: >or= 130 mg/dL Ages > or = 20 years Optimal: <100 mg/dL Near optimal: 100-129 mg/dL Borderline high: 130-159 mg/dL High: >160 mg/dL Literature References: 1. Expert Panel on Integrated Guidelines for Cardiovascular Health and Risk Reduction in Children and Adolescents. Pediatrics 2011;128:S213 2. NCEP Expert Panel. Circulation 2004;110:227 Current Interpretive Data was last revised on 2018. Non-HDL Cholesterol 66 mg/dL [facility] Comment: Interpretive Data Ages < or = 19 years Acceptable: <120 mg/dL Borderline high: 120-144 mg/dL High: >145 mg/dL Ages > or = 20 years When triglycerides are >200 mg/dL, Non-HDL cholesterol is a secondary target of therapy with treatment goals that are 30 mg/dL greater than the LDL cholesterol target. Literature References: 1. Expert Panel on Integrated Guidelines for Cardiovascular Health and Risk Reduction in Children and Adolescents. Pediatrics 2011;128:S213 2. NCEP Expert Panel. Circulation 2004;110:227 Current Interpretive Data was last revised on 2018. Chol/HDL ratio 3 [facility] Blood 04/14/2023 8:37 PM CDT 04/14/2023 10:26 PM CDT Narrative [facility] - 04/15/2023 3:37 AM CDT Reflex Joanna Martins MD LAB BLOOD ORDERABLES Final Result [facility] Department [place] [address] from Last 3 Months or Most Recently Relevant to Health Maintenance Insurance MEDICARE [facility] [place] MEDICARE FOR LIFE MEDICARE FOR LIFE MEDICARE FOR LIFE Advance Directives For more information, please contact: [phone] Documents on File Type Date Recorded Patient Inspector Balance Truing Expl anation ADVANCE DIRECTIVE 10/20/2019 2:22 PM [employer] OPERATOR-MEDICAL ADVANCE DIRECTIVE 10/16/2019 7:39 AM [employer] OPERATOR-MEDICAL * Full Code (Latest Code Status on File) Date Activated Date Inactivated Comments 03/15/2024 6:34 PM 03/16/2024 3:44 PM * Full Code Date Activated Date Inactivated Comments 11/29/2023 9:31 AM 12/01/2023 7:24 PM * Full Code Date Activated Date Inactivated Comments 04/14/2023 3:10 AM 04/19/2023 6:51 PM Care Teams Acoustical Tile Drill Press Operator Relationship Specialty Start Date End Date Kirby Marroquin MD [address] [place] [address] PCP - General Family Practice 04/15/23 Rajat Reyes MD [address] [place] [address] Referring Physician Plastic Surgery 09/03/19 Aft, Holly Vitale MD PhD [address] [place] [address] Surgeon Surgical Oncology 07/20/23 Virgil Akhtar MD [address] [place] [id number] Radiation Oncologist Radiation Oncology 12/25/23
--- OUTSIDE RECORDS SUMMARY | 2025-04-28 15:40 | XMS_ITS | Clinical Summary ---
Author Organization [facility] Address [address] [place] [id number] Care Team Providers Care Senior Ecologist Name Role Phone None, Provider MD Primary [...] age to complete this topic Insurance MEDICARE [facility] Care Teams Senior Ecologist Relationship Specialty Start Date End Date None, Provider, PCP - General UNKNOWN PHYSICIAN SPECIALTY 10/09/23
--- OUTSIDE RECORDS SUMMARY | 2025-04-28 15:40 | XMS_ITS | Clinical Summary ---
Author Organization [facility] Address [address] [place] [id number] Care Team Providers Care Oracle Soa Architect Name Role Phone Rajat Reyes MD Unavailable [phone] Kirby Marroquin MD Primary Care Provider Aft, Holly Vitale MD PhD Unavailable [phone] Virgil Akhtar MD Unavailable [phone] Allergies Active Allergy Reactions Criticality Noted [...] concerns Assessment & Plan (12/28/2023 2:15 PM SHOP FIRER/FIREMAN): - Patient reports doing well since surgery with no acute complaints today. Pain is improving, no fevers, chills, or night sweats. OR cultures from [facility] reviewed and are now showing MRSA, which is strange given all previous cultures have showed MSSA and she is doing well on cefazolin. Previous MSSA isolate on aspiration just prior to surgery was oxacillin resistant but not cephalosporin resistant. Will plan to switch to daptomycin for MRSA coverage for 6 weeks. - Message sent to [facility] pharmacy to check insurance coverage for daptomycin - Will check with her PCP if she can hold her statin while on IV daptomycin - Continue weekly CBC and CMP. Add on CK with next set of labs to be drawn weekly while on daptomycin. Assessment & Plan (11/23/2023 1:37 PM SHOP FIRER/FIREMAN): - Remains on cefadroxil and unfortunately seems to be having worsening pain and swelling. Aspiration +MSSA so she will now undergo 2-stage exchange with Dr. Duff - Recommend continuing cefadroxil until time of surgery - Please obtain deep cultures during surgery - Consult ID during admission to [facility] so we can review cultures [...] this risk. Will forward note to her world language teacher. - Will call PCP office to [...] any issues Will start on doxycyline terminal worker suppression due to retained hardware and will [...] weeks after starting antibiotics. Fax results to [phone]. - PICC placed 04/17; will d/c with home infusion. Referral sent 04/18 - PT/OT rec IPR initially; now rec home with . PT/OT orders sent. Malignant neoplasm of right female breast 2022 Cancer Staging:Pathologic stage from 08/02/2023:Stage IA(pT1c, pN0(sn), cM0, G2, ER+, AR+, HER2-) - Signed by Virgil Akhtar MD on 08/02/2023 Assessment & Plan (04/14/2023 1:50 AM CDT): Planned surgery and radiation -Treatment has been deferred given infection -F/u with her breast surgeon outpatient Carpal tunnel syndrome of right wrist 10/07/2019 Overview (10/07/2019): Added automatically from request for surgery [id number] Osteoarthritis of hand 01/25/2012 Cervicalgia 05/31/2011 Arthralgia of shoulder 05/31/2011 Encounters Date Type Department Care Team Description 03/04/2025 11:16 AM CDT - 03/04/2025 11:59 PM CDT Hospital Encounter [facility] - Breast Imaging [address] [facility] [address] 8 [place] [address] Malignant neoplasm of right female breast, unspecified estrogen receptor status, unspecified site of breast (HCC); History of partial mastectomy of right breast; Invasive ductal carcinoma of right breast (HCC); Abscess of the breast and nipple Discharge Disposition: Discharge to home or self care 03/04/2025 11:15 AM CDT Office Visit [facility] Surgery [address] [facility] [address] [place] [address] Janelle Vang NP Ductal carcinoma in situ (DCIS) of right breast (Primary Dx); History of breast cancer; Encounter for screening mammogram for malignant neoplasm of breast; History of partial mastectomy of right breast 02/05/2025 1:00 PM CDT Office Visit [facility] Orthopaedic Surgery [address] [facility] Building [address] [place] [phone] Rajat Duff MD Aftercare following right knee joint replacement surgery (Primary Dx); Right knee pain, unspecified chronicity; Bilateral hip pain; Left knee pain, unspecified chronicity; Lumbar spine pain 02/05/2025 12:15 PM CDT - 02/05/2025 11:59 PM CDT Hospital Encounter [facility] [address] [place] [address] [address] [place] [phone] Bilateral hip pain; Left knee pain, unspecified chronicity; Aftercare following right knee joint replacement surgery; Right knee pain, unspecified chronicity Discharge Disposition: Discharge to home or self care from Last 3 Months Immunizations Immunization Administration Dates Next Due Influenza, Quadrivalent, Hig h Dose, Preservative Free, Intrr 07/22/2021 Influenza, Quadrivalent, Spl it, Preservative Free, Intramuscular 10/19/2020,09/18/2018 Pneumococcal Conjugate PCV 13 10/19/2020, 018 Pneumococcal Polysaccharide PPV23 08/30/2018,01/2014 Tdap 09/18/2018,08/30/2018 ZOSTER LIVE 01/28/2019 ZOSTER Recombinant 03/13/2019 Surgical History Surgery Date Site/Laterality Comments SHOULDER SURGERY 10/30/2006 - 10/29/2007 Right Shoulder Surgery - (Added by TW Conv) AR CHOLECYSTECTOMY 10/30/2008 - 10/29/2009 Cholecystectomy - (Added by TW Conv) AR ARTHROPLASTY KNEE TIBIAL PLATEAU 10/30/2008 - 10/29/2009 [...] = 0.6 oz pur e alcohol) rare [facility] Utilities Answer Date Recorded In [...] often do you attend chur ch or orthodoxy services? Never 11/30/2023 Do you belong to any clubs o r organizations such as judaism groups, unions, fraternal or athletic groups, or [...] place to sleep or slept in a detention (including now)? No 11/30/2023 Personal Safety Answer Date Recorded Have you ever been in or are you currently in a harmful physical or emotional relationship or is someone making you feel afraid or unsafe? Denies 03/15/2024 Comments No Sex and Gender Information Value Date Recorded Sex Assigned at Not on file Legal Sex Female 9:32 AM SHOP FIRER/FIREMAN Gender Identity Not on file Sexual Orientation Not on file Obstetrics History Last Filed Vital Signs Vital Sign Reading Time Taken Comments Blood Pressure 141/72 09/05/2024 1:14 PM SHOP FIRER/FIREMAN Pulse 102 09/05/2024 1:14 PM SHOP FIRER/FIREMAN Temperature 36.4 C (97.6 F) 03/16/2024 8:19 AM CDT Respiratory Rate 18 03/16/2024 8:19 AM CDT Oxygen Saturation 98% 09/05/2024 1:14 PM SHOP FIRER/FIREMAN Inhaled Oxygen Concentration - - Weight 98.4 kg (217 lb) 03/04/2025 11:02 AM CDT Height 167.5 cm (5' 5.95) 03/04/2025 11:02 AM C DT Body Mass Index 35.08 03/04/2025 11:02 AM CDT Plan of Treatment Health Maintenance [...] - 2023-2 5 season) 2024 08/19/2021, 07/22/2021 Hemoglobin A1C 09/08/2024 03/08/2024, 03/30, 04/13/2023 Fall Risk Assessment 03/16/2025 03/16/2024 eGFR 03/16/2025 03/16/2024, 02/27, 01/25/2024, Additional history exists Influenza Vaccine (Season Ended) 2025 07/22/2021, 10/19/2020, 09/18/2018 Breast Cancer Screening-Mammogram 03/04/2026 025, 02/29/2024 DTaP/Tdap/Td Vaccine (3 - Td or Tdap) 09/18/2028 09/18/2018, 08/30/2018 Pneumococcal vaccine 65+ Completed 020, 09/18/2018, 08/30/2018, Additional history exists Medical Devices Implanted Type Area Electrical Tryout Person Device Identifier Shelf Expiration Date Model / Serial / Lot [employer] Palacos R High Viscosity Cement 40gm Bone Green [id number] - Sn/A - [id number] Implanted:Qty: 1 on 11/29/2023 by Rajat Duff MD at [facility] Bone Cement Right: Knee [employer] 11/29/2027 [id number] / N/A / [id number] [employer] [id number] Seprafilm 6x5in Barrier Adhesion Sterile Disposable Latex Free - [id number] Implanted:Qty: 1 on 10/16/2019 by Zuly Brenner MD at [facility] Other - see comments [employer] [id number] 04/28/2022 [id number] / / [id number] Description:Seprafilm Osteoremedies [facility] Remedy Stem Knee Medium Component Femoral Rskfmd - Sn/A - [id number] Implanted:Qty: 1 on 11/29/2023 by Rajat Duff MD at [facility] Other - see comments Right: Knee [employer] [id number] / N/A / Depuy Orthopaed[employer] Inc Attune Revision Full Coated Knee 37mm Sleeve Tibial Porocoat Latex Free [id number] - [id number] Implanted:Qty: 1 on 03/15/2024 by Rajat Duff MD at [facility] Other - see comments Right: Knee [employer] Inc [id number] 12/27/2033 [id number] / / [id number] Description:Implant pause pe rformed Wire Implanted:Qty: 3 on 03/15/2024 at [facility] Other - see comments Right: Knee 18 GAUGE WIRE / / Total Joint Bilate ral: Knee Total Joint Right: Hip [employer] Advance Ii 12mm Medial Pivot Knee Right 3 Insert Tibial [id number] - [id number] Implanted:Qty: 1 on 04/14/2023 by Joaquin Ralph MD at [facility] Right: Knee [employer] 11/05/2029 [id number] / / Bard [employer] Ghiatas 20ga 15cm 5cm Beaded Needle Breast Wire Localization 16284 - [id number] Implanted:Qty: 1 on 06/20/2023 at [facility] [employer] [id number] / / [employer] Palacos R High Viscosity Cement 40gm Bone Green [id number] - [id number] Implanted:Qty: 1 on 11/29/2023 by Rajat Duff MD at [facility] [employer] 11/29/2027 [id number] / / [id number] Biocom[employer] Stimulan Rapid Cure Kit Paste Ship Captain 20cc 50cc Bone Void 620-020 - [id number] Implanted:Qty: 1 on 11/29/2023 by Rajat Duff MD at [facility] [employer] 02/26/2026 620-020 / / [id number] [employer] Remedy 175mm Stem Extension Knee Component Femoral Fuk869 - [id number] Implanted:Qty: 1 on 11/29/2023 by Rajat Duff MD at [facility] Right: Knee [employer] [id number] / / [employer] Remedy 100mm Stem Extension Knee Component Femoral Rta071 - [id number] Implanted:Qty: 1 on 11/29/2023 by Rajat Duff MD at [facility] Right: Knee [employer] [id number] / / [employer] Remedy Stem Knee Medium Component Tibial Rsktmd - Sn/A - [id number] Implanted:Qty: 1 on 11/29/2023 by Rajat Duff MD at [facility] Right: Knee [employer] [id number] / N/A / [employer] Palacos R High Viscosity Cement 40gm Bone Green [id number] - [id number] Implanted:Qty: 1 on 11/29/2023 by Rajat Duff MD at [facility] [employer] 11/29/2027 [id number] / / [id number] Dep[employer] Orth[employer] Attune 4mm Revision Cement Knee Posterior 6 Augment Femoral Latex Free [id number] - [id number] Implanted:Qty: 1 on 03/15/2024 at [facility] Right: Knee [employer] 12/27/2033 [id number] / / [id number] [employer] Attune H4 Mm Revision Cement Knee Distal 6 Augment Femoral Sterile Latex Free [id number] - [id number] Implanted:Qty: 1 on 03/15/2024 at [facility] Right: Knee [employer] 12/27/2033 [id number] / / [id number] [employer] Attune H4 Mm Revision Cement Knee Distal 6 Augment Femoral Sterile Latex Free [id number] - [id number] Implanted:Qty: 1 on 03/15/2024 at [facility] Right: Knee [employer] 12/27/2033 [id number] / / [id number] [employer] Attune 18mm 60mm Revision Press Fit Knee Stem Femoral Sterile Latex Free [id number] - [id number] Implanted:Qty: 1 on 03/15/2024 at [facility] Right: Knee [employer] 12/27/2033 [id number] / / [id number] [employer] Attune H6 Mm Revision Constrain Rotate Platform Knee 6 Insert Tibial Aox Sterile [id number] - [id number] Implanted:Qty: 1 on 03/15/2024 at [facility] Right: Knee [employer] 06/29/2028 [id number] / / [id number] [employer] Attune Cement Revision Rotate Platform Knee 5 Baseplate Tibial [id number] - [id number] Implanted:Qty: 1 on 03/15/2024 at [facility] Right: Knee [employer] 01/27/2034 [id number] / / [id number] [employer] Attune Revision Full Coated Knee 40 Mm Sleeve Femoral Porocoat Sterile Latex Free [id number] - [id number] Implanted:Qty: 1 on 03/15/2024 at [facility] Right: Knee [employer] 01/27/2030 [id number] / / [id number] [employer] Attune 16mm 60mm Revision Press Fit Knee Stem Femoral Sterile Latex Free [id number] - [id number] Implanted:Qty: 1 on 03/15/2024 at [facility] Right: Knee [employer] 10/29/2033 [id number] / / [id number] Bi[employer] Stimulan Rapid Cure Kit Paste Ship Captain 10cc 20cc Bone Void 620-010 - [id number] Implanted:Qty: 1 on 03/15/2024 at [facility] Right: Knee [employer] 08/29/2026 620-010 / / [id number] Dep[employer] Smartset Medium Viscosity Cement 40gm Bone Gentamicin 702178345 - [id number] Implanted:Qty: 1 on 03/15/2024 at [facility] Right: Knee [employer] 07/29/2025 [id number] / / [id number] [employer] Revision Cement Constrain Knee Right 6 Component Femoral Attune Sterile 150351922 - [id number] Implanted:Qty: 1 on 03/15/2024 at [facility] Right: Knee [employer] 01/27/2034 [id number] / / [id number] [employer] Smartset Medium Viscosity Cement 40gm Bone Gentamicin 655959180 - [id number] Implanted:Qty: 1 on 03/15/2024 at [facility] Right: Knee [employer] 07/29/2025 [id number] / / [id number] Dep[employer] Attune 4mm Revision Cement Knee Posterior 6 Augment Femoral Latex Free [id number] - [id number] Implanted:Qty: 1 on 03/15/2024 at [facility] Right: Knee [employer] 12/27/2033 [id number] / / [id number] Dep[employer] Smartset Medium Viscosity Cement 40gm Bone Sterile 3122-040 - [id number] Implanted:Qty: 1 on 03/15/2024 at [facility] Right: Knee [employer] 05/29/2025 3122-040 / / [id number] Procedures Procedure Name Priority Date/Time Associated Diagnosis [...] Electronically signed by: Amanda Azul M.D. John Mani Benítez NP IMG MAMMO PROCEDURES Final Result [...] arthroplasty in near-anatomic alignment. Electronically signed by: MD Mert Oakley 02/05/2025 12:44 PM CDT EXAMINATION: XR HIPS [...] by: Kellie Costello MD Rajat Duff MD IM XR PROCEDURES Final R esult * XR [...] MD LAB BLOOD ORDERABLES Karrie mancera Result [facility] [address] [facility]. [place] [address] * Hemoglobin A1c (03/08/2024 9:19 AM CDT) Hgb A1C 5.4 4.0 - 5.6 % Estimated Average Glucose 108 mg/dL [facility] Comment: The ADA recommends reporting an estimated Average Glucose (eAG) with all Hemoglobin A1c results using the equation derived from a study of 507 normal and diabetic adults. Minority populations were underrepresented and children were not included. (Diabetes Care 31:3648-6165, 2008). The eAG is not equivalent to a fasting glucose. Blood 03/08/2024 9:19 AM CDT 03/08/2024 9:59 AM CDT us Arleen Curiel NP LAB BLOOD ORDERABLES Final R esult [facility] [address] [facility]. [place] [address] * (ABNORMAL) Lipid panel (04/14/2023 8:37 PM CDT) Cholesterol 101 30 - 199 mg/dL [facility] Comment: Interpretive Data Ages < or = [...] on 2018. Triglycerides 73 <=149 mg/dL [facility] Comment: Interpretive Data Ages < or = [...] on 2018. HDL 35(L) >=40 mg/dL [facility] Comment: Interpretive Data Ages < or = [...] on 2018. LDL, calculated 51 <=129 mg/dL [facility] Comment: Interpretive Data Ages < [...] revised on 2018. Non-HDL Cholesterol 66 mg/dL [facility] Comment: Interpretive Data Ages < [...] last revised on 2018. Chol/HDL ratio 3 [facility] Blood 04/14/2023 8:37 PM CDT 04/14/2023 10:26 PM CDT Narrative [facility] - 04/15/2023 3:37 AM CDT Reflex us Joanna Martins MD LAB BLOOD ORDERABLES Final Result [facility] [address] [facility] [place] [address] from Last 3 Months or Most Recently Relevant to Health Maintenance Insurance MEDICARE FOR LIFE MEDICARE FOR LIFE MEDICARE FOR LIFE MEDICARE FOR LIFE Advance Directives For more information, please contact: [phone] Documents on File Type Date Recorded Patient Rehab Aid Expl anation ADVANCE DIRECTIVE 10/20/2019 2:22 PM [facility] [employer] [facility] HISTORY PROFESSOR-MEDICAL ADVANCE DIRECTIVE 10/16/2019 7:39 AM [facility] [employer] [facility] HISTORY PROFESSOR-MEDICAL * Full Code (Latest Code Status on File) Date Activated Date Inactivated Comments 03/15/2024 6:34 PM 03/16/2024 3:44 PM * Full Code Date Activated Date Inactivated Comments 11/29/2023 9:31 AM 12/01/2023 7:24 PM * Full Code Date Activated Date Inactivated Comments 04/14/2023 3:10 AM 04/19/2023 6:51 PM Care Teams Oracle Soa Architect Relationship Specialty Start Date End Date Kirby Marroquin MD [address] [place] [address] PCP - General Family Practice 04/15/23 Rajat Reyes MD [address] [place] [address] Referring Physician Plastic Surgery 09/03/19 Aft, Holly Vitale MD PhD [address] [place] [address] Surgeon Surgical Oncology 07/20/23 Virgil Akhtar MD [address] [facility] [address] [place] [address] Radiation Oncologist Radiation Oncology 12/25/23
--- OUTSIDE RECORDS SUMMARY | 2025-04-28 15:40 | XMS_ITS | Encounter Summary ---
Author Organization [facility] Address [address] [facility] [place] [address] Care Team Providers Care Education And Outreach Coordinator Name Role Phone Kostas Ralph MD Primary Care Provider [phone] Kirby Marroquin MD Primary Care Provider Encounter Details Date Type Department Care Team (Late st Contact Info) Description 12/01/[address] [facility] [address] [facility] [place] [phone] Conner Hernandez MD [address] [place] [address] Social History Tobacco Use Types Packs/Day Years Used Date Smoking Tobacco: Never Alcohol Use Standard Drinks/Week Comments Yes 0.8 (1 standard drink = 0.6 oz p ure alcohol) Comments Unknown Sex and Gender Information Value Date Recorded Sex Assigned at Not on file Legal Sex Female 6:27 PM PENSION ADMINISTRATOR Gender Identity Not on file Sexual Orientation Not on file documented as of this encounter Plan of Treatment Not on file documented as of this encounter Procedures Procedure Name Priority Date/Time Associated Diagnosis Comments DERMATOPATHOLOGY Routine 11/30/2022 12:0 0 AM PENSION ADMINISTRATOR documented in this encounter Results * DERMATOPATHOLOGY (11/30/2022 12:00 AM PENSION ADMINISTRATOR) Case Report Dermatopathology Report Case: [id number] Authorizing Provider: Conner Hernandez MD Collected: 11/30/2022 12:00 AM Ordering Location: [facility] Received: 12/01/2022 04:41 PM Pathologist: Connie Hinojosa MD Specimen: Skin, left mid back 3 1:22 PM [facility] DERMAT[facility]ATH[facility]Y [facility]ORAT[facility] Final Diagnosis Specimen A. SKIN, left mid back: BASAL CELL CARCINOMA, SUPERFICIAL MULTIFOCAL (C44.519) 3 1:22 PM [facility] DERMATOPATHOLOGY LABORATORY at [address] PENSION ADMINISTRATOR Clinical History AK vs SK vs BCC Path#[id number] 3 1:22 PM [facility] DERMATOPATHOLOGY [facility] Gross Description Specimen A: Received is one formalin filled container labeled with the patient's name and designated left mid back. The specimen consists of a shave biopsy measuring 8x5x1 mm. Jar 0. 1:22 PM [facility] DERMATOPATHOLOGY [facility]ORATORY Microscopic Description Specimen A. SKIN, left mid back: Attached to the undersurface of the epidermis, there are small aggregates of basaloid cells with a high nuclear to cytoplasmic ratio and peripheral palisading. 3 1:22 PM [facility] DERMATOPATHOLOGY [facility]ORATORY Disclaimer An external and internal positive and negative controls are appropriate for the histochemical, immunohistochemical and immunofluorescence stain(s) in this case (if any), except where stated explicitly. The performance characteristics of the stain(s) cited in this report were developed and its performance characteristic determined by the Dermatopathology Laboratory at [facility], directed by Dr. Farhan Alaniz. These tests need not be, and therefore are not, approved by the [place] Food and Drug Administration. The tests are used for clinical purposes. Billing Codes Specimen Charges Stain Charges 87286 1 3 1:22 PM [facility] DERMATOPATHOLOGY LABORATORY Embedded Images 3 1:22 PM [facility] DERMATOPATHOLOGY [facility]OR[facility]ORY Pathology/Cytolog y TISSUE SPECIMEN FROM SKIN / Unknown 11/30/2022 12/01/2022 4:41 PM PENSION ADMINISTRATOR us Conner Hernandez MD LAB - PATHOLOGY/CYTOLOGY ORDER GAMAL Final Result DERMATOPATHOLOGY LABORATORY [facility] - Department of Dermatology [address] Floor [place], [place] [id number] [place] [address] documented in this encounter Visit Diagnoses Not on filedocumented in this encounter Care Teams Education And Outreach Coordinator Relationship Specialty Start Date End Date Kostas Ralph MD [address] [place] [id number] PCP - General 01/20/11 02/19/23 Kirby Marroquin MD [address] [place] [address] PCP - General 02/20/23 documented as of this encounter
--- OUTSIDE RECORDS SUMMARY | 2025-04-28 15:40 | XMS_ITS | Encounter Summary ---
Author Organization [facility] Address [address] [place] [address] Care Team Providers Care Tripoler Name Role Phone Unavailable Primary Care Provider Unavailabl e Reason for Visit * Diagnostic Imaging (Routine) - Closed Specialty Diagnoses / Procedures Referred By Contac t Referred To Contact Procedures Breast Imaging Diagnostic Outside Reference Aft, Holly Vitale MD PhD [address] [place] [address] Phone: tel: fax: Referral ID Status Reason Start Date Expiration Date Visits Re quested Visits Authorized [id number] Closed 02/08/2023 03/09/2024 1 1 Encounter Details Date Type Department Care Team (Late st Contact Info) Description 07/18/2019 Hospital Encounter [facility] [address] [place] [id number] Social History Tobacco Use Types Packs/Day Years Used Date Smoking Tobacco: Never Passive Smoke Exposure: Current Smokeless Tobacco: Never Alcohol Use Standard Drinks/Week Comments Yes 0 (1 standard drink = 0.6 oz pur e alcohol) rare [facility] Utilities Answer Date Recorded In the past 12 months has [employer] electric, gas, oil, or water company threatened [...] often do you attend chur ch or restorationist services? Never 11/30/2023 Do you belong to any clubs o r organizations such as buddhist groups, unions, fraternal or athletic groups, or [...] place to sleep or slept in a custodial (including now)? No 11/30/2023 Personal Safety Answer Date Recorded Have you ever been in or are you currently in a harmful physical or emotional relationship or is someone making you feel afraid or unsafe? Denies 03/15/2024 Comments No Sex and Gender Information Value Date Recorded Sex Assigned at Not on file Legal Sex Female 9:32 AM GLOVE FORMER Gender Identity Not on file Sexual Orientation [...] only and have not been reviewed by [facility]. There will be no report generated by a [facility]iologist. Narrative RAD_MAMMO_[facility] - 02/08/2023 3:50 PM CDT EXAMINATION: Images For Reference Purposes Only us Holly Loving MD PhD IMG MAMMO PROCEDURES Final Result [facility]MO[facility] documented in this encounter Visit Diagnoses Not on filedocumented in this encounter Additional Health Concerns Infection Onset Date Last Indicated Resolved Time MRSA 11/29/2023 11/29/2023 05/27/2024 3:05 AM CDT documented as of this encounter
== END 2025-04-28 15:36 | disposition home or self-care (01) ==
PROVIDERS: PCP Family Medicine; Visit Provider Family Medicine
DX: R07.81 Pleurodynia (principal); W18.00XA Striking against unspecified object with subsequent fall, initial encounter
CPT/HCPCS: 71101